=== PATIENT | male | born 1955 | race African-American/Black ===

== ENCOUNTER 2019-08-28 17:21 | Inpatient (IN) | payer MEDICARE, OTHER ==
[~2019-08-28] VITALS: Ht 182.9 cm; Wt 75.7 kg
[~2019-08-28 17:21] MED LIST: ACETAMINOPHEN500 M5 PO; AMBIEN10 MG ORAL; AMLODIPINE BESY10 MG ORAL; ASPIRIN81 MG ORAL; CALCITRIOL1 MCG/1 ML ORAL; CARVEDILOL25 MG ORAL; COZAAR50 MG ORAL; HYDRALAZINE HCL50 MG ORAL; LANTUS SOL100 UNIT/1 SUBQ; LEVEMIR FL100 UNIT/1 SUBQ; MIRALAX17 G2 ORAL; NEPHROVITE1 TAB ORAL; NOVOLOG100 UNITS1 SUBQ; PRAVACHOL20 MG ORAL; RENVELA800 MG ORAL
--- NOTE | 2019-08-28 17:27 | NUR ---
ED Nurse Note: Pt from [facility] brought in by RA [facility] due to CP x 2 days. Also has low Blood pressure of 88/56 upon ED arrival. EMS gave 250ml NS en route. AAO x4, non ambulatory with nonlabored breathing. Pt is on supplemental oxygen at 2LPM. Noted AV fistula on left upper arm. On dialysis M/W/F.
[2019-08-28 18:00] VITALS: BP 88/57
--- NOTE | 2019-08-28 18:04 | NUR ---
ED Nurse Note: Collected blood/urine, VRE/CRE swab, Covid19 swab then sent.
[2019-08-28 18:21] LABS: ANION GAP 10 mmol/L (5-15); BLOOD UREA NITROGEN 37 mg/dL (7-18); CARBON DIOXIDE 28 MMOL/L (21-32); CHLORIDE 104 MMOL/L (98-107); CREATININE 9.2 MG/DL (0.55-1.30); POTASSIUM 3.9 MMOL/L (3.5-5.1); SODIUM 141 MMOL/L (136-145)
--- NOTE | 2019-08-28 18:34 | Diagnostic Imaging Report ---
EXAM: XR Chest, 1 View CLINICAL HISTORY: SOB TECHNIQUE: Frontal view of the chest. COMPARISON: Chest radiograph on 04/02/2015 FINDINGS: Hardware: None. Lungs/pleura: Near complete opacification of the left lung with some sparing of the left upper lung. Right basilar opacity. Heart/mediastinum: Partially obscured by the left lung opacification. Soft tissues: Surgical clips partially visualized in the left. Bones: No acute fracture. Upper abdomen: Normal. IMPRESSION: Near complete opacification of the left lung with some sparing of the left upper lung. Right basilar opacity. Further evaluation could be performed with CT chest.
[2019-08-28 18:35] LABS: BASOPHILS % (AUTO) 0.5 % (0.0-2.0); HEMATOCRIT 35.9 % (42.0-52.0); MEAN CORPUSCULAR VOLUME 107 FL (80-99); MONOCYTES % (AUTO) 8.9 % (1.0-10.0); NEUTROPHILS % (AUTO) 79.6 % (45.0-75.0); PLATELET COUNT 181 K/UL (150-450); RED BLOOD COUNT 3.35 M/UL (4.70-6.10); RED CELL DISTRIBUTION WIDTH 13.4 % (11.6-14.8); WHITE BLOOD COUNT 16.3 K/UL (4.8-10.8)
[2019-08-28 18:36] LABS: ALANINE AMINOTRANSFERASE 51 U/L (12-78); ALBUMIN 1.9 G/DL (3.4-5.0); ALBUMIN/GLOBULIN RATIO 0.3 (1.0-2.7); ALKALINE PHOSPHATASE 56 U/L (46-116); ASPARTATE AMINO TRANSFERASE 57 U/L (15-37); CKMB 1.6 NG/ML (0.0-3.6); CREATINE KINASE 77 U/L (26-308)
--- NOTE | 2019-08-28 18:50 | Emergency Room Report ---
History of Present Illness General Chief Complaint: Chest Pain Source: Patient Present Illness HPI Disclaimer: Please note that this report is being documented using IndexON technology. This can lead to erroneous entry secondary to incorrect interpretation by the dictating instrument. HPI: 64-year-old male presents with chest pain. He has had chest pain for the past 2 days left-sided associated with cough and mild shortness of breath. Patient presented by EMS from his assisted living. He denies any fever. He was mildly hypoxic on room air. He denies any nausea or vomiting. Patient has a history of hypertension diabetes end-stage renal disease on hemodialysis Monday and did complete dialysis today. Pain is 8 out of 10 nonradiating nothing makes it better or worse. Allergies: Coded Allergies: No Known Allergies (Unverified , 04/03/15) COVID-19 Screening Contact w/high risk pt: No Recent Travel to affected area: No Experienced COVID-19 symptoms?: No COVID-19 Testing performed AUTOMATIC PRESSER: No Patient History Reviewed Nursing Documentation: PMH: Agreed; PSxH: Agreed Nursing Documentation-PMH Hx Hypertension: Yes Hx Diabetes: Yes Hx Cancer: No Hx Gastrointestinal Problems: No Hx Dialysis: Yes - LAST DIALYSIS -Mar(M-W-F) Hx Neurological Problems: Yes Hx Cerebrovascular Accident: Yes Hx Transient Ischemic Attacks: No Review of Systems All Other Systems: negative except mentioned in HPI Physical Exam Vital Signs Date Time Temp Pulse Resp B/P (MAP) Pulse Ox O2 Delivery O2 Flow Rate FiO2 08/27/ 17:17 97.9 69 18 90/48 (62) 96 Nasal Cannula 2.0 Sp02 EP Interpretation: reviewed, normal - on O2 General Appearance: well appearing, no apparent distress Head: normocephalic, atraumatic Eyes: bilateral eye PERRL, bilateral eye EOMI ENT: hearing grossly normal, moist mucus membranes Neck: full range of motion, supple Respiratory: no rhonchi, no respiratory distress, no retraction, no wheezing, other - decereased lung sounds throughout left lung Cardiovascular #1: normal peripheral pulses, regular rate, rhythm, no murmur Gastrointestinal: non tender, soft, non-distended, no guarding Musculoskeletal: other - Dialysis access right upper extremity with a thrill Neurologic: alert, oriented x3, no focal defects Skin: normal color, warm/dry Medical Decision Making Diagnostic Impression: Primary Impression: Pneumonia Additional Impressions: Possible COVID-19 Pleural effusion, left ER Course MDM: Patient presented with shortness of breath left-sided chest pain and cough. Differential included but not limited to pneumonia, effusion, CHF, coronavirus infection, ACS to name a few. EKG did not demonstrate any ischemic changes. Troponin was negative. Chest x-ray demonstrated whiteout of left lung. CT scan ordered to further evaluate. Coronavirus swab was sent. Patient 's laboratory studies did demonstrate leukocytosis of 16,000, broad-spectrum antibiotics were given. Aspirin had been given prior to arrival. CT scan of the chest demonstrated loculated effusion and possible consolidations. Plan-plan is to admit to the telemetry floor. Continue IV antibiotics. Patient admitted under Dr. Morgan, his primary care doctor Laboratory Tests Test 08/28/19 17:40 White Blood Count 16.3 K/UL (4.8-10.8) H Red Blood Count 3.35 M/UL (4.70-6.10) L Hemoglobin 11.0 G/DL (14.2-18.0) L Hematocrit 35.9 % (42.0-52.0) L Mean Corpuscular Volume 107 FL (80-99) H Mean Corpuscular Hemoglobin 32.9 PG (27.0-31.0) H Mean Corpuscular Hemoglobin Concent 30.7 G/DL (32.0-36.0) L Red Cell Distribution Width 13.4 % (11.6-14.8) Platelet Count 181 K/UL (150-450) Mean Platelet Volume 8.2 FL (6.5-10.1) Neutrophils (%) (Auto) 79.6 % (45.0-75.0) H Lymphocytes (%) (Auto) 11.0 % (20.0-45.0) L Monocytes (%) (Auto) 8.9 % (1.0-10.0) Eosinophils (%) (Auto) 0.0 % (0.0-3.0) Basophils (%) (Auto) 0.5 % (0.0-2.0) Prothrombin Time 11.0 SEC (9.30-11.50) Prothrombin Time INR 1.0 (0.9-1.1) Activated Partial Thromboplast Time 33 SEC (23-33) Sodium Level 141 MMOL/L (136-145) Potassium Level 3.9 MMOL/L (3.5-5.1) Chloride Level 104 MMOL/L (98-107) Carbon Dioxide Level 28 MMOL/L (21-32) Anion Gap 10 mmol/L (5-15) Blood Urea Nitrogen 37 mg/dL (7-18) H Creatinine 9.2 MG/DL (0.55-1.30) H Estimated Glomerular Filtration Rate 7.0 mL/min (>60) Glucose Level 184 MG/DL (74-106) H Lactic Acid Level 1.40 mmol/L (0.4-2.0) Calcium Level 8.0 MG/DL (8.5-10.1) L Magnesium Level 2.2 MG/DL (1.8-2.4) Total Bilirubin 1.0 MG/DL (0.2-1.0) Aspartate Amino Transferase (AST) 57 U/L (15-37) H Alanine Aminotransferase (ALT) 51 U/L (12-78) Alkaline Phosphatase 56 U/L (46-116) Total Creatine Kinase 77 U/L (26-308) Creatine Kinase MB 1.6 NG/ML (0.0-3.6) Creatine Kinase MB Relative Index 2.0 Troponin I 0.009 ng/mL (0.000-0.056) Pro-B-Type Natriuretic Peptide 5492 pg/mL (0-125) H Total Protein 7.8 G/DL (6.4-8.2) Albumin 1.9 G/DL (3.4-5.0) L Globulin 5.9 g/dL Albumin/Globulin Ratio 0.3 (1.0-2.7) L EKG Diagnostic Results Rate: normal Rhythm: NSR ST Segments: no acute changes Other Impression First-degree AV block nonspecific EKG Rhythm Strip Diag. Results EP Interpretation: yes Rate: 59 Rhythm: NSR, no PVC's, no ectopy Chest X-Ray Diagnostic Results Chest X-Ray Diagnostic Results : Chest X-Ray Ordered: Yes # of Views/Limited/Complete: 1 View Indication: Chest Pain EP Interpretation: Yes Interpretation: other - Complete whiteout of left lung, right lower lobe infiltrate, cardiomegaly, Impression: Other - Right basilar infiltrate, complete whiteout of left lung. Electronically Signed by: Jefferson Sidhu MD CT/MRI/US Diagnostic Results CT/MRI/US Diagnostic Results : Imaging Test Ordered: CT chest without contrast Impression FINDINGS: Lungs: Consolidated portions of the left lung may represent atelectasis, but pneumonia is not excluded. Patchy consolidations in the right lower lobe are concerning for pneumonia. Pleural space: Large left pleural effusion with loculated components. No pneumothorax. Heart: Borderline size of the heart. Small pericardial effusion. Coronary artery calcifications. Thyroid: Hypodense nodules in the left thyroid could be further evaluated with nonemergent dedicated ultrasound if clinically indicated. Bones/joints: Mild degenerative changes of the spine. No acute fracture. No dislocation. Soft tissues: Unremarkable. Vasculature: Unremarkable. No thoracic aortic aneurysm. Lymph nodes: Nonspecific mildly prominent mediastinal lymph nodes. Kidneys and ureters: Small hypodensity in the right kidney is too small to definitively characterize. IMPRESSION: 1. Large left pleural effusion with loculated components. 2. Consolidated portions of the left lung may represent atelectasis, but pneumonia is not excluded. 3. Patchy consolidations in the right lower lobe are concerning for pneumonia. Last Vital Signs Date Time Temp Pulse Resp B/P (MAP) Pulse Ox O2 Delivery O2 Flow Rate FiO2 08/28/19 18:00 97.9 80 16 88/57 96 Nasal Cannula 2.0 Status: unchanged Disposition: ADMITTED INPATIENT Condition: Serious Referrals: Alan Morgan MD (PCP) Jefferson Sidhu M.D. August 28, 2019 18:50
[2019-08-28] MEDS ORDERED: Piperacillin/Tazobactam 3.375 GM in NS 110 ML IVPB ONE (19:00)
[2019-08-28] MEDS ORDERED: Vancomycin 1 GM in NS 275 ML IVPB ONE (19:00)
--- NOTE | 2019-08-28 19:03 | NUR ---
HAND-OFF: Report given to Sandra KEYS.
--- NOTE | 2019-08-28 19:05 | NUR ---
ED Nurse Note: Patient is resting comfortably with no s/s of acute distress. Patietn provided with more warm blankets.
--- NOTE | 2019-08-28 19:06 | Diagnostic Imaging Report ---
EXAM: CT Chest Without Intravenous Contrast CLINICAL HISTORY: CP TECHNIQUE: Axial computed tomography images of the chest without intravenous contrast. CTDI is 7.4 mGy and DLP is 300.3 mGy-cm. One or more of the following dose reduction techniques were used: automated exposure control, adjustment of the mA and/or kV according to patient size, use of iterative reconstruction technique. COMPARISON: Chest radiograph on 08/28/2019 FINDINGS: Lungs: Consolidated portions of the left lung may represent atelectasis, but pneumonia is not excluded. Patchy consolidations in the right lower lobe are concerning for pneumonia. Pleural space: Large left pleural effusion with loculated components. No pneumothorax. Heart: Borderline size of the heart. Small pericardial effusion. Coronary artery calcifications. Thyroid: Hypodense nodules in the left thyroid could be further evaluated with nonemergent dedicated ultrasound if clinically indicated. Bones/joints: Mild degenerative changes of the spine. No acute fracture. No dislocation. Soft tissues: Unremarkable. Vasculature: Unremarkable. No thoracic aortic aneurysm. Lymph nodes: Nonspecific mildly prominent mediastinal lymph nodes. Kidneys and ureters: Small hypodensity in the right kidney is too small to definitively characterize. IMPRESSION: 1. Large left pleural effusion with loculated components. 2. Consolidated portions of the left lung may represent atelectasis, but pneumonia is not excluded. 3. Patchy consolidations in the right lower lobe are concerning for pneumonia.
--- NOTE | 2019-08-28 19:15 | NUR ---
ED Nurse Note: IV antibiotics hung. Will continue to monitor for report to floor.
[2019-08-28 19:34] LABS: APPEARANCE,URINE VERY CLOUDY; BILIRUBIN, URINE NEGATIVE (NEGATIVE); GLUCOSE, URINE (UA) NEGATIVE (NEGATIVE); KETONES,URINE 1+ (NEGATIVE); LEUKOCYTE ESTERASE ,URINE 3+ (NEGATIVE); NITRITE,URINE NEGATIVE (NEGATIVE); PH,URINE 8 (4.5-8.0); PROTEIN,URINE 4+ (NEGATIVE); UROBILINOGEN,URINE NORMAL MG/DL (0.0-1.0)
[2019-08-28 19:36] LABS: COLOR,URINE YELLOW
[2019-08-28] MEDS ORDERED: Miralax 17gm pkt ORAL PRN (20:00)
[2019-08-28] MEDS ORDERED: Nitroglycerin Subl 0.4mg tab SL PRN (20:00)
--- NOTE | 2019-08-28 20:30 | NUR ---
ED Nurse Note: Attempted to give report, No receiving RN at this time, spoke with Mikie CHRISTOPHER.
--- NOTE | 2019-08-28 20:45 | NUR ---
ED Nurse Note: Report called in by CANDI.
[2019-08-28] MEDS: NovoLOG Insulin Flexpen SUBQ SCH (21:00)
[2019-08-28] MEDS: Heparin 5000 units/ml inj SUBQ SCH (21:00)
[2019-08-28 22:30] VITALS: BP 106/55
--- NOTE | 2019-08-28 22:30 | NUR ---
NURSE NOTES: Got report from Charge Nurse Tammie. Pt is in room. Pt in stable condition. Denies any pain. Denies any n/v or SOB. Pt is admitted for chest pain. VS T:97 HR:60 R:20 BP:106/55 O2:95% on 2L Nasal Cannula. Pt resting in bed comfortably. Pt has CALI 20g patent and intact. Pt is very weak and nonambulatory. No skin issues noted. saw repairer placed on pt running Sinus Rhythm on the monitor. Bed in low and locked position, call light within reach, bedside table within reach. Continue to monitor. Addendum: 08/29/19 at 0138 by Justin Ferrera RN Pt is fully oriented and able to answer all my questions.
[2019-08-29] VITALS: BP 110/51
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
[2019-08-29 04:00] VITALS: BP 93/53
[2019-08-29] MEDS: Zosyn 2.25 gm in D5W 55ml IV SCH ×3 (05:56→21:41)
[2019-08-29] MEDS ORDERED: Piperacillin/Tazobactam 3.375 GM in NS 110 ML IVPB SCH (06:00)
[2019-08-29] MEDS: NovoLOG Insulin Flexpen SUBQ SCH ×4 (06:30→21:00)
--- NOTE | 2019-08-29 07:15 | NUR ---
HAND-OFF: Report given to Shelton KEYS.
--- NOTE | 2019-08-29 07:25 | NUR ---
NURSE NOTES: RECEIVED REPORT FROM LAZARO KEYS STAFF OF DAMPENER OPERATOR. RECEIVED PT ON DROPLET PRECAUTION ISOLATION ROOM. PT R/O FOR COVID-19. PT IS AWAKE AND ALERT ORIENTED X4.PT USING O2 @ 2L/MINTS VIA N/C SAT 95% NOTED AT THIS TIME. PT ON SCHEDULE FOR H.D TODAY. PLACED A TELEPHONE CALL TO DARRION RN AND SPOKE WITH HONORIO AND MADE AWARE AND NOTIFIED REGARDING PT HAS ORDERS FOE H.D TODAY. HONORIO RN STATING THAT WILL COME TODAY TO THE H.D. PT HAS AV SHUNT ON RT UPPER ARM GOOD BRUIT AND THRILL NOTED. FULL BODY ASSESSMENT DONE. H.L ON LT FA G# 20 PATENT & INTACT. NO ACUTE DISTRESS NOTED AT THIS TIME. WILL C ONT TO MONITOR.
[2019-08-29 08:00] VITALS: BP 100/47
[2019-08-29] MEDS ORDERED: Heparin Sod 1000 units/ml 10ml IV PRN (09:00)
--- NOTE | 2019-08-29 09:24 | Consultation ---
Lorna Baker HOTEL LOBBY CONCIERGE 08/29/19 0923: History of Present Illness General Date patient seen: August 29, 2019 Time patient seen: 08:00 Chief Complaint: CP with SOB Referring physician: Dr Morgan Reason for Consultation: SOB, cough Present Illness HPI 64 years old male with past medical history of hypertension, diabetes mellitus, end-stage renal disease, on hemodialysis, resident of assisted living, was sent for evaluation due to chest pain with associated shortness of breath and cough. On evaluation patient was hypoxic on room air and required supplemental oxygen. Patient denies fever and chills. Patient had dialysis yesterday. Laboratory work-up revealed leukocytosis WBC 16.3, hemoglobin 11, hematocrit 35.9. BUN 37, creatinine 9.2, consistent with known history of end-stage renal disease. Lactic acid 1.4. AST 57, ALT 51. Troponin 0.009, pro BNP 5492. EKG revealed sinus rhythm with first-degree AV block. Urinalysis showed evidence of probable UTI. Albumin 1.9. Chest x-ray revealed near complete opacification of the left lung with some sparing of the left upper lung. Right basilar opacity. Subsequently CT scan of the chest was done , which demonstrated large left pleural effusion with loculated components. Consolidated portion of the left lung, likely representing atelectasis , but pneumonia was not excluded. Patchy consolidation in the right lower lobe. In emergency department patient pancultured , started on empiric antibiotics. Patient was swabbed for COVID-19. Patient received aspirin in the assisted living prior to arrival to ED. Patient subsequently admitted to telemetry floor for further management. Pulmonary consult was requested to assist in management of this patient. Allergies: Coded Allergies: No Known Allergies (Unverified , 04/03/15) Medication History Scheduled Acetaminophen (Acetaminophen), 325 MG PO EVERY 8 HOURS, (Reported) Aspirin* (Aspirin*), 81 MG ORAL DAILY, (Reported) Carvedilol* (Carvedilol*), 25 MG ORAL TWICE A DAY, (Reported) Insulin Aspart (Novolog Flexpen), 0 UNITS SUBQ AC+HS Insulin Detemir (Levemir Flexpen), 8 UNITS SUBQ BEDTIME Pravastatin Sod* (Pravachol*), 80 MG ORAL BEDTIME Sevelamer Carbonate (Renvela), 800 MG ORAL THREE TIMES A DAY Vitamin B Cmplx/Vit C/Folic AC (Nephro-Jessica Tablet), 1 TAB ORAL DAILY Scheduled PRN Polyethylene Glycol 3350* (Miralax*), 17 GM ORAL DAILYPRN PRN for Constipation Patient History History Provided By: Patient, Medical Record Healthcare decision maker N Resuscitation status Advanced Directive on File Past Medical/Surgical History Past Medical/Surgical History: (1) End-stage renal disease (2) 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 Review of Systems Constitutional: Reports: weakness Eye: Reports: no symptoms ENT: Reports: no symptoms Respiratory: Reports: see HPI, shortness of breath Cardiovascular: Reports: see HPI Gastrointestinal: Reports: no symptoms Genitourinary: Reports: other - ESRD, on HD Musculoskeletal: Reports: muscle stiffness, other - not ambulato\ry Skin: Reports: no symptoms Psychiatric: Reports: no symptoms Neurological: Reports: other - hx of CVA Endocrine: Reports: other - DM Hematologic/Lymphatic: Reports: anemia Physical Exam General Appearance: alert - awake, responsive AA male , other - mild resp distress Lines, tubes and drains: peripheral HEENT: normocephalic, atraumatic, anicteric, mucous membranes moist, PERRL, other - O2 via NC Neck: non-tender, supple Respiratory/Chest: decreased breath sounds - more on the left side Cardiovascular/Chest: normal rate - SR with 1 st degree AV block Abdomen: normal bowel sounds, non tender, soft Extremities: other - LUE AV fistula + bruit/thrill Skin Exam: normal pigmentation, warm/dry Neurologic: abnormal gait, alert, responsive, normal mood/affect Musculoskeletal: atrophy - BLE, other - non-ambulatory Last 24 Hour Vital Signs Date Time Temp Pulse Resp B/P (MAP) Pulse Ox O2 Delivery O2 Flow Rate FiO2 08/29/19 05:41 97.9 08/29/19 04:00 63 08/29/19 04:00 97.0 66 20 93/53 (66) 95 08/29/19 00:42 Nasal Cannula 2.0 08/29/19 00:32 Nasal Cannula 2.0 08/29/19 00:00 97.0 71 20 110/51 (70) 95 08/29/19 00:00 63 08/28/19 22:30 97.0 60 20 106/55 (72) 95 08/28/19 21:30 61 08/28/19 20:58 97.9 80 16 88/57 96 Nasal Cannula 2.0 08/28/19 18:00 97.9 80 16 88/57 96 Nasal Cannula 2.0 08/28/19 17:27 69 18 Nasal Cannula 2.0 08/28/19 17:17 97.9 69 18 90/48 (62) 96 Nasal Cannula 2.0 Intake and Output 08/28/19 08/29/19 19:00 07:00 Intake Total 1000 ml Output Total 0 ml Balance 1000 ml 0 ml Intake IV Total 1000 ml Output Urine Total 0 ml Stool Total 0 ml # Voids 1 # Bowel Movements 2 Laboratory Tests Test 08/28/19 17:40 08/28/19 18:40 White Blood Count 16.3 K/UL (4.8-10.8) H Red Blood Count 3.35 M/UL (4.70-6.10) L Hemoglobin 11.0 G/DL (14.2-18.0) L Hematocrit 35.9 % (42.0-52.0) L Mean Corpuscular Volume 107 FL (80-99) H Mean Corpuscular Hemoglobin 32.9 PG (27.0-31.0) H Mean Corpuscular Hemoglobin Concent 30.7 G/DL (32.0-36.0) L Red Cell Distribution Width 13.4 % (11.6-14.8) Platelet Count 181 K/UL (150-450) Mean Platelet Volume 8.2 FL (6.5-10.1) Neutrophils (%) (Auto) 79.6 % (45.0-75.0) H Lymphocytes (%) (Auto) 11.0 % (20.0-45.0) L Monocytes (%) (Auto) 8.9 % (1.0-10.0) Eosinophils (%) (Auto) 0.0 % (0.0-3.0) Basophils (%) (Auto) 0.5 % (0.0-2.0) Prothrombin Time 11.0 SEC (9.30-11.50) Prothromb Time International Ratio 1.0 (0.9-1.1) Activated Partial Thromboplast Time 33 SEC (23-33) Sodium Level 141 MMOL/L (136-145) Potassium Level 3.9 MMOL/L (3.5-5.1) Chloride Level 104 MMOL/L (98-107) Carbon Dioxide Level 28 MMOL/L (21-32) Anion Gap 10 mmol/L (5-15) Blood Urea Nitrogen 37 mg/dL (7-18) H Creatinine 9.2 MG/DL (0.55-1.30) H Estimat Glomerular Filtration Rate 7.0 mL/min (>60) Glucose Level 184 MG/DL (74-106) H Lactic Acid Level 1.40 mmol/L (0.4-2.0) Calcium Level 8.0 MG/DL (8.5-10.1) L Magnesium Level 2.2 MG/DL (1.8-2.4) Total Bilirubin 1.0 MG/DL (0.2-1.0) Aspartate Amino Transf (AST/SGOT) 57 U/L (15-37) H Alanine Aminotransferase (ALT/SGPT) 51 U/L (12-78) Alkaline Phosphatase 56 U/L (46-116) Total Creatine Kinase 77 U/L (26-308) Creatine Kinase MB 1.6 NG/ML (0.0-3.6) Creatine Kinase MB Relative Index 2.0 Troponin I 0.009 ng/mL (0.000-0.056) Pro-B-Type Natriuretic Peptide 5492 pg/mL (0-125) H Total Protein 7.8 G/DL (6.4-8.2) Albumin 1.9 G/DL (3.4-5.0) L Globulin 5.9 g/dL Albumin/Globulin Ratio 0.3 (1.0-2.7) L Urine Color Yellow Urine Appearance Very cloudy Urine pH 8 (4.5-8.0) Urine Specific [place] 1.020 (1.005-1.035) Urine Protein 4+ (NEGATIVE) H Urine Glucose (UA) Negative (NEGATIVE) Urine Ketones 1+ (NEGATIVE) H Urine Blood 4+ (NEGATIVE) H Urine Nitrite Negative (NEGATIVE) Urine Bilirubin Negative (NEGATIVE) Urine Urobilinogen Normal MG/DL (0.0-1.0) Urine Leukocyte Esterase 3+ (NEGATIVE) H Urine RBC 15-20 /HPF (0 - 0) H Urine WBC Tntc /HPF (0 - 0) H Urine Squamous Epithelial Cells Occasional /LPF Urine Bacteria Moderate /HPF (NONE) H Microbiology Date/Time Source Procedure Growth Status 08/28/19 17:45 Rectum Received Height (Feet): 6 Height (Inches): 1.00 Weight (Pounds): 180 Medications Current Medications Medications (Trade) Dose Ordered Sig/Raheel Route PRN Reason Start Time Stop Time Status Last Admin Dose Admin Acetaminophen (Tylenol) 650 mg Q4H PRN ORAL Mild Pain (Pain Scale 1-3) 08/28/19 20:00 09/27/19 19:59 08/29/19 05:04 Acetaminophen (Tylenol) 650 mg Q4H PRN ORAL Temp >100.5 08/28/19 20:00 09/27/19 19:59 Albumin Human 100 ml @ 200 mls/hr PRN PRN IV sbp<90 during hd 08/29/19 09:00 08/29/19 23:59 Aspirin (ASA) 81 mg DAILY ORAL 08/29/19 09:00 10/13/19 08:59 Carvedilol (Coreg) 25 mg Q12HR ORAL 08/29/19 21:00 09/28/19 20:59 Heparin Sodium (Porcine) (Heparin 5000 units/ml) 5,000 units EVERY 12 HOURS SUBQ 08/28/19 21:00 10/12/19 20:59 08/28/19 21:00 Heparin Sodium (Porcine) (Heparin Sod 1000 units/ml 10ml) 500 unit ONCE PRN IV dialysis 08/29/19 09:00 08/29/19 23:59 Insulin Aspart (NovoLOG) BEFORE MEALS AND HS SUBQ 08/28/19 21:00 11/26/19 20:59 08/28/19 21:00 Ondansetron HCl (Zofran) 4 mg Q6H PRN IVP Nausea & Vomiting 08/28/19 20:00 09/27/19 19:59 08/29/19 05:04 Piperacillin Sod/ Tazobactam Sod 2.25 gm/Dextrose 55 ml @ 110 mls/hr Q8HR IV 08/29/19 06:00 09/05/19 05:59 08/29/19 05:56 Polyethylene Glycol (Miralax) 17 gm DAILYPRN PRN ORAL Constipation 08/28/19 20:00 09/27/19 19:59 Pravastatin Sodium (Pravachol) 80 mg BEDTIME ORAL 08/28/19 21:00 09/27/19 20:59 08/28/19 21:00 Sevelamer Carbonate (Renvela) 800 mg THREE TIMES A DAY ORAL 08/29/19 09:00 11/27/19 08:59 Vancomycin HCl (Vanco rx to dose) 1 ea DAILY PRN MISC Per rx protocol 08/28/19 20:00 09/27/19 19:59 Vitamin B Complex/ Vit C/Folic Acid (Nephrovite) 1 tab DAILY ORAL 08/29/19 09:00 09/28/19 08:59 Assessment/Plan Assessment/Plan: ASSESSMENT Pneumonia Large left pleural effusion with loculated components Chest pain End-stage renal disease ,on hemodialysis Diabetes mellitus, insulin dependent Hypertension Anemia of chronic kidney disease History of CVA UTI Hypoalbuminemia PLAN OF CARE tele isolation room supplemental O2 to keep sat above 92% ROBERT Finney prn positioning elevate left side of the chest on 2 pillows will attempt US guided thoracentesis of large left pleural effusion , however may be not successful given loculated components fluid cx, cytology, cell count with diff, LDH, protein, glucose then may need bronchoscopy empiric abx- fup with cx and CoVID 19 results serial troponin, ECHO - per cardio monitor volumes, HD per nephro/attending BP management continue ASA and statin D dimer, CRP, LDH, ferritin Venous Duplex BLE when able to do DVT prophylaxis trend LFT, hep panel BS management monitor HH with goal to keep Hgb above 7 supportive care case discussed and evaluated by supervising physician Justo Arthur MD 08/29/19 1125: History of Present Illness General Chief Complaint: CP with SOB Present Illness Allergies: Coded Allergies: No Known Allergies (Unverified , 04/03/15) Medication History Scheduled Acetaminophen (Acetaminophen), 325 MG PO EVERY 8 HOURS, (Reported) Aspirin* (Aspirin*), 81 MG ORAL DAILY, (Reported) Carvedilol* (Carvedilol*), 25 MG ORAL TWICE A DAY, (Reported) Insulin Aspart (Novolog Flexpen), 0 UNITS SUBQ AC+HS Insulin Detemir (Levemir Flexpen), 8 UNITS SUBQ BEDTIME Pravastatin Sod* (Pravachol*), 80 MG ORAL BEDTIME Sevelamer Carbonate (Renvela), 800 MG ORAL THREE TIMES A DAY Vitamin B Cmplx/Vit C/Folic AC (Nephro-Jessica Tablet), 1 TAB ORAL DAILY Scheduled PRN Polyethylene Glycol 3350* (Miralax*), 17 GM ORAL DAILYPRN PRN for Constipation Assessment/Plan Assessment/Plan: Patient seen and examined with [facility]GE. Agree with above A&P as it reflects our joint deliberations. Loculated effusion, will attempt US guided thora but will likely need VATS. Will D/W Dr. Morgan and consider CTS consult. Lorna Baker NP August 29, 2019 09:23 Justo Arthur MD August 29, 2019 11:25
[2019-08-29] MEDS ORDERED: Albuterol 90mcg Inhaler 8gm INH PRN (10:00)
[2019-08-29] MEDS: Heparin 5000 units/ml inj SUBQ SCH ×2 (10:13→21:29)
[2019-08-29] MEDS: Nephrovite tab (Rena-Vite) ORAL SCH (10:14)
[2019-08-29] MEDS: Aspirin Baby 81mg ORAL SCH (10:14)
[2019-08-29 12:00] VITALS: BP 92/49
[2019-08-29 13:10] LABS: BASOPHILS % (AUTO) 0.5 % (0.0-2.0); EOSINOPHILS % (AUTO) 0.9 % (0.0-3.0); HEMOGLOBIN 10.6 G/DL (14.2-18.0); LYMPHOCYTES % (AUTO) 10.7 % (20.0-45.0); MEAN CORPUSCULAR VOLUME 98 FL (80-99); MONOCYTES % (AUTO) 8.8 % (1.0-10.0); NEUTROPHILS % (AUTO) 79.2 % (45.0-75.0); PLATELET COUNT 176 K/UL (150-450); RED BLOOD COUNT 3.27 M/UL (4.70-6.10); WHITE BLOOD COUNT 13.6 K/UL (4.8-10.8)
[2019-08-29 13:31] LABS: ANION GAP 11 mmol/L (5-15); BLOOD UREA NITROGEN 46 mg/dL (7-18); CALCIUM 7.7 MG/DL (8.5-10.1); CARBON DIOXIDE 27 MMOL/L (21-32); CHLORIDE 105 MMOL/L (98-107); CREATININE 10.1 MG/DL (0.55-1.30); PHOSPHORUS 5.7 MG/DL (2.5-4.9); SODIUM 142 MMOL/L (136-145)
--- NOTE | 2019-08-29 14:28 | NUR ---
CASE MANAGEMENT:REVIEW 64YR OLD MALE BIBA FROM [facility] CC: CHEST PAIN PMH: ESRD ON HD SI: PNA. LT PLEURAL EFFUSION. SUSPECTED COVID 19 97.9 69 18 88/57 96% ON 2L/NC WBC+16.3 IS: 1L NS BOLUS IV ZOSYN IV VANCOMYCIN CT CHEST CHEST XRAY COVID 19 SWAB URINE CX BLOOD CX : TO TELEMETRY DCP: FROM [facility]
--- NOTE | 2019-08-29 14:58 | NUR ---
P.T Note: P.T evaluation completed and tx initiated. Please refer to P.T evaluation for full report and recommendation.
[2019-08-29 16:00] VITALS: BP 98/49
--- NOTE | 2019-08-29 16:37 | NUR ---
PT REFERRED FOR BEDSIDE SWALLOW EVALUATION BY DR CHEW (Please see care activity section for complete report) DYSPHAGIA RISK FACTORS FOR THIS 64 Y.O. Male ACUTE ISSUES Pneumonia (PUI COVID-19), Large left pleural effusion with loculated components, Chest pain, Anemia of chronic kidney disease, Hypoalbuminemia. COMORBIDITIES ESRD requiring HD, DM w/ insulin dependence, HTN, h/o CVA. RELEVANT MEDICATIONS: Zofran (nausea), Heparin, Dilaudid (Pain); Protonix (GERD). PRIOR FUNCTION: Pt reports no history of swallowing problem and previously consuming regular solids with thin liquids, unable to be corroborated. RESPIRATORY STATUS on Nasal Cannula 2L: HR: 66, RR 19; SP02 90%. SPEECH/LANGUAGE: Pt is able to communicate wants and needs, verbal output is slightly difficult to understanding due to ill-fitting dentures. Pt is able to appropriately communicate w/ MANUFACTURING LAB TECHNICIAN for the duration of the session. RN REPORTS: Pt swallowed PO medications whole w/ thin liquids and no overt or significant s/s of aspiration. Pt is awake and lying supine in bed, has nasal cannula off of face, MANUFACTURING LAB TECHNICIAN replaced, however, ill-fitting due to Pts right naris. Pt has upper and lower dentures, however, ill-fitting and move around when Pt talks/eats. INITIAL IMPRESSIONS: S/s of at least mild oral and probable mild pharyngeal phase dysphagia compounded by hx of CVA, and exacerbated by reduced respiratory-swallow coordination. Pt additionally observed w/ prolonged mastication and oral preparation due to dentures. No significant overt s/s of aspiration, laryngeal elevation is fair. ->Given thin liquids via straw and cup w/ no overt s/s of aspiration, clear vocal quality, and laryngeal elevation is fair ->Given puree solids via teaspoon w/ no immediate or overt s/s of aspiration. ->Given soft solids (cracker) mildly prolonged mastication and A-P transit, trace oral residuals, no significant or overt s/s of aspiration at bedside. -PATIENT IS AT A RISK FOR ASPIRATION DUE TO HX OF CVA AND POOR BREATHING-SWALLOW COORDINATION RECOMMENDATIONS: 1.Downgrade Pt to Mechanical Soft- Chopped w/ Thin Liquids; Pt reports needing assistance w/ tray set up and benefits from close monitoring during meals. 2.ASPIRATION/REFLUX PRECAUTIONS, refer to sign posted above HOB 3.Assist Pt w/ Oral care BID 4.SKILLED ST SERVICES TO F/U 3x a week x 1 week 5.MBSS IP OR OP (IF D/C) WHEN COVID NEG MANUFACTURING LAB TECHNICIAN additionally received an order from Dr. Chew for MANUFACTURING LAB TECHNICIAN Speech, Language, and Cognitive Communicative Evaluation, MANUFACTURING LAB TECHNICIAN plans to complete this w/ Pt tomorrow and f/u w/ Pt for diet tolerance, and dysphagia tx/management.
[2019-08-29] MEDS ORDERED: Vancomycin 750mg/D5W 275ml IVPB SCH ×2 (17:00)
--- NOTE | 2019-08-29 19:30 | NUR ---
NURSE NOTES: Received report from LUDMILA Peoples. Patient awake, alert, and coherent. Currently undergoing dialysis at this time with LUDMILA Lockwood. IV intact and asymptomatic. Able to verbalize needs. IV on left arm, fistula for HD on right arm. Right arm precautions in place. skin is intact. Bed in lowest position, brakes engaged. Bed rails raised x2. Call light placed within reach. Will continue to monitor.
--- NOTE | 2019-08-29 19:30 | NUR ---
HAND-OFF: Report given to .CORNELIA KEYS.
[2019-08-29 20:00] VITALS: BP 109/42
--- NOTE | 2019-08-29 20:21 | NUR ---
NURSE NOTES: HD nurse reported that patient had an episode of vomitting. Zofran 4mg IVP given. Will continue to monitor.
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
[2019-08-29] MEDS ORDERED: Carvedilol 25mg Tab ORAL SCH (21:00)
[2019-08-29] MEDS: Carvedilol 25mg Tab ORAL SCH (21:00)
[2019-08-30] VITALS: BP 111/50
--- NOTE | 2019-08-30 00:30 | Progress Note ---
DATE: 08/29/2019 CARDIOLOGY PROGRESS NOTE SUBJECTIVE: The patient still has some cough, chest pain, and shortness of breath. OBJECTIVE: VITAL SIGNS: Blood pressure 100/47 earlier, now 109/42, heart rate 70, respiratory rate 17, afebrile, oxygen saturation on 2 liters is 90% to 93%. LUNGS: Diminished breath sounds. Rhonchi. HEART: Regular rhythm and rate. Normal S1, S2. ABDOMEN: Soft. EXTREMITIES: No edema. LABORATORY AND DIAGNOSTIC DATA: Sodium 142, potassium 4, bicarb 27, BUN 46, creatinine 10.1. Troponin negative x2. CRP is 26. White count 13.6, hemoglobin 10.6. IMPRESSION: 1. Pleuritic chest pain. 2. Right-sided pleural effusion and pneumonia. 3. End-stage renal disease. 4. Chronic diastolic congestive heart failure with elevated natriuretic peptide assay. PLAN: 1. Follow up echocardiogram, antimicrobials, respiratory hygiene. 2. Consideration for thoracentesis. 3. Await venous duplex scan of lower extremities. Manfred Conn M.D. DR: Perla JOB#: [id number] CC:
[2019-08-30 04:00] VITALS: BP 95/49
[2019-08-30 04:15] LABS: ANION GAP 10 mmol/L (5-15); BLOOD UREA NITROGEN 36 mg/dL (7-18); CARBON DIOXIDE 28 MMOL/L (21-32); CHLORIDE 104 MMOL/L (98-107); CREATININE 8.3 MG/DL (0.55-1.30); SODIUM 142 MMOL/L (136-145)
--- NOTE | 2019-08-30 04:39 | NUR ---
NURSE NOTES: Patient awake. HOB elevated. Complained of n/v, gave zofran as prescribed. AM labs drawn and sent to the lab. Turned patient to his side. Call light placed within reach. will continue to monitor.
[2019-08-30 05:20] LABS: BASOPHILS % (AUTO) 0.4 % (0.0-2.0); EOSINOPHILS % (AUTO) 1.7 % (0.0-3.0); HEMATOCRIT 33.3 % (42.0-52.0); MEAN CORPUSCULAR VOLUME 99 FL (80-99); MONOCYTES % (AUTO) 8.8 % (1.0-10.0); NEUTROPHILS % (AUTO) 72.2 % (45.0-75.0); PLATELET COUNT 188 K/UL (150-450); RED BLOOD COUNT 3.38 M/UL (4.70-6.10); RED CELL DISTRIBUTION WIDTH 12.2 % (11.6-14.8)
[2019-08-30] MEDS: Zosyn 2.25 gm in D5W 55ml IV SCH ×3 (05:29→20:49)
[2019-08-30] MEDS: NovoLOG Insulin Flexpen SUBQ SCH ×4 (05:29→20:58)
--- NOTE | 2019-08-30 07:30 | NUR ---
HAND-OFF: Report given to LUDMILA Edmondson. Patient stable.
[2019-08-30 08:42] VITALS: BP 130/56
[2019-08-30] MEDS: Heparin 5000 units/ml inj SUBQ SCH (09:00)
[2019-08-30] MEDS: Nephrovite tab (Rena-Vite) ORAL SCH (09:07)
[2019-08-30] MEDS: Aspirin Baby 81mg ORAL SCH (09:07)
[2019-08-30] MEDS: Carvedilol 25mg Tab ORAL SCH ×2 (09:08→20:57)
--- NOTE | 2019-08-30 09:14 | Pulmonology Progress Note ---
Lorna Baker UNDERGROUND FOREMAN 08/30/19 0914: Subjective Allergies: Coded Allergies: No Known Allergies (Unverified , 04/03/15) Subjective leuk trending down remains afberile first CoVID 08/27 negative on O2 via NC ; table pulse ox awaiting for tap- can not do until clear from isolation SNF requires 2 CoVID test Objective Last 24 Hour Vital Signs Date Time Temp Pulse Resp B/P (MAP) Pulse Ox O2 Delivery O2 Flow Rate FiO2 08/30/19 08:44 Nasal Cannula 2.0 08/30/19 08:43 75 08/30/19 08:42 98.2 74 21 130/56 (80) 96 08/30/19 04:00 97.4 73 17 95/49 (64) 96 08/30/19 04:00 73 08/30/19 00:00 97.3 72 18 111/50 (70) 92 08/30/19 00:00 71 08/29/19 21:00 70 109/42 08/29/19 21:00 Nasal Cannula 2.0 08/29/19 20:00 87 08/29/19 20:00 97.2 70 17 109/42 (64) 93 08/29/19 16:00 69 08/29/19 16:00 97.7 67 18 98/49 (65) 67 08/29/19 12:00 65 08/29/19 12:00 97.7 66 19 92/49 (63) 66 Intake and Output 08/29/19 08/30/19 19:00 07:00 Intake Total 1108.333 ml 358.333 ml Output Total 2000 ml Balance 1108.333 ml -1641.667 ml Intake Oral 870 ml 120 ml IV Total 238.333 ml 238.333 ml Hemodialysis UF 2000 ml Objective General Appearance: alert - awake, responsive AA male , mild resp distress Lines, tubes and drains: peripheral HEENT: normocephalic, atraumatic, anicteric, mucous membranes moist, PERRL, O2 via NC Neck: non-tender, supple Respiratory/Chest: decreased breath sounds , more on the left side Cardiovascular/Chest: normal rate - SR with 1 st degree AV block Abdomen: normal bowel sounds, non tender, soft Extremities: LUE AV fistula + bruit/thrill Skin Exam: normal pigmentation, warm/dry Neurologic: abnormal gait, alert, responsive, normal mood/affect Musculoskeletal: atrophy - BLE, , non-ambulatory Musculoskeletal: other - non-ambulatory Microbiology Date/Time Source Procedure Growth Status 08/28/19 17:50 Blood Blood Culture - Preliminary NO GROWTH AFTER 24 HOURS Resulted 08/28/19 17:40 Blood Blood Culture - Preliminary Gram Positive Cocci Resulted 08/28/19 17:40 Nasopharynx Coronavirus COVID-19 PCR (IDRIS) - Final Complete 08/28/19 18:40 Urine,Clean Catch Urine Culture - Preliminary Gram Negative Nagi Resulted 08/28/19 17:45 Rectum Received Laboratory Tests 08/29/19 12:55: White Blood Count 13.6H, Red Blood Count 3.27L, Hemoglobin 10.6L, Hematocrit 32.0L, Mean Corpuscular Volume 98#, Mean Corpuscular Hemoglobin 32.5H, Mean Corpuscular Hemoglobin Concent 33.2, Red Cell Distribution Width 12.0, Platelet Count 176, Mean Platelet Volume 5.9L, Neutrophils (%) (Auto) 79.2H, Lymphocytes (%) (Auto) 10.7L, Monocytes (%) (Auto) 8.8, Eosinophils (%) (Auto) 0.9, Basophils (%) (Auto) 0.5, D-Dimer 17.88H, Sodium Level 142, Potassium Level 4.0 , Chloride Level 105, Carbon Dioxide Level 27, Anion Gap 11, Blood Urea Nitrogen 46H, Creatinine 10.1H, Estimat Glomerular Filtration Rate 6.3, Glucose Level 147H, Calcium Level 7.7L, Phosphorus Level 5.7H, Ferritin 683H, Ammonia 36H, Lactate Dehydrogenase 119, Troponin I 0.008, C-Reactive Protein, Quantitative 26.2H, Carcinoembryonic Antigen 2.5, Thyroid Stimulating Hormone ( TSH) 0.680, Random Vancomycin Level 9.9, Hepatitis B Surface Antigen Negative, Hepatitis B Surface Antibody, Quant 4.2L, Hepatitis C Antibody >11.0H 08/30/19 04:00: White Blood Count 13.0H, Red Blood Count 3.38L, Hemoglobin 11.0L, Hematocrit 33.3L, Mean Corpuscular Volume 99, Mean Corpuscular Hemoglobin 32.6H, Mean Corpuscular Hemoglobin Concent 33.0, Red Cell Distribution Width 12.2, Platelet Count 188, Mean Platelet Volume 6.2L, Neutrophils (%) (Auto) 72.2, Lymphocytes ( %) (Auto) 17.0L, Monocytes (%) (Auto) 8.8, Eosinophils (%) (Auto) 1.7, Basophils (%) (Auto) 0.4, Sodium Level 142, Potassium Level 4.0, Chloride Level 104, Carbon Dioxide Level 28, Anion Gap 10, Blood Urea Nitrogen 36H, Creatinine 8.3H, Estimat Glomerular Filtration Rate 7.9, Glucose Level 113H, Calcium Level 8.0L Current Medications Medications (Trade) Dose Ordered Sig/Raheel Route PRN Reason Start Time Stop Time Status Last Admin Dose Admin Acetaminophen (Tylenol) 650 mg Q4H PRN ORAL Mild Pain (Pain Scale 1-3) 08/28/19 20:00 09/27/19 19:59 08/29/19 05:04 Acetaminophen (Tylenol) 650 mg Q4H PRN ORAL Temp >100.5 08/28/19 20:00 09/27/19 19:59 Albuterol Sulfate (Proventil MDI) 2 puff Q4H PRN INH Shortness of Breath 08/29/19 10:00 11/27/19 09:59 08/29/19 12:33 Aspirin (ASA) 81 mg DAILY ORAL 08/29/19 09:00 10/13/19 08:59 08/29/19 10:14 Carvedilol (Coreg) 25 mg Q12HR ORAL 08/29/19 21:00 09/28/19 20:59 Heparin Sodium (Porcine) (Heparin 5000 units/ml) 5,000 units EVERY 12 HOURS SUBQ 08/28/19 21:00 10/12/19 20:59 08/29/19 21:29 Insulin Aspart (NovoLOG) BEFORE MEALS AND HS SUBQ 08/28/19 21:00 11/26/19 20:59 08/29/19 17:21 Ondansetron HCl (Zofran) 4 mg Q6H PRN IVP Nausea & Vomiting 08/28/19 20:00 09/27/19 19:59 08/30/19 04:20 Piperacillin Sod/ Tazobactam Sod 2.25 gm/Dextrose 55 ml @ 110 mls/hr Q8HR IV 08/29/19 06:00 09/05/19 05:59 08/30/19 05:29 Polyethylene Glycol (Miralax) 17 gm DAILYPRN PRN ORAL Constipation 08/28/19 20:00 09/27/19 19:59 Pravastatin Sodium (Pravachol) 80 mg BEDTIME ORAL 08/28/19 21:00 09/27/19 20:59 08/29/19 21:31 Sevelamer Carbonate (Renvela) 800 mg THREE TIMES A DAY ORAL 08/29/19 09:00 11/27/19 08:59 08/29/19 17:41 Vancomycin HCl (Vanco rx to dose) 1 ea DAILY PRN MISC Per rx protocol 08/28/19 20:00 09/27/19 19:59 Vitamin B Complex/ Vit C/Folic Acid (Nephrovite) 1 tab DAILY ORAL 08/29/19 09:00 09/28/19 08:59 08/29/19 10:14 Assessment/Plan Assessment/Plan ASSESSMENT Pneumonia Large left pleural effusion with loculated components Pleuritic chest pain Bacteremia /GPC - real vs contaminant End-stage renal disease ,on hemodialysis Diabetes mellitus, insulin dependent Hypertension Anemia of chronic kidney disease History of CVA UTI Hypoalbuminemia Hep C positive PLAN OF CARE tele isolation room Covid 19 08/27 NGT will get another one today ( for SNF) supplemental O2 to keep sat above 92% ROBERT Finney prn positioning: elevate left side of the chest on 2 pillows will attempt US guided thoracentesis of large left pleural effusion , however may be not successful given loculated components fluid cx, cytology, cell count with diff, LDH, protein, glucose then may need bronchoscopy /VATS CT surgeon consult ( will call) empiric abx- fup with cx and second CoVID 19 results 08/27 BCX + GPC 1/2, received Vanco, fup with final results of BCX and repeat BCX for clearance 08/27 SARS CoV-2 by PCR NGT 08/27 UCX + GNR, on Zosyn serial troponin - NGT x 2 ECHO - with pEF monitor volumes, CP likely pleuritic , resolved HD per nephro/attending BP management continue ASA and statin D dimer 17.8 CRP 26,2, LDH 119 , ferritin 683 Venous Duplex BLE just completed, preliminary NGT on DVT prophylaxis with Heparin start on LMWH /for treatment proceed with VQ scan when cleared from isolation trend LFT, hep panel + hep C BS management monitor HH with goal to keep Hgb above 7 supportive care case discussed and evaluated by supervising physician Justo Arthur MD 08/30/19 1629: Subjective Allergies: Coded Allergies: No Known Allergies (Unverified , 04/03/15) Assessment/Plan Assessment/Plan Patient seen and examined with UNDERGROUND FOREMAN, agree with above A&P as it reflects our joint deliberations. CTS eval, will need VATS. D/W Dr. Morgan and Lorna Carreno NP August 30, 2019 09:14 Justo Arthur MD August 30, 2019 16:29
[2019-08-30] MEDS ORDERED: Enoxaparin 80mg Inj SUBQ SCH (10:45)
[2019-08-30 12:00] VITALS: BP 127/63
--- NOTE | 2019-08-30 12:07 | NUR ---
CASE MANAGEMENT:REVIEW 08/30/19 SI: PNEUMONIA. COVID NEGATIVE LG LT LOCULATED PLEURAL EFFUSION. BACTEREMIA 98.2 74 21 130/56 96% ON 2L/NC WBC+13.0 H/H-11.0/33.3 BUN+36 CR+8.3 IS: LOVENOX SQ QD COREG PO Q12 ASA PO QD IV ZOSYN Q8HRS SS INSULIN AC+HS : TELEMETRY STATUS DCP: FROM [facility]
[2019-08-30] MEDS ORDERED: Albuterol ud Inhalation HHN PRN (15:15)
[2019-08-30 16:00] VITALS: BP 122/65
--- NOTE | 2019-08-30 16:31 | Diagnostic Imaging Report ---
EXAM: ULTRASOUND Venous Duplex Scan Pablo Leg CLINICAL HISTORY: Leg pain and edema. COMPARISON: None TECHNIQUE: Doppler examination include grayscale images obtained with and without compression, and color and spectral doppler analysis. FINDINGS: Doppler examination shows normal spontaneity, phasicity, compressibility in the bilateral lower extremities. There is no thrombus identified by grayscale. Normal color and spectral flow is identified. There is no evidence of valvular incompetency or insufficiency. IMPRESSION: UNREMARKABLE VENOUS DUPLEX.
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
--- NOTE | 2019-08-30 17:47 | NUR ---
PROFESSOR OF GERMAN Speech, Language, and Cognitive Communicative Evaluation Report Patient was referred for Speech, Language, and Cognitive Communicative Evaluation by Dr. Morgan. INITIAL IMPRESSIONS: Mild global aphasia characterized by poor generative naming, mild anomia, mild paraphasias, mild deficits with receptive language/auditory comprehension, responses are delayed and Pt additionally presenting with cognitive communicative deficits in memory and abstract reasoning. Pt was seen at bedside for cognitive communicative, speech, and language evaluation. Pt seen w/ nasal cannula removed and reports breathing better without it. RN is aware. Pt states seeing a Speech Therapist at current custodial living facility, Pt states having a history of CVA within the past 5 years. Upon asking Pt about difficulties with speech/language/cognitive communication, Pt reports difficulties with word retrieval (anomia), occasional difficulties w/ receptive language (auditory comprehension) of complex sentences, and memory deficits. SPEECH Pt presenting w/ slightly reduced speech intelligibility, partially attributed to Pt's ill-fitting dentures. Pt also noted w/ inconsistent consonant substitution, however, errors did not impact Pt's overall speech intelligibility. Speech is functional. RECEPTIVE LANGUAGE Pt endorses not always understanding others, especially if communicator speaks at a fast rate and uses complex sentence structure (i.e. reversible sentences). Mild deficit with receptive language, and Pt requires additional time to respond to questions. EXPRESSIVE LANGUAGE Pt is able to functionally communicate wants and needs, mild anomia, Pt is able to label all common objects, however, responses are delayed, inconsistent substitutions and circumlocution observed). Pt's spontaneous speech is cohesive, and functional. Pt was unable to complete generative naming task (listing words that begin with m). PROFESSOR OF GERMAN posted communicate tips above HOB to facilitate communicate with staff with Pt is at [facility]. Made RN aware of results and recommendations. PROFESSOR OF GERMAN plans to f/u to initiate cognitive training and speech/language tx. PROFESSOR OF GERMAN plans to continue to f/u for dysphagia tx and management. (Please see care activity section for complete report. )
--- NOTE | 2019-08-30 18:49 | General Progress Note ---
Assessment/Plan Problem List: (1) Hepatitis C ICD Codes: B19.20 - Unspecified viral hepatitis C without hepatic coma SNOMED: 96701725 (2) Malnutrition of moderate degree ICD Codes: E44.0 - Moderate protein-calorie malnutrition SNOMED: 721767867 (3) CVA, old, facial weakness ICD Codes: I69.392 - Facial weakness following cerebral infarction SNOMED: 23613856886132 (4) CVA, old, hemiparesis ICD Codes: I69.359 - Hemiplegia and hemiparesis following cerebral infarction affecting unspecified side SNOMED: 377870804 (5) Diastolic CHF ICD Codes: I50.30 - Unspecified diastolic (congestive) heart failure SNOMED: 03341392, 326328108 (6) Pneumonia ICD Codes: J18.9 - Pneumonia, unspecified organism SNOMED: 353481287 (7) Pleural effusion, left ICD Codes: J90 - Pleural effusion, not elsewhere classified SNOMED: 25768257 (8) End-stage renal disease ICD Codes: N18.6 - End stage renal disease SNOMED: 14952564 (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 ICD Codes: E10.29 - Type 1 diabetes mellitus with other diabetic kidney complication SNOMED: 01759899, 983964806 (10) Sepsis ICD Codes: A41.9 - Sepsis, unspecified organism SNOMED: 26638174 (11) Bacteremia ICD Codes: R78.81 - Bacteremia SNOMED: 1550372 Assessment/Plan: [facility] zosyn HD evaluation for vats Subjective Constitutional: Reports: weakness HEENT: Reports: no symptoms Cardiovascular: Reports: no symptoms Gastrointestinal/Abdominal: Reports: poor appetite Genitourinary: Reports: no symptoms Neurologic/Psychiatric: Reports: pre-existing deficit Endocrine: Reports: no symptoms Hematologic/Lymphatic: Reports: no symptoms Allergies: Coded Allergies: No Known Allergies (Unverified , 04/03/15) Objective Last 24 Hour Vital Signs Date Time Temp Pulse Resp B/P (MAP) Pulse Ox O2 Delivery O2 Flow Rate FiO2 08/30/19 16:00 78 08/30/19 16:00 98.1 87 20 122/65 (84) 97 08/30/19 12:00 85 08/30/19 12:00 97.5 81 21 127/63 (84) 96 08/30/19 09:08 75 130/56 08/30/19 08:44 Nasal Cannula 2.0 08/30/19 08:43 75 08/30/19 08:42 98.2 74 21 130/56 (80) 96 08/30/19 04:00 97.4 73 17 95/49 (64) 96 08/30/19 04:00 73 08/30/19 00:00 97.3 72 18 111/50 (70) 92 08/30/19 00:00 71 08/29/19 21:00 70 109/42 08/29/19 21:00 Nasal Cannula 2.0 08/29/19 20:00 87 08/29/19 20:00 97.2 70 17 109/42 (64) 93 Intake and Output 08/29/19 08/30/19 19:00 07:00 Intake Total 1108.333 ml 358.333 ml Output Total 2000 ml Balance 1108.333 ml -1641.667 ml Intake Oral 870 ml 120 ml IV Total 238.333 ml 238.333 ml Hemodialysis UF 2000 ml Laboratory Tests 08/30/19 04:00: White Blood Count 13.0H, Red Blood Count 3.38L, Hemoglobin 11.0L, Hematocrit 33.3L, Mean Corpuscular Volume 99, Mean Corpuscular Hemoglobin 32.6H, Mean Corpuscular Hemoglobin Concent 33.0, Red Cell Distribution Width 12.2, Platelet Count 188, Mean Platelet Volume 6.2L, Neutrophils (%) (Auto) 72.2, Lymphocytes ( %) (Auto) 17.0L, Monocytes (%) (Auto) 8.8, Eosinophils (%) (Auto) 1.7, Basophils (%) (Auto) 0.4, Sodium Level 142, Potassium Level 4.0, Chloride Level 104, Carbon Dioxide Level 28, Anion Gap 10, Blood Urea Nitrogen 36H, Creatinine 8.3H, Estimat Glomerular Filtration Rate 7.9, Glucose Level 113H, Calcium Level 8.0L Height (Feet): 6 Height (Inches): 1.00 Weight (Pounds): 180 General Appearance: alert EENT: other - facial scars Neck: normal alignment Cardiovascular: regular rhythm Respiratory/Chest: decreased breath sounds Abdomen: soft Edema: no edema noted Arm (L), no edema noted Arm (R), no edema noted Leg (L), no edema noted Leg (R), no edema noted Pedal (L), no edema noted Pedal (R), no edema noted Generalized Neurologic: motor weakness Alan Morgan MD August 30, 2019 18:49
--- NOTE | 2019-08-30 19:25 | NUR ---
NURSE NOTES: Report received from LUDMILA Edmondson. Patient awake, alert and coherent. with delayed speech and receptive aphasia. Simple sentences and yes / no questions utilized for communication. on 2L per nasal cannula, saturating at 92%. IV intact and patent; flushed. HOB elevated. Noted to have a basin for vomiting. Also on Zofran prn for n/v; medication was last administered at 16:40. Patient did not have dialysis today, but scheduled to have on tomorrow, per AM nurse. skin is intact. Bed in lowest position, brakes engaged and locked. Bed rails raised x2. Call light placed within reach, will continue to monitor.
[2019-08-30 20:00] VITALS: BP 103/66
--- NOTE | 2019-08-30 20:00 | NUR ---
NURSE NOTES: Called and left a message with Dr. Morgan regarding patient's vomiting. Awaiting call-back from MD recreation establishment manager. BP: 103/66, NY:73, RR: 19, O2sat: 92%, T:97.5. No IVF running. Will continue to monitor.
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
--- NOTE | 2019-08-30 23:44 | Consultation ---
DATE OF CONSULTATION: 08/30/2019 ADDENDUM Putting medical records from [facility] and evaluation of [facility] in October of 2014 from his prior stroke, medical record showed that the stroke actually occurred 5 years ago on 11/04/2014 that was a posterior circulation stroke with right pontine infarction and small right medullary infarct. The patient at that time had a normal duplex scan of the carotid and vertebral arteries. The patient may have a surgery on his chest pain. I did repeat a CT scan of the brain and get a repeat duplex scan and Doppler of the vertebrals. I can guarantee that the patient will not have another stroke, but I doubt it. Surgery should not be delayed if it is necessary. León Alexandra MD DR: Kolby JOB#: [id number] CC:
[2019-08-31] VITALS: BP 100/59
--- NOTE | 2019-08-31 02:52 | NUR ---
NURSE NOTES: Patient noted to be coughing whenever he drinks water. Tried to feed patient with jello instead, tolerated better than water. Will continue to monitor.
[2019-08-31 04:00] VITALS: BP 101/56
--- NOTE | 2019-08-31 04:15 | Progress Note ---
DATE: 08/30/2019 CARDIOLOGY PROGRESS NOTE SUBJECTIVE: The patient was seen by thoracic surgeon. It was felt that the patient loculated left-sided pleural effusion. He should undergo left video-assisted thoracoscopic surgery with decompression. The patient has no new complaints. A neurologic consultation was obtained as well and the patient has felt to have had a prior but not an acute stroke. OBJECTIVE: VITAL SIGNS: Blood pressure 127/63, pulse 85, respirations 21, afebrile. LUNGS: Diminished breath sounds on the left. Few rhonchi. CARDIAC: Irregular rhythm and rate. Normal S1, S2 with a fourth heart sound. ABDOMEN: Soft. EXTREMITIES: No edema. LABORATORY DATA: White count 13, hemoglobin 11, potassium 4, BUN 36, creatinine 8.3. IMPRESSION: 1. Chest pain is pleuritic due to loculated pleural effusion. There is no sign of an acute coronary insufficiency. 2. The patient has end-stage renal disease and is on hemodialysis. 3. The patient has had a prior cerebrovascular accident. The patient's echocardiogram revealed a normal ejection fraction with a diastolic relaxation abnormality and no significant valvular disease. 4. The patient has multiorgan system disease and is at increased risk for any surgical procedure, however, from a cardiovascular standpoint, he is compensated at this time to proceed. Manfred Conn M.D. DR: PATRICIA JOB#: [id number] CC:
[2019-08-31] MEDS: Zosyn 2.25 gm in D5W 55ml IV SCH ×3 (05:17→22:09)
[2019-08-31 06:10] LABS: BASOPHILS % (AUTO) 0.4 % (0.0-2.0); EOSINOPHILS % (AUTO) 0.3 % (0.0-3.0); HEMATOCRIT 35.3 % (42.0-52.0); HEMOGLOBIN 11.6 G/DL (14.2-18.0); LYMPHOCYTES % (AUTO) 12.5 % (20.0-45.0); MEAN CORPUSCULAR VOLUME 100 FL (80-99); NEUTROPHILS % (AUTO) 77.9 % (45.0-75.0); PLATELET COUNT 242 K/UL (150-450); RED BLOOD COUNT 3.55 M/UL (4.70-6.10); RED CELL DISTRIBUTION WIDTH 11.9 % (11.6-14.8); WHITE BLOOD COUNT 14.7 K/UL (4.8-10.8)
[2019-08-31 06:30] LABS: ANION GAP 15 mmol/L (5-15); BLOOD UREA NITROGEN 54 mg/dL (7-18); CARBON DIOXIDE 26 MMOL/L (21-32); CHLORIDE 99 MMOL/L (98-107); CREATININE 10.5 MG/DL (0.55-1.30); PHOSPHORUS 6.9 MG/DL (2.5-4.9); POTASSIUM 4.2 MMOL/L (3.5-5.1); SODIUM 140 MMOL/L (136-145)
[2019-08-31] MEDS: NovoLOG Insulin Flexpen SUBQ SCH ×4 (06:30→21:00)
--- NOTE | 2019-08-31 07:15 | NUR ---
HAND-OFF: Report given to LUDMILA Edmondson. Patient stable.
--- NOTE | 2019-08-31 08:02 | Pulmonology Progress Note ---
Lorna Baker INTERIOR DESIGN COORDINATOR 08/31/19 0802: Subjective Allergies: Coded Allergies: No Known Allergies (Unverified , 04/03/15) Subjective leuk persists remains afberile first CoVID 08/27 negative on O2 via NC ; stable pulse ox awaiting for tap- can not do until clear from isolation seen and evaluated by CT surgeon, needs VATS Objective Last 24 Hour Vital Signs Date Time Temp Pulse Resp B/P (MAP) Pulse Ox O2 Delivery O2 Flow Rate FiO2 08/31/19 04:00 72 08/31/19 04:00 96.0 71 19 101/56 (71) 97 08/31/19 00:00 96.0 72 16 100/59 (73) 95 08/31/19 00:00 74 08/30/19 21:00 Nasal Cannula 2.0 08/30/19 20:57 72 103/66 08/30/19 20:00 70 08/30/19 20:00 97.5 73 20 103/66 (78) 97 08/30/19 16:00 78 08/30/19 16:00 98.1 87 20 122/65 (84) 97 08/30/19 12:00 85 08/30/19 12:00 97.5 81 21 127/63 (84) 96 08/30/19 09:08 75 130/56 08/30/19 08:44 Nasal Cannula 2.0 08/30/19 08:43 75 08/30/19 08:42 98.2 74 21 130/56 (80) 96 Intake and Output 08/30/19 08/31/19 19:00 07:00 Intake Total 220 ml 210 ml Balance 220 ml 210 ml Intake Oral 220 ml 210 ml # Voids 2 Objective General Appearance: alert , awake, responsive AA male , in NAD Lines, tubes and drains: peripheral HEENT: normocephalic, atraumatic, anicteric, mucous membranes moist, PERRL, O2 via NC Neck: non-tender, supple Respiratory/Chest: decreased breath sounds , more on the left side Cardiovascular/Chest: normal rate - SR with 1 st degree AV block Abdomen: normal bowel sounds, non tender, soft Extremities: LUE AV fistula + bruit/thrill Skin Exam: normal pigmentation, warm/dry Neurologic: abnormal gait, alert, responsive, normal mood/affect Musculoskeletal: atrophy - BLE, , non-ambulatory Microbiology Date/Time Source Procedure Growth Status 08/28/19 17:50 Blood Blood Culture - Preliminary NO GROWTH AFTER 48 HOURS Resulted 08/28/19 17:40 Blood Blood Culture - Preliminary Staphylococcus Sp Coag Neg Resulted 08/28/19 17:40 Nasopharynx Coronavirus COVID-19 PCR (IDRIS) - Final Complete 08/28/19 18:40 Urine,Clean Catch Urine Culture - Final Escherichia Coli Complete 08/28/19 17:45 Rectum VRE Culture - Final NO VANCOMYCIN RESISTANT ENTEROCOCCUS ... Complete 08/28/19 17:40 Rectum - Final NO CARBAPENEM-RESISTANT ENTEROBACTERI... Complete Laboratory Tests 08/31/19 04:00: White Blood Count 14.7H, Red Blood Count 3.55L, Hemoglobin 11.6L, Hematocrit 35.3L, Mean Corpuscular Volume 100H, Mean Corpuscular Hemoglobin 32.6H, Mean Corpuscular Hemoglobin Concent 32.8, Red Cell Distribution Width 11.9, Platelet Count 242, Mean Platelet Volume 5.8L, Neutrophils (%) (Auto) 77.9H, Lymphocytes (%) (Auto) 12.5L, Monocytes (%) (Auto) 9.0, Eosinophils (%) (Auto) 0.3, Basophils (%) (Auto) 0.4, Sodium Level 140, Potassium Level 4.2, Chloride Level 99, Carbon Dioxide Level 26, Anion Gap 15, Blood Urea Nitrogen 54H, Creatinine 10.5H, Estimat Glomerular Filtration Rate 6.1, Glucose Level 143H, Calcium Level 8.0L, Phosphorus Level 6.9H Current Medications Medications (Trade) Dose Ordered Sig/Raheel Route PRN Reason Start Time Stop Time Status Last Admin Dose Admin Acetaminophen (Tylenol) 650 mg Q4H PRN ORAL Mild Pain (Pain Scale 1-3) 08/28/19 20:00 09/27/19 19:59 08/29/19 05:04 Acetaminophen (Tylenol) 650 mg Q4H PRN ORAL Temp >100.5 08/28/19 20:00 09/27/19 19:59 Albumin Human 100 ml @ 200 mls/hr PRN PRN IV sbp<90 during hd 08/31/19 19:00 11/29/19 18:59 Albuterol Sulfate (Proventil) 2.5 mg Q4H PRN HHN Shortness of Breath 08/30/19 15:15 09/04/19 15:14 Aspirin (ASA) 81 mg DAILY ORAL 08/29/19 09:00 10/13/19 08:59 08/30/19 09:07 Carvedilol (Coreg) 25 mg Q12HR ORAL 08/29/19 21:00 09/28/19 20:59 08/30/19 09:08 Heparin Sodium (Porcine) (Heparin 5000 units/ml) 5,000 units EVERY 12 HOURS SUBQ 08/31/19 09:00 10/15/19 08:59 Heparin Sodium (Porcine) (Heparin Sod 1000 units/ml 10ml) 500 unit ONCE ONCE IV 08/31/19 19:00 08/31/19 19:01 Insulin Aspart (NovoLOG) BEFORE MEALS AND HS SUBQ 08/28/19 21:00 11/26/19 20:59 08/29/19 17:21 Ondansetron HCl (Zofran) 4 mg Q6H PRN IVP Nausea & Vomiting 08/28/19 20:00 09/27/19 19:59 08/31/19 01:25 Piperacillin Sod/ Tazobactam Sod 2.25 gm/Dextrose 55 ml @ 110 mls/hr Q8HR IV 08/29/19 06:00 09/05/19 05:59 08/31/19 05:17 Polyethylene Glycol (Miralax) 17 gm DAILYPRN PRN ORAL Constipation 08/28/19 20:00 09/27/19 19:59 Pravastatin Sodium (Pravachol) 80 mg BEDTIME ORAL 08/28/19 21:00 09/27/19 20:59 08/30/19 20:50 Sevelamer Carbonate (Renvela) 800 mg THREE TIMES A DAY ORAL 08/29/19 09:00 11/27/19 08:59 08/30/19 13:00 Vancomycin HCl (Vanco rx to dose) 1 ea DAILY PRN MISC Per rx protocol 08/28/19 20:00 09/27/19 19:59 Vitamin B Complex/ Vit C/Folic Acid (Nephrovite) 1 tab DAILY ORAL 08/29/19 09:00 09/28/19 08:59 08/30/19 09:07 Assessment/Plan Assessment/Plan ASSESSMENT Pneumonia Large left pleural effusion with loculated components Pleuritic chest pain Bacteremia /GPC - real vs contaminant End-stage renal disease ,on hemodialysis Diabetes mellitus, insulin dependent Hypertension Anemia of chronic kidney disease History of CVA UTI E coli Hypoalbuminemia Hep C positive PLAN OF CARE tele isolation room Covid 19 08/27 NGT will get another one today supplemental O2 to keep sat above 92% ROBERT Finney prn positioning: elevate left side of the chest on 2 pillows will attempt US guided thoracentesis of large left pleural effusion , however may be not successful given loculated components fluid cx, cytology, cell count with diff, LDH, protein, glucose , on hold until off isolation CT surgeon cihqui appreciated needs VATS cardio and neuro cleared for surgery empiric abx- fup with cx and second CoVID 19 results 08/27 BCX + GPC 1/, received Vanco, fup with final results of BCX and repeat BCX for clearance 08/27 SARS CoV-2 by PCR NGT 08/27 UCX + E coli, on Zosyn, probably can deescalate abx serial troponin - NGT x 2 ECHO - with pEF monitor volumes, CP likely pleuritic , resolved HD per nephro/attending BP management continue ASA and statin D dimer 17.8 CRP 26,2, LDH 119 , ferritin 683 Venous Duplex BLE NGT was on DVT prophylaxis with Heparin started on LMWH /for treatment, but dc by primary and restarted on heparin proceed with VQ scan when cleared from isolation trend LFT, hep panel + hep C BS management monitor HH with goal to keep Hgb above 7 supportive care case discussed and evaluated by supervising physician Justo Arthur MD 08/31/19 2014: Subjective Allergies: Coded Allergies: No Known Allergies (Unverified , 04/03/15) Assessment/Plan Assessment/Plan Patient seen and examined with INTERIOR DESIGN COORDINATOR. Agree with above A&P as it reflects our joint deliberations. Lorna Baker NP August 31, 2019 08:02 Justo Arthur MD August 31, 2019 20:14
[2019-08-31 08:22] VITALS: BP 91/53
[2019-08-31] MEDS: Heparin 5000 units/ml inj SUBQ SCH ×2 (09:00→20:42)
[2019-08-31] MEDS: Carvedilol 25mg Tab ORAL SCH ×2 (09:00→20:38)
[2019-08-31] MEDS: Aspirin Baby 81mg ORAL SCH (09:21)
[2019-08-31] MEDS: Nephrovite tab (Rena-Vite) ORAL SCH (09:22)
[2019-08-31 09:30] LABS: BASOPHILS % (AUTO) 0.6 % (0.0-2.0); EOSINOPHILS % (AUTO) 0.4 % (0.0-3.0); HEMATOCRIT 33.9 % (42.0-52.0); HEMOGLOBIN 11.5 G/DL (14.2-18.0); LYMPHOCYTES % (AUTO) 12.4 % (20.0-45.0); MEAN CORPUSCULAR VOLUME 99 FL (80-99); MONOCYTES % (AUTO) 8.6 % (1.0-10.0); NEUTROPHILS % (AUTO) 77.9 % (45.0-75.0); PLATELET COUNT 230 K/UL (150-450); RED BLOOD COUNT 3.43 M/UL (4.70-6.10); RED CELL DISTRIBUTION WIDTH 12.1 % (11.6-14.8); WHITE BLOOD COUNT 14.3 K/UL (4.8-10.8)
[2019-08-31 12:00] VITALS: BP 100/55
[2019-08-31] MEDS: Pantoprazole Inj IVP SCH (12:45)
[2019-08-31 16:06] VITALS: BP 88/46
--- NOTE | 2019-08-31 17:27 | NUR ---
NURSE NOTES: Call placed to Dr Morgan regarding pt BP 70/35. Message left on voice mail.
[2019-08-31] MEDS ORDERED: Heparin Sod 1000 units/ml 10ml IV ONE (19:00)
--- NOTE | 2019-08-31 19:25 | NUR ---
NURSE NOTES: RECEIVED REPORT FROM LUDMILA WHITTAKER. PATIENT AWAKE IN BED, AOX3, VERBALLY RESPONSIVE ALTHOUGH SLOW TO RESPOND. NO COMPLAINTS OF PAIN OR DISCOMFORT AT THIS TIME. BREATHING EVEN AND UNLABORED ON 2L VIA NC, NO S/SX OF DISTRESS NOTED. IV SITE ON LFA ASYMPTOMATIC, PATENT AND INTACT, WITH SECOND BOTTLE OF ALBUMIN COMPLETED- BP 74/40. CONTACT AND DROPLET PRECAUTIONS IMPLEMENTED. FALL PRECAUTIONS IMPLEMENTED. BED LOCKED AND IN LOWEST POSITION WITH SIDERAILS UP X 2. CALL LIGHT WITHIN REACH. WILL CONTINUE TO MONITOR. Addendum: 09/01/19 at 0552 by Diane Mancia RN IV SITE CALI
[2019-08-31 20:00] VITALS: BP 74/40
--- NOTE | 2019-08-31 20:27 | General Progress Note ---
Assessment/Plan Problem List: (1) Hepatitis C ICD Codes: B19.20 - Unspecified viral hepatitis C without hepatic coma SNOMED: 99719347 (2) Malnutrition of moderate degree ICD Codes: E44.0 - Moderate protein-calorie malnutrition SNOMED: 508434290 (3) CVA, old, facial weakness ICD Codes: I69.392 - Facial weakness following cerebral infarction SNOMED: 33911389670060 (4) CVA, old, hemiparesis ICD Codes: I69.359 - Hemiplegia and hemiparesis following cerebral infarction affecting unspecified side SNOMED: 221103750 (5) Diastolic CHF ICD Codes: I50.30 - Unspecified diastolic (congestive) heart failure SNOMED: 75132201, 656199681 (6) Pneumonia ICD Codes: J18.9 - Pneumonia, unspecified organism SNOMED: 273366086 (7) Pleural effusion, left ICD Codes: J90 - Pleural effusion, not elsewhere classified SNOMED: 32621679 (8) End-stage renal disease ICD Codes: N18.6 - End stage renal disease SNOMED: 55766585 (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 ICD Codes: E10.29 - Type 1 diabetes mellitus with other diabetic kidney complication SNOMED: 50400465, 400101495 (10) Sepsis ICD Codes: A41.9 - Sepsis, unspecified organism SNOMED: 90155178 (11) Bacteremia ICD Codes: R78.81 - Bacteremia SNOMED: 9405270 (12) Emesis ICD Codes: R11.10 - Vomiting, unspecified SNOMED: 669964007 (13) UTI (urinary tract infection) ICD Codes: N39.0 - Urinary tract infection, site not specified SNOMED: 08507274 (14) E coli infection ICD Codes: A49.8 - Other bacterial infections of unspecified site SNOMED: 68117958 (15) Hypotension ICD Codes: I95.9 - Hypotension, unspecified SNOMED: 76596310 Assessment/Plan: [facility] evaluation for vats Subjective Constitutional: Reports: weakness HEENT: Reports: no symptoms Cardiovascular: Reports: no symptoms, other - low bp Respiratory: Reports: cough Gastrointestinal/Abdominal: Reports: vomiting Genitourinary: Reports: no symptoms Neurologic/Psychiatric: Reports: pre-existing deficit Endocrine: Reports: no symptoms Hematologic/Lymphatic: Reports: no symptoms Allergies: Coded Allergies: No Known Allergies (Unverified , 04/03/15) Objective Last 24 Hour Vital Signs Date Time Temp Pulse Resp B/P (MAP) Pulse Ox O2 Delivery O2 Flow Rate FiO2 08/31/19 16:06 85 08/31/19 16:06 96.6 81 18 88/46 (60) 97 08/31/19 12:00 79 08/31/19 12:00 96.9 69 18 100/55 (70) 96 08/31/19 09:00 Nasal Cannula 2.0 08/31/19 09:00 89 91/53 08/31/19 08:23 89 08/31/19 08:22 96.8 89 16 91/53 (66) 96 08/31/19 04:00 72 08/31/19 04:00 96.0 71 19 101/56 (71) 97 08/31/19 00:00 96.0 72 16 100/59 (73) 95 08/31/19 00:00 74 08/30/19 21:00 Nasal Cannula 2.0 08/30/19 20:57 72 103/66 Intake and Output 08/30/19 08/31/19 19:00 07:00 Intake Total 220 ml 210 ml Balance 220 ml 210 ml Intake Oral 220 ml 210 ml # Voids 2 Laboratory Tests 08/31/19 04:00: White Blood Count 14.7H, Red Blood Count 3.55L, Hemoglobin 11.6L, Hematocrit 35.3L, Mean Corpuscular Volume 100H, Mean Corpuscular Hemoglobin 32.6H, Mean Corpuscular Hemoglobin Concent 32.8, Red Cell Distribution Width 11.9, Platelet Count 242, Mean Platelet Volume 5.8L, Neutrophils (%) (Auto) 77.9H, Lymphocytes (%) (Auto) 12.5L, Monocytes (%) (Auto) 9.0, Eosinophils (%) (Auto) 0.3, Basophils (%) (Auto) 0.4, Sodium Level 140, Potassium Level 4.2, Chloride Level 99, Carbon Dioxide Level 26, Anion Gap 15, Blood Urea Nitrogen 54H, Creatinine 10.5H, Estimat Glomerular Filtration Rate 6.1, Glucose Level 143H, Calcium Level 8.0L, Phosphorus Level 6.9H 08/31/19 08:30: White Blood Count 14.3H, Red Blood Count 3.43L, Hemoglobin 11.5L, Hematocrit 33.9L, Mean Corpuscular Volume 99, Mean Corpuscular Hemoglobin 33.5H, Mean Corpuscular Hemoglobin Concent 33.8, Red Cell Distribution Width 12.1, Platelet Count 230, Mean Platelet Volume 6.1L, Neutrophils (%) (Auto) 77.9H, Lymphocytes (%) (Auto) 12.4L, Monocytes (%) (Auto) 8.6, Eosinophils (%) (Auto) 0.4, Basophils (%) (Auto) 0.6 Height (Feet): 6 Height (Inches): 1.00 Weight (Pounds): 180 General Appearance: alert, mild distress Neck: normal alignment Cardiovascular: normal rate, regular rhythm Respiratory/Chest: lungs clear Abdomen: non tender Edema: no edema noted Arm (L), no edema noted Arm (R), no edema noted Leg (L), no edema noted Leg (R), no edema noted Pedal (L), no edema noted Pedal (R), no edema noted Generalized Alan Morgan MD August 31, 2019 20:27
--- NOTE | 2019-08-31 20:30 | NUR ---
NURSE NOTES: DR. CHEW CALLED BACK, INFORMED HIM BP AFTER SECOND BOTTLE OF ALBUMIN IS 74/40 AND DIALYSIS WAS NOT DONE DUE TO LOW BLOOD PRESSURE. PER DR. CHEW, SCHEDULE HD FOR TOMORROW. YOUNG HERE FROM [facility], INFORMED HER OF NEW ORDER FOR HD 08/31.
--- NOTE | 2019-08-31 21:45 | NUR ---
NURSE NOTES: BP AFTER 3RD BOTTLE OF ALBUMIN IS 88/56.
[2019-09-01] VITALS: BP 90/53
[2019-09-01 04:00] VITALS: BP 93/60
--- NOTE | 2019-09-01 05:15 | Progress Note ---
DATE: 08/31/2019 CARDIOLOGY PROGRESS NOTE SUBJECTIVE: The patient continues to have congestion, shortness of breath, and some episodes of nausea. Blood pressure is tenuous. PHYSICAL EXAMINATION: VITAL SIGNS: Blood pressure 88/46, pulse, 81, respiratory rate 18. Afebrile. LUNGS: Diminished breath sounds. Rhonchi. CARDIAC: Regular rhythm and rate. Normal S1 and S2. ABDOMEN: Soft. EXTREMITIES: No edema. LABORATORY DATA: Urine culture positive for E. coli. White count 14 and hemoglobin 11.5. Blood cultures coag-negative staph likely a contaminant. Potassium is 4.2. IMPRESSION: 1. Pleural effusion. 2. Loculated trapped lung. 3. Possible sepsis. 4. End-stage renal disease. 5. Pleuritic chest pain. 6. Low blood pressure, concerning and may suggest sepsis and shock. PLAN: 1. Antimicrobials. 2. Respiratory hygiene. 3. Hemodialysis with ultrafiltration based on clinical parameters. 4. VATS pleurodesis planned, however low range of blood pressure at this time may be a limiting factor. 5. We will follow. Manfred Conn M.D. DR: Maddie JOB#: [id number] CC:
[2019-09-01 05:23] LABS: BASOPHILS % (AUTO) 0.9 % (0.0-2.0); EOSINOPHILS % (AUTO) 0.3 % (0.0-3.0); HEMATOCRIT 30.4 % (42.0-52.0); HEMOGLOBIN 10.4 G/DL (14.2-18.0); LYMPHOCYTES % (AUTO) 13.3 % (20.0-45.0); MEAN CORPUSCULAR VOLUME 97 FL (80-99); MONOCYTES % (AUTO) 10.2 % (1.0-10.0); NEUTROPHILS % (AUTO) 75.3 % (45.0-75.0); PLATELET COUNT 189 K/UL (150-450); RED BLOOD COUNT 3.12 M/UL (4.70-6.10); RED CELL DISTRIBUTION WIDTH 11.9 % (11.6-14.8); WHITE BLOOD COUNT 12.4 K/UL (4.8-10.8)
[2019-09-01 05:35] LABS: ANION GAP 20 mmol/L (5-15); BLOOD UREA NITROGEN 71 mg/dL (7-18); CALCIUM 8.4 MG/DL (8.5-10.1); CARBON DIOXIDE 23 MMOL/L (21-32); CHLORIDE 101 MMOL/L (98-107); CREATININE 11.8 MG/DL (0.55-1.30); POTASSIUM 4.3 MMOL/L (3.5-5.1); SODIUM 144 MMOL/L (136-145)
[2019-09-01] MEDS: Zosyn 2.25 gm in D5W 55ml IV SCH ×3 (05:52→22:00)
[2019-09-01] MEDS: NovoLOG Insulin Flexpen SUBQ SCH ×4 (06:18→21:27)
--- NOTE | 2019-09-01 06:30 | NUR ---
NURSE NOTES: CONTACTED DR. PARIKH REGARDING OCCURRENCES OF A.FIB/FLUTTER. AWAITING CALL BACK.
--- NOTE | 2019-09-01 07:23 | NUR ---
HAND-OFF: Report given to LUDMILA WHITTAKER. PATIENT IN STABLE CONDITION. PLAN OF CARE ENDORSED.
--- NOTE | 2019-09-01 07:26 | NUR ---
NURSE NOTES: PLACED CALL WITH [facility] REGARDING TODAY'S SCHEDULED HD. S/W VALENTÍN. PER VALENTÍN, HE WILL SEND MESSAGE TO [facility].
[2019-09-01 08:00] VITALS: BP 80/40
[2019-09-01] MEDS ORDERED: Vancomycin 750mg/NS 275ml IVPB ONE ×2 (08:00)
[2019-09-01] MEDS: Carvedilol 25mg Tab ORAL SCH (09:00)
[2019-09-01] MEDS: Aspirin Baby 81mg ORAL SCH (09:00)
[2019-09-01] MEDS: Heparin 5000 units/ml inj SUBQ SCH ×2 (09:00→21:26)
[2019-09-01] MEDS: Nephrovite tab (Rena-Vite) ORAL SCH (09:00)
[2019-09-01] MEDS: Pantoprazole Inj IVP SCH (09:00)
--- NOTE | 2019-09-01 09:03 | Pulmonology Progress Note ---
Lorna Baker PULP MIXER 09/01/19 0903: Subjective Allergies: Coded Allergies: No Known Allergies (Unverified , 04/03/15) Subjective leuk persists but trending down remains afebrile first CoVID 08/27 negative on O2 via NC ; stable pulse ox awaiting for tap- can not do until cleared from isolation seen and evaluated by CT surgeon, needs VATS hypotensive Objective Last 24 Hour Vital Signs Date Time Temp Pulse Resp B/P (MAP) Pulse Ox O2 Delivery O2 Flow Rate FiO2 09/01/19 04:00 79 09/01/19 04:00 96.8 80 20 93/60 (71) 95 09/01/19 00:00 75 09/01/19 00:00 97.0 86 18 90/53 (65) 94 08/31/19 21:00 Nasal Cannula 3.0 08/31/19 20:38 78 74/40 08/31/19 20:00 85 08/31/19 20:00 97.0 78 16 74/40 (51) 98 08/31/19 16:06 85 08/31/19 16:06 96.6 81 18 88/46 (60) 97 08/31/19 12:00 79 08/31/19 12:00 96.9 69 18 100/55 (70) 96 08/31/19 09:00 Nasal Cannula 2.0 08/31/19 09:00 89 91/53 Intake and Output 08/31/19 09/01/19 19:00 07:00 Intake Total 60 ml Balance 60 ml Intake Oral 60 ml # Bowel Movements 2 Objective General Appearance: alert , awake, responsive AA male , in NAD Lines, tubes and drains: peripheral HEENT: normocephalic, atraumatic, anicteric, mucous membranes moist, PERRL, O2 via NC Neck: non-tender, supple Respiratory/Chest: decreased breath sounds , more on the left side Cardiovascular/Chest: normal rate Abdomen: normal bowel sounds, non tender, soft Extremities: LUE AV fistula + bruit/thrill Skin Exam: normal pigmentation, warm/dry Neurologic: abnormal gait, alert, responsive, normal mood/affect Musculoskeletal: atrophy - BLE, , non-ambulatory Microbiology Date/Time Source Procedure Growth Status 08/30/19 18:00 Blood Blood Culture - Preliminary NO GROWTH AFTER 24 HOURS Resulted 08/30/19 17:45 Blood Blood Culture - Preliminary NO GROWTH AFTER 24 HOURS Resulted Laboratory Tests 09/01/19 04:00: White Blood Count 12.4H, Red Blood Count 3.12L, Hemoglobin 10.4L, Hematocrit 30.4L, Mean Corpuscular Volume 97, Mean Corpuscular Hemoglobin 33.4H, Mean Corpuscular Hemoglobin Concent 34.4, Red Cell Distribution Width 11.9, Platelet Count 189, Mean Platelet Volume 6.1L, Neutrophils (%) (Auto) 75.3H, Lymphocytes (%) (Auto) 13.3L, Monocytes (%) (Auto) 10.2H, Eosinophils (%) (Auto) 0.3, Basophils (%) (Auto) 0.9, Sodium Level 144, Potassium Level 4.3, Chloride Level 101, Carbon Dioxide Level 23, Anion Gap 20H, Blood Urea Nitrogen 71H, Creatinine 11.8H, Estimat Glomerular Filtration Rate 5.2, Glucose Level 191H, Calcium Level 8.4L, Random Vancomycin Level 13.5 Current Medications Medications (Trade) Dose Ordered Sig/Raheel Route PRN Reason Start Time Stop Time Status Last Admin Dose Admin Acetaminophen (Tylenol) 650 mg Q4H PRN ORAL Mild Pain (Pain Scale 1-3) 08/28/19 20:00 09/27/19 19:59 08/29/19 05:04 Acetaminophen (Tylenol) 650 mg Q4H PRN ORAL Temp >100.5 08/28/19 20:00 09/27/19 19:59 Albumin Human 100 ml @ 200 mls/hr PRN PRN IV sbp<90 during hd 08/31/19 19:00 11/29/19 18:59 Albuterol Sulfate (Proventil) 2.5 mg Q4H PRN HHN Shortness of Breath 08/30/19 15:15 09/04/19 15:14 Aspirin (ASA) 81 mg DAILY ORAL 08/29/19 09:00 10/13/19 08:59 08/31/19 09:21 Carvedilol (Coreg) 25 mg Q12HR ORAL 08/29/19 21:00 09/28/19 20:59 08/30/19 09:08 Heparin Sodium (Porcine) (Heparin 5000 units/ml) 5,000 units EVERY 12 HOURS SUBQ 08/31/19 09:00 10/15/19 08:59 08/31/19 20:42 Insulin Aspart (NovoLOG) BEFORE MEALS AND HS SUBQ 08/28/19 21:00 11/26/19 20:59 09/01/19 06:18 Ondansetron HCl (Zofran) 4 mg Q4H PRN IVP Nausea & Vomiting 08/31/19 12:45 09/30/19 12:44 09/01/19 06:08 Pantoprazole (Protonix) 40 mg DAILY IVP 08/31/19 12:45 09/30/19 12:44 Piperacillin Sod/ Tazobactam Sod 2.25 gm/Dextrose 55 ml @ 110 mls/hr Q8HR IV 08/29/19 06:00 09/05/19 05:59 09/01/19 05:52 Polyethylene Glycol (Miralax) 17 gm DAILYPRN PRN ORAL Constipation 08/28/19 20:00 09/27/19 19:59 Pravastatin Sodium (Pravachol) 80 mg BEDTIME ORAL 08/28/19 21:00 09/27/19 20:59 08/31/19 20:41 Sevelamer Carbonate (Renvela) 800 mg THREE TIMES A DAY ORAL 08/29/19 09:00 11/27/19 08:59 08/31/19 18:00 Vancomycin HCl (Vanco rx to dose) 1 ea DAILY PRN MISC Per rx protocol 08/28/19 20:00 09/27/19 19:59 Vancomycin HCl 750 mg/Sodium Chloride 275 ml @ 183.333 mls/hr ONCE ONCE IVPB 09/01/19 08:00 09/01/19 09:29 Vitamin B Complex/ Vit C/Folic Acid (Nephrovite) 1 tab DAILY ORAL 08/29/19 09:00 09/28/19 08:59 08/31/19 09:22 Assessment/Plan Assessment/Plan ASSESSMENT Pneumonia Large left pleural effusion with loculated components Pleuritic chest pain Bacteremia /GPC - real vs contaminant End-stage renal disease ,on hemodialysis Diabetes mellitus, insulin dependent Hypertension Anemia of chronic kidney disease History of CVA UTI E coli Hypoalbuminemia Hep C positive PLAN OF CARE tele isolation room Covid 19 08/27 NGT will get another one today supplemental O2 to keep sat above 92% MDI Proventil prn positioning: elevate left side of the chest on 2 pillows will attempt US guided thoracentesis of large left pleural effusion , however may be not successful given loculated components fluid cx, cytology, cell count with diff, LDH, protein, glucose , on hold until off isolation CT surgeon chiqui appreciated needs VATS cardio and neuro for clearance for surgery CT head pending close monitoring of BP/hypotensive empiric abx- fup with cx and second CoVID 19 results 08/27 BCX + Staph epidermidis 1, received Vanco,; repeat BCX for clearance BCX 08/29 NGTD initial + BCX 04/18 was likely contaminant 08/27 SARS CoV-2 by PCR NGT 08/27 UCX + E coli, on Zosyn, probably can deescalate abx? serial troponin - NGT x 2 ECHO - with pEF monitor volumes, CP likely pleuritic , resolved HD per nephro/attending BP management continue ASA and statin D dimer 17.8 CRP 26,2, LDH 119 , ferritin 683 Venous Duplex BLE NGT was on DVT prophylaxis with Heparin started on LMWH /for treatment, but dc by primary and restarted on heparin proceed with VQ scan when cleared from isolation trend LFT, hep panel + hep C BS management monitor HH with goal to keep Hgb above 7 supportive care case discussed and evaluated by supervising physician Justo Arthur MD 09/01/19 1523: Subjective Allergies: Coded Allergies: No Known Allergies (Unverified , 04/03/15) Assessment/Plan Assessment/Plan Patient seen and examined with PULP MIXER. Agree with above A&P as it reflects our joint deliberations. 2nd COVID pending, AFVSS on BSABx, plan for VATS once repeat COVID PCR neg,. . Lorna Baker PULP MIXER September 01, 2019 09:03 Justo Arthur MD September 01, 2019 15:23
[2019-09-01 12:00] VITALS: BP 98/40
[2019-09-01] MEDS ORDERED: Guaifenesin/DM 10ml syrup ORAL PRN (12:45)
[2019-09-01 16:00] VITALS: BP 105/50
--- NOTE | 2019-09-01 17:00 | NUR ---
NURSE NOTES: Received report from LUDMILA Edmondson. Patient no s/s cardiac, respiratory distress noticed at this time. Endorsed HD done, no output, albumin 25mg given. Bed in lowest position, side rails upx2, call light within reach, bed alarm on. Will continue to monitor.
--- NOTE | 2019-09-01 19:04 | General Progress Note ---
Assessment/Plan Problem List: (1) Hepatitis C ICD Codes: B19.20 - Unspecified viral hepatitis C without hepatic coma SNOMED: 43576445 (2) Malnutrition of moderate degree ICD Codes: E44.0 - Moderate protein-calorie malnutrition SNOMED: 480320063 (3) CVA, old, facial weakness ICD Codes: I69.392 - Facial weakness following cerebral infarction SNOMED: 16760258071823 (4) CVA, old, hemiparesis ICD Codes: I69.359 - Hemiplegia and hemiparesis following cerebral infarction affecting unspecified side SNOMED: 879465040 (5) Diastolic CHF ICD Codes: I50.30 - Unspecified diastolic (congestive) heart failure SNOMED: 34926622, 948592314 (6) Pneumonia ICD Codes: J18.9 - Pneumonia, unspecified organism SNOMED: 177161541 (7) Pleural effusion, left ICD Codes: J90 - Pleural effusion, not elsewhere classified SNOMED: 06890046 (8) End-stage renal disease ICD Codes: N18.6 - End stage renal disease SNOMED: 44011228 (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 ICD Codes: E10.29 - Type 1 diabetes mellitus with other diabetic kidney complication SNOMED: 54723081, 662688071 (10) Sepsis ICD Codes: A41.9 - Sepsis, unspecified organism SNOMED: 79735806 (11) Bacteremia ICD Codes: R78.81 - Bacteremia SNOMED: 7675865 (12) Emesis ICD Codes: R11.10 - Vomiting, unspecified SNOMED: 770210237 (13) UTI (urinary tract infection) ICD Codes: N39.0 - Urinary tract infection, site not specified SNOMED: 73229763 (14) E coli infection ICD Codes: A49.8 - Other bacterial infections of unspecified site SNOMED: 99274516 (15) Hypotension ICD Codes: I95.9 - Hypotension, unspecified SNOMED: 56503271 Assessment/Plan[facility], given spa, HD Subjective Constitutional: Reports: weakness HEENT: Reports: no symptoms Cardiovascular: Reports: no symptoms Respiratory: Reports: cough Gastrointestinal/Abdominal: Reports: nausea, vomiting Genitourinary: Reports: no symptoms Neurologic/Psychiatric: Reports: pre-existing deficit Hematologic/Lymphatic: Reports: no symptoms Allergies: Coded Allergies: No Known Allergies (Unverified , 04/03/15) Objective Last 24 Hour Vital Signs Date Time Temp Pulse Resp B/P (MAP) Pulse Ox O2 Delivery O2 Flow Rate FiO2 09/01/19 16:26 76 09/01/19 16:00 96.9 70 18 105/50 (68) 94 09/01/19 12:00 96.8 74 18 98/40 (59) 95 09/01/19 09:00 Nasal Cannula 2.0 09/01/19 09:00 76 80/40 09/01/19 08:00 76 09/01/19 08:00 96.9 70 20 80/40 (53) 94 09/01/19 04:00 79 09/01/19 04:00 96.8 80 20 93/60 (71) 95 09/01/19 00:00 75 09/01/19 00:00 97.0 86 18 90/53 (65) 94 08/31/19 21:00 Nasal Cannula 3.0 08/31/19 20:38 78 74/40 08/31/19 20:00 85 08/31/19 20:00 97.0 78 16 74/40 (51) 98 Intake and Output 08/31/19 09/01/19 19:00 07:00 Intake Total 60 ml Balance 60 ml Intake Oral 60 ml # Bowel Movements 2 Laboratory Tests 09/01/19 04:00: White Blood Count 12.4H, Red Blood Count 3.12L, Hemoglobin 10.4L, Hematocrit 30.4L, Mean Corpuscular Volume 97, Mean Corpuscular Hemoglobin 33.4H, Mean Corpuscular Hemoglobin Concent 34.4, Red Cell Distribution Width 11.9, Platelet Count 189, Mean Platelet Volume 6.1L, Neutrophils (%) (Auto) 75.3H, Lymphocytes (%) (Auto) 13.3L, Monocytes (%) (Auto) 10.2H, Eosinophils (%) (Auto) 0.3, Basophils (%) (Auto) 0.9, Sodium Level 144, Potassium Level 4.3, Chloride Level 101, Carbon Dioxide Level 23, Anion Gap 20H, Blood Urea Nitrogen 71H, Creatinine 11.8H, Estimat Glomerular Filtration Rate 5.2, Glucose Level 191H, Calcium Level 8.4L, Random Vancomycin Level 13.5 Height (Feet): 6 Height (Inches): 1.00 Weight (Pounds): 180 General Appearance: alert EENT: other - old scars Cardiovascular: regular rhythm Respiratory/Chest: normal breath sounds Abdomen: non tender, soft Edema: no edema noted Arm (L), no edema noted Arm (R), no edema noted Leg (L), no edema noted Leg (R), no edema noted Pedal (L), no edema noted Pedal (R), no edema noted Generalized Neurologic: motor weakness - r>l Alan Morgan MD September 01, 2019 19:04
--- NOTE | 2019-09-01 19:24 | NUR ---
HAND-OFF: Report given to LUDMILA Contreras. Endorsed plan of care.
--- NOTE | 2019-09-01 19:39 | NUR ---
NURSE NOTES: RECEIVED REPORT FROM LUDMILA ROCHA. PATIENT ASLEEP IN BED, AROUSABLE. ALERT, OX3- RESPONDS TO SIMPLE YES/NO QUESTIONS AND ABLE TO FOLLOW COMMANDS APPROPRIATELY. BREATHING IS EVEN AND UNLABORED ON 4L VIA NC, NO S/SX OF DISTRESS NOTED AT THIS TIME. NO COMPLAINTS OF PAIN OR DISCOMFORT. PATIENT DENIES ANY NAUSEA. IV SITE ON CALI ASYMPTOMATIC, PATENT AND INTACT, SALINE-LOCKED. CONTACT AND DROPLET PRECAUTIONS IMPLEMENTED. BED LOCKED AND IN LOWEST POSITION WITH SIDERAILS UP X 2. CALL LIGHT WITHIN REACH. WILL CONTINUE TO MONITOR FOR ANY CHANGES.
[2019-09-01 20:00] VITALS: BP 92/53
[2019-09-01] MEDS: Amiodarone 200mg tab ORAL SCH (20:38)
[2019-09-01] MEDS: Carvedilol 12.5mg tab ORAL SCH (20:59)
--- NOTE | 2019-09-01 21:44 | Progress Note ---
DATE: 09/01/2019 CARDIOLOGY PROGRESS NOTE SUBJECTIVE: The patient is remaining with low-range blood pressure episodes and has had nonsustained episodes of atrial fibrillation. He continues to have some congestion and discomfort in his chest with cough. PHYSICAL EXAMINATION: VITAL SIGNS: Blood pressure 85 to 110 systolic, heart rate in the 70s, respiratory rate 18, oxygen saturation 94%, afebrile on 2 liters nasal cannula. LUNGS: Diminished breath sounds with rhonchi. CARDIAC: Regular rhythm and rate. Normal S1, S2. ABDOMEN: Soft. EXTREMITIES: No edema. IMPRESSION: 1. Trapped lung with pleural effusion. Awaiting VATS. 2. End-stage renal disease. 3. Pleuritic chest pain. 4. Paroxysmal atrial fibrillation. 5. Probable healthcare-associated pneumonia. 6. Low range blood pressure. 7. History of prior CVA. 8. Urinary tract infection. PLAN: 1. Hemodialysis with ultrafiltration. 2. Antimicrobials. 3. Add amiodarone preoperatively for arrhythmias suppression. 4. Cautious use of beta-ivan as tolerated by blood pressure parameters. Manfred Conn M.D. DR: SHERRY JOB#: [id number] CC:
[2019-09-02] VITALS (13 sets, daily range): BP systolic 79–118; BP diastolic 45–62
--- NOTE | 2019-09-02 01:30 | NUR ---
NURSE NOTES: WHILE CHANGING PATIENT, NEW WOUND DISCOVERED IN SACRAL AREA. PICTURES TAKEN AND DOCUMENTED. WOUND CLEANSED AND DRESSING APPLIED.
[2019-09-02] MEDS: Zosyn 2.25 gm in D5W 55ml IV SCH ×2 (05:22→13:13)
[2019-09-02 06:03] LABS: BASOPHILS % (AUTO) 0.5 % (0.0-2.0); EOSINOPHILS % (AUTO) 1.1 % (0.0-3.0); HEMATOCRIT 31.3 % (42.0-52.0); HEMOGLOBIN 10.4 G/DL (14.2-18.0); LYMPHOCYTES % (AUTO) 11.6 % (20.0-45.0); MEAN CORPUSCULAR VOLUME 100 FL (80-99); MONOCYTES % (AUTO) 10.7 % (1.0-10.0); NEUTROPHILS % (AUTO) 76.1 % (45.0-75.0); PLATELET COUNT 206 K/UL (150-450); RED BLOOD COUNT 3.13 M/UL (4.70-6.10); RED CELL DISTRIBUTION WIDTH 11.9 % (11.6-14.8); WHITE BLOOD COUNT 11.7 K/UL (4.8-10.8)
[2019-09-02 06:20] LABS: ANION GAP 17 mmol/L (5-15); BLOOD UREA NITROGEN 68 mg/dL (7-18); CALCIUM 8.3 MG/DL (8.5-10.1); CARBON DIOXIDE 22 MMOL/L (21-32); CHLORIDE 103 MMOL/L (98-107); CREATININE 11.4 MG/DL (0.55-1.30); POTASSIUM 4.2 MMOL/L (3.5-5.1); SODIUM 142 MMOL/L (136-145)
[2019-09-02] MEDS: NovoLOG Insulin Flexpen SUBQ SCH ×4 (06:30→21:00)
--- NOTE | 2019-09-02 06:43 | NUR ---
NURSE NOTES: BS IN AM 163, BUT NO INSULIN GIVEN BECAUSE PATIENT HAS NOT BEEN EATING AND WAS VOMITING.
--- NOTE | 2019-09-02 07:42 | NUR ---
HAND-OFF: Report given to Sara BAZAN RN. PATIENT IN STABLE CONDITION. PLAN OF CARE ENDORSED.
--- NOTE | 2019-09-02 07:50 | NUR ---
NURSE NOTES: Received report from LUDMILA Bruno. The patient is resting on the bed but has basin at the bedside for intermittent vomiting. The patient is AOx3, verbal, and able to make needs known. The patient's bed at the lowest position, call light in reach, and fall and aspiration precaution reinforced. The patient is on 2L NC per order and oxygen saturation within normal range. Due to intermittent vomiting, the patient cannot eat breakfast at this time. L upper arm 20G peripheral IV intact and patent. R upper arm AV shunt intact. Sacral pressure ulcer noted. The patient is scheduled for thoracentesis today. Will continue plan of care.
[2019-09-02] MEDS: Aspirin Baby 81mg ORAL SCH (09:00)
[2019-09-02] MEDS: Carvedilol 12.5mg tab ORAL SCH ×2 (09:00→09:19)
[2019-09-02] MEDS: Heparin 5000 units/ml inj SUBQ SCH (09:00)
[2019-09-02] MEDS ORDERED: Albuterol/Ipratropium 3ml neb HHN PRN ×2 (09:00→17:00)
--- NOTE | 2019-09-02 09:00 | Pulmonology Progress Note ---
Lorna Baker TACK PULLER 09/02/19 0900: Subjective Allergies: Coded Allergies: No Known Allergies (Unverified , 04/03/15) Subjective leuk persists but trending down remains afebrile two CoVID 08/27 and 08/29 negative on O2 via NC ; stable pulse ox awaiting for tap- seen and evaluated by CT surgeon, needs VATS hypotensive Objective Last 24 Hour Vital Signs Date Time Temp Pulse Resp B/P (MAP) Pulse Ox O2 Delivery O2 Flow Rate FiO2 09/02/19 04:00 97.1 70 18 94/52 (66) 96 09/02/19 04:00 73 09/02/19 00:00 97.0 78 20 90/59 (69) 94 09/02/19 00:00 72 09/01/19 21:00 Nasal Cannula 3.0 09/01/19 20:59 71 92/53 09/01/19 20:00 98.1 71 18 92/53 (66) 94 09/01/19 20:00 75 09/01/19 16:26 76 09/01/19 16:00 96.9 70 18 105/50 (68) 94 09/01/19 12:00 96.8 74 18 98/40 (59) 95 09/01/19 09:00 Nasal Cannula 2.0 09/01/19 09:00 76 80/40 Intake and Output 09/01/19 09/02/19 19:00 07:00 Intake Total 240 ml Balance 240 ml Intake Oral 240 ml # Voids 2 # Bowel Movements 2 Objective General Appearance: alert , awake, responsive AA male , in NAD Lines, tubes and drains: peripheral HEENT: normocephalic, atraumatic, anicteric, mucous membranes moist, PERRL, O2 via NC Neck: non-tender, supple Respiratory/Chest: decreased breath sounds , more on the left side Cardiovascular/Chest: normal rate Abdomen: normal bowel sounds, non tender, soft Extremities: LUE AV fistula + bruit/thrill Skin Exam: normal pigmentation, warm/dry Neurologic: abnormal gait, alert, responsive, normal mood/affect Musculoskeletal: atrophy - BLE, , non-ambulatory Microbiology Date/Time Source Procedure Growth Status 08/30/19 18:00 Blood Blood Culture - Preliminary NO GROWTH AFTER 48 HOURS Resulted 08/30/19 17:45 Blood Blood Culture - Preliminary NO GROWTH AFTER 48 HOURS Resulted 08/30/19 15:30 Nasopharynx Coronavirus COVID-19 PCR (IDRIS) - Final Complete Laboratory Tests 09/02/19 04:30: White Blood Count 11.7H, Red Blood Count 3.13L, Hemoglobin 10.4L, Hematocrit 31.3L, Mean Corpuscular Volume 100H, Mean Corpuscular Hemoglobin 33.2H, Mean Corpuscular Hemoglobin Concent 33.3, Red Cell Distribution Width 11.9, Platelet Count 206, Mean Platelet Volume 6.1L, Neutrophils (%) (Auto) 76.1H, Lymphocytes (%) (Auto) 11.6L, Monocytes (%) (Auto) 10.7H, Eosinophils (%) (Auto) 1.1, Basophils (%) (Auto) 0.5, Sodium Level 142, Potassium Level 4.2, Chloride Level 103, Carbon Dioxide Level 22, Anion Gap 17H, Blood Urea Nitrogen 68H, Creatinine 11.4H, Estimat Glomerular Filtration Rate 5.5, Glucose Level 167H, Calcium Level 8.3L, Random Vancomycin Level 19.8 Current Medications Medications (Trade) Dose Ordered Sig/Raheel Route PRN Reason Start Time Stop Time Status Last Admin Dose Admin Acetaminophen (Tylenol) 650 mg Q4H PRN ORAL Mild Pain (Pain Scale 1-3) 08/28/19 20:00 09/27/19 19:59 08/29/19 05:04 Acetaminophen (Tylenol) 650 mg Q4H PRN ORAL Temp >100.5 08/28/19 20:00 09/27/19 19:59 Albumin Human 100 ml @ 200 mls/hr PRN PRN IV sbp<90 during hd 08/31/19 19:00 11/29/19 18:59 Albuterol Sulfate (Proventil) 2.5 mg Q4H PRN HHN Shortness of Breath 08/30/19 15:15 09/04/19 15:14 Amiodarone HCl (Cordarone) 200 mg EVERY 12 HOURS ORAL 09/01/19 21:00 11/30/19 20:59 09/01/19 20:38 Aspirin (ASA) 81 mg DAILY ORAL 08/29/19 09:00 10/13/19 08:59 09/01/19 09:00 Carvedilol (Coreg) 12.5 mg Q12HR ORAL 09/01/19 21:00 10/01/19 20:59 Guaifenesin/ Dextromethorphan (Robitussin DM Syrup) 10 ml Q4H PRN ORAL For Cough 09/01/19 12:45 11/30/19 12:44 Heparin Sodium (Porcine) (Heparin 5000 units/ml) 5,000 units EVERY 12 HOURS SUBQ 08/31/19 09:00 10/15/19 08:59 09/01/19 21:26 Insulin Aspart (NovoLOG) BEFORE MEALS AND HS SUBQ 08/28/19 21:00 11/26/19 20:59 09/01/19 21:27 Ondansetron HCl (Zofran) 4 mg Q4H PRN IVP Nausea & Vomiting 08/31/19 12:45 09/30/19 12:44 09/02/19 00:00 Pantoprazole (Protonix) 40 mg DAILY IVP 08/31/19 12:45 09/30/19 12:44 09/01/19 09:00 Piperacillin Sod/ Tazobactam Sod 2.25 gm/Dextrose 55 ml @ 110 mls/hr Q8HR IV 08/29/19 06:00 09/05/19 05:59 09/02/19 05:22 Polyethylene Glycol (Miralax) 17 gm DAILYPRN PRN ORAL Constipation 08/28/19 20:00 09/27/19 19:59 Pravastatin Sodium (Pravachol) 80 mg BEDTIME ORAL 08/28/19 21:00 09/27/19 20:59 09/01/19 20:38 Sevelamer Carbonate (Renvela) 800 mg THREE TIMES A DAY ORAL 08/29/19 09:00 11/27/19 08:59 09/01/19 18:05 Vancomycin HCl (Vanco rx to dose) 1 ea DAILY PRN MISC Per rx protocol 08/28/19 20:00 09/27/19 19:59 Vitamin B Complex/ Vit C/Folic Acid (Nephrovite) 1 tab DAILY ORAL 08/29/19 09:00 09/28/19 08:59 09/01/19 09:00 Assessment/Plan Assessment/Plan ASSESSMENT Pneumonia Large left pleural effusion with loculated components? trapped lung Pleuritic chest pain Bacteremia /GPC - real vs contaminant Suspected CoVID 19-ruled out End-stage renal disease ,on hemodialysis Diabetes mellitus, insulin dependent Hypertension Anemia of chronic kidney disease History of CVA UTI E coli Hypoalbuminemia Hep C positive PLAN OF CARE tele Covid 19 08/27 and 08/29 NGT dc isolation supplemental O2 to keep sat above 92% dc ROBERT Finney and start HHN prn will attempt US guided thoracentesis of large left pleural effusion , today; however may be not successful given loculated components fluid cx, cytology, cell count with diff, LDH, protein, glucose , CT surgeon chiqui appreciated needs VATS cardio and neuro for clearance for surgery CT head pending close monitoring of BP/hypotensive casrdio added Amiodarone for suppression of arrhythmia, cautious use of BB empiric abx- fup with cx 08/27 BCX + Staph epidermidis 1, received Vanco,; repeat BCX for clearance BCX 08/29 NGTD initial + BCX 04/18 was likely contaminant 08/27 SARS CoV-2 by PCR NGT 08/27 UCX + E coli, on Zosyn, probably can deescalate abx? serial troponin - NGT x 2 ECHO - with pEF monitor volumes, CP likely pleuritic , resolved HD per nephro/attending BP management continue ASA and statin D dimer 17.8 CRP 26,2, LDH 119 , ferritin 683 Venous Duplex BLE NGT was on DVT prophylaxis with Heparin started on LMWH /for treatment, but dc by primary and restarted on heparin proceed with VQ scan trend LFT, hep panel + hep C BS management monitor HH with goal to keep Hgb above 7 supportive care case discussed and evaluated by supervising physician Delvis Simms MD 09/02/19 1625: Subjective Allergies: Coded Allergies: No Known Allergies (Unverified , 04/03/15) Assessment/Plan Assessment/Plan Patient seen and examined with TACK PULLER. Agree with above A&P as it reflects our joint deliberations. Needs VATS decortication as soon as BP is improved, cardiology given fluid boluses. Lorna Baker TACK PULLER September 02, 2019 09:00 Delvis Simms MD September 02, 2019 16:25
[2019-09-02] MEDS: Pantoprazole Inj IVP SCH (09:19)
[2019-09-02] MEDS: Amiodarone 200mg tab ORAL SCH ×3 (09:19→20:52)
[2019-09-02] MEDS: Nephrovite tab (Rena-Vite) ORAL SCH (09:20)
[2019-09-02 09:28] LABS: INR 1.2 (0.9-1.1)
--- NOTE | 2019-09-02 09:40 | NUR ---
NURSE NOTES: Morning medications administered per order. Held blood thinner including ASA and Heparin since the patient is scheduled for thoracentesis today. Unable to administer carvedilol since parameter out of range. Will recheck the patient and vital signs. Will continue plan of care.
--- NOTE | 2019-09-02 10:00 | NUR ---
NURSE NOTES: The patient still has intermittent vomiting. PRN Zofran administered per order. Will closely monitor the patient. Will continue plan of care.
--- NOTE | 2019-09-02 10:30 | NUR ---
pt hypotensive SBP 79- rechecked [address] Guan called and he was notified of patient current BP, and stated to notify dr sal, call placed to dr sal and message left.
--- NOTE | 2019-09-02 10:30 | NUR ---
NURSE NOTES: BODY AND FENDER WORKER called @ 1030 for the patient's hypotension with BP of 79/57, pulse of 71, SpO2 of 96% on 2L NC, Temperature of 97.2F. The patient's mental status did not change from baseline but had episode of vomiting. Miguel, test carrier, and Rita, critical care studio operations engineer in charge, at the bedside assessed the patient and rechecked the blood pressure. Rechecked blood pressure of 118/51 noted on L leg. Notified Dr. Morgan, Dr. Guan, and Dr. Conn regarding the patient's episode low blood pressure. Awaiting for further order. Will continue plan of care.
--- NOTE | 2019-09-02 10:50 | NUR ---
NURSE NOTES: Dr. Alexandra was notified regarding CT head without contrast. Was not able to take down the patient to CT department due to unstable vital signs. Will take the patient down to CT department as soon as the patient's vital signs stabilized. Will continue plan of care.
--- NOTE | 2019-09-02 10:56 | NUR ---
CASE MANAGEMENT:REVIEW 09/02/19 SI: PNEUMONIA. COVID NEGATIVE. ESRD LG LT LOCULATED PLEURAL EFFUSION. BACTEREMIA 97.1 70 18 94/52 96% ON 3L/NC WBC+11.7 BUN+68 CR+11.4 IS: LOVENOX SQ QD COREG PO Q12 ASA PO QD IV ZOSYN Q8HRS SS INSULIN AC+HS : TELEMETRY STATUS DCP: FROM CV TERRACE PLAN: VATS WITH DECOMPRESSION BY DR BERMUDEZ ONCE CLEARED BY DIRECTOR OF PEDIATRIC REHABILITATION (DR PARIKH)
--- NOTE | 2019-09-02 11:00 | NUR ---
NURSE NOTES: Dr. Conn ordered NS 250mL bolus. Administered medication per order. Will recheck the patient and vital signs. Will continue plan of care.
--- NOTE | 2019-09-02 11:10 | NUR ---
NURSE NOTES: 250mL NS bolus given to the patient. Rechecked the patient's blood pressure but still noted as 80/60. Awaiting further order from Dr. Morgan. Will closely monitor the patient. Will continue plan of car.e
--- NOTE | 2019-09-02 11:30 | NUR ---
NURSE NOTES: Dr. Morgan ordered NS 500mL bolus and Albumin 25% 100mL bolus for hypotension. Administered medication per order. Will recheck vital signs after bolus. Will closely monitor the patient. Will continue plan of care.
--- NOTE | 2019-09-02 12:00 | NUR ---
NURSE NOTES: Rechecked the patient and the patient's vital signs. Blood pressure of 85/[address] Morgan again for further order. Will closely monitor the patient. Will continue plan of care.
--- NOTE | 2019-09-02 12:00 | NUR ---
NURSE NOTES: Dr. Guan at the bedside assessed the patient. Per Dr. Guan, the patient will have video assisted thorascopic surgery if cleared by Neuro and after the patient's vital signs stabilized. Will continue plan of care.
--- NOTE | 2019-09-02 12:30 | NUR ---
RD ASSESSMENT & RECOMMENDATIONS SEE CARE ACTIVITY FOR COMPLETE ASSESSMENT DAILY ESTIMATED NEEDS: Needs based on ESRD on HD 81.8kg 27-32 kcals/kg 6535-8034 total kcals 1.25-1.8 g protein/kg 102-147 g total protein Fluid per Md, on HD NUTRITION DIAGNOSIS: Increased kcal and pro needs r/t renal dysfunction as evidenced by pt w/ ESRD on HD (CURRENT DIET: CCHO VERY HIGH/ RENAL MS FINELY CHOPPED) PO DIET RECOMMENDATIONS: RENAL/ CCHO MED + DOUBLE PRO PORTIONS ADDITIONAL RECOMMENDATIONS: 1) Obtain a standing weight for calibrated bed scale wt 2) Add NEPRO TID w/ meals, currently w/ poor po intake 3) Rec WC eval for sacral wound. Add GIGI BID if tolerated 4) Consider appetite stimulant
--- NOTE | 2019-09-02 12:30 | NUR ---
NURSE NOTES: The patient's mental status remains same as baseline. Will recheck the patient and the patient's vital signs. Will closely monitor the patient. Will continue plan of care.
--- NOTE | 2019-09-02 12:50 | NUR ---
NURSE NOTES: Dr. Morgan ordered as follow: Albumin 25% 100mL bolus, stat CXR, and transfer the patient to ICU. Notified to the charge nurse and the asbestos removal supervisor. Administered Albumin as ordered. Called CXR department for stat CXR order. Will continue plan of care until transfer to ICU.
--- NOTE | 2019-09-02 13:10 | NUR ---
NURSE NOTES: Rechecked the patient's vital signs. Blood pressure of 86/48 noted. No acute distress or shortness of breath at this time. Mental status at baseline. Will closely monitor the patient. Will continue plan of care.
--- NOTE | 2019-09-02 13:50 | NUR ---
NURSE NOTES: Rechecked the patient's blood pressure. The patient's blood pressure of 87/47 noted. The patient's mental status same at baseline. Will closely monitor the patient. Will continue plan of care until transfer to ICU.
--- NOTE | 2019-09-02 14:14 | NUR ---
RADIOLOGY DEPT., CHEST X-RAY DONE.-P.DYE
--- NOTE | 2019-09-02 14:30 | NUR ---
NURSE NOTES: The patient denies of acute distress or shortness of breath but still has intermittent vomiting. PRN Zofran administered per order. Will closely monitor the patient. Will continue plan of care until transfer to ICU.
--- NOTE | 2019-09-02 14:46 | Diagnostic Imaging Report ---
Indication: Chest pain, shortness of breath Technique: XRAY Chest 1v Comparison: 08/28/2019 Findings: Left-sided volume loss and near complete opacification of the left hemithorax is again noted, similar to the prior exam. Again this is related to large loculated left pleural effusion with adjacent atelectasis/consolidation in the left lung. There is worsening aeration of the right lung with development of linear subsegmental atelectasis in the right midlung. No evidence of pneumothorax. Heart size appears stable. Osseous structures are stable. Impression: * Near complete obscuration of the left hemithorax related to large left pleural effusion and left-sided atelectasis/consolidation -not significantly changed compared to the prior exam. * Worsening of aeration in the RIGHT lung with development of linear opacities in the right midlung which may related to subsegmental atelectasis.
--- NOTE | 2019-09-02 14:50 | NUR ---
NURSE NOTES: KARINA Rothman was notified regarding abnormal chest x-ray. Per KARINA Rothman, put on hold for ultrasound guide thoracentesis now as the patient's blood pressure is unstable. Will closely monitor the patient. Will continue plan of care.
--- NOTE | 2019-09-02 15:00 | NUR ---
NURSE NOTES: Dr. Morgan at the bedside assessed the patient. Dr. Morgan ordered the patient to be transferred to SDU rather than ICU. Notified to the charge nurse and supervisory historian. Will continue plan of care until transfer.
--- NOTE | 2019-09-02 15:03 | NUR ---
spoke with Dr Morgan and he stated patient can transfer to SDU.
--- NOTE | 2019-09-02 15:30 | NUR ---
HAND-OFF: Report given to LUDMILA Manuel. The patient got safely transferred to SDU [id number] with primary RN. Endorsed plan of care.
--- NOTE | 2019-09-02 16:08 | NUR ---
NURSE NOTES: received patient report from Robert KEYS. Patient is on bed awake, not sherine cute distress.SBP on the low side 70s to 90s. Dr sal gave order to administer another 250ml bolus. will take note and carry out.
[2019-09-02] MEDS ORDERED: NS 250 ML IVPB ONE ×2 (16:15)
[2019-09-02] MEDS ORDERED: Guaifenesin/DM 10ml syrup ORAL PRN (17:00)
[2019-09-02] MEDS ORDERED: Miralax 17gm pkt ORAL PRN (17:00)
--- NOTE | 2019-09-02 17:57 | NUR ---
NURSE NOTES: attempted to leave a message to dr Morgan regarding patients vomitting...mowing machine operator unavailable.will attempt again later.
--- NOTE | 2019-09-02 18:34 | NUR ---
NURSE NOTES: attempted to call dr Morgan for patients vomitting/ for NPO order but unsuccessful. will continue to monitor.
--- NOTE | 2019-09-02 19:13 | NUR ---
HAND-OFF: Report given to doc sol.
--- NOTE | 2019-09-02 19:34 | NUR ---
NURSE NOTES: Received report from LUDMILA Valencia, pt. in bed awake watching television- pt. is able to make needs know, no signs or symptoms of acute cardiac or respiratory distress noted, pt. appears to be sating well on 2L NC- no distress noted, bed in lowest position and call light within easy reach, bed alarm on, side rails up x's3 and safety brakes engaged, AYUSH shunt noted for HD, CALI 20G - IV intact and patent- TKO, pt. appears clean and dry, HOB elevated, Will continue to monitor pt. and with plan of care. Addendum: 09/02/19 at 1946 by DAVEY SHAH RN RN per endorsement DR. Morgan is aware pt. was having vomiting episodes- no new orders were given. No vomiting noted during assessment- pt. denies vomiting symptoms.
--- NOTE | 2019-09-02 19:49 | Nephrology Progress Note ---
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 (10) Sepsis (11) Bacteremia (12) Emesis (13) UTI (urinary tract infection) (14) E coli infection (15) Hypotension Plan fluids and albumin given as bp fell to 70's, emesis but no distress, weak, orders updated, will need vats, coag neg staph b acteremia likely contaminant Subjective Constitutional: Reports: weakness HEENT: Reports: no symptoms Genitourinary: Reports: no symptoms Neurologic/Psychiatric: Reports: pre-existing deficit Subjective nausea and emesis Objective Objective Last 24 Hour Vital Signs Date Time Temp Pulse Resp B/P (MAP) Pulse Ox O2 Delivery O2 Flow Rate FiO2 09/02/19 16:30 Nasal Cannula 2.0 09/02/19 16:00 96.3 65 17 100/58 (72) 96 09/02/19 16:00 67 09/02/19 09:00 72 98/58 09/02/19 08:00 72 09/02/19 04:00 97.1 70 18 94/52 (66) 96 09/02/19 04:00 73 09/02/19 00:00 97.0 78 20 90/59 (69) 94 09/02/19 00:00 72 09/01/19 21:00 Nasal Cannula 3.0 09/01/19 20:59 71 92/53 09/01/19 20:00 98.1 71 18 92/53 (66) 94 09/01/19 20:00 75 Intake and Output 09/01/19 09/02/19 19:00 07:00 Intake Total 240 ml Balance 240 ml Intake Oral 240 ml # Voids 2 # Bowel Movements 2 Laboratory Tests 09/02/19 04:30: White Blood Count 11.7H, Red Blood Count 3.13L, Hemoglobin 10.4L, Hematocrit 31.3L, Mean Corpuscular Volume 100H, Mean Corpuscular Hemoglobin 33.2H, Mean Corpuscular Hemoglobin Concent 33.3, Red Cell Distribution Width 11.9, Platelet Count 206, Mean Platelet Volume 6.1L, Neutrophils (%) (Auto) 76.1H, Lymphocytes (%) (Auto) 11.6L, Monocytes (%) (Auto) 10.7H, Eosinophils (%) (Auto) 1.1, Basophils (%) (Auto) 0.5, Sodium Level 142, Potassium Level 4.2, Chloride Level 103, Carbon Dioxide Level 22, Anion Gap 17H, Blood Urea Nitrogen 68H, Creatinine 11.4H, Estimat Glomerular Filtration Rate 5.5, Glucose Level 167H, Calcium Level 8.3L, Random Vancomycin Level 19.8 09/02/19 08:45: Prothrombin Time 12.7H, Prothromb Time International Ratio 1.2H, Activated Partial Thromboplast Time 35H Height (Feet): 6 Height (Inches): 1.00 Weight (Pounds): 180 General Appearance: alert, mild distress Neck: normal alignment Cardiovascular: regular rhythm Respiratory/Chest: decreased breath sounds Abdomen: non tender, soft Extremities: no edema Neurologic: motor weakness Alan Morgan MD September 02, 2019 19:49
[2019-09-02] MEDS ORDERED: Heparin 5000 units/ml inj SUBQ SCH (21:00)
[2019-09-02] MEDS ORDERED: Carvedilol 12.5mg tab ORAL SCH (21:00)
[2019-09-02] MEDS: Piperacillin/Tazobactam 2.25 GM in D5W 55 ML IV SCH (21:04)
[2019-09-03] VITALS (41 sets, daily range): BP systolic 63–108; BP diastolic 32–59
--- NOTE | 2019-09-03 03:35 | NUR ---
HAND-OFF: Report given to LUDMILA Barriga- pt. remain stable and no signs of distress noted.
--- NOTE | 2019-09-03 03:40 | NUR ---
NURSE NOTES: Received patient and report from Brice KEYS. Patient sleep in bed comfortably with no acute distress. with on NC 2L. O2 sat 97-98%. Denies any pain at this time.keep patient comfortable.
[2019-09-03 05:22] LABS: BASOPHILS % (AUTO) 0.6 % (0.0-2.0); EOSINOPHILS % (AUTO) 1.2 % (0.0-3.0); HEMATOCRIT 30.6 % (42.0-52.0); HEMOGLOBIN 10.2 G/DL (14.2-18.0); LYMPHOCYTES % (AUTO) 13.2 % (20.0-45.0); MEAN CORPUSCULAR VOLUME 98 FL (80-99); MONOCYTES % (AUTO) 12.9 % (1.0-10.0); PLATELET COUNT 211 K/UL (150-450); RED BLOOD COUNT 3.11 M/UL (4.70-6.10); RED CELL DISTRIBUTION WIDTH 12.2 % (11.6-14.8); WHITE BLOOD COUNT 9.5 K/UL (4.8-10.8)
[2019-09-03 05:33] LABS: ANION GAP 20 mmol/L (5-15); BLOOD UREA NITROGEN 80 mg/dL (7-18); CARBON DIOXIDE 20 MMOL/L (21-32); CHLORIDE 105 MMOL/L (98-107); CREATININE 12.6 MG/DL (0.55-1.30); POTASSIUM 4.4 MMOL/L (3.5-5.1); SODIUM 145 MMOL/L (136-145)
[2019-09-03] MEDS: Zosyn 2.25 gm in D5W 55ml IV SCH (06:10)
[2019-09-03] MEDS: Piperacillin/Tazobactam 2.25 GM in D5W 55 ML IV SCH ×2 (06:11→14:03)
[2019-09-03] MEDS: NovoLOG Insulin Flexpen SUBQ SCH ×5 (06:12→21:29)
--- NOTE | 2019-09-03 06:44 | Progress Note ---
DATE: 09/02/2019 CARDIOLOGY PROGRESS NOTE SUBJECTIVE: Condition is deteriorated. He is now critical with guarded prognosis. He has been increasingly hypotensive for despite fluid challenges. Dialysis was completed yesterday without any ultrafiltration. The patient's chest radiograph reveals worsening aeration on the right and near opacification on the left. OBJECTIVE: VITAL SIGNS: Blood pressure 70 to 100 systolic, heart rate in the 60s, respiratory 18, afebrile. LUNGS: Diminished breath sounds. CARDIAC: Regular rhythm rate. Normal S1, S2. No new murmur. ABDOMEN: Soft. EXTREMITIES: Trace edema. LABORATORY DATA: White count 11.7, hemoglobin 10.4, sodium 142, potassium 4.2, bicarb 22, BUN 68, and creatinine 11.4. IMPRESSION: 1. Trapped lung. 2. Sepsis. 3. Shock. 4. Urinary tract infection with E. coli. 5. Pleuritic chest pain. 6. End-stage renal disease. PLAN: 1. Volume support, may need pressor support. 2. Needs vascular surgery for VATS. May be at increased risk for anesthesia due to tenuous hemodynamics parameters at this time. 3. Antimicrobials per Infectious Disease device sales consultant. Manfred Conn M.D. DR: PATRICIA JOB#: [id number] CC:
--- NOTE | 2019-09-03 07:15 | NUR ---
HAND-OFF: Report given to LUDMILA CORONADO using SBAR.Patient remains stable condition.
--- NOTE | 2019-09-03 07:20 | NUR ---
NURSE NOTES: Received report from Nithya KEYS.
--- NOTE | 2019-09-03 08:00 | NUR ---
NURSE NOTES: Pt. in bed, awake, a/o x 3-4. Pleasant. No sign of distress. Denies pain at present. Noted B/P on low side B/P 79/48 pt. asymptomatic. Pt. talking on the phone with his family.
--- NOTE | 2019-09-03 08:45 | NUR ---
NURSE NOTES: Re-check B/P went further low inspite pt. on supine position B/P 63/33. Samuel ASPHALT PAVER OPERATOR at bedside called Dr. Morgan and received order to transfer pt. to ICU now. Informed CN and Relay Telegrapher.
[2019-09-03] MEDS ORDERED: Heparin Sod 1000 units/ml 10ml IV PRN (09:00)
[2019-09-03] MEDS ORDERED: Aspirin Baby 81mg ORAL SCH (09:00)
[2019-09-03] MEDS ORDERED: Pantoprazole Inj IVP SCH (09:00)
[2019-09-03] MEDS ORDERED: Nephrovite tab (Rena-Vite) ORAL SCH (09:00)
--- NOTE | 2019-09-03 09:00 | NUR ---
NURSE NOTES: Received a call from Dr. Morgan and ordered stat CXR, hold stop Coreg, 500cc NS bolus, Albumin 25% [id number]. until SBP above 90mmHg.
--- NOTE | 2019-09-03 09:05 | NUR ---
NURSE NOTES: Pt. transferred to ICU and gave report to Haydee KEYS.
--- NOTE | 2019-09-03 09:38 | Pulmonology Progress Note ---
Lorna Baker CARDBOARD CUTTER 09/03/19 0938: Subjective Allergies: Coded Allergies: No Known Allergies (Unverified , 04/03/15) Subjective 09/01 rapid response was called 2 to hypotension albumin and IV bolus given pt was moved to [facility] this am 09/02 BP still critically low leuk resolved remains afebrile two CoVID 08/27 and 08/29 negative, off isoaltion on O2 via NC ; stable pulse ox tap-cx 09/01 due to hypotension surgery on hold as well 2 to hypotension Objective Last 24 Hour Vital Signs Date Time Temp Pulse Resp B/P (MAP) Pulse Ox O2 Delivery O2 Flow Rate FiO2 09/03/19 08:26 100 Nasal Cannula 2.0 28 09/03/19 08:00 97.5 84 20 79/48 (58) 94 09/03/19 04:00 97.8 69 18 94/59 (71) 98 09/03/19 04:00 2.0 09/03/19 04:00 Nasal Cannula 2.0 09/03/19 03:55 68 09/03/19 00:00 2.0 09/03/19 00:00 98.2 73 18 92/53 (66) 97 09/03/19 00:00 Nasal Cannula 2.0 09/02/19 23:49 65 09/02/19 21:00 Nasal Cannula 2.0 09/02/19 20:49 65 93/59 09/02/19 20:03 93 Nasal Cannula 2.0 28 09/02/19 20:00 97.7 65 18 93/59 (70) 98 09/02/19 20:00 Nasal Cannula 2.0 09/02/19 20:00 2.0 09/02/19 19:18 66 09/02/19 19:18 66 09/02/19 16:30 Nasal Cannula 2.0 09/02/19 16:00 96.3 65 17 100/58 (72) 96 09/02/19 16:00 67 09/02/19 15:00 66 18 90/62 (71) 96 09/02/19 13:50 65 18 87/47 (60) 96 09/02/19 13:00 68 18 86/48 (61) 96 09/02/19 12:00 65 09/02/19 12:00 98.0 70 18 85/45 (58) 96 09/02/19 11:10 70 18 80/60 (67) 96 09/02/19 10:45 72 18 118/51 (73) 96 09/02/19 10:30 97.2 71 18 79/57 (64) 96 09/02/19 10:00 71 18 96 Intake and Output 09/02/19 09/03/19 19:00 07:00 Intake Total 1065 ml Balance 1065 ml IV Total 1065 ml # Voids 1 # Bowel Movements 1 1 Objective General Appearance: alert , awake, responsive AA male , in NAD Lines, tubes and drains: peripheral HEENT: normocephalic, atraumatic, anicteric, mucous membranes moist, PERRL, O2 via NC Neck: non-tender, supple Respiratory/Chest: decreased BS on the left side Cardiovascular/Chest: normal rate Abdomen: normal bowel sounds, non tender, soft Extremities: LUE AV fistula + bruit/thrill Skin Exam: normal pigmentation, warm/dry Neurologic: abnormal gait, alert, responsive, normal mood/affect Musculoskeletal: atrophy - BLE, , non-ambulatory Laboratory Tests 09/03/19 04:45: White Blood Count 9.5, Red Blood Count 3.11L, Hemoglobin 10.2L, Hematocrit 30.6L , Mean Corpuscular Volume 98, Mean Corpuscular Hemoglobin 32.8H, Mean Corpuscular Hemoglobin Concent 33.4, Red Cell Distribution Width 12.2, Platelet Count 211, Mean Platelet Volume 5.7L, Neutrophils (%) (Auto) 72.0, Lymphocytes ( %) (Auto) 13.2L, Monocytes (%) (Auto) 12.9H, Eosinophils (%) (Auto) 1.2, Basophils (%) (Auto) 0.6, Sodium Level 145, Potassium Level 4.4, Chloride Level 105, Carbon Dioxide Level 20L, Anion Gap 20H, Blood Urea Nitrogen 80H, Creatinine 12.6H, Estimat Glomerular Filtration Rate 4.8, Glucose Level 192H, Calcium Level 8.0L Current Medications Medications (Trade) Dose Ordered Sig/Raheel Route PRN Reason Start Time Stop Time Status Last Admin Dose Admin Acetaminophen (Tylenol) 650 mg Q4H PRN ORAL Mild Pain (Pain Scale 1-3) 09/02/19 17:00 09/27/19 16:59 Acetaminophen (Tylenol) 650 mg Q4H PRN ORAL Temp >100.5 09/02/19 17:00 09/27/19 16:59 Albumin Human 50 ml @ 100 mls/hr Q30M IV 09/03/19 09:15 09/03/19 13:00 Albumin Human 100 ml @ 200 mls/hr PRN PRN IV sbp<90 during hd 09/03/19 09:00 09/03/19 23:59 Albuterol/ Ipratropium (Albuterol/ Ipratropium) 3 ml Q4H PRN HHN Shortness of Breath 09/02/19 17:00 09/07/19 08:59 Aspirin (ASA) 81 mg DAILY ORAL 09/03/19 09:00 10/13/19 08:59 Carvedilol (Coreg) 12.5 mg Q12HR ORAL 09/02/19 21:00 10/01/19 20:59 Guaifenesin/ Dextromethorphan (Robitussin DM Syrup) 10 ml Q4H PRN ORAL For Cough 09/02/19 17:00 11/30/19 16:59 Heparin Sodium (Porcine) (Heparin 5000 units/ml) 5,000 units EVERY 12 HOURS SUBQ 09/02/19 21:00 10/15/19 08:59 Heparin Sodium (Porcine) (Heparin Sod 1000 units/ml 10ml) 500 unit ONCE PRN IV DIALYSIS 09/03/19 09:00 09/03/19 23:59 Insulin Aspart (NovoLOG) BEFORE MEALS AND HS SUBQ 09/02/19 16:30 11/26/19 20:59 09/03/19 06:15 Ondansetron HCl (Zofran) 4 mg Q4H PRN IVP Nausea & Vomiting 09/02/19 18:30 09/30/19 18:29 Pantoprazole (Protonix) 40 mg DAILY IVP 09/03/19 09:00 09/30/19 12:44 Piperacillin Sod/ Tazobactam Sod 2.25 gm/Dextrose 55 ml @ 110 mls/hr Q8HR IV 09/02/19 22:00 09/05/19 05:59 09/03/19 06:11 Polyethylene Glycol (Miralax) 17 gm DAILYPRN PRN ORAL Constipation 09/02/19 17:00 09/27/19 16:59 Pravastatin Sodium (Pravachol) 80 mg BEDTIME ORAL 09/02/19 21:00 09/27/19 20:59 09/02/19 21:04 Sevelamer Carbonate (Renvela) 800 mg THREE TIMES A DAY ORAL 09/02/19 18:00 11/27/19 08:59 Sodium Chloride 1,000 ml @ 500 mls/hr Q2H ONCE IV 09/03/19 09:15 09/03/19 11:14 Vancomycin HCl (Vanco rx to dose) 1 ea DAILY PRN MISC Per rx protocol 09/03/19 09:00 09/27/19 19:59 Vitamin B Complex/ Vit C/Folic Acid (Nephrovite) 1 tab DAILY ORAL 09/03/19 09:00 09/28/19 08:59 Assessment/Plan Assessment/Plan ASSESSMENT Hypotension, Shock Pneumonia Large left pleural effusion with loculated components? trapped lung Pleuritic chest pain Bacteremia /GPC - real vs contaminant Suspected CoVID 19-ruled out End-stage renal disease ,on hemodialysis Diabetes mellitus, insulin dependent Hypertension Anemia of chronic kidney disease History of CVA UTI E coli Hypoalbuminemia Hep C positive PLAN OF CARE move to ICU discussed with dr Morgan and dr Conn agree will get another albumin bolus and IV bolus and evaluated, will likely need pressors will need CL placed , dr Layton called Covid 19 08/27 and 08/29 NGT dc isolation supplemental O2 to keep sat above 92% off MDI Proventil and started on HHN prn CXR now CXR 09/01 - Near complete obscuration of the left hemithorax related to large left pleural effusion and left-sided atelectasis/consolidation -not significantly changed compared to the prior exam. - Worsening of aeration in the RIGHT lung with development of linear opacities in the right midlung which may related to subsegmental atelectasis. US guided thoracentesis of large left pleural effusion however may be not successful given loculated components fluid cx, cytology, cell count with diff, LDH, protein, glucose ,-on HOLD due to hypotension CT surgeon chiqui appreciated needs VATS surgery on hold 2 to hypotension cardio and neuro for clearance for surgery CT head pending close monitoring of BP/hypotensive cardio added Amiodarone for suppression of arrhythmia, dc BB empiric abx- fup with cx 08/27 BCX + Staph epidermidis 1/2, received Vanco,; repeat BCX for clearance BCX 08/29 NGTD initial + BCX 1/2 was likely contaminant 08/27 SARS CoV-2 by PCR NGT 08/27 UCX + E coli, on Zosyn, probably can deescalate abx? serial troponin - NGT x 2 ECHO - with pEF monitor volumes, CP likely pleuritic , resolved HD per nephro/attending BP management continue ASA and statin D dimer 17.8 CRP 26,2, LDH 119 , ferritin 683 Venous Duplex BLE NGT was on DVT prophylaxis with Heparin started on LMWH /for treatment, but dc by primary and restarted on heparin will proceed with VQ scan when more stable trend LFT, hep panel + hep C BS management monitor HH with goal to keep Hgb above 7 supportive care case discussed and evaluated by supervising physician Delvis Simms MD 09/03/19 1539: Subjective Allergies: Coded Allergies: No Known Allergies (Unverified , 04/03/15) Assessment/Plan Assessment/Plan Patient seen and examined with CARDBOARD CUTTER. Agree with above A&P as it reflects our joint deliberations. Moved to ICU now, BP better with IVF and albumin. Central line placed but patient inadvertently pulled it out. No etiology for hypotension. If remains w/o obvious acute issue, may consider use of midodrine. Lorna Baker NP September 03, 2019 09:38 Delvis Simms MD September 03, 2019 15:39
--- NOTE | 2019-09-03 09:50 | NUR ---
NURSE NOTES: Pt and report received from LUDMILA Clarke. Pt transferred from SDU for hypotension. B/P in the 70's. Pt appears weak, however, is awake and alert, responds to verbal stimuli, following commands. Pt is on 2L NC, O2Sat 97%. Pt is anuric and scheduled for dialysis today. Pt has a Lt upper arm #20g PIV. Pt has a Rt upper arm AV shunt. Bed locked and in lowest position, with call light within reach. Will resume plan of care.
--- NOTE | 2019-09-03 09:51 | NUR ---
CASE MANAGEMENT: REVIEW SI: LEFT PLEURAL EFFUSION . PNA . COVID-19 R/O T 97.5 HR 84 RR 20 BP 79/48 SAT 97% NC/2L BUN 80 CR 12.6 IS: ALBUMIN IV Q30M ZOSYN IV Q8HR NS IVF BOLUS X1 HD NEEDED ICU STATUS DCP: PATIENT IS FROM [facility]
--- NOTE | 2019-09-03 10:00 | NUR ---
NURSE NOTES: Emergent Rt Fem TLC placed by Dr. Chaudhry for infusion of irritating fluids and large volumes in order to get B/P up.
[2019-09-03] MEDS ORDERED: Albuterol/Ipratropium 3ml neb HHN PRN (10:03)
[2019-09-03] MEDS ORDERED: Guaifenesin/DM 10ml syrup ORAL PRN (10:03)
[2019-09-03] MEDS ORDERED: Miralax 17gm pkt ORAL PRN (10:03)
--- NOTE | 2019-09-03 10:15 | NUR ---
NURSE NOTES: Spoke to Dr Morgan about pt's SBP in the 60's. Dr Morgan does not want to start Levophed at this time. Advised to change B/P cuff position and retake B/P reading. Pts B/P in the 70's after doing so. NS bolus running and Albumin 25% running, as ordered. Will continue to monitor.
--- NOTE | 2019-09-03 10:40 | NUR ---
RADIOLOGY: PCXR COMPLETED 1030HRS. NF
--- NOTE | 2019-09-03 11:35 | Diagnostic Imaging Report ---
Procedure: XRAY Chest 1v Reason for study: Shortness of breath. Comparison films: 09/02/2019. FINDINGS: A single one view chest is obtained. There is increase opacity left hemithorax now with complete white out demonstrated. This is likely secondary to complete atelectasis of the left lung and left effusion. Right perihilar densities has improved. Cardiac silhouette partially obscured. Right CP angle is sharp. The bony thorax appear unremarkable. IMPRESSION: Complete white out of the left hemithorax likely secondary to left lung atelectasis and effusion. Improved right perihilar densities.
--- NOTE | 2019-09-03 12:00 | NUR ---
NURSE NOTES: EKG done as ordered. Medication given as scheduled. Pt's B/P remains low, despite all fluids given.
--- NOTE | 2019-09-03 12:10 | NUR ---
NURSE NOTES: Dr Morgan at bedside assessing pt. Updated him on pt's current condition. New orders noted and acknowledged.
--- NOTE | 2019-09-03 12:33 | NUR ---
RADIOLOGY DEPT., CHEST X-RAY DONE-P.DYE
--- NOTE | 2019-09-03 12:57 | NUR ---
NURSE NOTES:WOUND CARE NOTES:Pt presented with Unstagebale pressure injury sacrum(L)1.5cm x (W)1.2cm. Base of wound has 95% slough,5% syed.Surrounding black borders with marginal non-blanching erythema.No odor or exudate noted from wound. Tx.Plan: Cleanse sacral wound with Saline. Apply Therahoney. Apply Moisture Barrier Paste periwound. Cover with Optifoam drsg. Change every 3 days and prn. Apply Cavilon Skin Barrier to heels.Cover with Optifoam drsg. Change every 7 days and prn. Reposition at least every 2hours or as tolerated. Off-load heel with pillow. APM/CIPRIANO Mattress overlay
--- NOTE | 2019-09-03 13:15 | NUR ---
NURSE NOTES: Dr Conn aware that pt in ICU, EKG results, and informed of current vitals with low B/P. No new orders given.
--- NOTE | 2019-09-03 13:32 | NUR ---
NURSE NOTES: Spoke to Alejandro @ [facility] Nephrology [phone] to schedule HD for tomorrow, as ordered.
--- NOTE | 2019-09-03 13:35 | NUR ---
P.T Note: Pt was transferred to ICU due to change in medical condition. Will need order for re consult when medically appropriate. DC P.T at this time.
--- NOTE | 2019-09-03 13:53 | Consultation ---
History of Present Illness General Date patient seen: September 03, 2019 Chief Complaint: Chest Pain Referring physician: Dr Morgan Reason for Consultation: sepsis , hypotension Present Illness HPI This is a 64-year-old male presents who was admitted for chest pain for the past 2 days prior to admission left-sided associated with cough and mild shortness of breath. Patient presented by EMS from his assisted living. He denies any fever. He was mildly hypoxic on room air. He denies any nausea or vomiting. Patient has a history of hypertension diabetes end-stage renal disease on hemodialysis Monday. Patient has been doing well until earlier today when he began to have significant hypotension,. He was transferred to the intensive care unit for care and management of surgery was called to evaluate and assist with care. Patient seen, patient [place], chart reviewed. Labs noted abnormal. Patient is awake responsive states he feels weak and tired but does not want to . Patient unsure recently happened. No nausea vomiting fever chills. COVID negative thus far Allergies: Coded Allergies: No Known Allergies (Unverified , 04/03/15) Medication History Scheduled Acetaminophen (Acetaminophen), 325 MG PO EVERY 8 HOURS, (Reported) Aspirin* (Aspirin*), 81 MG ORAL DAILY, (Reported) Carvedilol* (Carvedilol*), 25 MG ORAL TWICE A DAY, (Reported) Insulin Aspart (Novolog Flexpen), 0 UNITS SUBQ AC+HS Insulin Detemir (Levemir Flexpen), 8 UNITS SUBQ BEDTIME Pravastatin Sod* (Pravachol*), 80 MG ORAL BEDTIME Sevelamer Carbonate (Renvela), 800 MG ORAL THREE TIMES A DAY Vitamin B Cmplx/Vit C/Folic AC (Nephro-Jessica Tablet), 1 TAB ORAL DAILY Scheduled PRN Polyethylene Glycol 3350* (Miralax*), 17 GM ORAL DAILYPRN PRN for Constipation Patient History History Provided By: Patient, Medical Record, PMD Healthcare decision maker N Resuscitation status Advanced Directive on File Past Medical/Surgical History Past Medical/Surgical History: (1) Severe sepsis (2) Altered mental status (3) Dialysis complication (4) Gait abnormality (5) MRSA (methicillin resistant staph aureus) culture positive (6) Pneumonia (7) End-stage renal disease (8) 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 (9) Malnutrition of moderate degree (10) Sepsis (11) Hepatitis C (12) Pleural effusion, left (13) CVA, old, 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, old, hemiparesis (15) Diastolic CHF (16) Bacteremia (17) Emesis (18) UTI (urinary tract infection) (19) E coli infection (20) Hypotension Review of Systems All Other Systems: negative except mentioned in HPI ROS Narrative limited given condition Physical Exam General Appearance: moderate distress Lines, tubes and drains: peripheral, central line - placed HEENT: atraumatic, anicteric, mucous membranes moist Neck: supple, normal inspection, abnormal alignment Respiratory/Chest: no respiratory distress, no accessory muscle use, decreased breath sounds Cardiovascular/Chest: regularly irregular, tachycardia Abdomen: normal bowel sounds, soft, no organomegaly, no mass Genitourinary/Rectal: normal rectal exam Extremities: normal range of motion, non-tender, normal inspection, no calf tenderness Skin Exam: warm/dry Neurologic: alert, responsive Last 24 Hour Vital Signs Date Time Temp Pulse Resp B/P (MAP) Pulse Ox O2 Delivery O2 Flow Rate FiO2 09/03/19 13:00 78 21 93/55 (68) 100 09/03/19 12:30 75 14 75/42 (53) 97 09/03/19 12:24 77 24 87/45 (59) 98 09/03/19 12:21 76 21 65/41 (49) 96 09/03/19 12:15 76 26 85/37 (53) 100 09/03/19 12:00 2.0 09/03/19 12:00 98.3 76 23 81/37 (52) 98 09/03/19 12:00 Nasal Cannula 2.0 09/03/19 11:30 80 18 94/46 (62) 98 09/03/19 11:15 74 10 86/43 (57) 98 09/03/19 11:00 78 24 80/41 (54) 96 09/03/19 10:45 80 21 98/49 (65) 99 09/03/19 10:37 74 21 85/46 (59) 97 09/03/19 10:30 76 22 80/34 (49) 94 09/03/19 10:18 78 18 79/32 (48) 92 09/03/19 10:16 77 29 66/40 (49) 91 09/03/19 10:15 78 21 66/37 (47) 93 09/03/19 10:00 98.5 77 26 63/39 (47) 99 09/03/19 08:26 100 Nasal Cannula 2.0 28 09/03/19 08:00 97.5 84 20 79/48 (58) 94 09/03/19 08:00 Nasal Cannula 2.0 09/03/19 04:00 97.8 69 18 94/59 (71) 98 09/03/19 04:00 2.0 09/03/19 04:00 Nasal Cannula 2.0 09/03/19 03:55 68 09/03/19 00:00 2.0 09/03/19 00:00 98.2 73 18 92/53 (66) 97 09/03/19 00:00 Nasal Cannula 2.0 09/02/19 23:49 65 09/02/19 21:00 Nasal Cannula 2.0 09/02/19 20:49 65 93/59 09/02/19 20:03 93 Nasal Cannula 2.0 28 09/02/19 20:00 97.7 65 18 93/59 (70) 98 09/02/19 20:00 Nasal Cannula 2.0 09/02/19 20:00 2.0 09/02/19 19:18 66 09/02/19 19:18 66 09/02/19 16:30 Nasal Cannula 2.0 09/02/19 16:00 96.3 65 17 100/58 (72) 96 09/02/19 16:00 67 09/02/19 15:00 66 18 90/62 (71) 96 09/02/19 13:50 65 18 87/47 (60) 96 Intake and Output 09/02/19 09/03/19 19:00 07:00 Intake Total 1065 ml Balance 1065 ml IV Total 1065 ml # Voids 1 # Bowel Movements 1 1 Laboratory Tests Test 09/03/19 04:45 09/03/19 10:45 White Blood Count 9.5 K/UL (4.8-10.8) Red Blood Count 3.11 M/UL (4.70-6.10) L Hemoglobin 10.2 G/DL (14.2-18.0) L Hematocrit 30.6 % (42.0-52.0) L Mean Corpuscular Volume 98 FL (80-99) Mean Corpuscular Hemoglobin 32.8 PG (27.0-31.0) H Mean Corpuscular Hemoglobin Concent 33.4 G/DL (32.0-36.0) Red Cell Distribution Width 12.2 % (11.6-14.8) Platelet Count 211 K/UL (150-450) Mean Platelet Volume 5.7 FL (6.5-10.1) L Neutrophils (%) (Auto) 72.0 % (45.0-75.0) Lymphocytes (%) (Auto) 13.2 % (20.0-45.0) L Monocytes (%) (Auto) 12.9 % (1.0-10.0) H Eosinophils (%) (Auto) 1.2 % (0.0-3.0) Basophils (%) (Auto) 0.6 % (0.0-2.0) Sodium Level 145 MMOL/L (136-145) Potassium Level 4.4 MMOL/L (3.5-5.1) Chloride Level 105 MMOL/L (98-107) Carbon Dioxide Level 20 MMOL/L (21-32) L Anion Gap 20 mmol/L (5-15) H Blood Urea Nitrogen 80 mg/dL (7-18) H Creatinine 12.6 MG/DL (0.55-1.30) H Estimat Glomerular Filtration Rate 4.8 mL/min (>60) Glucose Level 192 MG/DL (74-106) H Calcium Level 8.0 MG/DL (8.5-10.1) L Troponin I 0.010 ng/mL (0.000-0.056) Height (Feet): 6 Height (Inches): 1.00 Weight (Pounds): 180 Medications Current Medications Medications (Trade) Dose Ordered Sig/Raheel Route PRN Reason Start Time Stop Time Status Last Admin Dose Admin Acetaminophen (Tylenol) 650 mg Q4H PRN ORAL Mild Pain (Pain Scale 1-3) 09/03/19 10:02 10/03/19 10:01 Acetaminophen (Tylenol) 650 mg Q4H PRN ORAL Temp >100.5 09/03/19 10:02 10/03/19 10:01 Albumin Human 100 ml @ 200 mls/hr PRN PRN IV sbp<90 during hd 09/03/19 10:01 09/03/19 23:59 Albuterol/ Ipratropium (Albuterol/ Ipratropium) 3 ml Q4H PRN HHN Shortness of Breath 09/03/19 10:03 09/08/19 10:02 Aspirin (ASA) 81 mg DAILY ORAL 09/04/19 09:00 10/13/19 08:59 Guaifenesin/ Dextromethorphan (Robitussin DM Syrup) 10 ml Q4H PRN ORAL For Cough 09/03/19 10:03 12/02/19 10:02 Heparin Sodium (Porcine) (Heparin 5000 units/ml) 5,000 units EVERY 12 HOURS SUBQ 09/03/19 21:00 10/15/19 08:59 Insulin Aspart (NovoLOG) BEFORE MEALS AND HS SUBQ 09/03/19 11:30 11/26/19 20:59 09/03/19 12:08 Ondansetron HCl (Zofran) 4 mg Q4H PRN IVP Nausea & Vomiting 09/03/19 10:03 10/03/19 10:02 Piperacillin Sod/ Tazobactam Sod 2.25 gm/Dextrose 55 ml @ 110 mls/hr Q8HR IV 09/03/19 14:00 09/05/19 05:59 Polyethylene Glycol (Miralax) 17 gm DAILYPRN PRN ORAL Constipation 09/03/19 10:03 10/03/19 10:02 Pravastatin Sodium (Pravachol) 80 mg BEDTIME ORAL 09/03/19 21:00 09/27/19 20:59 Sevelamer Carbonate (Renvela) 800 mg THREE TIMES A DAY ORAL 09/03/19 13:00 11/27/19 08:59 09/03/19 12:52 Vancomycin HCl (Vanco rx to dose) 1 ea DAILY PRN MISC Per rx protocol 09/04/19 09:00 09/27/19 19:59 Vitamin B Complex/ Vit C/Folic Acid (Nephrovite) 1 tab DAILY ORAL 09/04/19 09:00 09/28/19 08:59 Assessment/Plan Problem List: (1) Malnutrition of moderate degree Assessment & Plan: DAILY ESTIMATED NEEDS: Needs based on ESRD on HD 81.8kg 27-32 kcals/kg 8673-1087 total kcals 1.25-1.8 g protein/kg 102-147 g total protein Fluid per Md, on HD NUTRITION DIAGNOSIS: Increased kcal and pro needs r/t renal dysfunction as evidenced by pt w/ ESRD on HD (CURRENT DIET: CCHO VERY HIGH/ RENAL MS FINELY CHOPPED) PO DIET RECOMMENDATIONS: RENAL/ CCHO MED + DOUBLE PRO PORTIONS ADDITIONAL RECOMMENDATIONS: 1) Obtain a standing weight for calibrated bed scale wt 2) Add NEPRO TID w/ meals, currently w/ poor po intake 3) Rec WC eval for sacral wound. Add GIGI BID if tolerated 4) Consider appetite stimulant ICD Codes: E44.0 - Moderate protein-calorie malnutrition SNOMED: 457441602 (2) Sepsis Assessment & Plan: Patient currently hospitalized initially leukocytosis, abnormal labs improved but now hypotensive and deconditioned deteriorating left pleural effusion intensive care unit Patient without peripheral access and will require fluids meds and resuscitation given current extremitas. Patient with right upper extremity fistula recommend not using upper extremities or wrists central upper for access given renal disease requiring dialysis. Line placed right Fem patient tolerated please see note N.p.o. IV fluids Trend labs Discussed with ICU team we will follow with recommendations thank you for let me participate in patient's care ICD Codes: A41.9 - Sepsis, unspecified organism SNOMED: 54363764 (3) Pleural effusion, left Assessment & Plan: A single one view chest is obtained. There is increase opacity left hemithorax now with complete white out demonstrated. This is likely secondary to complete atelectasis of the left lung and left effusion. Right perihilar densities has improved. Cardiac silhouette partially obscured. Right CP angle is sharp. The bony thorax appear unremarkable. IMPRESSION: Complete white out of the left hemithorax likely secondary to left lung atelectasis and effusion. Improved right perihilar densities. ICD Codes: J90 - Pleural effusion, not elsewhere classified SNOMED: 33922803 (4) Severe sepsis Assessment & Plan: Lungs: Consolidated portions of the left lung may represent atelectasis, but pneumonia is not excluded. Patchy consolidations in the right lower lobe are concerning for pneumonia. Pleural space: Large left pleural effusion with loculated components. No pneumothorax. Heart: Borderline size of the heart. Small pericardial effusion. Coronary artery calcifications. Thyroid: Hypodense nodules in the left thyroid could be further evaluated with nonemergent dedicated ultrasound if clinically indicated. Bones/joints: Mild degenerative changes of the spine. No acute fracture. No dislocation. Soft tissues: Unremarkable. Vasculature: Unremarkable. No thoracic aortic aneurysm. Lymph nodes: Nonspecific mildly prominent mediastinal lymph nodes. Kidneys and ureters: Small hypodensity in the right kidney is too small to definitively characterize. IMPRESSION: 1. Large left pleural effusion with loculated components. 2. Consolidated portions of the left lung may represent atelectasis, but pneumonia is not excluded. 3. Patchy consolidations in the right lower lobe are concerning for pneumonia. ICD Codes: A41.9 - Sepsis, unspecified organism; R65.20 - Severe sepsis without septic shock SNOMED: 67293919 Serjio Chaudhry September 03, 2019 13:53
--- NOTE | 2019-09-03 13:56 | Operative Note - PDOC ---
Operative Note Operative Note Date of Operation/Procedure: September 03, 2019 Pre-op Diagnosis: Sepsis, hypotension, end-stage renal disease, bacteremia Procedure: Right femoral central venous catheter insertion Post-op Diagnosis: same as pre-op Surgeon: Serjio Chaudhry MD Anesthesia: local Specimen: none Complications: none Condition: unstable Estimated Blood Loss: minimal Drains: none Implant(s) used?: No Indications for Procedure 64 year old male currently in ICU hypotensive in extremis requiring line for fluids, meds, pressors. consent obtained. line placed emergently Description of Procedure Patient was made comfortable the bedside placed in the supine position. All extremities checked right upper extremity fistula dilated neck veins likely central venous upper disorder. Decision made to go femoral. The right femoral area was prepped draped in the same surgical fashion. Local anesthetic was infiltrated. Anatomic landmarks identified. Lower right femoral vein was cannulated on first stick without complication. Guidewire placed over the needle needle removed. Small skin incision was made and dilator was used. Triple-lumen central venous catheter was inserted over the guidewire guidewire removed and discarded. All 3 ports flushed and aspirated appropriately. Line sutured in place dressings applied patient taught procedure well okay to use line Serjio Chaudhry September 03, 2019 13:56
--- NOTE | 2019-09-03 15:00 | NUR ---
NURSE NOTES: Pt pulled out Rt fem TLC. Pressure dressing applied. No major bleeding noted. Dr Chaudhry notified.
--- NOTE | 2019-09-03 15:22 | NUR ---
CASE MANAGEMENT: REVIEW SI: LEFT PLEURAL EFFUSION . PNA . RIGHT FEMORAL CENTRAL VENOUS CATHETER INSERTION T 98.3 HR 76 RR 34 BP 65/41 SAT 95% NC/2L H/H 10.2/30.6 BUN 80 CR 12.6 IS: ZOSYN IV Q8HR NOVOLOG SUBQ AC+HS HEPARIN SUBQ Q12HR HD NEEDED 2D ECHO PENDING ICU STATUS DCP: PATIENT IS FROM [facility]
--- NOTE | 2019-09-03 15:45 | NUR ---
NURSE NOTES: PIV inserted; Lt wrist #[id number] and Lt FA #[id number]. Intact and patent.
--- NOTE | 2019-09-03 16:54 | NUR ---
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 Patient remains Afebrile, COVID19 is Negative x2. On 09/03/19 Patient transferred from [facility] to ICU. Discontinue PLANT CULTURE MANAGER intervention s/p transfer to higher level of care. -Patient will require MD to re-refer Patient to PLANT CULTURE MANAGER to re-assess swallowing and cognitive communicative function s/p change in medical status. -08/29/19 Bedside swallow Evaluation: INITIAL IMPRESSIONS: S/s of at least mild oral and probable mild pharyngeal phase dysphagia compounded by hx of CVA, and exacerbated by reduced respiratory-swallow coordination. Pt additionally observed w/ prolonged mastication and oral preparation due to dentures. No significant overt s/s of aspiration, laryngeal elevation is fair. -08/30/19 Speech, Language, Cog Comm Eval: INITIAL IMPRESSIONS: Mild global aphasia characterized by poor generative naming, mild anomia, mild paraphasias, mild deficits with receptive language/auditory comprehension, responses are delayed and Pt additionally presenting with cognitive communicative deficits in memory and abstract reasoning. Please refer Patient back to PLANT CULTURE MANAGER when medically stable and appropriate to participate in swallow evaluation and/or dysphagia tx.
--- NOTE | 2019-09-03 17:30 | NUR ---
NURSE NOTES: BS 172- given 2units Novolog as ordered. Pt reports he doesn't really have an appetite, however, he is drinking thickened water and ate jello. No distress noted
--- NOTE | 2019-09-03 18:45 | NUR ---
NURSE NOTES: Pt is constantly calling for instructional writer saying he's thirsty and needs water, very dependent. No respiratory distress noted. Pt able to suction self. Oral care done.
--- NOTE | 2019-09-03 18:47 | Nephrology Progress Note ---
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 (10) Sepsis (11) Bacteremia (12) Emesis (13) UTI (urinary tract infection) (14) E coli infection (15) Hypotension Plan fluids given as boluses and albumin given as bp fell to 80s, emesis but no distress, weak, orders updated, will need vats, coag neg staph b acteremia likely contaminant , icu time 40 min Subjective Constitutional: Reports: weakness HEENT: Reports: no symptoms Genitourinary: Reports: no symptoms Neurologic/Psychiatric: Reports: pre-existing deficit Subjective nausea and emesis Objective Objective Last 24 Hour Vital Signs Date Time Temp Pulse Resp B/P (MAP) Pulse Ox O2 Delivery O2 Flow Rate FiO2 09/03/19 18:00 72 18 95/47 (63) 100 09/03/19 17:30 70 20 108/51 (70) 96 09/03/19 17:00 73 17 94/44 (61) 96 09/03/19 16:38 72 15 86/50 (62) 100 09/03/19 16:30 77 18 83/51 (62) 100 09/03/19 16:00 98.3 75 31 86/53 (64) 100 09/03/19 16:00 2.0 09/03/19 16:00 Nasal Cannula 2.0 09/03/19 15:45 76 31 93/42 (59) 100 09/03/19 15:30 73 31 86/44 (58) 100 09/03/19 15:23 76 09/03/19 15:00 76 24 85/49 (61) 98 09/03/19 14:45 78 18 88/45 (59) 100 09/03/19 14:30 74 21 84/45 (58) 100 09/03/19 14:15 77 26 85/45 (58) 100 09/03/19 14:00 76 10 84/43 (57) 98 09/03/19 13:45 75 15 78/45 (56) 99 09/03/19 13:30 74 34 86/43 (57) 99 09/03/19 13:00 78 21 93/55 (68) 100 09/03/19 12:30 75 14 75/42 (53) 97 09/03/19 12:24 77 24 87/45 (59) 98 09/03/19 12:21 76 21 65/41 (49) 96 09/03/19 12:15 76 26 85/37 (53) 100 09/03/19 12:00 2.0 09/03/19 12:00 98.3 76 23 81/37 (52) 98 09/03/19 12:00 Nasal Cannula 2.0 09/03/19 12:00 77 09/03/19 11:30 80 18 94/46 (62) 98 09/03/19 11:15 74 10 86/43 (57) 98 09/03/19 11:00 78 24 80/41 (54) 96 09/03/19 10:45 80 21 98/49 (65) 99 09/03/19 10:37 74 21 85/46 (59) 97 09/03/19 10:30 76 22 80/34 (49) 94 09/03/19 10:18 78 18 79/32 (48) 92 09/03/19 10:16 77 29 66/40 (49) 91 09/03/19 10:15 78 21 66/37 (47) 93 09/03/19 10:00 98.5 77 26 63/39 (47) 99 09/03/19 09:23 80 09/03/19 08:26 100 Nasal Cannula 2.0 28 09/03/19 08:00 97.5 84 20 79/48 (58) 94 09/03/19 08:00 Nasal Cannula 2.0 09/03/19 04:00 97.8 69 18 94/59 (71) 98 09/03/19 04:00 2.0 09/03/19 04:00 Nasal Cannula 2.0 09/03/19 03:55 68 09/03/19 00:00 2.0 09/03/19 00:00 98.2 73 18 92/53 (66) 97 09/03/19 00:00 Nasal Cannula 2.0 09/02/19 23:49 65 09/02/19 21:00 Nasal Cannula 2.0 09/02/19 20:49 65 93/59 5/20 20:03 93 Nasal Cannula 2.0 28 09/02/19 20:00 97.7 65 18 93/59 (70) 98 09/02/19 20:00 Nasal Cannula 2.0 09/02/19 20:00 2.0 09/02/19 19:18 66 09/02/19 19:18 66 Intake and Output 09/02/19 09/03/19 19:00 07:00 Intake Total 1065 ml Balance 1065 ml IV Total 1065 ml # Voids 1 # Bowel Movements 1 1 Laboratory Tests 09/03/19 04:45: White Blood Count 9.5, Red Blood Count 3.11L, Hemoglobin 10.2L, Hematocrit 30.6L , Mean Corpuscular Volume 98, Mean Corpuscular Hemoglobin 32.8H, Mean Corpuscular Hemoglobin Concent 33.4, Red Cell Distribution Width 12.2, Platelet Count 211, Mean Platelet Volume 5.7L, Neutrophils (%) (Auto) 72.0, Lymphocytes ( %) (Auto) 13.2L, Monocytes (%) (Auto) 12.9H, Eosinophils (%) (Auto) 1.2, Basophils (%) (Auto) 0.6, Sodium Level 145, Potassium Level 4.4, Chloride Level 105, Carbon Dioxide Level 20L, Anion Gap 20H, Blood Urea Nitrogen 80H, Creatinine 12.6H, Estimat Glomerular Filtration Rate 4.8, Glucose Level 192H, Calcium Level 8.0L 09/03/19 10:45: Troponin I 0.010 Height (Feet): 6 Height (Inches): 1.00 Weight (Pounds): 180 General Appearance: alert EENT: other - old scars Neck: normal alignment Cardiovascular: regular rhythm Respiratory/Chest: decreased breath sounds Abdomen: non tender, soft Extremities: no edema Neurologic: motor weakness Alan Morgan MD September 03, 2019 18:47
--- NOTE | 2019-09-03 19:22 | NUR ---
HAND-OFF: Report given to LUDMILA Gonzales.
--- NOTE | 2019-09-03 19:30 | NUR ---
NURSE NOTES: Receive pt AO x2 , a hemodialysis pt , watching tv at this time, AYUSH av shunt with good bruit, schedule for HD in am, currently bp 95/47, AFib on the monitor, controlled rate, , on 02 at 2L/nc 02 sat 100%, pt frequently asking for water and has frequent mucous secretions in his mouth. Explained that he is an HD pt and fluids should be limited. Verbalized understanding. Pt self suctioned himself using yankuer suction, able to suctioned whitish secretions moderate in amt. Pt is anuric. monitor I and O. Monitor lytes. pt has sacral stage 2 covered with optifoam clean and dry , assisted in turning to sides to prevent further skin break down. Will continue to monitor.
[2019-09-03] MEDS: Heparin 5000 units/ml inj SUBQ SCH (21:28)
[2019-09-04] VITALS (23 sets, daily range): BP systolic 77–108; BP diastolic 38–65
--- NOTE | 2019-09-04 00:14 | Progress Note ---
DATE: 09/03/2019 CARDIOLOGY PROGRESS NOTE SUBJECTIVE: The patient's condition has deteriorated. He is now critical and guarded prognosis. He was transferred to the intensive care unit because of persistent hypotension despite fluid challenges. He has had two negative COVID-19 swabs. He is off isolation. He remains on nasal oxygen. Monitored rhythm sinus with paroxysms of atrial fibrillation. PHYSICAL EXAMINATION: LUNGS: Diminished breath sounds. Rhonchi. HEART: Regular rhythm and rate. Normal S1 and S2. ABDOMEN: Soft. EXTREMITIES: Trace edema. LABORATORY DATA: White count 9.5, hemoglobin 10.2. Sodium 145, potassium 4.4, bicarb 20, BUN 80, creatinine 12.6. Troponin is negative. IMPRESSION: 1. Sepsis with shock. 2. Collapse and trapped lung. 3. Pleural effusion. 4. Possible empyema. 5. End-stage renal disease. 6. Metabolic acidosis. PLAN: 1. Antimicrobials per Infectious Diseases csm consultant. 2. Pressor support. 3. Limited volume support in view of end-stage renal disease. 4. Repeat echocardiogram for assessment of pericardium. Manfred Conn M.D. DR: Perla JOB#: [id number] CC:
[2019-09-04] MEDS: Piperacillin/Tazobactam 2.25 GM in D5W 55 ML IV SCH ×4 (01:23→21:42)
[2019-09-04 05:27] LABS: BASOPHILS % (AUTO) 0.5 % (0.0-2.0); HEMATOCRIT 28.7 % (42.0-52.0); HEMOGLOBIN 9.5 G/DL (14.2-18.0); LYMPHOCYTES % (AUTO) 19.8 % (20.0-45.0); MEAN CORPUSCULAR VOLUME 98 FL (80-99); MONOCYTES % (AUTO) 11.4 % (1.0-10.0); NEUTROPHILS % (AUTO) 66.2 % (45.0-75.0); PLATELET COUNT 206 K/UL (150-450); RED BLOOD COUNT 2.92 M/UL (4.70-6.10); RED CELL DISTRIBUTION WIDTH 12.6 % (11.6-14.8); WHITE BLOOD COUNT 8.8 K/UL (4.8-10.8)
[2019-09-04 05:54] LABS: ANION GAP 21 mmol/L (5-15); BLOOD UREA NITROGEN 90 mg/dL (7-18); CALCIUM 8.4 MG/DL (8.5-10.1); CARBON DIOXIDE 18 MMOL/L (21-32); CHLORIDE 106 MMOL/L (98-107); CREATININE 13.4 MG/DL (0.55-1.30); POTASSIUM 4.5 MMOL/L (3.5-5.1); SODIUM 145 MMOL/L (136-145)
[2019-09-04] MEDS: NovoLOG Insulin Flexpen SUBQ SCH ×4 (06:04→20:37)
--- NOTE | 2019-09-04 07:20 | NUR ---
NURSE NOTES: RECEIVED BED SIDE REPORT FROM SUSY PLASTIC MOLDING OPERATOR OF TELECOMMUNICATIONS CABLE JOINTER. RECEIVED PT WITH HOB ELEVATED 45 DEGREE AWAKE AND ALERT ,ABLE TO FOLLOWS SIMPLE COMMANDS.TX RECEIVING O2 @ 2L/MINTS VIA N/C, O2 SAT 97 TO 98%.FULL BODY ASSESSMENT DONE AND REPOSITIONED IN BED ,MADE PT COMFORTABLE POSSIBLE.PT DENIES CP. PT CONGESTED REQUIRED SX,D Q2 HRS AND PRN. LG AMT OF WHITE TICK SECRETIONS NOTE.PT ON SCHEDULE FOR H.D THIS A.M. NO ACUTE DISTRESS NOTED AT THIS TIME. WILL CONT TO MONITOR.
--- NOTE | 2019-09-04 08:59 | NUR ---
RADIOLOGY DEPT., CHEST X-RAY DONE.-P.DYE
--- NOTE | 2019-09-04 09:12 | Diagnostic Imaging Report ---
Procedure: XRAY Chest 1v Reason for study: Shortness of breath. COPD. Comparison films: 09/03/2019. FINDINGS: A single one view chest is obtained. Complete opacification of the left hemithorax again noted. Right lung remains clear. Cardiac silhouette is obscured. Right CP angle is sharp. The bony thorax appear unremarkable. IMPRESSION: NO SIGNIFICANT CHANGE COMPARED TO PREVIOUS EXAM.
[2019-09-04] MEDS: Nephrovite tab (Rena-Vite) ORAL SCH (09:53)
[2019-09-04] MEDS: Pantoprazole Inj IVP SCH (09:53)
[2019-09-04] MEDS: Aspirin Baby 81mg ORAL SCH (09:53)
[2019-09-04] MEDS: Heparin 5000 units/ml inj SUBQ SCH ×2 (09:55→20:37)
--- NOTE | 2019-09-04 10:19 | NUR ---
CASE MANAGEMENT: REVIEW SI: LEFT PLEURAL EFFUSION . PNA . RIGHT FEMORAL CENTRAL VENOUS CATHETER INSERTION T 98.2 HR 68 RR 13 BP 77/38 SAT 99% NC/2L H/H 9.5/28.7 BUN 90 CR 13.4 IS: ZOSYN IV Q8HR NOVOLOG SUBQ AC+HS HEPARIN SUBQ Q12HR HD NEEDED 2D ECHO PENDING ICU STATUS DCP: PATIENT IS FROM [facility]
--- NOTE | 2019-09-04 10:25 | Pulmonolgy Critical Care Note ---
Lorna Baker DESK DIRECTOR 09/04/19 1025: Critical Care - Asmt/Plan Assessment/Plan: ASSESSMENT Hypotension, Shock Pneumonia Large left pleural effusion with loculated components? trapped lung Pleuritic chest pain Bacteremia /GPC - real vs contaminant Suspected CoVID 19-ruled out End-stage renal disease ,on hemodialysis Diabetes mellitus, insulin dependent Hypertension Anemia of chronic kidney disease History of CVA UTI E coli Hypoalbuminemia Hep C positive PLAN OF CARE in ICU s/p CL placement, inadvertently was pulled out by pt s/p multiple albumin boluses and IV boluses BP better Covid 19 08/27 and 08/29 NGT off isolation supplemental O2 to keep sat above 92% off MDI Proventil and started on HHN prn CXR 09/03 noted, no change from 09/01, no signs of resp distress need surgery / on hold- CT surgeon needs clearance from cardio also need tap ( although not sure if will be successful given loculated component of pleural effusion) get fluid cx, cytology, cell count with diff, LDH, protein, glucose ,-on HOLD due to hypotension discussed with CT surgeon, needs clearance by cardio and neuro prior to surgery close monitoring of BP/hypotensive, off BB consider Midodrine CT head pending empiric abx- fup with cx 08/27 BCX + Staph epidermidis 1/, received Vanco,; repeat BCX for clearance BCX 08/29 NGTD initial + BCX 1/2 was likely contaminant 08/27 SARS CoV-2 by PCR NGT 08/27 UCX + E coli, on Zosyn, serial troponin - NGT x 2 ECHO - with pEF monitor volumes, CP likely pleuritic , resolved HD per nephro/attending BP management continue ASA and statin D dimer 17.8 CRP 26,2, LDH 119 , ferritin 683 Venous Duplex BLE NGT was on DVT prophylaxis with Heparin started on LMWH /for treatment, but dc by primary and restarted on heparin will proceed with VQ scan when more stable trend LFT, hep panel + hep C BS management monitor HH with goal to keep Hgb above 7 supportive care case discussed and evaluated by supervising physician Critical Care - Objective Last 24 Hour Vital Signs Date Time Temp Pulse Resp B/P (MAP) Pulse Ox O2 Delivery O2 Flow Rate FiO2 09/04/19 08:00 98.5 70 20 98/45 (62) 100 09/04/19 06:00 68 20 97/42 (60) 99 09/04/19 05:00 69 20 100/45 (63) 99 09/04/19 04:00 68 09/04/19 04:00 Nasal Cannula 2.0 09/04/19 04:00 98.2 70 20 94/47 (63) 99 09/04/19 03:00 68 13 94/45 (61) 99 09/04/19 02:00 73 19 89/47 (61) 100 09/04/19 01:00 73 12 101/46 (64) 99 09/04/19 00:00 73 09/04/19 00:00 98.4 70 27 77/38 (51) 100 09/04/19 00:00 Nasal Cannula 2.0 09/03/19 23:00 67 18 98/49 (65) 99 09/03/19 22:00 68 11 91/48 (62) 99 09/03/19 21:00 75 16 95/46 (62) 100 09/03/19 20:00 Nasal Cannula 2.0 09/03/19 20:00 98.0 72 20 87/43 (58) 100 09/03/19 20:00 75 09/03/19 19:00 74 24 98/48 (65) 100 09/03/19 18:45 74 22 95/48 (64) 100 09/03/19 18:30 72 26 98/43 (61) 100 09/03/19 18:00 72 18 95/47 (63) 100 09/03/19 17:30 70 20 108/51 (70) 96 09/03/19 17:00 73 17 94/44 (61) 96 09/03/19 16:38 72 15 86/50 (62) 100 09/03/19 16:30 77 18 83/51 (62) 100 09/03/19 16:00 98.3 75 31 86/53 (64) 100 09/03/19 16:00 2.0 09/03/19 16:00 Nasal Cannula 2.0 09/03/19 15:45 76 31 93/42 (59) 100 20 15:30 73 31 86/44 (58) 100 09/03/19 15:23 76 09/03/19 15:00 76 24 85/49 (61) 98 09/03/19 14:45 78 18 88/45 (59) 100 09/03/19 14:30 74 21 84/45 (58) 100 09/03/19 14:15 77 26 85/45 (58) 100 09/03/19 14:00 76 10 84/43 (57) 98 09/03/19 13:45 75 15 78/45 (56) 99 09/03/19 13:30 74 34 86/43 (57) 99 09/03/19 13:00 78 21 93/55 (68) 100 09/03/19 12:30 75 14 75/42 (53) 97 09/03/19 12:24 77 24 87/45 (59) 98 09/03/19 12:21 76 21 65/41 (49) 96 09/03/19 12:15 76 26 85/37 (53) 100 09/03/19 12:00 2.0 09/03/19 12:00 98.3 76 23 81/37 (52) 98 09/03/19 12:00 Nasal Cannula 2.0 09/03/19 12:00 77 09/03/19 11:30 80 18 94/46 (62) 98 09/03/19 11:15 74 10 86/43 (57) 98 09/03/19 11:00 78 24 80/41 (54) 96 09/03/19 10:45 80 21 98/49 (65) 99 09/03/19 10:37 74 21 85/46 (59) 97 09/03/19 10:30 76 22 80/34 (49) 94 09/03/19 10:18 78 18 79/32 (48) 92 Objective: General Appearance: alert , awake, responsive AA male , in NAD Lines, tubes and drains: peripheral HEENT: normocephalic, atraumatic, anicteric, mucous membranes moist, PERRL, O2 via NC Neck: non-tender, supple Respiratory/Chest: decreased BS on the left side Cardiovascular/Chest: normal rate Abdomen: normal bowel sounds, non tender, soft Extremities: LUE AV fistula + bruit/thrill Skin Exam: normal pigmentation, warm/dry Neurologic: abnormal gait, alert, responsive, normal mood/affect Musculoskeletal: atrophy - BLE, , non-ambulatory Accucheck: 152 Critical Care - Subjective ROS Limited/Unobtainable: Yes Interval Events: in ICU for hypotension s/p multiple boluses of albumin and IV boluses BP this am 93/42 CXR noted on O2 via NC no rResp distress afebrile, no leukocytosis Condition: critical IV Access: peripheral FI02: 28 I&O: Intake and Output 09/03/19 09/04/19 19:00 07:00 Intake Total 1455 ml 80 ml Balance 1455 ml 80 ml Intake Oral 150 ml 80 ml IV Total 1305 ml CXR: 09/03 Complete opacification of the left hemithorax again noted. Right lung remains clear. Cardiac silhouette is obscured. Right CP angle is sharp. The bony thorax appear unremarkable. Delvis Simms MD 09/04/19 1413: Critical Care - Asmt/Plan Assessment/Plan: Patient seen and examined with DESK DIRECTOR. Agree with above A&P as it reflects our joint deliberations. BP better with fluid and albumin boluses. CT surgery wanting cardiology clearance for VATS. Will discuss possible chest tube placement in interim. Time Spent (Minutes): 40 - cc Lorna Baker NP September 04, 2019 10:25 Delvis Simms MD September 04, 2019 14:13
--- NOTE | 2019-09-04 10:50 | Diagnostic Imaging Report ---
EXAM: ULTRASOUND Carotid-Vert Duplex Scan-BILAT CLINICAL HISTORY: Reason For Exam: CVA. COMPARISON: None FINDINGS: No significant grayscale stenosis demonstrated. Velocities are as follow: Right: CCA= 65 cm/sec ICA = 64 cm/sec ECA = 80 cm/sec Left: CCA = 46 cm/sec ICA= 56 cm/sec ECA = 59 cm/sec ICA/CCA ratio are 1. on the right and 1.6 on the left. Antegrade flow is identified in the vertebral arteries bilaterally. Incidentally noted is partial clot in the right internal jugular vein. Subclavian vein is patent. IMPRESSION: NO HEMODYNAMICALLY SIGNIFICANT STENOSIS OF THE CAROTIDS. INCIDENTAL FINDING OF PARTIAL CLOT IN THE RIGHT INTERNAL JUGULAR VEIN. Degree of stenosis is derived from SRU criteria.
--- NOTE | 2019-09-04 11:00 | NUR ---
NURSE NOTES:PT RECEIVING H.D , TOLERATING WELL THE PROCEDURES.NO ACUTE DISTRESS NOTED AT THIS TIME.WILL CONT TO MONITOR.
--- NOTE | 2019-09-04 13:00 | NUR ---
RD ASSESSMENT & RECOMMENDATIONS SEE CARE ACTIVITY FOR COMPLETE ASSESSMENT DAILY ESTIMATED NEEDS: Needs based on ESRD on HD 74kg 30-35 kcals/kg 6296-3588 total kcals 1.25-1.8 g protein/kg 93-133 g total protein Fluid per Md, on HD NUTRITION DIAGNOSIS: Increased kcal and pro needs r/t renal dysfunction as evidenced by pt w/ ESRD on HD (CURRENT DIET:CCHO VERY HIGH/ RENAL MS FINELY CHOPPED) PO DIET RECOMMENDATIONS: RENAL/ CCHO MED + DOUBLE PRO PORTIONS ENTERAL NUTRITION RECOMMENDATIONS: NEPRO @52ml/hr x24 hrs to provide 1248ml, 2246 kcal, 101g pro, 907ml free H2O - With continued poor po intake and now ICU status, rec non oral feeds to meet est kcal and pro needs - Obtain GI access, initiate Nepro @22ml/hr for 6 hrs. Advance as tolerated 10ml/hr q4-6 hrs to goal - Flush per MD. HOB over 30 degrees. ADDITIONAL RECOMMENDATIONS: 1) Obtain a standing weight for calibrated bed scale wt 2) Add NEPRO TID w/ meals, currently w/ poor po intake 3) Rec WC eval for sacral wound. Add GIGI BID if tolerated 4) Consider appetite stimulant TF recs above w/ continued poor po intake
--- NOTE | 2019-09-04 14:30 | NUR ---
NURSE NOTES:HEMODIALYSIS COMPLETED.OUT PUT 2000ML.PT TOLERATED WELL THE PROCEDURE.DR TANNER CAME TO SEE THE PT. M.D STATING " I WILL KEEP THE PT IN ICU UNTIL TOMORROW.". WILL CONT TO MONITOR.
--- NOTE | 2019-09-04 14:55 | Surgery Progress Note ---
Surgery Progress Note Subjective Procedure Performed Right femoral central venous catheter insertion Additional Comments Patient received appropriate resuscitation and improved blood pressure improved later in the evening he accidentally removed his central venous catheter pressure was held with dressings applied. Hemostasis since. Fortunately good resuscitation and currently stable. Peripheral line placed and receiving antibiotics. Hemodialysis today at bedside. No nausea vomiting. Labs noted. Still has significant. discussed with thoracic cxr reviewed Objective Last 24 Hour Vital Signs Date Time Temp Pulse Resp B/P (MAP) Pulse Ox O2 Delivery O2 Flow Rate FiO2 09/04/19 14:00 70 29 101/54 (70) 100 09/04/19 13:00 72 21 105/55 (72) 100 09/04/19 12:00 67 21 101/51 (68) 100 09/04/19 12:00 65 09/04/19 11:00 72 21 108/62 (77) 99 09/04/19 10:00 63 21 97/50 (66) 99 09/04/19 09:00 68 20 99/54 (69) 100 09/04/19 08:00 68 09/04/19 08:00 Nasal Cannula 2.0 09/04/19 08:00 98.5 70 20 98/45 (62) 100 09/04/19 06:00 68 20 97/42 (60) 99 09/04/19 05:00 69 20 100/45 (63) 99 09/04/19 04:00 68 09/04/19 04:00 Nasal Cannula 2.0 09/04/19 04:00 98.2 70 20 94/47 (63) 99 09/04/19 03:00 68 13 94/45 (61) 99 09/04/19 02:00 73 19 89/47 (61) 100 09/04/19 01:00 73 12 101/46 (64) 99 09/04/19 00:00 73 09/04/19 00:00 98.4 70 27 77/38 (51) 100 09/04/19 00:00 Nasal Cannula 2.0 09/03/19 23:00 67 18 98/49 (65) 99 09/03/19 22:00 68 11 91/48 (62) 99 09/03/19 21:00 75 16 95/46 (62) 100 09/03/19 20:00 Nasal Cannula 2.0 09/03/19 20:00 98.0 72 20 87/43 (58) 100 09/03/19 20:00 75 09/03/19 19:00 74 24 98/48 (65) 100 09/03/19 18:45 74 22 95/48 (64) 100 09/03/19 18:30 72 26 98/43 (61) 100 09/03/19 18:00 72 18 95/47 (63) 100 09/03/19 17:30 70 20 108/51 (70) 96 09/03/19 17:00 73 17 94/44 (61) 96 09/03/19 16:38 72 15 86/50 (62) 100 09/03/19 16:30 77 18 83/51 (62) 100 09/03/19 16:00 98.3 75 31 86/53 (64) 100 09/03/19 16:00 2.0 09/03/19 16:00 Nasal Cannula 2.0 09/03/19 15:45 76 31 93/42 (59) 100 09/03/19 15:30 73 31 86/44 (58) 100 09/03/19 15:23 76 09/03/19 15:00 76 24 85/49 (61) 98 I&O Intake and Output 09/03/19 09/04/19 19:00 07:00 Intake Total 1455 ml 80 ml Balance 1455 ml 80 ml Intake Oral 150 ml 80 ml IV Total 1305 ml Dressing: other Wound: other Drains: other Cardiovascular: RSR Respiratory: decreased breath sounds Abdomen: soft, non-tender, present bowel sounds Extremities: no cyanosis Laboratory Tests Test 09/04/19 04:15 White Blood Count 8.8 K/UL (4.8-10.8) Red Blood Count 2.92 M/UL (4.70-6.10) L Hemoglobin 9.5 G/DL (14.2-18.0) L Hematocrit 28.7 % (42.0-52.0) L Mean Corpuscular Volume 98 FL (80-99) Mean Corpuscular Hemoglobin 32.5 PG (27.0-31.0) H Mean Corpuscular Hemoglobin Concent 33.2 G/DL (32.0-36.0) Red Cell Distribution Width 12.6 % (11.6-14.8) Platelet Count 206 K/UL (150-450) Mean Platelet Volume 5.9 FL (6.5-10.1) L Neutrophils (%) (Auto) 66.2 % (45.0-75.0) Lymphocytes (%) (Auto) 19.8 % (20.0-45.0) L Monocytes (%) (Auto) 11.4 % (1.0-10.0) H Eosinophils (%) (Auto) 2.0 % (0.0-3.0) Basophils (%) (Auto) 0.5 % (0.0-2.0) Sodium Level 145 MMOL/L (136-145) Potassium Level 4.5 MMOL/L (3.5-5.1) Chloride Level 106 MMOL/L (98-107) Carbon Dioxide Level 18 MMOL/L (21-32) L Anion Gap 21 mmol/L (5-15) H Blood Urea Nitrogen 90 mg/dL (7-18) H Creatinine 13.4 MG/DL (0.55-1.30) H Estimat Glomerular Filtration Rate 4.5 mL/min (>60) Glucose Level 168 MG/DL (74-106) H Calcium Level 8.4 MG/DL (8.5-10.1) L Plan Problems: (1) Malnutrition of moderate degree Assessment & Plan: DAILY ESTIMATED NEEDS: Needs based on ESRD on HD 81.8kg 27-32 kcals/kg 0110-0039 total kcals 1.25-1.8 g protein/kg 102-147 g total protein Fluid per Md, on HD NUTRITION DIAGNOSIS: Increased kcal and pro needs r/t renal dysfunction as evidenced by pt w/ ESRD on HD (CURRENT DIET: CCHO VERY HIGH/ RENAL MS FINELY CHOPPED) PO DIET RECOMMENDATIONS: RENAL/ CCHO MED + DOUBLE PRO PORTIONS ADDITIONAL RECOMMENDATIONS: 1) Obtain a standing weight for calibrated bed scale wt 2) Add NEPRO TID w/ meals, currently w/ poor po intake 3) Rec WC eval for sacral wound. Add GIGI BID if tolerated 4) Consider appetite stimulant (2) Sepsis Assessment & Plan: Patient currently hospitalized initially leukocytosis, abnormal labs improved but now hypotensive and deconditioned deteriorating left pleural effusion intensive care unit Patient without peripheral access and will require fluids meds and resuscitation given current extremitas. Patient with right upper extremity fistula recommend not using upper extremities or wrists central upper for access given renal disease requiring dialysis. Line placed right Fem patient tolerated please see note N.p.o. IV fluids Trend labs Discussed with ICU team we will follow with recommendations thank you for let me participate in patient's care (3) Pleural effusion, left Assessment & Plan: A single one view chest is obtained. There is increase opacity left hemithorax now with complete white out demonstrated. This is likely secondary to complete atelectasis of the left lung and left effusion. Right perihilar densities has improved. Cardiac silhouette partially obscured. Right CP angle is sharp. The bony thorax appear unremarkable. IMPRESSION: Complete white out of the left hemithorax likely secondary to left lung atelectasis and effusion. Improved right perihilar densities. discussed with thoracic plan vats when stable may place chest tube until vats (4) Severe sepsis Assessment & Plan: Lungs: Consolidated portions of the left lung may represent atelectasis, but pneumonia is not excluded. Patchy consolidations in the right lower lobe are concerning for pneumonia. Pleural space: Large left pleural effusion with loculated components. No pneumothorax. Heart: Borderline size of the heart. Small pericardial effusion. Coronary artery calcifications. Thyroid: Hypodense nodules in the left thyroid could be further evaluated with nonemergent dedicated ultrasound if clinically indicated. Bones/joints: Mild degenerative changes of the spine. No acute fracture. No dislocation. Soft tissues: Unremarkable. Vasculature: Unremarkable. No thoracic aortic aneurysm. Lymph nodes: Nonspecific mildly prominent mediastinal lymph nodes. Kidneys and ureters: Small hypodensity in the right kidney is too small to definitively characterize. IMPRESSION: 1. Large left pleural effusion with loculated components. 2. Consolidated portions of the left lung may represent atelectasis, but pneumonia is not excluded. 3. Patchy consolidations in the right lower lobe are concerning for pneumonia. Serjio Chaudhry September 04, 2019 14:55
--- NOTE | 2019-09-04 15:33 | NUR ---
HOSPITAL HOUSEKEEPER NOTE Pt was transferred to ICU on 09/03/2019. SW met w/ pt and verified information. Pt present as A&O4x[place] [address]. PT is willing to return there upon DC. Pt is single, never and has two adult daughters. The emergency contact is Amy Rooney [phone]. Pt reports Amy will be the decision maker if he cannot make one. Pt also reports he cannot ambulate w/o assistance. Pt reports he does not use any DMEs as he will not ambulate w/o any assistance in person. There is no AD/POLST placed in the chart. PT expresses full code. No concern/needs expressed by pt. SW to F/U as needed.
--- NOTE | 2019-09-04 16:00 | NUR ---
NURSE NOTES:PLACED A TELEPHONE CALL TO DR HACKETT AND MADE AWARE AND NOTIFIED REGARDING U.S CAROTID REPORT ,NO HEMODYNAMICALLY SIGNIFICANT STENOSIS OF CAROTIDS. INCIDENTAL FINDING OF PARTIAL CLOT IN THE RIGHT INTERNAL JUGULAR VEIN. NO NEW ORDERS NOTED FROM Marcela HACKETT AT THIS TIME. WILL CONT TO MONITOR.
--- NOTE | 2019-09-04 19:15 | NUR ---
HAND-OFF: Report given to .JUANJO KEYS.
--- NOTE | 2019-09-04 19:40 | NUR ---
Nurse Note: Report received from LUDMILA Peoples for continuity of care. N: Pt awake, alert, open and closes eyes. Pt able to follow commands, form phrases and sentences in age appropriate level. Pt responds to pain. 3 peripheral IV noted; SLIV LT upper arm, LT FA, LT wrist. Pt has RT upper arm fistula. HD completed 09/03 with 2L out. C: Pt appears SN. Denies chest pain, shortness of breath. BP 91/46. R: Pt on 4 L NC, O2 94%. Will titrate as needed. Pt self suctions and reinforced to suction as needed. White thick sections noted. GI: Last BM 09/01. : Produces little to no urine; no Hernandez cath noted. S: Upon initial assessment, skin intact. Was reported pt has sacral wound stage II. All safety measures met; will continue to monitor.
--- NOTE | 2019-09-04 20:37 | Nephrology Progress Note ---
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 (10) Sepsis (11) Bacteremia (12) Emesis (13) UTI (urinary tract infection) (14) E coli infection (15) Hypotension Plan fluids given as boluses and albumin given as bp fell to 80s 09/02, bp stable and tolerated HD with UF -2000 emesis but no distress, weak, orders updated, will need vats, coag neg staph b acteremia likely contaminant , icu time 40 min Subjective Constitutional: Reports: weakness HEENT: Reports: no symptoms Genitourinary: Reports: no symptoms Neurologic/Psychiatric: Reports: pre-existing deficit Subjective nausea and emesis Objective Objective Last 24 Hour Vital Signs Date Time Temp Pulse Resp B/P (MAP) Pulse Ox O2 Delivery O2 Flow Rate FiO2 09/04/19 18:00 76 28 103/52 (69) 94 09/04/19 17:00 73 18 106/55 (72) 100 09/04/19 16:00 80 09/04/19 16:00 Nasal Cannula 2.0 09/04/19 16:00 98.3 81 27 104/65 (78) 97 09/04/19 15:00 98.1 87 26 98/57 (71) 93 09/04/19 14:00 70 29 101/54 (70) 100 09/04/19 13:00 72 21 105/55 (72) 100 09/04/19 12:00 Nasal Cannula 2.0 09/04/19 12:00 67 21 101/51 (68) 100 09/04/19 12:00 65 09/04/19 11:00 72 21 108/62 (77) 99 09/04/19 10:00 63 21 97/50 (66) 99 09/04/19 09:00 68 20 99/54 (69) 100 09/04/19 08:00 68 09/04/19 08:00 Nasal Cannula 2.0 09/04/19 08:00 98.5 70 20 98/45 (62) 100 09/04/19 06:00 68 20 97/42 (60) 99 09/04/19 05:00 69 20 100/45 (63) 99 09/04/19 04:00 68 09/04/19 04:00 Nasal Cannula 2.0 09/04/19 04:00 98.2 70 20 94/47 (63) 99 09/04/19 03:00 68 13 94/45 (61) 99 09/04/19 02:00 73 19 89/47 (61) 100 09/04/19 01:00 73 12 101/46 (64) 99 09/04/19 00:00 73 09/04/19 00:00 98.4 70 27 77/38 (51) 100 09/04/19 00:00 Nasal Cannula 2.0 09/03/19 23:00 67 18 98/49 (65) 99 09/03/19 22:00 68 11 91/48 (62) 99 09/03/19 21:00 75 16 95/46 (62) 100 Intake and Output 09/03/19 09/04/19 19:00 07:00 Intake Total 1455 ml 80 ml Balance 1455 ml 80 ml Intake Oral 150 ml 80 ml IV Total 1305 ml Laboratory Tests 09/04/19 04:15: White Blood Count 8.8, Red Blood Count 2.92L, Hemoglobin 9.5L, Hematocrit 28.7L , Mean Corpuscular Volume 98, Mean Corpuscular Hemoglobin 32.5H, Mean Corpuscular Hemoglobin Concent 33.2, Red Cell Distribution Width 12.6, Platelet Count 206, Mean Platelet Volume 5.9L, Neutrophils (%) (Auto) 66.2, Lymphocytes ( %) (Auto) 19.8L, Monocytes (%) (Auto) 11.4H, Eosinophils (%) (Auto) 2.0, Basophils (%) (Auto) 0.5, Sodium Level 145, Potassium Level 4.5, Chloride Level 106, Carbon Dioxide Level 18L, Anion Gap 21H, Blood Urea Nitrogen 90H, Creatinine 13.4H, Estimat Glomerular Filtration Rate 4.5, Glucose Level 168H, Calcium Level 8.4L Height (Feet): 6 Height (Inches): 1.00 Weight (Pounds): 163 General Appearance: alert EENT: other - old scarfs Cardiovascular: regular rhythm, gallop/S3 Respiratory/Chest: decreased breath sounds Abdomen: non tender Extremities: no edema Neurologic: motor weakness Alan Morgan MD September 04, 2019 20:37
[2019-09-04] MEDS ORDERED: NS 275ml ONE (21:09)
--- NOTE | 2019-09-04 22:35 | NUR ---
Nurse Note: Spoke with Henrry at [facility] HD, scheduled HD for 09/04. Pt vomiting, Zofran administered and oral care completed. Afebrile. All safety measures met; will continue to monitor.
[2019-09-05] VITALS (28 sets, daily range): BP systolic 85–119; BP diastolic 37–60
--- NOTE | 2019-09-05 | Progress Note ---
DATE: 09/04/2019 CARDIOLOGY PROGRESS NOTE SUBJECTIVE: The patient's condition has improved. Blood pressure parameters have stabilized following fluid hydration. Monitored rhythm sinus. Rare short episodes of atrial fibrillation noted yesterday. His chest x-ray today reveals no interval change. PHYSICAL EXAMINATION: VITAL SIGNS: Blood pressure 106/55, pulse rate 73, respiratory rate 18, no fevers. LUNGS: Diminished breath sounds. Rhonchi. CARDIAC: Regular rhythm and rate. Normal S1, S2. ABDOMEN: Soft. EXTREMITIES: No edema. DIAGNOSTIC DATA: Repeat echocardiogram with no pericardial effusion. Normal ejection fraction and no significant valvular disease. IMPRESSION: 1. Trapped lung, possible empyema, left pleural effusion. 2. Recovering shock, due to hypovolemia and sepsis. 3. Paroxysmal atrial arrhythmias. 4. End-stage renal disease. PLAN: Continue ICU care. VATS pleurodesis anticipated. Perioperative cardiovascular risk under general anesthesia mildly increased. Postoperative care may need to include antiarrhythmics for atrial fibrillation in this clinical setting and additional volume support. We will follow. Manfred Conn M.D. DR: SINDY JOB#: [id number] CC: MICHAEL
--- NOTE | 2019-09-05 00:18 | NUR ---
Nurse Note: Pt turned, suctioned as needed. Pt appears calm, no signs of acute distress. All questions answered. No urine output noted. All safety measures met; will continue to monitor.
--- NOTE | 2019-09-05 02:05 | NUR ---
Nurse Note: Pt turned, suctioned as needed. Pt appears calm, no signs of acute distress. TV on as therapeutic intervention. All questions answered. No urine output noted, no BM. Afebrile, does not show signs of pain and no new episodes of n/v. Pt self suctions oral sections with yaunker. All safety measures met; will continue to monitor.
--- NOTE | 2019-09-05 05:10 | NUR ---
Nurse Note: AM blood labs drawn and sent to lab; awaiting results. Pt cleaned, turned, suctioned as needed. Pt appears calm, no signs of acute distress. TV on as therapeutic intervention. All questions answered. No urine output noted, 1 BM; moderate in size, formed and soft BM. VSS, afebrile, does not show signs of pain and no new episodes of n/v. Pt self suctions oral sections with yaunker. All safety measures met; will continue to monitor.
[2019-09-05 05:12] LABS: BASOPHILS % (AUTO) 0.5 % (0.0-2.0); HEMOGLOBIN 9.5 G/DL (14.2-18.0); MEAN CORPUSCULAR VOLUME 97 FL (80-99); MONOCYTES % (AUTO) 10.1 % (1.0-10.0); NEUTROPHILS % (AUTO) 70.4 % (45.0-75.0); PLATELET COUNT 230 K/UL (150-450); WHITE BLOOD COUNT 9.7 K/UL (4.8-10.8)
[2019-09-05 05:36] LABS: ANION GAP 16 mmol/L (5-15); BLOOD UREA NITROGEN 56 mg/dL (7-18); CALCIUM 8.8 MG/DL (8.5-10.1); CARBON DIOXIDE 27 MMOL/L (21-32); CHLORIDE 97 MMOL/L (98-107); CREATININE 9.3 MG/DL (0.55-1.30); PHOSPHORUS 5.9 MG/DL (2.5-4.9); POTASSIUM 3.4 MMOL/L (3.5-5.1); SODIUM 140 MMOL/L (136-145)
[2019-09-05] MEDS: Piperacillin/Tazobactam 2.25 GM in D5W 55 ML IV SCH ×3 (05:42→21:33)
[2019-09-05] MEDS: NovoLOG Insulin Flexpen SUBQ SCH ×4 (06:21→21:13)
--- NOTE | 2019-09-05 06:35 | NUR ---
Nurse Note: N: Pt awake, alert, open and closes eyes. Pt able to follow commands, form phrases and sentences in age appropriate level. Pt responds to pain. 3 peripheral IV noted; IV LT upper arm, LT FA, SLIV LT wrist. Pt has RT upper arm fistula. HD scheduled 09/04. C: Pt appears SN. Denies chest pain, shortness of breath. BP 91/46. R: Pt on 4 L NC, O2 97%. Will titrate as needed. Pt self suctions and reinforced to suction as needed. White thick sections noted. GI: Pt on a consistent carb renal diet with thickened liquids. Pt is a feeder. : Last BM 09/04. Produces little to no urine; no Hernandez cath noted. S: Pt has sacral wound stage II; OptiForm placed. Contact isolation taken. All safety measures met; will continue to monitor.
--- NOTE | 2019-09-05 07:15 | NUR ---
NURSE NOTES: Report received from Angelika KEYS.Pt awake,alert noted no resp distress with on and off prod coughing,On 4 L NC,denies any c/o pain or discomfort,SR on the monitor,skin warm and dry,IV sites x3 to LFA,LWrist ,CALI ,AV Shunt to CALI intact,SR up x2 call marte within reach at bedside,HOB elevated,bed lock in lowest position will continue with plans of care.
--- NOTE | 2019-09-05 07:28 | NUR ---
Nurse Note: Report given to LUDMILA Covington for continuity of care.
--- NOTE | 2019-09-05 08:49 | Pulmonolgy Critical Care Note ---
BakerLorna carlson C[employer]IFUG[employer] SCREEN TENDER 09/05/19 0849: Critical Care - Asmt/Plan Assessment/Plan: ASSESSMENT Hypotension-persistent; Shock-recovered Pneumonia Large left pleural effusion with loculated components, probably trapped lung Pleuritic chest pain Bacteremia /GPC - real vs contaminant Suspected CoVID 19-ruled out End-stage renal disease ,on hemodialysis Diabetes mellitus, insulin dependent Hypertension A fib Anemia of chronic kidney disease History of CVA UTI E coli Hypoalbuminemia Hep C positive PLAN OF CARE in ICU s/p CL placement, inadvertently was pulled out by pt s/p multiple albumin boluses and IV boluses BP stabilized, tolerated HD 09/03 with UF BP now 69/33 on 4L O2 via NC, no signs of resp distress CXR noted Covid 19 08/27 and 08/29 NGT off isolation supplemental O2 to keep sat above 92% off MDI Proventil ; n HHN prn CXR 09/03 noted, no change from 09/01, no signs of resp distress need surgery / on hold- CT surgeon needs clearance from cardio previously ordered tap ( although not sure if will be successful given loculated component of pleural effusion) get fluid cx, cytology, cell count with diff, LDH, protein, glucose ,-on HOLD due to hypotension discussed with CT surgeon, needs clearance by cardio and neuro prior to surgery close monitoring of BP/hypotensive, off BB consider Midodrine CT head pending unclear reason for neuro clearance, no change in mental status empiric abx- fup with cx BCX 09/03 NGTD, no fevers, no leukocytosis 08/27 BCX + Staph epidermidis 1/2, received Vanco,; repeat BCX for clearance BCX 08/29 NGTD , initial + BCX 1/2 was likely contaminant 08/27 SARS CoV-2 by PCR NGT 08/27 UCX + E coli, on Zosyn, serial troponin - NGT x 2 ECHO - with pEF monitor volumes, CP likely pleuritic , resolved HD per nephro/attending BP management continue ASA and statin D dimer 17.8 CRP 26,2, LDH 119 , ferritin 683 Venous Duplex BLE NGT was on DVT prophylaxis with Heparin started on LMWH /for treatment, but dc by primary and restarted on heparin will proceed with VQ scan when more stable trend LFT, hep panel + hep C BS management monitor HH with goal to keep Hgb above 7 supportive care remains hypotensive ? unclear etiology not septic will r/o adrenal insufficiency ACTH stimulation test in am possible CT placement per gen surgeon, if VATS on hold case discussed and evaluated by supervising physician Critical Care - Objective Last 24 Hour Vital Signs Date Time Temp Pulse Resp B/P (MAP) Pulse Ox O2 Delivery O2 Flow Rate FiO2 09/05/19 07:35 58 26 95 Nasal Cannula 4.0 36 09/05/19 07:35 96 Nasal Cannula 4.0 36 09/05/19 07:00 65 20 98/55 (69) 97 09/05/19 06:00 66 20 92/44 (60) 98 09/05/19 05:26 97.6 09/05/19 05:00 75 25 108/45 (66) 97 09/05/19 04:00 Nasal Cannula 4.0 09/05/19 04:00 68 09/05/19 04:00 97.6 68 23 101/44 (63) 99 09/05/19 03:00 67 23 101/47 (65) 97 09/05/19 02:00 70 24 108/39 (62) 97 09/05/19 01:00 97.8 70 25 104/60 (75) 97 09/05/19 00:00 73 26 91/45 (60) 96 09/05/19 00:00 Nasal Cannula 4.0 09/04/19 23:00 75 29 98/49 (65) 97 09/04/19 22:00 72 20 95/60 (72) 96 09/04/19 21:00 78 21 91/45 (60) 94 09/04/19 20:00 98.6 79 25 91/58 (69) 94 09/04/19 20:00 74 09/04/19 20:00 Nasal Cannula 4.0 09/04/19 19:43 74 23 96 Nasal Cannula 4.0 36 09/04/19 19:43 96 Nasal Cannula 4.0 36 09/04/19 19:00 78 20 100/50 (67) 93 09/04/19 18:00 76 28 103/52 (69) 94 09/04/19 17:00 73 18 106/55 (72) 100 09/04/19 16:00 80 09/04/19 16:00 Nasal Cannula 2.0 09/04/19 16:00 98.3 81 27 104/65 (78) 97 09/04/19 15:00 98.1 87 26 98/57 (71) 93 09/04/19 14:00 70 29 101/54 (70) 100 09/04/19 13:00 72 21 105/55 (72) 100 09/04/19 12:00 Nasal Cannula 2.0 09/04/19 12:00 67 21 101/51 (68) 100 09/04/19 12:00 65 09/04/19 11:00 72 21 108/62 (77) 99 09/04/19 10:00 63 21 97/50 (66) 99 09/04/19 09:00 68 20 99/54 (69) 100 Objective: General Appearance: alert , awake, responsive AA male , in NAD Lines, tubes and drains: peripheral HEENT: normocephalic, atraumatic, anicteric, mucous membranes moist, PERRL, O2 via NC Neck: non-tender, supple Respiratory/Chest: decreased BS on the left side Cardiovascular/Chest: normal rate Abdomen: normal bowel sounds, non tender, soft Extremities: LUE AV fistula + bruit/thrill Skin Exam: normal pigmentation, warm/dry Neurologic: abnormal gait, alert, responsive, normal mood/affect Musculoskeletal: atrophy - BLE, , non-ambulatory Micro: Microbiology Date/Time Source Procedure Growth Status 09/04/19 04:20 Blood Blood Culture - Preliminary NO GROWTH AFTER 24 HOURS Resulted 09/04/19 04:15 Blood Blood Culture - Preliminary NO GROWTH AFTER 24 HOURS Resulted Accucheck: 163 Critical Care - Subjective ROS Limited/Unobtainable: Yes Interval Events: BP this am in 90, upon arrival to unit BP down to 69/33 had HD yesterday on 4L O2 via NC, no signs of resp distress afebrile, no leukocytosis BCX 520 NGTD Condition: critical IV Access: peripheral EKG Rhythm: Sinus Rhythm FI02: 36 Sputum Amount: None I&O: Intake and Output 09/04/19 09/05/19 19:00 07:00 Intake Total 405 ml 150 ml Output Total 4000 ml Balance -3595 ml 150 ml Intake Oral 350 ml 40 ml IV Total 55 ml 110 ml Hemodialysis UF 4000 ml # Bowel Movements 2 CXR: 09/03 Complete opacification of the left hemithorax again noted. Right lung remains clear. Cardiac silhouette is obscured. Right CP angle is sharp. The bony thorax appear unremarkable. Delvis Simms MD 09/05/19 4675: Critical Care - Asmt/Plan Assessment/Plan: Patient seen and examined with [employer] SCREEN TENDER. I agree with the above assessment and plan. Will assess for adrenal insufficiency. Dr. Morgan to give back some fluid with dialysis. Awaiting improved hemodynamics so we may proceed with VATS. Case d/w Dr. Morgan Time Spent (Minutes): 40 - cc Lorna Baker NP September 05, 2019 08:49 Delvis Simms MD September 05, 2019 16:45
[2019-09-05] MEDS: Pantoprazole Inj IVP SCH (08:51)
[2019-09-05] MEDS: Heparin 5000 units/ml inj SUBQ SCH ×2 (08:51→21:14)
[2019-09-05] MEDS: Nephrovite tab (Rena-Vite) ORAL SCH (08:52)
[2019-09-05] MEDS: Aspirin Baby 81mg ORAL SCH (08:52)
[2019-09-05] MEDS ORDERED: Heparin Sod 1000 units/ml 10ml IV PRN (09:00)
--- NOTE | 2019-09-05 09:00 | NUR ---
NURSE NOTES: All PO medication and Heparin hold for Hemodialysis today.
[2019-09-05] MEDS ORDERED: Vancomycin 750mg/D5W 275ml IVPB SCH ×2 (10:00)
--- NOTE | 2019-09-05 11:30 | NUR ---
NURSE NOTES: Dr BERMUDEZ at bedside,updated re pt's status,BP unstable,said he will need a cardiac clearance and Neurology clearance for the planned surgery.
--- NOTE | 2019-09-05 12:01 | NUR ---
positive 1000ml uf with hd today also 25% alb 100ml for support bp with hd
--- NOTE | 2019-09-05 12:09 | Nephrology Progress Note ---
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 (10) Sepsis (11) Bacteremia (12) Emesis (13) UTI (urinary tract infection) (14) E coli infection (15) Hypotension Plan fluids given as boluses and albumin bp stable all night , , bp stable 09/03 and tolerated HD with UF -2000 , bp lower 09/04 and getting fluids no distress, weak , orders updated, will need vats, coag neg staph b acteremia likely contaminant , icu time 40 min Subjective Constitutional: Reports: weakness HEENT: Reports: no symptoms Genitourinary: Reports: no symptoms Neurologic/Psychiatric: Reports: pre-existing deficit Subjective nausea and emesis Objective Objective Last 24 Hour Vital Signs Date Time Temp Pulse Resp B/P (MAP) Pulse Ox O2 Delivery O2 Flow Rate FiO2 09/05/19 10:33 101.8 09/05/19 10:00 77 20 107/51 (69) 100 09/05/19 09:00 75 20 94/37 (56) 100 09/05/19 08:00 98.0 65 20 99/53 (68) 99 09/05/19 08:00 Nasal Cannula 4.0 09/05/19 08:00 65 09/05/19 07:35 58 26 95 Nasal Cannula 4.0 36 09/05/19 07:35 96 Nasal Cannula 4.0 36 09/05/19 07:00 65 20 98/55 (69) 97 09/05/19 06:00 66 20 92/44 (60) 98 09/05/19 05:00 75 25 108/45 (66) 97 09/05/19 04:00 Nasal Cannula 4.0 09/05/19 04:00 68 09/05/19 04:00 97.6 68 23 101/44 (63) 99 09/05/19 03:00 67 23 101/47 (65) 97 09/05/19 02:00 70 24 108/39 (62) 97 09/05/19 01:00 97.8 70 25 104/60 (75) 97 09/05/19 00:00 73 26 91/45 (60) 96 09/05/19 00:00 Nasal Cannula 4.0 09/04/19 23:00 75 29 98/49 (65) 97 09/04/19 22:00 72 20 95/60 (72) 96 09/04/19 21:00 78 21 91/45 (60) 94 09/04/19 20:00 98.6 79 25 91/58 (69) 94 09/04/19 20:00 74 09/04/19 20:00 Nasal Cannula 4.0 09/04/19 19:43 74 23 96 Nasal Cannula 4.0 36 09/04/19 19:43 96 Nasal Cannula 4.0 36 09/04/19 19:00 78 20 100/50 (67) 93 09/04/19 18:00 76 28 103/52 (69) 94 09/04/19 17:00 73 18 106/55 (72) 100 09/04/19 16:00 80 09/04/19 16:00 Nasal Cannula 2.0 09/04/19 16:00 98.3 81 27 104/65 (78) 97 09/04/19 15:00 98.1 87 26 98/57 (71) 93 09/04/19 14:00 70 29 101/54 (70) 100 09/04/19 13:00 72 21 105/55 (72) 100 Intake and Output 09/04/19 09/05/19 18:59 06:59 Intake Total 405 ml 95 ml Output Total 4000 ml Balance -3595 ml 95 ml Intake Oral 350 ml 40 ml IV Total 55 ml 55 ml Hemodialysis UF 4000 ml # Bowel Movements 2 Laboratory Tests 09/05/19 04:00: White Blood Count 9.7, Red Blood Count 2.90L, Hemoglobin 9.5L, Hematocrit 28.0L , Mean Corpuscular Volume 97, Mean Corpuscular Hemoglobin 32.8H, Mean Corpuscular Hemoglobin Concent 34.0, Red Cell Distribution Width 12.0, Platelet Count 230, Mean Platelet Volume 6.2L, Neutrophils (%) (Auto) 70.4, Lymphocytes ( %) (Auto) 17.0L, Monocytes (%) (Auto) 10.1H, Eosinophils (%) (Auto) 2.0, Basophils (%) (Auto) 0.5, Sodium Level 140, Potassium Level 3.4L, Chloride Level 97L, Carbon Dioxide Level 27, Anion Gap 16H, Blood Urea Nitrogen 56H, Creatinine 9.3H, Estimat Glomerular Filtration Rate 6.9, Glucose Level 177H, Calcium Level 8.8, Phosphorus Level 5.9H, Cortisol AM Sample [Pending], Random Vancomycin Level 13.8 Height (Feet): 6 Height (Inches): 1.00 Weight (Pounds): 159 General Appearance: no apparent distress, alert EENT: other - old scars Neck: normal alignment Cardiovascular: regular rhythm Respiratory/Chest: decreased breath sounds Abdomen: non tender Extremities: no edema Neurologic: motor weakness Alan Morgan MD September 05, 2019 12:09
--- NOTE | 2019-09-05 12:15 | NUR ---
NURSE NOTES: with ongoing Hemodialysis at bedside,tolerating well.
--- NOTE | 2019-09-05 12:30 | NUR ---
CASE MANAGEMENT: REVIEW 09/05/2019 SI:PNA. VS: T 101.8 HR 65 RR 20 B/P 99/53 SATS 99% ON 4L/NC LABS: K 3.4 CL 97 BUN 56 CR 9.3 GLU 177 PHOS 5.9 IS:NS @ 100 ML/HR PRAVACHOL PO QHS ASA PO QD INSULIN ASPART SUBQ AC/HS ALBUMIN HUMAN IV X1 ZOSYN IV Q8H ICU PLAN OF CARE: 2D ECHO STRESS TEST DOWNGRADE TO PATTY
[2019-09-05] MEDS ORDERED: Lidocaine 1% 10mg/ml/Epi 0.005mg/ml 30ml vial INJ ONE (15:15)
--- NOTE | 2019-09-05 15:15 | NUR ---
NURSE NOTES: Dr Chaudhry at bedside, updated re plans of Dr Guan.Chest tube insertion to Lt lateral chest done at bedside.
--- NOTE | 2019-09-05 15:30 | NUR ---
uf +1500ml with hd by dr mauro telephone order
--- NOTE | 2019-09-05 16:27 | Diagnostic Imaging Report ---
Procedure: XRAY Chest 2v Reason for study: Shortness of breath. Chest tube placement Comparison films: 09/04/2019. FINDINGS: There is been interval placement of a left chest tube in place with the tip at the left apex. There is no change in the complete white out of the left hemithorax. Right lung is clear. Cardiac and mediastinal silhouette are within normal limits. The bony thorax appear unremarkable. IMPRESSION: Status post left chest tube placement. No change whiteout left hemithorax.
--- NOTE | 2019-09-05 16:45 | Operative Note - PDOC ---
Operative Note Operative Note Date of Operation/Procedure: September 05, 2019 Pre-op Diagnosis: Sepsis, hypotension, end-stage renal disease, bacteremia Left pleural effusion large Procedure: Left tube thoracostomy Post-op Diagnosis: same as pre-op Surgeon: Serjio Chaudhry MD Anesthesia: local Specimen: none Complications: none Condition: unstable Estimated Blood Loss: minimal Drains: none Implant(s) used?: Yes - 36 Korean chest tube Indications for Procedure [age]-year-old male currently in the intensive care unit ill identified to have a large left pleural effusion loculated potentially hemothorax chest x-ray with whiteout of the left long CT reviewed. Discussed with thoracic surgery given patient's acute deterioration recently worsening condition overall status requiring further work-up and resuscitation management optimization for considerations of thoracic surgery plan for temporary chest tube insertion evacuation of left lung discussed in detail with medical teams and thoracic surgery as well as the patient consent obtained procedure performed at bedside in the intensive care unit 09/05/2019 Description of Procedure Patient was made comfortable the bedside. The left prior chest wall is prepped draped in the same surgical fashion. Local anatomic landmarks identified. Local anesthetic infiltrated for patient's comfort. At the mid axillary at the level of the nipple skin systems me and carried through the subcutaneous tissue in between the fifth and sixth intercostal space. Slow dissection through the intercostal muscle until entry into the pleural cavity. Initially upon entry serous fluid identified and a 36 Korean chest tube was inserted without complication. Approximately 1 L of serous fluid with some bloody sediment identified and evacuated. Post procedure x-ray performed identifying tube in appropriate positioning but still with very significant white out of the left lung. Likely from significant worsening loculation patient does state he feels better and more comfortable now. Chest tube sutured in place dressings applied placed to Pleur-evac will continue to monitor. Serjio Chaudhry September 05, 2019 16:45
--- NOTE | 2019-09-05 18:30 | Progress Note ---
DATE: 09/05/2019 SUBJECTIVE: Patient was transferred to the ICU because of hypotension because of the pleural effusion and intravascular depletion. Patient is anemic as well. Patient had a leg scan and Doppler of the vertebral arteries on 09/04/2019, which revealed a partial clot in the right internal jugular vein. The rest of the study was negative. He still has not had a CT scan of the brain yet. PHYSICAL EXAMINATION: VITAL SIGNS: Blood pressure is 107/51, pulse oximetry is 100, pulse rate 77, respiration rate is 20, temperature is 98 degrees. MENTAL STATUS: Patient is confused. He does not know the date or month. He thinks he is in "[facility]." He is oriented to person. His spoken speech is slurred. IMPRESSION: Patient now has metabolic encephalopathy related to his anemia, hypotension, his previous stroke. Patient can have surgery; however, nobody can guarantee that he will not have a stroke. The surgery is necessary and surgery should be done. There is no significant carotid artery disease. However, he probably has intracranial arterial stenosis. Patient's blood pressure has to be maintained and avoid episodes of hypotension. León Alexandra MD DR: SHAE JOB#: [id number] CC:
--- NOTE | 2019-09-05 19:28 | NUR ---
HAND-OFF: Report given to Henna KEYS,pt resting in bed no resp distress presented.
--- NOTE | 2019-09-05 19:50 | NUR ---
Nurse Note: N: Pt awake, alert, open and closes eyes. Pt able to follow basic commands, form phrases and sentences in age appropriate level. Pt responds to pain. 3 peripheral IV noted; IV LT upper arm, LT FA, SLIV LT wrist. Pt has RT upper arm fistula. HD completed 09/04; received ultrafiltration 1500ml and albumin administered during HD. C: Pt appears SN. Denies chest pain, shortness of breath. Pt has LT side chest tube on wall suction, 850cc output in AM shift. R: Pt on 4 L NC, O2 97%. Will titrate as needed. Pt self suctions and reinforced to suction as needed. White thick sections noted. GI: Pt on a consistent carb renal diet with thickened liquids. Pt is a feeder. : Last BM 09/04; per AM nurse, pt had large black tarry stool. Produces little to no urine; no Hernandez cath noted. S: Pt has sacral wound stage II; OptiForm placed. Contact isolation taken. All safety measures met; will continue to monitor.
--- NOTE | 2019-09-05 22:30 | NUR ---
Nurse Note: Pt at rest. RR >30 breaths per minute. Pt laying in knees to chest position. LT side chest tube to wall suction. Pt stated he was cold, oral temperature 98.3F and extra blankets placed. Per pt request, lights turned off; all safety measures met, will continue to monitor.
[2019-09-06] VITALS (16 sets, daily range): BP systolic 95–135; BP diastolic 44–68
--- NOTE | 2019-09-06 01:35 | NUR ---
Nurse Note: Pt calm, no signs of distress. Pt on 4L NC; 100% O2. Pt cleaned, linens replaced, turned pt and suctioned as needed. Reinforced chest tube dressing with tape, no signs of dislodgement. No BM noted. Head of bed >30 degrees for aspiration precautions. All safety measures met; will continue to monitor.
--- NOTE | 2019-09-06 03:15 | Progress Note ---
DATE: 09/05/2019 CARDIOLOGY PROGRESS NOTE SUBJECTIVE: The patient remains in the intensive care unit. Condition remains critical with guarded prognosis. The patient continues to have tenuous blood pressure parameters and has required recurring fluid and albumin boluses. The patient is status post chest tube placement today on the left side, 1 L of fluid was drained, however, loculation persists. The patient's respiratory symptoms did improve following this procedure. PHYSICAL EXAMINATION: VITAL SIGNS: Blood pressure 91/43, heart rate 72, respiratory rate 22, afebrile. LUNGS: Chest tube on the left. Rhonchi few. No wheezing. Some accessory muscle use. CARDIAC: Regular rhythm and rate. Normal S1, S2. No new murmur. ABDOMEN: Soft. EXTREMITIES: Trace edema. DIAGNOSTIC DATA: Chest x-ray following the procedure revealed persisting left hemothorax. LABORATORY DATA: White count 9.7, hemoglobin 9.5. Potassium 3.4, BUN 93, creatinine 6.9. IMPRESSION: Remains critical and guarded. PROBLEMS: 1. Hemothorax, status post chest tube. 2. Loculated effusion. 3. Trapped lung. 4. Pleuritic chest pain. 5. Shock. 6. Sepsis. 7. Hypovolemia. 8. End-stage renal disease. 9. Old CVA. 10. Possible bacteremia. 11. Increased risk for endocarditis. PLAN: ICU care. Chest tube management. Possible VATS procedure, volume support. Try to avoid pressor support, but reserve that as an option if needed. Antimicrobials. Respiratory hygiene. DVT prophylaxis. Manfred Conn M.D. DR: SINDY JOB#: [id number] CC:
[2019-09-06 05:28] LABS: BASOPHILS % (AUTO) 0.5 % (0.0-2.0); EOSINOPHILS % (AUTO) 2.5 % (0.0-3.0); HEMATOCRIT 25.7 % (42.0-52.0); HEMOGLOBIN 8.8 G/DL (14.2-18.0); LYMPHOCYTES % (AUTO) 16.9 % (20.0-45.0); MEAN CORPUSCULAR VOLUME 98 FL (80-99); MONOCYTES % (AUTO) 10.3 % (1.0-10.0); NEUTROPHILS % (AUTO) 69.9 % (45.0-75.0); PLATELET COUNT 198 K/UL (150-450); RED BLOOD COUNT 2.64 M/UL (4.70-6.10); RED CELL DISTRIBUTION WIDTH 12.4 % (11.6-14.8); WHITE BLOOD COUNT 9.5 K/UL (4.8-10.8)
--- NOTE | 2019-09-06 05:30 | NUR ---
Nurse Note: N: Pt awake, alert, open and closes eyes. Pt able to follow basic commands, form phrases and sentences in age appropriate level. Pt responds to pain. 3 peripheral IV noted; IV LT upper arm, LT FA, SLIV LT wrist. Pt has RT upper arm fistula. HD completed 09/04; received ultrafiltration 1500ml and albumin administered during HD. C: Pt appears SN. Denies shortness of breath. Pt has LT side chest tube on wall suction. R: Pt on 4 L NC, O2 97%. Will titrate as needed. Pt self suctions and reinforced to suction as needed. White thick sections noted. GI: Pt on a consistent carb renal diet with thickened liquids. Pt is a feeder. : Last BM 09/04; per AM nurse, pt had large black tarry stool. Produces little to no urine; no Hernandez cath noted. S: Pt has sacral wound stage II; OptiForm placed. Contact isolation taken. All safety measures met; will continue to monitor.
[2019-09-06] MEDS: Piperacillin/Tazobactam 2.25 GM in D5W 55 ML IV SCH ×3 (05:53→22:05)
[2019-09-06] MEDS: NovoLOG Insulin Flexpen SUBQ SCH ×5 (05:54→22:07)
--- NOTE | 2019-09-06 06:00 | NUR ---
Nurse Note: Nurse Note: Report given to Alvaro RN for continuity of care. Chest tube to wall suction; total output 930cc serosanguineous fluids noted. 80cc on [id number]. All belongings transferred with pt. Cole and watch on pt; upper dentures in pt's mouth.
[2019-09-06 06:13] LABS: ALANINE AMINOTRANSFERASE 26 U/L (12-78); ALBUMIN 3.2 G/DL (3.4-5.0); ALBUMIN/GLOBULIN RATIO 0.7 (1.0-2.7); ALKALINE PHOSPHATASE 39 U/L (46-116); ANION GAP 16 mmol/L (5-15); ASPARTATE AMINO TRANSFERASE 24 U/L (15-37); BILIRUBIN,TOTAL 0.7 MG/DL (0.2-1.0); BLOOD UREA NITROGEN 39 mg/dL (7-18); CALCIUM 8.8 MG/DL (8.5-10.1); CARBON DIOXIDE 22 MMOL/L (21-32); CHLORIDE 102 MMOL/L (98-107); CREATININE 6.8 MG/DL (0.55-1.30); POTASSIUM 3.6 MMOL/L (3.5-5.1); SODIUM 139 MMOL/L (136-145)
--- NOTE | 2019-09-06 07:02 | NUR ---
NURSE NOTES: Report received from LUDMILA Carney. Observed pt lying in the bed, awake, denies any pain at this time. Pt stable condition. On 2L NC, no sob. SR on vehicle monitor technician. Chest tube noted, intact. IV on L AC 20G, L FA 20G, L W 22G, asymptomatic. Bed in the lowest position. Side rails up x3. Will continue to monitor.
--- NOTE | 2019-09-06 07:39 | NUR ---
HAND-OFF: Report given to LUDMILA Castle.
--- NOTE | 2019-09-06 07:40 | NUR ---
NURSE NOTES: Received patient in bed. Awake, verbal, able to make needs known. In no apparent distress. On nasal cannula at 2LPM. With chest tube on left lateral chest. Contact isolation observed. Will continue plan of care.
--- NOTE | 2019-09-06 08:16 | Pulmonology Progress Note ---
León Bakeret BOILER SETTER 09/06/19 0816: Subjective ROS Limited/Unobtainable: Yes Allergies: Coded Allergies: No Known Allergies (Unverified , 04/03/15) Subjective moved to [facility] BP somewhat better CT was placed 09/04 by gen surgeon until VATS /on hold now CXR 09/04 no change on opacification of left hemithorax draining , HH dropped Objective Last 24 Hour Vital Signs Date Time Temp Pulse Resp B/P (MAP) Pulse Ox O2 Delivery O2 Flow Rate FiO2 09/06/19 06:00 64 20 98/56 (70) 97 09/06/19 05:00 61 18 97/52 (67) 97 09/06/19 04:30 62 14 101/59 (73) 96 09/06/19 04:00 62 09/06/19 04:00 98.3 62 17 95/59 (71) 99 09/06/19 04:00 Nasal Cannula 4.0 09/06/19 03:30 62 22 111/55 (73) 96 09/06/19 03:00 64 20 97/55 (69) 94 09/06/19 02:32 98.5 09/06/19 02:30 64 26 100/61 (74) 96 09/06/19 02:00 66 20 101/58 (72) 100 09/06/19 01:30 65 24 110/50 (70) 100 09/06/19 01:00 98.5 68 21 95/44 (61) 100 09/06/19 00:30 68 22 103/47 (65) 95 09/06/19 00:00 Nasal Cannula 4.0 09/06/19 00:00 70 28 97/49 (65) 99 09/05/19 23:30 71 25 96/45 (62) 99 09/05/19 23:00 98.3 69 28 95/48 (64) 100 09/05/19 22:30 71 27 98/46 (63) 95 09/05/19 22:00 72 22 91/42 (58) 98 09/05/19 21:30 67 29 92/45 (61) 99 09/05/19 21:00 70 22 103/49 (67) 100 09/05/19 20:30 71 29 99/47 (64) 100 09/05/19 20:00 72 20 96 Nasal Cannula 4.0 36 09/05/19 20:00 72 09/05/19 20:00 Nasal Cannula 4.0 09/05/19 20:00 69 32 88/51 (63) 96 09/05/19 20:00 96 Nasal Cannula 4.0 36 09/05/19 19:12 69 17 93/49 (64) 97 09/05/19 18:00 74 23 94/52 (66) 97 09/05/19 17:00 74 23 90/46 (61) 97 09/05/19 16:00 97.5 74 20 86/41 (56) 100 09/05/19 16:00 Nasal Cannula 4.0 09/05/19 16:00 71 09/05/19 15:00 74 20 90/46 (61) 100 09/05/19 14:00 72 20 94/50 (65) 100 09/05/19 13:00 74 20 90/51 (64) 100 09/05/19 12:00 85 09/05/19 12:00 97.7 77 20 85/48 (60) 100 09/05/19 12:00 Nasal Cannula 4.0 09/05/19 11:00 78 20 119/43 (68) 100 09/05/19 10:00 77 20 107/51 (69) 100 09/05/19 09:00 75 20 94/37 (56) 100 Intake and Output 09/05/19 09/06/19 19:00 07:00 Intake Total 640 ml 1305 ml Output Total 1501 ml 80 ml Balance -861 ml 1225 ml Intake Oral 540 ml IV Total 100 ml 1255 ml Other 50 ml Output Urine Total 0 ml Stool Total 1 ml Chest Tube Drainage Total 80 ml Hemodialysis UF 1500 ml # Bowel Movements 1 Objective General Appearance: alert , awake, responsive AA male , in NAD Lines, tubes and drains: peripheral HEENT: normocephalic, atraumatic, anicteric, mucous membranes moist, PERRL, O2 via NC Neck: non-tender, supple Respiratory/Chest: decreased BS on the left side, L sided chest tube to Hemovac with serosanguineous drainage Abdomen: normal bowel sounds, non tender, soft Extremities: LUE AV fistula + bruit/thrill Skin Exam: normal pigmentation, warm/dry Neurologic: abnormal gait, alert, responsive, normal mood/affect Musculoskeletal: atrophy - BLE, , non-ambulatory Microbiology Date/Time Source Procedure Growth Status 09/04/19 04:20 Blood Blood Culture - Preliminary NO GROWTH AFTER 24 HOURS Resulted 09/04/19 04:15 Blood Blood Culture - Preliminary NO GROWTH AFTER 24 HOURS Resulted Laboratory Tests 09/06/19 04:00: White Blood Count 9.5, Red Blood Count 2.64L, Hemoglobin 8.8L, Hematocrit 25.7L , Mean Corpuscular Volume 98, Mean Corpuscular Hemoglobin 33.2H, Mean Corpuscular Hemoglobin Concent 34.1, Red Cell Distribution Width 12.4, Platelet Count 198, Mean Platelet Volume 7.0, Neutrophils (%) (Auto) 69.9, Lymphocytes (% ) (Auto) 16.9L, Monocytes (%) (Auto) 10.3H, Eosinophils (%) (Auto) 2.5, Basophils (%) (Auto) 0.5, Sodium Level 139, Potassium Level 3.6, Chloride Level 102, Carbon Dioxide Level 22, Anion Gap 16H, Blood Urea Nitrogen 39H, Creatinine 6.8H, Estimat Glomerular Filtration Rate 9.9, Glucose Level 158H, Calcium Level 8.8, Phosphorus Level 4.5, Total Bilirubin 0.7, Aspartate Amino Transf (AST/SGOT) 24, Alanine Aminotransferase (ALT/SGPT) 26, Alkaline Phosphatase 39L, Total Protein 7.6, Albumin 3.2L, Globulin 4.4, Albumin/ Globulin Ratio 0.7L, Adrenocorticotropic Hormone [Pending], Random Vancomycin Level 18.5 Current Medications Medications (Trade) Dose Ordered Sig/Raheel Route PRN Reason Start Time Stop Time Status Last Admin Dose Admin Acetaminophen (Tylenol) 650 mg Q4H PRN ORAL Mild Pain (Pain Scale 1-3) 09/06/19 10:15 10/03/19 10:01 Acetaminophen (Tylenol) 650 mg Q4H PRN ORAL Temp >100.5 09/06/19 10:15 10/03/19 10:01 Albuterol/ Ipratropium (Albuterol/ Ipratropium) 3 ml Q4H PRN HHN Shortness of Breath 09/06/19 10:15 09/08/19 10:02 Aspirin (ASA) 81 mg DAILY ORAL 09/06/19 09:00 10/13/19 08:59 Guaifenesin/ Dextromethorphan (Robitussin DM Syrup) 10 ml Q4H PRN ORAL For Cough 09/06/19 10:15 12/02/19 10:02 Heparin Sodium (Porcine) (Heparin 5000 units/ml) 5,000 units EVERY 12 HOURS SUBQ 09/06/19 09:00 10/15/19 08:59 Insulin Aspart (NovoLOG) BEFORE MEALS AND HS SUBQ 09/06/19 06:30 11/26/19 20:59 Ondansetron HCl (Zofran) 4 mg Q4H PRN IVP Nausea & Vomiting 09/06/19 10:15 10/03/19 10:02 Pantoprazole (Protonix) 40 mg DAILY IVP 09/06/19 09:00 10/04/19 08:59 Piperacillin Sod/ Tazobactam Sod 2.25 gm/Dextrose 55 ml @ 110 mls/hr Q8HR IV 09/06/19 14:00 09/10/19 13:59 Polyethylene Glycol (Miralax) 17 gm DAILYPRN PRN ORAL Constipation 09/06/19 10:15 10/03/19 10:02 Pravastatin Sodium (Pravachol) 80 mg BEDTIME ORAL 09/06/19 21:00 09/27/19 20:59 Sevelamer Carbonate (Renvela) 800 mg THREE TIMES A DAY ORAL 09/06/19 09:00 11/27/19 08:59 Sodium Chloride 1,000 ml @ 100 mls/hr Q10H IV 09/06/19 06:15 10/05/19 12:29 09/06/19 06:58 Vancomycin HCl (Vanco rx to dose) 1 ea DAILY PRN MISC Per rx protocol 09/06/19 09:00 09/27/19 19:59 Vitamin B Complex/ Vit C/Folic Acid (Nephrovite) 1 tab DAILY ORAL 09/06/19 09:00 09/28/19 08:59 Assessment/Plan Assessment/Plan ASSESSMENT Hypotension-persistent; Shock-recovered Pneumonia Large left pleural effusion with loculated components, probably? trapped lung s/p placement of chest tube Pleuritic chest pain Bacteremia /GPC - real vs contaminant Suspected CoVID 19-ruled out End-stage renal disease ,on hemodialysis Diabetes mellitus, insulin dependent Hypertension A fib Anemia of chronic kidney disease History of CVA UTI E coli Hypoalbuminemia Hep C positive PLAN OF CARE in [facility] now s/p CL placement, inadvertently was pulled out by pt s/p multiple albumin boluses and IV boluses BP stabilized, tolerated HD 09/03 with UF BP better, moved to [facility] on 4L O2 via NC, no signs of resp distress CXR with complete opacification of left hemithorax Chest tube was placed to Hemovac drainage until VATS on 09/[address] placement - no change serosanguineous drainage, monitor output, draining a lot, HH dropped to 8.8 CXR today and daily when with CT Covid 19 08/27 and 08/29 NGT off isolation supplemental O2 to keep sat above 92% off MDI Proventil ; on HHN prn need surgery / on hold- CT surgeon needs clearance from cardio and neuro previously ordered tap ( although not sure if will be successful given loculated component of pleural effusion) get fluid cx, cytology, cell count with diff, LDH, protein, glucose ,-on HOLD due to hypotension discussed with CT surgeon, needs clearance by cardio and neuro prior to surgery close monitoring of BP/hypotensive, off BB consider Midodrine CT head pending unclear reason for neuro clearance, no change in mental status neuro seen pt 09/04 - cleared for surgery, since pt needs surgery empiric abx- fup with cx BCX 09/03 NGTD, no fevers, no leukocytosis 08/27 BCX + Staph epidermidis 1/2, received Vanco,; repeat BCX for clearance BCX 08/29 NGTD , initial + BCX 1/2 was likely contaminant 08/27 SARS CoV-2 by PCR NGT 08/27 UCX + E coli, on Zosyn, serial troponin - NGT x 2 ECHO - with pEF monitor volumes, CP likely pleuritic , resolved HD per nephro/attending BP management continue ASA and statin D dimer 17.8 CRP 26,2, LDH 119 , ferritin 683 Venous Duplex BLE NGT was on DVT prophylaxis with Heparin started on LMWH /for treatment, but dc by primary and restarted on SQ heparin will proceed with VQ scan when more stable trend LFT, hep panel + hep C BS management monitor HH with goal to keep Hgb above 7 supportive care remains hypotensive ? unclear etiology not septic will r/o adrenal insufficiency ACTH stimulation test this am am case discussed and evaluated by supervising physician Delvis Simms MD 09/06/19 1121: Subjective Allergies: Coded Allergies: No Known Allergies (Unverified , 04/03/15) Assessment/Plan Assessment/Plan Patient seen and examined with BOILER SETTER. I agree with the above assessment and plan. Chest tube placed by Dr. Chaudhry, monitor output, still needs VATS BP better today apparently had a black tarry stool, unclear if anyone was notified H/H dropped Will have nurse check stool for OB Recommend GI consult Lorna Baker NP September 06, 2019 08:16 Delvis Simms MD September 06, 2019 11:21
[2019-09-06] MEDS ORDERED: Pantoprazole Inj IVP SCH ×2 (09:00→18:00)
[2019-09-06] MEDS: Heparin 5000 units/ml inj SUBQ SCH ×2 (09:00→21:00)
[2019-09-06] MEDS ORDERED: Aspirin Baby 81mg ORAL SCH (09:00)
--- NOTE | 2019-09-06 09:01 | NUR ---
CASE MANAGEMENT: REVIEW 09/06/2019 SI:PNA. VS: T 98 HR 60 RR 19 B/P 123/60 SATS 98% ON 2L/NC LABS: BUN 39 CR 6.8 GLU 158 ALP 39 IS:NS @ 100 ML/HR PRAVACHOL PO QHS ASA PO QD INSULIN ASPART SUBQ AC/HS ALBUMIN HUMAN IV X1 ZOSYN IV Q8H SDU PLAN OF CARE: 2D ECHO STRESS TEST VATS /on hold now
[2019-09-06] MEDS: Nephrovite tab (Rena-Vite) ORAL SCH (09:08)
--- NOTE | 2019-09-06 09:16 | NUR ---
NURSE NOTES: Dr. Guan called,up dated about patient,notified labs today,instructed me to have call him,ordered CT chest and head without contrast and labs in am,LUDMILA Castle notified
[2019-09-06] MEDS ORDERED: Vancomycin 750mg/NS 275ml IVPB ONE ×2 (10:00)
[2019-09-06] MEDS ORDERED: Albuterol/Ipratropium 3ml neb HHN PRN (10:15)
[2019-09-06] MEDS ORDERED: Guaifenesin/DM 10ml syrup ORAL PRN (10:15)
[2019-09-06] MEDS ORDERED: Miralax 17gm pkt ORAL PRN (10:15)
--- NOTE | 2019-09-06 10:29 | Diagnostic Imaging Report ---
Procedure: XRAY Chest 1v Reason for study: Reason For Exam: SOB Comparison films: 09/05/2019. FINDINGS: Left chest tube remains in place. There is reexpansion and improved aeration of the left upper lung. Opacity remains at the left lung base. There is slight increase of right basilar infiltrate. Cardiac silhouette obscured. The bony thorax appear unremarkable. IMPRESSION: Reexpansion and improved aeration of the left upper lung with left chest tube in place. Increased right basilar infiltrate.
--- NOTE | 2019-09-06 13:13 | Surgery Progress Note ---
Surgery Progress Note Subjective Procedure Performed Left tube thoracostomy Symptoms: improved, tolerating diet, voiding well, passing flatus Additional Comments chest tue without leak cxr improved Objective Last 24 Hour Vital Signs Date Time Temp Pulse Resp B/P (MAP) Pulse Ox O2 Delivery O2 Flow Rate FiO2 09/06/19 12:00 Nasal Cannula 2.0 09/06/19 12:00 98.4 66 19 121/58 (79) 100 09/06/19 11:05 95 Nasal Cannula 3.0 32 09/06/19 11:04 63 20 95 Nasal Cannula 3.0 32 09/06/19 08:00 Nasal Cannula 2.0 09/06/19 08:00 98.0 60 19 123/60 (81) 98 09/06/19 07:54 59 09/06/19 06:00 64 20 98/56 (70) 97 09/06/19 05:00 61 18 97/52 (67) 97 09/06/19 04:30 62 14 101/59 (73) 96 09/06/19 04:00 62 09/06/19 04:00 98.3 62 17 95/59 (71) 99 09/06/19 04:00 Nasal Cannula 4.0 09/06/19 03:30 62 22 111/55 (73) 96 09/06/19 03:00 64 20 97/55 (69) 94 09/06/19 02:32 98.5 09/06/19 02:30 64 26 100/61 (74) 96 09/06/19 02:00 66 20 101/58 (72) 100 09/06/19 01:30 65 24 110/50 (70) 100 09/06/19 01:00 98.5 68 21 95/44 (61) 100 09/06/19 00:30 68 22 103/47 (65) 95 09/06/19 00:00 Nasal Cannula 4.0 09/06/19 00:00 70 28 97/49 (65) 99 09/05/19 23:30 71 25 96/45 (62) 99 09/05/19 23:00 98.3 69 28 95/48 (64) 100 09/05/19 22:30 71 27 98/46 (63) 95 09/05/19 22:00 72 22 91/42 (58) 98 09/05/19 21:30 67 29 92/45 (61) 99 09/05/19 21:00 70 22 103/49 (67) 100 09/05/19 20:30 71 29 99/47 (64) 100 09/05/19 20:00 72 20 96 Nasal Cannula 4.0 36 09/05/19 20:00 72 09/05/19 20:00 Nasal Cannula 4.0 09/05/19 20:00 69 32 88/51 (63) 96 09/05/19 20:00 96 Nasal Cannula 4.0 36 09/05/19 19:12 69 17 93/49 (64) 97 09/05/19 18:00 74 23 94/52 (66) 97 09/05/19 17:00 74 23 90/46 (61) 97 09/05/19 16:00 97.5 74 20 86/41 (56) 100 09/05/19 16:00 Nasal Cannula 4.0 09/05/19 16:00 71 09/05/19 15:00 74 20 90/46 (61) 100 09/05/19 14:00 72 20 94/50 (65) 100 I&O Intake and Output 09/05/19 09/06/19 19:00 07:00 Intake Total 640 ml 1305 ml Output Total 2351 ml 80 ml Balance -1711 ml 1225 ml Intake Oral 540 ml IV Total 100 ml 1255 ml Other 50 ml Output Urine Total 0 ml Stool Total 1 ml Chest Tube Drainage Total 850 ml 80 ml Hemodialysis UF 1500 ml # Bowel Movements 1 Dressing: dry Wound: clean Drains: other Cardiovascular: RSR Respiratory: decreased breath sounds Abdomen: soft, non-tender, present bowel sounds Extremities: no edema, no tenderness, no cyanosis Laboratory Tests Test 09/06/19 04:00 09/06/19 12:00 White Blood Count 9.5 K/UL (4.8-10.8) Red Blood Count 2.64 M/UL (4.70-6.10) L Hemoglobin 8.8 G/DL (14.2-18.0) L Hematocrit 25.7 % (42.0-52.0) L Mean Corpuscular Volume 98 FL (80-99) Mean Corpuscular Hemoglobin 33.2 PG (27.0-31.0) H Mean Corpuscular Hemoglobin Concent 34.1 G/DL (32.0-36.0) Red Cell Distribution Width 12.4 % (11.6-14.8) Platelet Count 198 K/UL (150-450) Mean Platelet Volume 7.0 FL (6.5-10.1) Neutrophils (%) (Auto) 69.9 % (45.0-75.0) Lymphocytes (%) (Auto) 16.9 % (20.0-45.0) L Monocytes (%) (Auto) 10.3 % (1.0-10.0) H Eosinophils (%) (Auto) 2.5 % (0.0-3.0) Basophils (%) (Auto) 0.5 % (0.0-2.0) Sodium Level 139 MMOL/L (136-145) Potassium Level 3.6 MMOL/L (3.5-5.1) Chloride Level 102 MMOL/L (98-107) Carbon Dioxide Level 22 MMOL/L (21-32) Anion Gap 16 mmol/L (5-15) H Blood Urea Nitrogen 39 mg/dL (7-18) H Creatinine 6.8 MG/DL (0.55-1.30) H Estimat Glomerular Filtration Rate 9.9 mL/min (>60) Glucose Level 158 MG/DL (74-106) H Calcium Level 8.8 MG/DL (8.5-10.1) Phosphorus Level 4.5 MG/DL (2.5-4.9) Total Bilirubin 0.7 MG/DL (0.2-1.0) Aspartate Amino Transf (AST/SGOT) 24 U/L (15-37) Alanine Aminotransferase (ALT/SGPT) 26 U/L (12-78) Alkaline Phosphatase 39 U/L (46-116) L Total Protein 7.6 G/DL (6.4-8.2) Albumin 3.2 G/DL (3.4-5.0) L Globulin 4.4 g/dL Albumin/Globulin Ratio 0.7 (1.0-2.7) L Adrenocorticotropic Hormone Pending Random Vancomycin Level 18.5 ug/mL Stool Occult Blood Pending Plan Problems: (1) Malnutrition of moderate degree Assessment & Plan: DAILY ESTIMATED NEEDS: Needs based on ESRD on HD 81.8kg 27-32 kcals/kg 0153-1068 total kcals 1.25-1.8 g protein/kg 102-147 g total protein Fluid per Md, on HD NUTRITION DIAGNOSIS: Increased kcal and pro needs r/t renal dysfunction as evidenced by pt w/ ESRD on HD (CURRENT DIET: CCHO VERY HIGH/ RENAL MS FINELY CHOPPED) PO DIET RECOMMENDATIONS: RENAL/ CCHO MED + DOUBLE PRO PORTIONS ADDITIONAL RECOMMENDATIONS: 1) Obtain a standing weight for calibrated bed scale wt 2) Add NEPRO TID w/ meals, currently w/ poor po intake 3) Rec WC eval for sacral wound. Add GIGI BID if tolerated 4) Consider appetite stimulant (2) Sepsis Assessment & Plan: Patient currently hospitalized initially leukocytosis, abnormal labs improved but now hypotensive and deconditioned deteriorating left pleural effusion intensive care unit Patient without peripheral access and will require fluids meds and resuscitation given current extremitas. Patient with right upper extremity fistula recommend not using upper extremities or wrists central upper for access given renal disease requiring dialysis. Line placed right Fem patient tolerated please see note N.p.o. IV fluids Trend labs Discussed with ICU team we will follow with recommendations thank you for let me participate in patient's care (3) Pleural effusion, left Assessment & Plan: A single one view chest is obtained. There is increase opacity left hemithorax now with complete white out demonstrated. This is likely secondary to complete atelectasis of the left lung and left effusion. Right perihilar densities has improved. Cardiac silhouette partially obscured. Right CP angle is sharp. The bony thorax appear unremarkable. IMPRESSION: Complete white out of the left hemithorax likely secondary to left lung atelectasis and effusion. Improved right perihilar densities. discussed with thoracic plan vats when stable may place chest tube until vats s/p chest tube improving (4) Severe sepsis Assessment & Plan: Lungs: Consolidated portions of the left lung may represent atelectasis, but pneumonia is not excluded. Patchy consolidations in the right lower lobe are concerning for pneumonia. Pleural space: Large left pleural effusion with loculated components. No pneumothorax. Heart: Borderline size of the heart. Small pericardial effusion. Coronary artery calcifications. Thyroid: Hypodense nodules in the left thyroid could be further evaluated with nonemergent dedicated ultrasound if clinically indicated. Bones/joints: Mild degenerative changes of the spine. No acute fracture. No dislocation. Soft tissues: Unremarkable. Vasculature: Unremarkable. No thoracic aortic aneurysm. Lymph nodes: Nonspecific mildly prominent mediastinal lymph nodes. Kidneys and ureters: Small hypodensity in the right kidney is too small to definitively characterize. IMPRESSION: 1. Large left pleural effusion with loculated components. 2. Consolidated portions of the left lung may represent atelectasis, but pneumonia is not excluded. 3. Patchy consolidations in the right lower lobe are concerning for pneumonia. Additional Comments pending repeat ct chest Serjio Chaudhry September 06, 2019 13:13
--- NOTE | 2019-09-06 13:40 | Diagnostic Imaging Report ---
EXAM: CT CT Chest no Contrast CLINICAL HISTORY: Difficulty breathing. TECHNIQUE: Axial images obtained through the chest without contrast. All CT scans at this facility are performed using dose modulation techniques as appropriate to a performed exam including the following: automated exposure control with adjustment of the mA and/or kV according to patient size. RADIATION DOSE: CTDIvol: 10.3 mGy DLP: 403.8 mGy-cm Dose information generated by the CT scanner is available in PACS. COMPARISON: Chest x-ray 09/06/2019 FINDINGS: There is a left chest tube in place. Mildly loculated left pleural effusion noted with some fluid tracking into the fissure. There is also a small right effusion. Some dependent alveolar densities demonstrated bilaterally which could be a mild infiltrates. Some left upper lobe infiltrate also noted. Cardiac and mediastinal structures are within normal limits. There is no pathologic size adenopathy. Limited images through the upper abdomen is unremarkable. IMPRESSION: BILATERAL INFILTRATES AND EFFUSIONS LEFT GREATER THAN RIGHT. LEFT EFFUSION SLIGHTLY LOCULATED TRACKING INTO THE MAJOR FISSURE. LEFT CHEST TUBE IN PLACE.
--- NOTE | 2019-09-06 13:44 | Diagnostic Imaging Report ---
EXAM: CT CT Head no Contrast INDICATION: Altered mental status. TECHNIQUE: Axial images of the brain were obtained with subsequent sagittal and coronal reformats. All CT scans at this facility are performed using dose modulation techniques as appropriate to a performed exam including the following: automated exposure control with adjustment of the mA and/or kV according to patient size. COMPARISON STUDY: None. RADIATION DOSE: CTDIvol: 53.4 mGy DLP: 1018.8 mGy-cm Dose information generated by the CT scanner is available in PACS. FINDINGS: There is age related senescent changes with ventricular and sulcal prominence. White matter micro-ischemic changes noted. There is no acute large territory cortical infarct, hemorrhage, mass effect or shift. Ventricles and cisterns as well as brainstem and posterior fossa appear unremarkable. The sellar region is normal. Sinuses, mastoid air cells and bony calvarium appear intact. The patient has numerous metallic shrapnel artifacts noted as seen on the topogram. IMPRESSION: Age related senescent changes. No acute intracranial abnormality. Multiple metallic shrapnel artifacts.
--- NOTE | 2019-09-06 14:35 | NUR ---
NURSE NOTES: Dr. Morgan at bedside.
--- NOTE | 2019-09-06 14:38 | Nephrology Progress Note ---
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 (10) Sepsis (11) Bacteremia (12) Emesis (13) UTI (urinary tract infection) (14) E coli infection (15) Hypotension Plan fluids given as boluses and albumin bp stable all night , and today, no distress, weak, orders updated, will need vats, coag neg staph b acteremia likely contaminant , melena reported and protonix increasede bid, stop asa, GI consult,epogen and iron ordered Subjective Constitutional: Reports: weakness HEENT: Reports: no symptoms Genitourinary: Reports: no symptoms Neurologic/Psychiatric: Reports: pre-existing deficit Subjective nausea and emesis Objective Objective Last 24 Hour Vital Signs Date Time Temp Pulse Resp B/P (MAP) Pulse Ox O2 Delivery O2 Flow Rate FiO2 09/06/19 12:00 Nasal Cannula 2.0 09/06/19 12:00 98.4 66 19 121/58 (79) 100 09/06/19 11:05 95 Nasal Cannula 3.0 32 09/06/19 11:04 63 20 95 Nasal Cannula 3.0 32 09/06/19 08:00 Nasal Cannula 2.0 09/06/19 08:00 98.0 60 19 123/60 (81) 98 09/06/19 07:54 59 09/06/19 06:00 64 20 98/56 (70) 97 09/06/19 05:00 61 18 97/52 (67) 97 09/06/19 04:30 62 14 101/59 (73) 96 09/06/19 04:00 62 09/06/19 04:00 98.3 62 17 95/59 (71) 99 09/06/19 04:00 Nasal Cannula 4.0 09/06/19 03:30 62 22 111/55 (73) 96 09/06/19 03:00 64 20 97/55 (69) 94 09/06/19 02:32 98.5 09/06/19 02:30 64 26 100/61 (74) 96 09/06/19 02:00 66 20 101/58 (72) 100 09/06/19 01:30 65 24 110/50 (70) 100 09/06/19 01:00 98.5 68 21 95/44 (61) 100 09/06/19 00:30 68 22 103/47 (65) 95 09/06/19 00:00 Nasal Cannula 4.0 09/06/19 00:00 70 28 97/49 (65) 99 09/05/19 23:30 71 25 96/45 (62) 99 09/05/19 23:00 98.3 69 28 95/48 (64) 100 09/05/19 22:30 71 27 98/46 (63) 95 09/05/19 22:00 72 22 91/42 (58) 98 09/05/19 21:30 67 29 92/45 (61) 99 09/05/19 21:00 70 22 103/49 (67) 100 09/05/19 20:30 71 29 99/47 (64) 100 09/05/19 20:00 72 20 96 Nasal Cannula 4.0 36 09/05/19 20:00 72 09/05/19 20:00 Nasal Cannula 4.0 09/05/19 20:00 69 32 88/51 (63) 96 09/05/19 20:00 96 Nasal Cannula 4.0 36 09/05/19 19:12 69 17 93/49 (64) 97 09/05/19 18:00 74 23 94/52 (66) 97 09/05/19 17:00 74 23 90/46 (61) 97 09/05/19 16:00 97.5 74 20 86/41 (56) 100 09/05/19 16:00 Nasal Cannula 4.0 09/05/19 16:00 71 09/05/19 15:00 74 20 90/46 (61) 100 Intake and Output 09/05/19 09/06/19 19:00 07:00 Intake Total 640 ml 1305 ml Output Total 2351 ml 80 ml Balance -1711 ml 1225 ml Intake Oral 540 ml IV Total 100 ml 1255 ml Other 50 ml Output Urine Total 0 ml Stool Total 1 ml Chest Tube Drainage Total 850 ml 80 ml Hemodialysis UF 1500 ml # Bowel Movements 1 Laboratory Tests 09/06/19 04:00: White Blood Count 9.5, Red Blood Count 2.64L, Hemoglobin 8.8L, Hematocrit 25.7L , Mean Corpuscular Volume 98, Mean Corpuscular Hemoglobin 33.2H, Mean Corpuscular Hemoglobin Concent 34.1, Red Cell Distribution Width 12.4, Platelet Count 198, Mean Platelet Volume 7.0, Neutrophils (%) (Auto) 69.9, Lymphocytes (% ) (Auto) 16.9L, Monocytes (%) (Auto) 10.3H, Eosinophils (%) (Auto) 2.5, Basophils (%) (Auto) 0.5, Sodium Level 139, Potassium Level 3.6, Chloride Level 102, Carbon Dioxide Level 22, Anion Gap 16H, Blood Urea Nitrogen 39H, Creatinine 6.8H, Estimat Glomerular Filtration Rate 9.9, Glucose Level 158H, Calcium Level 8.8, Phosphorus Level 4.5, Total Bilirubin 0.7, Aspartate Amino Transf (AST/SGOT) 24, Alanine Aminotransferase (ALT/SGPT) 26, Alkaline Phosphatase 39L, Total Protein 7.6, Albumin 3.2L, Globulin 4.4, Albumin/ Globulin Ratio 0.7L, Adrenocorticotropic Hormone [Pending], Random Vancomycin Level 18.5 09/06/19 12:00: Stool Occult Blood [Pending] Height (Feet): 6 Height (Inches): 1.00 Weight (Pounds): 160 General Appearance: no apparent distress, alert EENT: normal ENT inspection Neck: normal alignment Cardiovascular: regular rhythm Respiratory/Chest: decreased breath sounds Abdomen: non tender Extremities: no edema Neurologic: motor weakness Alan Morgan MD September 06, 2019 14:38
--- NOTE | 2019-09-06 14:49 | NUR ---
NURSE NOTES: Young/HD Nurse made aware via telephone. Dialysis order for tomorrow 09/07/[address] Morgan.
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
--- NOTE | 2019-09-06 19:25 | NUR ---
HAND-OFF: Report given to Ana Maria Roy RN.
--- NOTE | 2019-09-06 19:26 | NUR ---
NURSE NOTES: Report received from LUDMILA Castle. Observed pt lying in the bed, awake, denies any pain at this time. SR on sticker operator. On 2L NC, with no sob. Chest tube noted, intact. Abd soft and round. No acute distress noted at this time. IV on L AC 20G, asymptomatic, L W 22, SL, asymptomatic, L FA 20G, running NS at 50cc/hr. Bed in the lowest position. Side rails up x3. Will continue to monitor.
[2019-09-06] MEDS: Iron Sucrose 100 MG in NS 55 ML IV SCH (22:04)
[2019-09-06] MEDS: Pantoprazole Inj IVP SCH (22:04)
[2019-09-06] MEDS: Epoetin Alfa-EPBX(ESRD on dialysis)10,000 unit/ml vial SUBQ SCH (22:05)
[2019-09-07] VITALS: BP 128/66
--- NOTE | 2019-09-07 | NUR ---
NURSE NOTES: pt sleeping in the bed. No acute distress noted. Chest tube intact. SR on cardiac catheterization technologist. On 3L, no sob noted. Will continue to monitor.
--- NOTE | 2019-09-07 03:00 | Progress Note ---
DATE: 09/06/2019 CARDIOLOGY PROGRESS NOTE SUBJECTIVE: The patient remains in the intensive care unit. Condition remains critical. He is status post placement of chest tube. PHYSICAL EXAMINATION: VITAL SIGNS: Blood pressure 121/58, pulse 66, respirations 19. LUNGS: Diminished breath sounds and rhonchi . CARDIAC: Regular rhythm and rate. Normal S1, S2. ABDOMEN: Soft. EXTREMITIES: No edema noted. LABORATORY DATA: CT scan of the chest today reveals bilateral infiltrates and effusions left greater than right with loculation on the left. White count is 9.5, hemoglobin is 8.8. Stool occult blood is pending. Sodium 139, potassium 3.6, BUN 39, creatinine 6.8, bicarb 22, and albumin 3.2. IMPRESSION: 1. Loculated pleural effusions. 2. Healthcare-associated pneumonia. 3. Respiratory failure. 4. End-stage renal disease. 5. Pleuritic chest pain. 6. Type 2 diabetes mellitus. 7. History of hypertension now with lower range of blood pressure. 8. Shock recovering. 9. Anemia. PLAN: 1. Await VATS pleurodesis. 2. Patient is stable from a cardiovascular standpoint with mildly increased risk for anesthesia. 3. Continue antimicrobials. 4. Hemodialysis with ultrafiltration based on clinical parameters. 5. Monitor blood counts. 6. Transfuse as needed. 7. Discontinue anti-platelet therapy and anticoagulants for now. Manfred Conn M.D. DR: SHERRY JOB#: [id number] CC: MICHAEL
[2019-09-07 04:00] VITALS: BP 119/59
--- NOTE | 2019-09-07 05:33 | NUR ---
NURSE NOTES: Bed bath given. 1BM noted, soft brown, moderate amount. No acute distress noted at this time. Will continue to monitor.
[2019-09-07 06:05] LABS: BASOPHILS % (AUTO) 0.4 % (0.0-2.0); EOSINOPHILS % (AUTO) 2.8 % (0.0-3.0); HEMATOCRIT 27.5 % (42.0-52.0); HEMOGLOBIN 9.1 G/DL (14.2-18.0); LYMPHOCYTES % (AUTO) 15.4 % (20.0-45.0); MEAN CORPUSCULAR VOLUME 99 FL (80-99); MONOCYTES % (AUTO) 11.2 % (1.0-10.0); NEUTROPHILS % (AUTO) 70.2 % (45.0-75.0); PLATELET COUNT 207 K/UL (150-450); RED BLOOD COUNT 2.78 M/UL (4.70-6.10); RED CELL DISTRIBUTION WIDTH 12.5 % (11.6-14.8)
[2019-09-07] MEDS: NovoLOG Insulin Flexpen SUBQ SCH ×4 (06:30→21:00)
[2019-09-07] MEDS: Piperacillin/Tazobactam 2.25 GM in D5W 55 ML IV SCH ×3 (06:32→22:31)
[2019-09-07 06:34] LABS: ANION GAP 15 mmol/L (5-15); BLOOD UREA NITROGEN 45 mg/dL (7-18); CALCIUM 8.3 MG/DL (8.5-10.1); CARBON DIOXIDE 20 MMOL/L (21-32); CHLORIDE 106 MMOL/L (98-107); CREATININE 8.2 MG/DL (0.55-1.30); POTASSIUM 3.9 MMOL/L (3.5-5.1); SODIUM 141 MMOL/L (136-145)
--- NOTE | 2019-09-07 07:18 | NUR ---
HAND-OFF: Report given to LUDMILA Castle. No acute distress noted at this time.
--- NOTE | 2019-09-07 07:19 | NUR ---
NURSE NOTES: Received patient in bed. In no apparent distress. Awake, verbal. On nasal cannula at 4LPM. Call light within reach. Contact isolation observed. Will continue plan of care.
[2019-09-07 08:00] VITALS: BP 132/74
--- NOTE | 2019-09-07 08:32 | Pulmonology Progress Note ---
BakerLeón carlsonet KILN WORKER 09/07/19 0832: Subjective ROS Limited/Unobtainable: Yes Allergies: Coded Allergies: No Known Allergies (Unverified , 04/03/15) Subjective in [facility] BP better on 2L O2 via NC, no signs of resp distress CT was placed 09/04 by gen surgeon until VATS /on hold now CXR 09/04 no change on opacification of left hemithorax CT to Pleur-vac - 930 ml 09/05 CT chest noted HH dropped 09/05, stool OB+ ( had black tarry stool), seen by GI specialist this am no further drop Objective Last 24 Hour Vital Signs Date Time Temp Pulse Resp B/P (MAP) Pulse Ox O2 Delivery O2 Flow Rate FiO2 09/07/19 08:00 97.0 62 18 132/74 (93) 95 09/07/19 08:00 Nasal Cannula 2.0 09/07/19 07:00 65 20 95 Nasal Cannula 2.0 28 09/07/19 07:00 95 Nasal Cannula 2.0 28 09/07/19 04:00 67 09/07/19 04:00 Nasal Cannula 2.0 09/07/19 04:00 97.0 65 24 119/59 (79) 95 09/07/19 00:00 Nasal Cannula 2.0 09/07/19 00:00 67 09/07/19 00:00 97.5 64 20 128/66 (86) 97 09/06/19 20:00 97.2 66 24 127/63 (84) 97 09/06/19 20:00 Nasal Cannula 2.0 09/06/19 20:00 65 09/06/19 19:02 95 Nasal Cannula 2.0 28 09/06/19 19:02 65 20 95 Nasal Cannula 2.0 28 09/06/19 16:00 Nasal Cannula 2.0 09/06/19 16:00 98.4 60 19 135/68 (90) 92 09/06/19 15:25 67 09/06/19 12:00 Nasal Cannula 2.0 09/06/19 12:00 98.4 66 19 121/58 (79) 100 09/06/19 11:30 67 09/06/19 11:05 95 Nasal Cannula 3.0 32 09/06/19 11:04 63 20 95 Nasal Cannula 3.0 32 Intake and Output 09/06/19 09/07/19 19:00 07:00 Intake Total 425 ml 735 ml Output Total 110 ml 0 ml Balance 315 ml 735 ml Intake Oral 120 ml 120 ml IV Total 305 ml 615 ml Chest Tube Drainage Total 110 ml 0 ml # Bowel Movements 2 2 Objective General Appearance: alert , awake, responsive AA male , in NAD Lines, tubes and drains: peripheral HEENT: normocephalic, atraumatic, anicteric, mucous membranes moist, PERRL, O2 via NC Neck: non-tender, supple Respiratory/Chest: scattered rhonchi ; L side chest tube to Hemovac with serosanguineous drainage Abdomen: normal bowel sounds, non tender, soft Extremities: LUE AV fistula + bruit/thrill Skin Exam: normal pigmentation, warm/dry Neurologic: abnormal gait, alert, responsive, normal mood/affect Musculoskeletal: atrophy - BLE, , non-ambulatory Laboratory Tests 09/06/19 12:00: Stool Occult Blood Positive 09/07/19 04:55: White Blood Count 10.0, Red Blood Count 2.78L, Hemoglobin 9.1L, Hematocrit 27.5L , Mean Corpuscular Volume 99, Mean Corpuscular Hemoglobin 33.0H, Mean Corpuscular Hemoglobin Concent 33.3, Red Cell Distribution Width 12.5, Platelet Count 207, Mean Platelet Volume 6.1L, Neutrophils (%) (Auto) 70.2, Lymphocytes ( %) (Auto) 15.4L, Monocytes (%) (Auto) 11.2H, Eosinophils (%) (Auto) 2.8, Basophils (%) (Auto) 0.4, Sodium Level 141, Potassium Level 3.9, Chloride Level 106, Carbon Dioxide Level 20L, Anion Gap 15, Blood Urea Nitrogen 45H, Creatinine 8.2H, Estimat Glomerular Filtration Rate 8.0, Glucose Level 136H, Calcium Level 8.3L Current Medications Medications (Trade) Dose Ordered Sig/Raheel Route PRN Reason Start Time Stop Time Status Last Admin Dose Admin Acetaminophen (Tylenol) 650 mg Q4H PRN ORAL Mild Pain (Pain Scale 1-3) 09/06/19 10:15 10/03/19 10:01 Acetaminophen (Tylenol) 650 mg Q4H PRN ORAL Temp >100.5 09/06/19 10:15 10/03/19 10:01 Albumin Human 100 ml @ 200 mls/hr PRN PRN IV sbp<90 during hd 09/07/19 14:30 12/06/19 14:29 Albuterol/ Ipratropium (Albuterol/ Ipratropium) 3 ml Q4H PRN HHN Shortness of Breath 09/06/19 10:15 09/08/19 10:02 Epoetin Antoni (Epoetin Antoni(ESRD on dialysis)) 10,000 unit MON- SUBQ 09/06/19 21:00 12/05/19 20:59 09/06/19 22:05 Guaifenesin/ Dextromethorphan (Robitussin DM Syrup) 10 ml Q4H PRN ORAL For Cough 09/06/19 10:15 12/02/19 10:02 Heparin Sodium (Porcine) (Heparin 5000 units/ml) 5,000 units EVERY 12 HOURS SUBQ 09/06/19 09:00 10/15/19 08:59 Insulin Aspart (NovoLOG) BEFORE MEALS AND HS SUBQ 09/06/19 06:30 11/26/19 20:59 09/06/19 22:07 Iron Sucrose 100 mg/Sodium Chloride 60 ml @ 240 mls/hr BEDTIME IV 09/06/19 21:00 09/10/19 21:14 09/06/19 22:04 Ondansetron HCl (Zofran) 4 mg Q4H PRN IVP Nausea & Vomiting 09/06/19 10:15 10/03/19 10:02 Pantoprazole (Protonix) 40 mg EVERY 12 HOURS IVP 09/06/19 21:00 10/06/19 17:59 09/06/19 22:04 Piperacillin Sod/ Tazobactam Sod 2.25 gm/Dextrose 55 ml @ 110 mls/hr Q8HR IV 09/06/19 14:00 09/10/19 13:59 09/07/19 06:32 Polyethylene Glycol (Miralax) 17 gm DAILYPRN PRN ORAL Constipation 09/06/19 10:15 10/03/19 10:02 Pravastatin Sodium (Pravachol) 80 mg BEDTIME ORAL 09/06/19 21:00 09/27/19 20:59 09/06/19 22:05 Sevelamer Carbonate (Renvela) 800 mg THREE TIMES A DAY ORAL 5/22/20 09:00 11/27/19 08:59 09/06/19 18:33 Sodium Chloride 1,000 ml @ 50 mls/hr Q20H IV 09/06/19 16:00 10/06/19 15:59 09/06/19 16:00 Vancomycin HCl (Vanco rx to dose) 1 ea DAILY PRN MISC Per rx protocol 09/06/19 09:00 09/27/19 19:59 Vitamin B Complex/ Vit C/Folic Acid (Nephrovite) 1 tab DAILY ORAL 09/06/19 09:00 09/28/19 08:59 09/06/19 09:08 Assessment/Plan Assessment/Plan ASSESSMENT Hypotension-persistent, now improving Shock-recovered Pneumonia Large left pleural effusion with loculated components, probably? trapped lung s/p placement of chest tube Pleuritic chest pain Bacteremia /GPC - real vs contaminant Suspected CoVID -ruled out End-stage renal disease ,on hemodialysis Diabetes mellitus, insulin dependent Hypertension A fib Anemia of chronic kidney disease History of CVA UTI E coli Hypoalbuminemia Hep C positive PLAN OF CARE in [facility] s/p CL placement, inadvertently was pulled out by pt s/p multiple albumin boluses and IV boluses BP stabilized, tolerated HD BP better, moved to [facility] on 2L O2 via NC, no signs of resp distress CXR with complete opacification of left hemithorax Chest tube was placed on 09/04 to Hemovac drainage until VATS CXR post CT placement 09/04 - no change serosanguineous drainage, monitor output; -930 ml 09/05 ; HH dropped to 8.8 CT chest 09/05 noted : -Large left pleural effusion with loculated components. - Consolidated portions of the left lung may represent atelectasis, but pneumonia not excluded. - Patchy consolidations in the right lower lobe are concerning for pneumonia. fup with CXR while with CT daily abx-Zosyn supplemental O2 to keep sat above 92% off MDI Proventil ; on HHN prn Covid 19 08/27 and 08/29 NGT off isolation need surgery VATS / on hold- CT surgeon needs clearance from cardio and neuro previously ordered tap ( although not sure if will be successful given loculated component of pleural effusion) get fluid cx, cytology, cell count with diff, LDH, protein, glucose ,-on HOLD due to hypotension discussed with CT surgeon, needs clearance by cardio and neuro prior to surgery close monitoring of BP/hypotensive, off BB , BP stabilized consider Midodrine CT head 09/05 no acute IC pathology, neuro seen pt 09/04 - cleared for surgery, since pt needs surgery cardio cleared for surgery with mildly increased risk 09/05 surgery tentatively planned for 09/09 9am abx- BCX 09/03 NGTD, no fevers, no leukocytosis 08/27 BCX + Staph epidermidis 04/18, received Vanco,; repeat BCX for clearance BCX 08/29 NGTD , initial + BCX 04/18 was likely contaminant 08/27 SARS CoV-2 by PCR NGT 08/27 UCX + E coli, on Zosyn, GI seen for anemia and poss GI bleeding stool OB+ HH slightly up this am PPI increased to bid by GI on ASA and heparin, consider stopping ASA if HH dropping- per GI recs no GI procedure unless signs of GI bleeding or sharp decrease in HH monitor HH with goal to keep Hgb >7, on IV iron and EPO serial troponin - NGT x 2 ECHO - with pEF monitor volumes, CP likely pleuritic , resolved HD per nephro/attending BP management continue ASA and statin D dimer 17.8 CRP 26,2, LDH 119 , ferritin 683 Venous Duplex BLE NGT was on DVT prophylaxis with Heparin started on LMWH /for treatment, but dc by primary and restarted on SQ heparin will proceed with VQ scan when more stable trend LFT, hep panel + hep C BS management monitor HH with goal to keep Hgb above 7 supportive care ACTH stimulation test was ordered for 09/05 to r/o adrenal insufficiency cortisol 7.2, rest pending ? not done case discussed and evaluated by supervising physician Delvis Simms MD 09/07/19 1255: Subjective Allergies: Coded Allergies: No Known Allergies (Unverified , 04/03/15) Assessment/Plan Assessment/Plan Patient seen and examined with KILN WORKER and I agree with the above assessment and plan. Monitor chest tube output monitor H/H and for further melena. GI following VATS possibly monday HD now. Discussed with Lorna Caceres NP September 07, 2019 08:32 Delvis Simms MD September 07, 2019 12:55
[2019-09-07] MEDS: Pantoprazole Inj IVP SCH ×2 (08:55→21:28)
[2019-09-07] MEDS: Heparin 5000 units/ml inj SUBQ SCH ×2 (09:00→21:00)
[2019-09-07] MEDS: Nephrovite tab (Rena-Vite) ORAL SCH (09:00)
--- NOTE | 2019-09-07 09:09 | NUR ---
RD ASSESSMENT & RECOMMENDATIONS SEE CARE ACTIVITY FOR COMPLETE ASSESSMENT DAILY ESTIMATED NEEDS: Needs based on ESRD on HD 74kg 30-35 kcals/kg 2560-8591 total kcals 1.25-1.8 g protein/kg 93-133 g total protein Fluid per Md, on HD mL/kg total fluid mLs NUTRITION DIAGNOSIS: Increased kcal and pro needs r/t renal dysfunction as evidenced by pt w/ ESRD on HD CURRENT DIET:CCHO VERY HIGH/ RENAL MS FINELY CHOPPED PO DIET RECOMMENDATIONS: RENAL/ CCHO MED + DOUBLE PRO PORTIONS ENTERAL NUTRITION RECOMMENDATIONS: NEPRO @52ml/hr x24 hrs to provide 1248ml, 2246 kcal, 101g pro, 907ml free H2O - W/ continued poor PO, consider nonoral feeds - Obtain GI access, initiate Nepro @22ml/hr for 6 hrs. Advance as tolerated 10ml/hr q4-6 hrs to goal - Flush per MD. HOB over 30 degrees. ADDITIONAL RECOMMENDATIONS: 1) Obtain a standing weight for calibrated bed scale wt 2) Add NEPRO TID w/ meals, currently w/ poor po intake 3) Rec WC eval for sacral wound. Add GIGI BID if tolerated, continue Nephrovite x 1 4) Consider appetite stimulant for poor PO -> monitor PO intake closely, appears to be improving at this time TF rec as above if poor PO continues
--- NOTE | 2019-09-07 09:20 | Diagnostic Imaging Report ---
EXAM: XR Chest, 1 View CLINICAL HISTORY: PLEFF TECHNIQUE: Frontal view of the chest. COMPARISON: 1 day prior FINDINGS: Lungs: There is unchanged left basilar infiltrate which may represent pneumonia versus atelectasis. There is unchanged pulmonary venous congestion. There is unchanged right basilar infiltrate suspicious for additional pneumonia. Pleural space: There is been development of small right pleural effusion. There is unchanged left pleural thickening/small left pleural effusion. There is a left-sided chest tube in good position. No pneumothorax is identified Heart: There is unchanged cardiomegaly. Mediastinum: Unremarkable. Bones/joints: Unremarkable. IMPRESSION: 1. Left-sided chest tube in unchanged position with unchanged small left pleural effusion/pleural thickening. 2. Unchanged bilateral lower lobe infiltrates, left greater than right suspicious for pneumonia. 3. Development of a small right pleural effusion.
--- NOTE | 2019-09-07 10:00 | NUR ---
NURSE NOTES: With left chest tube on continuous pleuravac, Dr. Chaudhry at bedside. Dressing remains dry and intact.
[2019-09-07] MEDS ORDERED: Tubing IV Secondary IV ONE ×2 (10:18→14:14)
[2019-09-07] MEDS ORDERED: Sterile Water Irrig 1000ml IRRIG ONE (10:18)
[2019-09-07] MEDS ORDERED: NS 275ml ONE ×2 (10:18→14:14)
--- NOTE | 2019-09-07 10:41 | Surgery Progress Note ---
Surgery Progress Note Subjective Procedure Performed Left tube thoracostomy Additional Comments no acute events labs reviewed exam stable comfortable tube okay no leak Objective Last 24 Hour Vital Signs Date Time Temp Pulse Resp B/P (MAP) Pulse Ox O2 Delivery O2 Flow Rate FiO2 09/07/19 08:00 69 09/07/19 08:00 97.0 62 18 132/74 (93) 95 09/07/19 08:00 Nasal Cannula 2.0 09/07/19 07:00 65 20 95 Nasal Cannula 2.0 28 09/07/19 07:00 95 Nasal Cannula 2.0 28 09/07/19 04:00 67 09/07/19 04:00 Nasal Cannula 2.0 09/07/19 04:00 97.0 65 24 119/59 (79) 95 09/07/19 00:00 Nasal Cannula 2.0 09/07/19 00:00 67 09/07/19 00:00 97.5 64 20 128/66 (86) 97 09/06/19 20:00 97.2 66 24 127/63 (84) 97 09/06/19 20:00 Nasal Cannula 2.0 09/06/19 20:00 65 09/06/19 19:02 95 Nasal Cannula 2.0 28 09/06/19 19:02 65 20 95 Nasal Cannula 2.0 28 09/06/19 16:00 Nasal Cannula 2.0 09/06/19 16:00 98.4 60 19 135/68 (90) 92 09/06/19 15:25 67 09/06/19 12:00 Nasal Cannula 2.0 09/06/19 12:00 98.4 66 19 121/58 (79) 100 09/06/19 11:30 67 09/06/19 11:05 95 Nasal Cannula 3.0 32 09/06/19 11:04 63 20 95 Nasal Cannula 3.0 32 I&O Intake and Output 09/06/19 09/07/19 19:00 07:00 Intake Total 425 ml 735 ml Output Total 110 ml 0 ml Balance 315 ml 735 ml Intake Oral 120 ml 120 ml IV Total 305 ml 615 ml Chest Tube Drainage Total 110 ml 0 ml # Bowel Movements 2 2 Dressing: other Wound: other Drains: other Cardiovascular: RSR Respiratory: decreased breath sounds Abdomen: soft, non-tender, present bowel sounds Extremities: no tenderness, no cyanosis Laboratory Tests Test 09/06/19 12:00 09/07/19 04:55 Stool Occult Blood Positive (NEGATIVE) White Blood Count 10.0 K/UL (4.8-10.8) Red Blood Count 2.78 M/UL (4.70-6.10) L Hemoglobin 9.1 G/DL (14.2-18.0) L Hematocrit 27.5 % (42.0-52.0) L Mean Corpuscular Volume 99 FL (80-99) Mean Corpuscular Hemoglobin 33.0 PG (27.0-31.0) H Mean Corpuscular Hemoglobin Concent 33.3 G/DL (32.0-36.0) Red Cell Distribution Width 12.5 % (11.6-14.8) Platelet Count 207 K/UL (150-450) Mean Platelet Volume 6.1 FL (6.5-10.1) L Neutrophils (%) (Auto) 70.2 % (45.0-75.0) Lymphocytes (%) (Auto) 15.4 % (20.0-45.0) L Monocytes (%) (Auto) 11.2 % (1.0-10.0) H Eosinophils (%) (Auto) 2.8 % (0.0-3.0) Basophils (%) (Auto) 0.4 % (0.0-2.0) Sodium Level 141 MMOL/L (136-145) Potassium Level 3.9 MMOL/L (3.5-5.1) Chloride Level 106 MMOL/L (98-107) Carbon Dioxide Level 20 MMOL/L (21-32) L Anion Gap 15 mmol/L (5-15) Blood Urea Nitrogen 45 mg/dL (7-18) H Creatinine 8.2 MG/DL (0.55-1.30) H Estimat Glomerular Filtration Rate 8.0 mL/min (>60) Glucose Level 136 MG/DL (74-106) H Calcium Level 8.3 MG/DL (8.5-10.1) L Plan Problems: (1) Malnutrition of moderate degree Assessment & Plan: DAILY ESTIMATED NEEDS: Needs based on ESRD on HD 81.8kg 27-32 kcals/kg 5947-3628 total kcals 1.25-1.8 g protein/kg 102-147 g total protein Fluid per Md, on HD NUTRITION DIAGNOSIS: Increased kcal and pro needs r/t renal dysfunction as evidenced by pt w/ ESRD on HD (CURRENT DIET: CCHO VERY HIGH/ RENAL MS FINELY CHOPPED) PO DIET RECOMMENDATIONS: RENAL/ CCHO MED + DOUBLE PRO PORTIONS ADDITIONAL RECOMMENDATIONS: 1) Obtain a standing weight for calibrated bed scale wt 2) Add NEPRO TID w/ meals, currently w/ poor po intake 3) Rec WC eval for sacral wound. Add GIGI BID if tolerated 4) Consider appetite stimulant (2) Sepsis Assessment & Plan: Patient currently hospitalized initially leukocytosis, abnormal labs improved but now hypotensive and deconditioned deteriorating left pleural effusion intensive care unit Patient without peripheral access and will require fluids meds and resuscitation given current extremitas. Patient with right upper extremity fistula recommend not using upper extremities or wrists central upper for access given renal disease requiring dialysis. Line placed right Fem patient tolerated please see note N.p.o. IV fluids Trend labs Discussed with ICU team we will follow with recommendations thank you for let me participate in patient's care (3) Pleural effusion, left Assessment & Plan: A single one view chest is obtained. There is increase opacity left hemithorax now with complete white out demonstrated. This is likely secondary to complete atelectasis of the left lung and left effusion. Right perihilar densities has improved. Cardiac silhouette partially obscured. Right CP angle is sharp. The bony thorax appear unremarkable. IMPRESSION: Complete white out of the left hemithorax likely secondary to left lung atelectasis and effusion. Improved right perihilar densities. discussed with thoracic plan vats when stable may place chest tube until vats s/p chest tube improving CT chest noted plan VATS monday 9 am (4) Severe sepsis Assessment & Plan: Lungs: Consolidated portions of the left lung may represent atelectasis, but pneumonia is not excluded. Patchy consolidations in the right lower lobe are concerning for pneumonia. Pleural space: Large left pleural effusion with loculated components. No pneumothorax. Heart: Borderline size of the heart. Small pericardial effusion. Coronary artery calcifications. Thyroid: Hypodense nodules in the left thyroid could be further evaluated with nonemergent dedicated ultrasound if clinically indicated. Bones/joints: Mild degenerative changes of the spine. No acute fracture. No dislocation. Soft tissues: Unremarkable. Vasculature: Unremarkable. No thoracic aortic aneurysm. Lymph nodes: Nonspecific mildly prominent mediastinal lymph nodes. Kidneys and ureters: Small hypodensity in the right kidney is too small to definitively characterize. IMPRESSION: 1. Large left pleural effusion with loculated components. 2. Consolidated portions of the left lung may represent atelectasis, but pneumonia is not excluded. 3. Patchy consolidations in the right lower lobe are concerning for pneumonia. Serjio Chaudhry September 07, 2019 10:41
--- NOTE | 2019-09-07 11:28 | Anethesia Preoperative Eval ---
Anesthesia Pre-op PMH/ROS General Date of Evaluation: September 07, 2019 Time of Evaluation: 11:14 Anesthesiologist: Jenifer ASA Score: ASA 4 Mallampati Score Class I : Soft palate, uvula, fauces, pillars visible Class II: Soft palate, uvula, fauces visible Class III: Soft palate, base of uvula visible Class IV: Only hard plate visible Mallampati Classification: Class II Surgeon: Roge Diagnosis: SOB Surgical Procedure: Left VATS Anesthesia History: none Family History: no anesthesia problems Allergies: Coded Allergies: No Known Allergies (Unverified , 04/03/15) Medications: see eMAR Patient NPO?: Yes Past Medical History Cardiovascular: Reports: HTN, other - CHF Gastrointestinal/Genitourinary: Reports: ESRD - Dialysis Neurologic/Psychiatric: Reports: CVA Endocrine: Reports: DM Hematology/Immune: Reports: anemia Musculoskeletal/Integumentary: Reports: edema, other - Weakness, Gait Disorder Anesthesia Pre-op Phys. Exam Physician Exam Last Vital Signs Date Time Temp Pulse Resp B/P (MAP) Pulse Ox O2 Delivery O2 Flow Rate FiO2 09/07/19 08:00 69 09/07/19 08:00 97.0 18 132/74 (93) 95 09/07/19 08:00 Nasal Cannula 2.0 09/07/19 07:00 28 Constitutional: NAD Neurologic: CN 2-12 intact Cardiovascular: RRR Respiratory: CTA Gastrointestinal: S/NT/ND Airway Exam Mallampati Score: Class II MO: limited ROM: limited Teeth: missing, intact Anesthesia Pre-op A/P Labs Hematology Test 09/07/19 04:55 White Blood Count 10.0 K/UL (4.8-10.8) Red Blood Count 2.78 M/UL (4.70-6.10) L Hemoglobin 9.1 G/DL (14.2-18.0) L Hematocrit 27.5 % (42.0-52.0) L Mean Corpuscular Volume 99 FL (80-99) Mean Corpuscular Hemoglobin 33.0 PG (27.0-31.0) H Mean Corpuscular Hemoglobin Concent 33.3 G/DL (32.0-36.0) Red Cell Distribution Width 12.5 % (11.6-14.8) Platelet Count 207 K/UL (150-450) Mean Platelet Volume 6.1 FL (6.5-10.1) L Neutrophils (%) (Auto) 70.2 % (45.0-75.0) Lymphocytes (%) (Auto) 15.4 % (20.0-45.0) L Monocytes (%) (Auto) 11.2 % (1.0-10.0) H Eosinophils (%) (Auto) 2.8 % (0.0-3.0) Basophils (%) (Auto) 0.4 % (0.0-2.0) Chemistry Test 09/07/19 04:55 Sodium Level 141 MMOL/L (136-145) Potassium Level 3.9 MMOL/L (3.5-5.1) Chloride Level 106 MMOL/L (98-107) Carbon Dioxide Level 20 MMOL/L (21-32) L Anion Gap 15 mmol/L (5-15) Blood Urea Nitrogen 45 mg/dL (7-18) H Creatinine 8.2 MG/DL (0.55-1.30) H Estimat Glomerular Filtration Rate 8.0 mL/min (>60) Glucose Level 136 MG/DL (74-106) H Calcium Level 8.3 MG/DL (8.5-10.1) L Risk Assessment & Plan Assessment: ASA 4 Plan: GA, SED, AGUSTIN Status Change Before Surgery: No Pre-Antibiotics Drug: Eric Nelson MD September 07, 2019 11:28
[2019-09-07 12:00] VITALS: BP 122/60
[2019-09-07] MEDS ORDERED: NS 500ML ONE (14:14)
[2019-09-07 16:00] VITALS: BP 131/71
--- NOTE | 2019-09-07 18:44 | General Progress Note ---
Assessment/Plan Assessment/Plan: Assessment - OB (+) stools - Anemia - ESRD / HD - Pleural effusion - Hepatitis C antibody (+) Recommendations - monitor CBC - PPI IV BID - IV Fe - await VATS - GI w/u on hold, unless severe bleeding Subjective Allergies: Coded Allergies: No Known Allergies (Unverified , 04/03/15) Subjective Above noted getting HD minimally interactive d/w Renal and RN Stools now OB (+) Objective Last 24 Hour Vital Signs Date Time Temp Pulse Resp B/P (MAP) Pulse Ox O2 Delivery O2 Flow Rate FiO2 09/07/19 16:00 Nasal Cannula 2.0 09/07/19 16:00 97.9 69 17 131/71 (91) 95 09/07/19 15:25 77 09/07/19 12:00 97.4 62 19 122/60 (80) 96 09/07/19 12:00 Nasal Cannula 2.0 09/07/19 11:38 67 09/07/19 08:00 69 09/07/19 08:00 97.0 62 18 132/74 (93) 95 09/07/19 08:00 Nasal Cannula 2.0 09/07/19 07:00 65 20 95 Nasal Cannula 2.0 28 09/07/19 07:00 95 Nasal Cannula 2.0 28 09/07/19 04:00 67 09/07/19 04:00 Nasal Cannula 2.0 09/07/19 04:00 97.0 65 24 119/59 (79) 95 09/07/19 00:00 Nasal Cannula 2.0 09/07/19 00:00 67 09/07/19 00:00 97.5 64 20 128/66 (86) 97 09/06/19 20:00 97.2 66 24 127/63 (84) 97 09/06/19 20:00 Nasal Cannula 2.0 09/06/19 20:00 65 09/06/19 19:02 95 Nasal Cannula 2.0 28 09/06/19 19:02 65 20 95 Nasal Cannula 2.0 28 Intake and Output 09/06/19 09/07/19 19:00 07:00 Intake Total 425 ml 735 ml Output Total 110 ml 0 ml Balance 315 ml 735 ml Intake Oral 120 ml 120 ml IV Total 305 ml 615 ml Chest Tube Drainage Total 110 ml 0 ml # Bowel Movements 2 2 Laboratory Tests 09/07/19 04:55: White Blood Count 10.0, Red Blood Count 2.78L, Hemoglobin 9.1L, Hematocrit 27.5L , Mean Corpuscular Volume 99, Mean Corpuscular Hemoglobin 33.0H, Mean Corpuscular Hemoglobin Concent 33.3, Red Cell Distribution Width 12.5, Platelet Count 207, Mean Platelet Volume 6.1L, Neutrophils (%) (Auto) 70.2, Lymphocytes ( %) (Auto) 15.4L, Monocytes (%) (Auto) 11.2H, Eosinophils (%) (Auto) 2.8, Basophils (%) (Auto) 0.4, Sodium Level 141, Potassium Level 3.9, Chloride Level 106, Carbon Dioxide Level 20L, Anion Gap 15, Blood Urea Nitrogen 45H, Creatinine 8.2H, Estimat Glomerular Filtration Rate 8.0, Glucose Level 136H, Calcium Level 8.3L Height (Feet): 6 Height (Inches): 1.00 Weight (Pounds): 161 Objective Debilitated AA man chest decreased BS L, (+) CT RR abd soft ND Ramiro Massey MD September 07, 2019 18:44
--- NOTE | 2019-09-07 19:34 | NUR ---
HAND-OFF: Report given to Phan Roy RN.
--- NOTE | 2019-09-07 19:41 | NUR ---
NURSE NOTES: Albumin x 1 given by Young/Hd nurse during dialysis at 1400.
--- NOTE | 2019-09-07 19:42 | NUR ---
NURSE NOTES: Received patient form LUDMILA [place]. Patient is aaox 2, no acute distress, on desk monitor, and on 2L nasal cannula. Patient has a left mid chest axillary chest tube patent with dressing intact. Patient has a right upper arm dialysis fistula, IV on his left AC 20g, left forearm 20g, and left wrist 22g. Sacral stage 3 is noted and pictures taken. Patient is in bed with brake on, bed at its lowest position; call light in reach and x3 bed rails are up. Will continue to monitor patient.
--- NOTE | 2019-09-07 19:54 | Nephrology Progress Note ---
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 (10) Sepsis (11) Bacteremia (12) Emesis (13) UTI (urinary tract infection) (14) E coli infection (15) Hypotension Plan bp stable today, tolerated UF -1000 on dialysis , no distress, weak, orders updated, will need vats, coag neg staph b acteremia likely contaminant , melena reported and protonix increased bid, stop asa, GI consult,epogen and iron ordered, chest tube draining Subjective Constitutional: Reports: weakness HEENT: Reports: no symptoms Genitourinary: Reports: incontinence Neurologic/Psychiatric: Reports: pre-existing deficit Subjective nausea and emesis better Objective Objective Last 24 Hour Vital Signs Date Time Temp Pulse Resp B/P (MAP) Pulse Ox O2 Delivery O2 Flow Rate FiO2 09/07/19 16:00 Nasal Cannula 2.0 09/07/19 16:00 97.9 69 17 131/71 (91) 95 09/07/19 15:25 77 09/07/19 12:00 97.4 62 19 122/60 (80) 96 09/07/19 12:00 Nasal Cannula 2.0 09/07/19 11:38 67 09/07/19 08:00 69 09/07/19 08:00 97.0 62 18 132/74 (93) 95 09/07/19 08:00 Nasal Cannula 2.0 09/07/19 07:00 65 20 95 Nasal Cannula 2.0 28 09/07/19 07:00 95 Nasal Cannula 2.0 28 09/07/19 04:00 67 09/07/19 04:00 Nasal Cannula 2.0 09/07/19 04:00 97.0 65 24 119/59 (79) 95 09/07/19 00:00 Nasal Cannula 2.0 09/07/19 00:00 67 09/07/19 00:00 97.5 64 20 128/66 (86) 97 09/06/19 20:00 97.2 66 24 127/63 (84) 97 09/06/19 20:00 Nasal Cannula 2.0 09/06/19 20:00 65 Intake and Output 09/06/19 09/07/19 19:00 07:00 Intake Total 425 ml 735 ml Output Total 110 ml 0 ml Balance 315 ml 735 ml Intake Oral 120 ml 120 ml IV Total 305 ml 615 ml Chest Tube Drainage Total 110 ml 0 ml # Bowel Movements 2 2 Laboratory Tests 09/07/19 04:55: White Blood Count 10.0, Red Blood Count 2.78L, Hemoglobin 9.1L, Hematocrit 27.5L , Mean Corpuscular Volume 99, Mean Corpuscular Hemoglobin 33.0H, Mean Corpuscular Hemoglobin Concent 33.3, Red Cell Distribution Width 12.5, Platelet Count 207, Mean Platelet Volume 6.1L, Neutrophils (%) (Auto) 70.2, Lymphocytes ( %) (Auto) 15.4L, Monocytes (%) (Auto) 11.2H, Eosinophils (%) (Auto) 2.8, Basophils (%) (Auto) 0.4, Sodium Level 141, Potassium Level 3.9, Chloride Level 106, Carbon Dioxide Level 20L, Anion Gap 15, Blood Urea Nitrogen 45H, Creatinine 8.2H, Estimat Glomerular Filtration Rate 8.0, Glucose Level 136H, Calcium Level 8.3L Height (Feet): 6 Height (Inches): 1.00 Weight (Pounds): 161 General Appearance: no apparent distress, alert EENT: other - facial scars Cardiovascular: normal rate, regular rhythm Respiratory/Chest: decreased breath sounds Abdomen: soft Extremities: no edema Neurologic: motor weakness Alan Morgan MD September 07, 2019 19:54
[2019-09-07 20:00] VITALS: BP 107/57
--- NOTE | 2019-09-07 21:00 | NUR ---
NURSE NOTES: Order for 1 unit platelets ordered in error. Order canceled.
[2019-09-07] MEDS: Iron Sucrose 100 MG in NS 55 ML IV SCH (21:25)
[2019-09-08] VITALS: BP 112/64
--- NOTE | 2019-09-08 01:59 | NUR ---
NURSE NOTES: Patient is resting well with no acute distress.
--- NOTE | 2019-09-08 03:15 | Progress Note ---
DATE: 09/07/2019 CARDIOLOGY PROGRESS NOTE SUBJECTIVE: The patient is status post hemodialysis with ultrafiltration of 1 liter today. Blood pressure parameters have stabilized. The patient continues to have left-sided chest tube in place. The patient's aspirin was discontinued yesterday due to evidence of gastrointestinal bleed. PHYSICAL EXAMINATION: VITAL SIGNS: Blood pressure 112/64, pulse 75, respirations 24, and afebrile. LUNGS: Bilateral breath sounds. Rhonchi at the left. CARDIAC: Regular rhythm and rate. Normal S1 and S2. ABDOMEN: Soft. EXTREMITIES: No edema. LABORATORY DATA: White count 10 and hemoglobin 9.1. Potassium 3.9. Chest x-ray today reveals chest tube unchanged, small effusion, bilateral infiltrates, ____ right effusion. IMPRESSION: 1. Status post chest tube. 2. Loculated pleural effusion with trapped lung. 3. Healthcare associated pneumonia. 4. End-stage renal disease. 5. Pleuritic chest pain. 6. Recovered shock due to sepsis. 7. Hypertension now with controlled blood pressure range. 8. Stable from cardiovascular standpoint for general anesthesia and VATS pleurodesis at this time. PLAN: Plan of care reviewed and updated with ICU staff. Manfred Conn M.D. DR: SHONA JOB#: [id number] CC:
[2019-09-08 04:00] VITALS: BP 116/57
[2019-09-08 05:30] LABS: BASOPHILS % (AUTO) 0.6 % (0.0-2.0); EOSINOPHILS % (AUTO) 2.9 % (0.0-3.0); HEMATOCRIT 26.4 % (42.0-52.0); HEMOGLOBIN 8.9 G/DL (14.2-18.0); LYMPHOCYTES % (AUTO) 16.2 % (20.0-45.0); MEAN CORPUSCULAR VOLUME 98 FL (80-99); MONOCYTES % (AUTO) 13.1 % (1.0-10.0); NEUTROPHILS % (AUTO) 67.2 % (45.0-75.0); PLATELET COUNT 204 K/UL (150-450); RED BLOOD COUNT 2.69 M/UL (4.70-6.10); RED CELL DISTRIBUTION WIDTH 12.7 % (11.6-14.8); WHITE BLOOD COUNT 8.5 K/UL (4.8-10.8)
[2019-09-08] MEDS: Piperacillin/Tazobactam 2.25 GM in D5W 55 ML IV SCH ×3 (05:37→21:06)
[2019-09-08] MEDS: NovoLOG Insulin Flexpen SUBQ SCH ×4 (05:41→20:20)
[2019-09-08 06:00] LABS: ANION GAP 15 mmol/L (5-15); BLOOD UREA NITROGEN 31 mg/dL (7-18); CALCIUM 8.5 MG/DL (8.5-10.1); CARBON DIOXIDE 25 MMOL/L (21-32); CHLORIDE 98 MMOL/L (98-107); CREATININE 6.1 MG/DL (0.55-1.30); POTASSIUM 3.6 MMOL/L (3.5-5.1); SODIUM 137 MMOL/L (136-145)
--- NOTE | 2019-09-08 06:16 | NUR ---
NURSE NOTES: Patient cleaned and chest tube intact and draining.
--- NOTE | 2019-09-08 07:24 | Pulmonology Progress Note ---
León Bakeret HOUSEFELLOW 09/08/19 0724: Subjective ROS Limited/Unobtainable: Yes Allergies: Coded Allergies: No Known Allergies (Unverified , 04/03/15) Subjective in [facility] BP better on 2L O2 via NC, no signs of resp distress , no use of accessory muscles CT was placed 09/04 by general surgeon until VATS ( pending for Saturday 09/09) CXR 09/04 no change on opacification of left hemithorax CT to Pleur-vac - 930 ml 09/05, 110 ml -09/06 CT chest noted HH dropped 09/05, stool OB+ ( had black tarry stool), seen by GI specialist, no further drop Objective Last 24 Hour Vital Signs Date Time Temp Pulse Resp B/P (MAP) Pulse Ox O2 Delivery O2 Flow Rate FiO2 09/08/19 04:00 76 09/08/19 04:00 97.4 76 20 116/57 (76) 94 09/08/19 04:00 Nasal Cannula 2.0 09/08/19 00:00 74 09/08/19 00:00 Nasal Cannula 2.0 09/08/19 00:00 97.7 75 24 112/64 (80) 97 09/07/19 20:00 97.4 85 16 107/57 (74) 99 09/07/19 20:00 Nasal Cannula 2.0 09/07/19 19:26 82 09/07/19 16:00 Nasal Cannula 2.0 09/07/19 16:00 97.9 69 17 131/71 (91) 95 09/07/19 15:25 77 09/07/19 12:00 97.4 62 19 122/60 (80) 96 09/07/19 12:00 Nasal Cannula 2.0 09/07/19 11:38 67 09/07/19 08:00 69 09/07/19 08:00 97.0 62 18 132/74 (93) 95 09/07/19 08:00 Nasal Cannula 2.0 Intake and Output 09/07/19 09/08/19 19:00 07:00 Intake Total 800 ml 807.166 ml Output Total 1040 ml 0 ml Balance -240 ml 807.166 ml Intake Oral 90 ml IV Total 710 ml 807.166 ml Output Urine Total 0 ml Chest Tube Drainage Total 40 ml Hemodialysis UF 1000 ml # Bowel Movements 1 Objective General Appearance: alert , awake, responsive AA male , in NAD Lines, tubes and drains: peripheral HEENT: normocephalic, atraumatic, anicteric, mucous membranes moist, PERRL, O2 via NC Neck: non-tender, supple Respiratory/Chest: scattered rhonchi ; L side chest tube to Hemovac with serosanguineous drainage Abdomen: normal bowel sounds, non tender, soft Extremities: LUE AV fistula + bruit/thrill Skin Exam: normal pigmentation, warm/dry Neurologic: abnormal gait, alert, responsive, normal mood/affect Musculoskeletal: atrophy - BLE, , non-ambulatory Laboratory Tests 09/08/19 03:20: White Blood Count 8.5, Red Blood Count 2.69L, Hemoglobin 8.9L, Hematocrit 26.4L , Mean Corpuscular Volume 98, Mean Corpuscular Hemoglobin 33.1H, Mean Corpuscular Hemoglobin Concent 33.8, Red Cell Distribution Width 12.7, Platelet Count 204, Mean Platelet Volume 6.6, Neutrophils (%) (Auto) 67.2, Lymphocytes (% ) (Auto) 16.2L, Monocytes (%) (Auto) 13.1H, Eosinophils (%) (Auto) 2.9, Basophils (%) (Auto) 0.6, Sodium Level 137, Potassium Level 3.6, Chloride Level 98, Carbon Dioxide Level 25, Anion Gap 15, Blood Urea Nitrogen 31H, Creatinine 6.1H, Estimat Glomerular Filtration Rate 11.3, Glucose Level 111H, Calcium Level 8.5, Random Vancomycin Level 19.1 Current Medications Medications (Trade) Dose Ordered Sig/Raheel Route PRN Reason Start Time Stop Time Status Last Admin Dose Admin Acetaminophen (Tylenol) 650 mg Q4H PRN ORAL Mild Pain (Pain Scale 1-3) 09/06/19 10:15 10/03/19 10:01 09/07/19 15:40 Acetaminophen (Tylenol) 650 mg Q4H PRN ORAL Temp >100.5 09/06/19 10:15 10/03/19 10:01 Albumin Human 100 ml @ 200 mls/hr PRN PRN IV sbp<90 during hd 09/07/19 11:30 12/06/19 14:29 09/07/19 19:41 Albuterol/ Ipratropium (Albuterol/ Ipratropium) 3 ml Q4H PRN HHN Shortness of Breath 09/06/19 10:15 09/08/19 10:02 Epoetin Antoni (Epoetin Antoni(ESRD on dialysis)) 10,000 unit MON-MON-MON SUBQ 09/06/19 21:00 12/05/19 20:59 09/06/19 22:05 Guaifenesin/ Dextromethorphan (Robitussin DM Syrup) 10 ml Q4H PRN ORAL For Cough 09/06/19 10:15 12/02/19 10:02 Heparin Sodium (Porcine) (Heparin 5000 units/ml) 5,000 units EVERY 12 HOURS SUBQ 09/06/19 09:00 10/15/19 08:59 Insulin Aspart (NovoLOG) BEFORE MEALS AND HS SUBQ 09/06/19 06:30 11/26/19 20:59 09/06/19 22:07 Iron Sucrose 100 mg/Sodium Chloride 60 ml @ 240 mls/hr BEDTIME IV 09/06/19 21:00 09/10/19 21:14 09/07/19 21:25 Ondansetron HCl (Zofran) 4 mg Q4H PRN IVP Nausea & Vomiting 09/06/19 10:15 10/03/19 10:02 Pantoprazole (Protonix) 40 mg EVERY 12 HOURS IVP 09/06/19 21:00 10/06/19 17:59 09/07/19 21:28 Piperacillin Sod/ Tazobactam Sod 2.25 gm/Dextrose 55 ml @ 110 mls/hr Q8HR IV 09/06/19 14:00 09/10/19 13:59 09/08/19 05:37 Polyethylene Glycol (Miralax) 17 gm DAILYPRN PRN ORAL Constipation 09/06/19 10:15 10/03/19 10:02 Pravastatin Sodium (Pravachol) 80 mg BEDTIME ORAL 09/06/19 21:00 09/27/19 20:59 09/07/19 21:28 Sevelamer Carbonate (Renvela) 800 mg THREE TIMES A DAY ORAL 09/06/19 09:00 11/27/19 08:59 09/06/19 18:33 Sodium Chloride 1,000 ml @ 50 mls/hr Q20H IV 09/06/19 16:00 10/06/19 15:59 09/07/19 14:03 Vancomycin HCl (Vanco rx to dose) 1 ea DAILY PRN MISC Per rx protocol 09/06/19 09:00 09/27/19 19:59 Vancomycin HCl 750 mg/Sodium Chloride 275 ml @ 183.333 mls/hr ONCE ONCE IVPB 09/08/19 08:30 09/08/19 09:59 Vitamin B Complex/ Vit C/Folic Acid (Nephrovite) 1 tab DAILY ORAL 09/06/19 09:00 09/28/19 08:59 09/06/19 09:08 Assessment/Plan Assessment/Plan ASSESSMENT Hypotension-persistent, resolving Shock-recovered Pneumonia Large left pleural effusion with loculated components, probably? trapped lung s/p placement of chest tube Pleuritic chest pain Bacteremia /GPC - real vs contaminant Suspected CoVID -ruled out End-stage renal disease ,on hemodialysis Diabetes mellitus, insulin dependent Hypertension A fib Anemia of chronic kidney disease History of CVA UTI E coli Hypoalbuminemia Hep C positive PLAN OF CARE in [facility] s/p central line placement, inadvertently was pulled out by pt s/p multiple albumin boluses and IV boluses BP stabilized, tolerated HD, last 09/06 BP better on 2L O2 via NC, no signs of resp distress CXR with complete opacification of left hemithorax Chest tube was placed on 09/04 to Hemovac drainage until VATS CXR post CT placement 09/04 - no change serosanguineous drainage, monitor output; -930 ml 09/05 ; - 110 ml 09/06; HH dropped to 8.8 CT chest 09/05 noted : -Large left pleural effusion with loculated components. - Consolidated portions of the left lung may represent atelectasis, but pneumonia not excluded. - Patchy consolidations in the right lower lobe are concerning for pneumonia. fup with CXR while with CT daily CXR 09/06 - -Left-sided chest tube in unchanged position with unchanged small left pleural effusion/pleural thickening. -Unchanged bilateral lower lobe infiltrates, left greater than right suspicious for pneumonia. - Development of a small right pleural effusion. abx supplemental O2 to keep sat above 92% off MDI Proventil ; on HHN prn Covid 19 08/27 and 08/29 NGT off isolation previously ordered tap ( although not sure if will be successful given loculated component of pleural effusion) get fluid cx, cytology, cell count with diff, LDH, protein, glucose ,-on HOLD due to hypotension - not done due to being in isolation at that time need surgery VATS close monitoring of BP/hypotensive, off BB , BP stabilized CT head 09/05 no acute IC pathology, both neuro and cardio cleared for surgery, surgery tentatively planned for 09/09 9am abx- BCX 09/03 NGTD, no fevers, no leukocytosis 08/27 BCX + Staph epidermidis 04/18, received Vanco,; repeat BCX for clearance BCX 08/29 NGTD , initial + BCX 04/18 was likely contaminant 08/27 SARS CoV-2 by PCR NGT 08/27 UCX + E coli, on Zosyn, GI seen for anemia and poss GI bleeding stool OB+ HH slightly up this am PPI increased to bid by GI on ASA and heparin, consider stopping ASA if HH dropping- per GI recs no GI procedure unless signs of GI bleeding or sharp decrease in HH monitor HH with goal to keep Hgb >7, on IV iron and EPO serial troponin - NGT x 2 ECHO - with pEF monitor volumes, CP likely pleuritic , resolved HD per nephro/attending BP management continue ASA and statin D dimer 17.8 CRP 26,2, LDH 119 , ferritin 683 Venous Duplex BLE NGT was on DVT prophylaxis with Heparin started on LMWH /for treatment, but dc by primary and restarted on SQ heparin will proceed with VQ scan when more stable trend LFT, hep panel + hep C BS management monitor HH with goal to keep Hgb above 7 supportive care ACTH stimulation test was ordered for 09/05 to r/o adrenal insufficiency cortisol 7.2, ACTH 4.9 case discussed and evaluated by supervising physician Delvis Simms MD 09/08/19 1444: Subjective Allergies: Coded Allergies: No Known Allergies (Unverified , 04/03/15) Assessment/Plan Assessment/Plan Patient seen and examined with HOUSEFELLOW and I agree with the above assessment and plan. Lorna Baker HOUSEFELLOW September 08, 2019 07:24 Delvis Simms MD September 08, 2019 14:44
--- NOTE | 2019-09-08 07:25 | NUR ---
HAND-OFF: Report given to Ricci Rg RN.
--- NOTE | 2019-09-08 07:25 | NUR ---
NURSE NOTES: Received report from LUDMILA [place]. Pt in bed awake and orientedx2 and able to make needs known. IV site in left wrist 22g running with NS@50ml/hr patent and asymptomatic. IV in left AC and left forearm 22G infiltrated. Will remove the IV sites. Side railsx3 up for safety. Call light within easy reach. HOB elevated with 45 degree. On 3LPM via N/C and sating 93%. Fistula on right upper arm. Dressing on right upper arm intact and No s/s of bleeding noted. Will continue plan of care.
[2019-09-08 07:47] VITALS: BP 112/67
[2019-09-08] MEDS ORDERED: Vancomycin 750mg/NS 275ml IVPB ONE ×2 (08:30)
[2019-09-08] MEDS: Nephrovite tab (Rena-Vite) ORAL SCH ×2 (08:52→09:00)
[2019-09-08] MEDS: Pantoprazole Inj IVP SCH ×2 (08:52→20:18)
[2019-09-08] MEDS: Heparin 5000 units/ml inj SUBQ SCH ×3 (09:00→20:19)
--- NOTE | 2019-09-08 09:25 | Nephrology Progress Note ---
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 (10) Sepsis (11) Bacteremia (12) Emesis (13) UTI (urinary tract infection) (14) E coli infection (15) Hypotension Plan bp stable today, tolerated UF -1000 on dialysis , no distress, weak, orders updated, will need vats, coag neg staph b acteremia likely contaminant , melena reported and protonix increased bid, stop asa, GI consult,epogen and iron ordered, chest tube draining, still bedridden Subjective Constitutional: Reports: weakness HEENT: Reports: no symptoms Genitourinary: Reports: no symptoms Neurologic/Psychiatric: Reports: pre-existing deficit Subjective nausea and emesis better Objective Objective Last 24 Hour Vital Signs Date Time Temp Pulse Resp B/P (MAP) Pulse Ox O2 Delivery O2 Flow Rate FiO2 09/08/19 07:47 97.6 75 20 112/67 (82) 93 09/08/19 07:44 77 09/08/19 04:00 76 09/08/19 04:00 97.4 76 20 116/57 (76) 94 09/08/19 04:00 Nasal Cannula 2.0 09/08/19 00:00 74 09/08/19 00:00 Nasal Cannula 2.0 09/08/19 00:00 97.7 75 24 112/64 (80) 97 09/07/19 20:00 97.4 85 16 107/57 (74) 99 09/07/19 20:00 Nasal Cannula 2.0 09/07/19 19:26 82 09/07/19 16:00 Nasal Cannula 2.0 09/07/19 16:00 97.9 69 17 131/71 (91) 95 09/07/19 15:25 77 09/07/19 12:00 97.4 62 19 122/60 (80) 96 09/07/19 12:00 Nasal Cannula 2.0 09/07/19 11:38 67 Intake and Output 09/07/19 09/08/19 19:00 07:00 Intake Total 800 ml 807.166 ml Output Total 1040 ml 0 ml Balance -240 ml 807.166 ml Intake Oral 90 ml IV Total 710 ml 807.166 ml Output Urine Total 0 ml Chest Tube Drainage Total 40 ml Hemodialysis UF 1000 ml # Bowel Movements 1 Laboratory Tests 09/08/19 03:20: White Blood Count 8.5, Red Blood Count 2.69L, Hemoglobin 8.9L, Hematocrit 26.4L , Mean Corpuscular Volume 98, Mean Corpuscular Hemoglobin 33.1H, Mean Corpuscular Hemoglobin Concent 33.8, Red Cell Distribution Width 12.7, Platelet Count 204, Mean Platelet Volume 6.6, Neutrophils (%) (Auto) 67.2, Lymphocytes (% ) (Auto) 16.2L, Monocytes (%) (Auto) 13.1H, Eosinophils (%) (Auto) 2.9, Basophils (%) (Auto) 0.6, Sodium Level 137, Potassium Level 3.6, Chloride Level 98, Carbon Dioxide Level 25, Anion Gap 15, Blood Urea Nitrogen 31H, Creatinine 6.1H, Estimat Glomerular Filtration Rate 11.3, Glucose Level 111H, Calcium Level 8.5, Random Vancomycin Level 19.1 Height (Feet): 6 Height (Inches): 1.00 Weight (Pounds): 167 General Appearance: no apparent distress, alert EENT: other - old scars Neck: normal alignment Cardiovascular: regular rhythm Respiratory/Chest: decreased breath sounds Abdomen: non tender Extremities: no edema Neurologic: motor weakness Alan Morgan MD September 08, 2019 09:25
[2019-09-08] MEDS ORDERED: Tubing IV Secondary IV ONE ×3 (09:28→14:49)
[2019-09-08] MEDS ORDERED: NS 275ml ONE (09:35)
--- NOTE | 2019-09-08 11:05 | Diagnostic Imaging Report ---
EXAM: XR Chest, 1 View CLINICAL HISTORY: Shortness of breath TECHNIQUE: Frontal view of the chest. COMPARISON: Chest x-ray dated 09/07/19. CT chest dated 08/28/19. FINDINGS: Lungs: Persistent infiltrates in bilateral lower lungs concerning for pneumonia, greater on the left, not significantly changed. Mild pulmonary vascular congestion. Pleural space: Mild to moderate layering left pleural effusion, stable compared to the prior exam. Heart: Cardiac silhouette is partially obscured. Mediastinum: Unremarkable. Bones/joints: Unremarkable. Tubes, lines and devices: Stable positioning of the left-sided chest tube. Telemetry leads overlie the thorax. IMPRESSION: 1. Mild to moderate layering left pleural effusion, stable compared to the prior exam. 2. Persistent infiltrates in bilateral lower lungs concerning for pneumonia, greater on the left, not significantly changed. 3. Stable positioning of the left-sided chest tube. 4. Mild pulmonary vascular congestion.
[2019-09-08 12:00] VITALS: BP 116/78
--- NOTE | 2019-09-08 14:24 | Surgery Progress Note ---
Surgery Progress Note Subjective Procedure Performed Left tube thoracostomy Additional Comments chest tube okay cxr noted to suction abx as per ID tolerating HD Objective Last 24 Hour Vital Signs Date Time Temp Pulse Resp B/P (MAP) Pulse Ox O2 Delivery O2 Flow Rate FiO2 09/08/19 11:38 79 09/08/19 08:00 Nasal Cannula 3.0 09/08/19 07:47 97.6 75 20 112/67 (82) 93 09/08/19 07:44 77 09/08/19 04:00 76 09/08/19 04:00 97.4 76 20 116/57 (76) 94 09/08/19 04:00 Nasal Cannula 2.0 09/08/19 00:00 74 09/08/19 00:00 Nasal Cannula 2.0 09/08/19 00:00 97.7 75 24 112/64 (80) 97 09/07/19 20:00 97.4 85 16 107/57 (74) 99 09/07/19 20:00 Nasal Cannula 2.0 09/07/19 19:26 82 09/07/19 16:00 Nasal Cannula 2.0 09/07/19 16:00 97.9 69 17 131/71 (91) 95 09/07/19 15:25 77 I&O Intake and Output 09/07/19 09/08/19 19:00 07:00 Intake Total 800 ml 870.000 ml Output Total 1040 ml 0 ml Balance -240 ml 870.000 ml Intake Oral 90 ml IV Total 710 ml 870.000 ml Output Urine Total 0 ml Chest Tube Drainage Total 40 ml Hemodialysis UF 1000 ml # Bowel Movements 1 Dressing: other Wound: other Drains: other Cardiovascular: RSR Respiratory: decreased breath sounds Abdomen: soft, non-tender, present bowel sounds Extremities: no cyanosis Laboratory Tests Test 09/08/19 03:20 White Blood Count 8.5 K/UL (4.8-10.8) Red Blood Count 2.69 M/UL (4.70-6.10) L Hemoglobin 8.9 G/DL (14.2-18.0) L Hematocrit 26.4 % (42.0-52.0) L Mean Corpuscular Volume 98 FL (80-99) Mean Corpuscular Hemoglobin 33.1 PG (27.0-31.0) H Mean Corpuscular Hemoglobin Concent 33.8 G/DL (32.0-36.0) Red Cell Distribution Width 12.7 % (11.6-14.8) Platelet Count 204 K/UL (150-450) Mean Platelet Volume 6.6 FL (6.5-10.1) Neutrophils (%) (Auto) 67.2 % (45.0-75.0) Lymphocytes (%) (Auto) 16.2 % (20.0-45.0) L Monocytes (%) (Auto) 13.1 % (1.0-10.0) H Eosinophils (%) (Auto) 2.9 % (0.0-3.0) Basophils (%) (Auto) 0.6 % (0.0-2.0) Sodium Level 137 MMOL/L (136-145) Potassium Level 3.6 MMOL/L (3.5-5.1) Chloride Level 98 MMOL/L (98-107) Carbon Dioxide Level 25 MMOL/L (21-32) Anion Gap 15 mmol/L (5-15) Blood Urea Nitrogen 31 mg/dL (7-18) H Creatinine 6.1 MG/DL (0.55-1.30) H Estimat Glomerular Filtration Rate 11.3 mL/min (>60) Glucose Level 111 MG/DL (74-106) H Calcium Level 8.5 MG/DL (8.5-10.1) Random Vancomycin Level 19.1 ug/mL Plan Problems: (1) Malnutrition of moderate degree Assessment & Plan: DAILY ESTIMATED NEEDS: Needs based on ESRD on HD 81.8kg 27-32 kcals/kg 1044-3234 total kcals 1.25-1.8 g protein/kg 102-147 g total protein Fluid per Md, on HD NUTRITION DIAGNOSIS: Increased kcal and pro needs r/t renal dysfunction as evidenced by pt w/ ESRD on HD (CURRENT DIET: CCHO VERY HIGH/ RENAL MS FINELY CHOPPED) PO DIET RECOMMENDATIONS: RENAL/ CCHO MED + DOUBLE PRO PORTIONS ADDITIONAL RECOMMENDATIONS: 1) Obtain a standing weight for calibrated bed scale wt 2) Add NEPRO TID w/ meals, currently w/ poor po intake 3) Rec WC eval for sacral wound. Add GIGI BID if tolerated 4) Consider appetite stimulant (2) Sepsis Assessment & Plan: Patient currently hospitalized initially leukocytosis, abnormal labs improved but now hypotensive and deconditioned deteriorating left pleural effusion intensive care unit Patient without peripheral access and will require fluids meds and resuscitation given current extremitas. Patient with right upper extremity fistula recommend not using upper extremities or wrists central upper for access given renal disease requiring dialysis. Line placed right Fem patient tolerated please see note N.p.o. IV fluids Trend labs Discussed with ICU team we will follow with recommendations thank you for let me participate in patient's care (3) Pleural effusion, left Assessment & Plan: A single one view chest is obtained. There is increase opacity left hemithorax now with complete white out demonstrated. This is likely secondary to complete atelectasis of the left lung and left effusion. Right perihilar densities has improved. Cardiac silhouette partially obscured. Right CP angle is sharp. The bony thorax appear unremarkable. IMPRESSION: Complete white out of the left hemithorax likely secondary to left lung atelectasis and effusion. Improved right perihilar densities. discussed with thoracic plan vats when stable may place chest tube until vats s/p chest tube improving CT chest noted plan VATS monday 9 am (4) Severe sepsis Assessment & Plan: Lungs: Consolidated portions of the left lung may represent atelectasis, but pneumonia is not excluded. Patchy consolidations in the right lower lobe are concerning for pneumonia. Pleural space: Large left pleural effusion with loculated components. No pneumothorax. Heart: Borderline size of the heart. Small pericardial effusion. Coronary artery calcifications. Thyroid: Hypodense nodules in the left thyroid could be further evaluated with nonemergent dedicated ultrasound if clinically indicated. Bones/joints: Mild degenerative changes of the spine. No acute fracture. No dislocation. Soft tissues: Unremarkable. Vasculature: Unremarkable. No thoracic aortic aneurysm. Lymph nodes: Nonspecific mildly prominent mediastinal lymph nodes. Kidneys and ureters: Small hypodensity in the right kidney is too small to definitively characterize. IMPRESSION: 1. Large left pleural effusion with loculated components. 2. Consolidated portions of the left lung may represent atelectasis, but pneumonia is not excluded. 3. Patchy consolidations in the right lower lobe are concerning for pneumonia. Serjio Chaudhry September 08, 2019 14:24
[2019-09-08 16:00] VITALS: BP 133/59
--- NOTE | 2019-09-08 16:03 | NUR ---
PT Note PT re-eval completed. Patient has muscle weakness with poor activity tolerance and c/o left chest tube site pain. Patient can benefit from PT services to increase his muscle strength and balance to improve his functional mobility to [facility] Addendum: 09/08/19 at 1604 by FE FERREIRA PT Amended: Links added.
--- NOTE | 2019-09-08 17:43 | General Progress Note ---
Assessment/Plan Assessment/Plan: Assessment - OB (+) stools - Anemia - ESRD / HD - Pleural effusion - Hepatitis C antibody (+) Recommendations - monitor CBC - PPI IV BID - IV Fe - await VATS - GI w/u on hold, unless severe bleeding Subjective Allergies: Coded Allergies: No Known Allergies (Unverified , 04/03/15) Subjective Above noted tolerating PO c/p some chest wall pain Objective Last 24 Hour Vital Signs Date Time Temp Pulse Resp B/P (MAP) Pulse Ox O2 Delivery O2 Flow Rate FiO2 09/08/19 16:00 Nasal Cannula 3.0 09/08/19 16:00 98.1 77 20 133/59 (83) 95 09/08/19 15:21 76 09/08/19 12:00 Nasal Cannula 3.0 09/08/19 12:00 97.8 80 20 116/78 (91) 94 09/08/19 11:38 79 09/08/19 08:00 Nasal Cannula 3.0 09/08/19 07:47 97.6 75 20 112/67 (82) 93 09/08/19 07:44 77 09/08/19 07:00 75 20 93 Nasal Cannula 3.0 32 09/08/19 07:00 93 Nasal Cannula 3.0 32 09/08/19 04:00 76 09/08/19 04:00 97.4 76 20 116/57 (76) 94 09/08/19 04:00 Nasal Cannula 2.0 09/08/19 00:00 74 09/08/19 00:00 Nasal Cannula 2.0 09/08/19 00:00 97.7 75 24 112/64 (80) 97 09/07/19 20:00 97.4 85 16 107/57 (74) 99 09/07/19 20:00 Nasal Cannula 2.0 09/07/19 19:26 82 Intake and Output 09/07/19 09/08/19 19:00 07:00 Intake Total 800 ml 870.000 ml Output Total 1040 ml 0 ml Balance -240 ml 870.000 ml Intake Oral 90 ml IV Total 710 ml 870.000 ml Output Urine Total 0 ml Chest Tube Drainage Total 40 ml Hemodialysis UF 1000 ml # Bowel Movements 1 Laboratory Tests 09/08/19 03:20: White Blood Count 8.5, Red Blood Count 2.69L, Hemoglobin 8.9L, Hematocrit 26.4L , Mean Corpuscular Volume 98, Mean Corpuscular Hemoglobin 33.1H, Mean Corpuscular Hemoglobin Concent 33.8, Red Cell Distribution Width 12.7, Platelet Count 204, Mean Platelet Volume 6.6, Neutrophils (%) (Auto) 67.2, Lymphocytes (% ) (Auto) 16.2L, Monocytes (%) (Auto) 13.1H, Eosinophils (%) (Auto) 2.9, Basophils (%) (Auto) 0.6, Sodium Level 137, Potassium Level 3.6, Chloride Level 98, Carbon Dioxide Level 25, Anion Gap 15, Blood Urea Nitrogen 31H, Creatinine 6.1H, Estimat Glomerular Filtration Rate 11.3, Glucose Level 111H, Calcium Level 8.5, Random Vancomycin Level 19.1 Height (Feet): 6 Height (Inches): 1.00 Weight (Pounds): 167 Objective Debilitated AA man chest decreased BS L, (+) CT RR abd soft ND Ramiro Massey MD September 08, 2019 17:43
--- NOTE | 2019-09-08 17:55 | NUR ---
NURSE NOTES: Dr. Owens replied to resume NG tube feeding.
--- NOTE | 2019-09-08 19:25 | NUR ---
HAND-OFF: Report given to LUDMILA Narvaez. Pt remains stable.
--- NOTE | 2019-09-08 19:30 | NUR ---
NURSE NOTES: Received report from LUDMILA Lanza, pt. in bed awake, Appears to be A/O x's2- able to make needs known, no signs or symptoms of acute cardiac or respiratory distress noted, bed in lowest position and call light within easy reach, bed alarm on, side rails up x's3 and safety brakes engaged, pt. appears to be sating well on 3L NC- no distress noted, pt. appears to be resting comfortably- no distress noted, pt. denies pain, pt. has AYUSH fistula for HD, left wrist 22G IV intact and patent, chest tube to left lower chest area intact, safety measures continued, will continue with plan of care.
[2019-09-08 20:00] VITALS: BP 105/58
[2019-09-08] MEDS: Iron Sucrose 100 MG in NS 55 ML IV SCH (20:18)
[2019-09-09] VITALS: BP 113/68
--- NOTE | 2019-09-09 01:30 | Progress Note ---
DATE: 09/08/2019 CARDIOLOGY PROGRESS NOTE SUBJECTIVE: Patient is status post hemodialysis with ultrafiltration. Remains with chest tube. PHYSICAL EXAMINATION: VITAL SIGNS: Blood pressure remains stable. Monitor sinus rhythm. Oxygen saturation on 2 liters 94 to 99%, blood pressure 116/57, heart rate 76, respirations 20. LUNGS: Bilateral breath sounds. Diminished left greater than right. Few rhonchi. CARDIAC: Regular rhythm and rate. Normal S1, S2 with no murmur. ABDOMEN: Soft. EXTREMITIES: No edema. LABORATORY DATA: White count 8.5, hemoglobin 8.9. Potassium 3.6, BUN 31, creatinine 6.1. Chest x-ray today is revealing layering of left pleural effusion unchanged and persistent bilateral basilar infiltrates with mild pulmonary venous congestion. IMPRESSION: 1. Stable with chest tube. Needs VATS pleurodesis. 2. End-stage renal disease. 3. Hypertensive heart disease. 4. Acute on chronic diastolic congestive heart failure. 5. Sepsis. 6. Recovering shock. PLAN: 1. Additional ultrafiltration. 2. Remainder of medical regimen to remain unchanged. 3. Continue critical care. 4. Remains high risk. Manfred Conn M.D. DR: SHERRY JOB#: [id number] CC: MICHAEL
[2019-09-09 04:00] VITALS: BP 110/62
[2019-09-09] MEDS: NovoLOG Insulin Flexpen SUBQ SCH ×4 (05:37→21:00)
[2019-09-09] MEDS: Piperacillin/Tazobactam 2.25 GM in D5W 55 ML IV SCH ×3 (05:38→21:42)
[2019-09-09 05:53] LABS: BASOPHILS % (AUTO) 0.7 % (0.0-2.0); EOSINOPHILS % (AUTO) 2.4 % (0.0-3.0); HEMATOCRIT 28.2 % (42.0-52.0); HEMOGLOBIN 9.4 G/DL (14.2-18.0); LYMPHOCYTES % (AUTO) 17.1 % (20.0-45.0); MEAN CORPUSCULAR VOLUME 98 FL (80-99); NEUTROPHILS % (AUTO) 65.8 % (45.0-75.0); PLATELET COUNT 219 K/UL (150-450); RED BLOOD COUNT 2.88 M/UL (4.70-6.10); RED CELL DISTRIBUTION WIDTH 12.6 % (11.6-14.8); WHITE BLOOD COUNT 8.8 K/UL (4.8-10.8)
[2019-09-09 06:18] LABS: ANION GAP 16 mmol/L (5-15); BLOOD UREA NITROGEN 42 mg/dL (7-18); CALCIUM 8.9 MG/DL (8.5-10.1); CARBON DIOXIDE 23 MMOL/L (21-32); CHLORIDE 100 MMOL/L (98-107); CREATININE 8.2 MG/DL (0.55-1.30); POTASSIUM 3.8 MMOL/L (3.5-5.1); SODIUM 139 MMOL/L (136-145)
--- NOTE | 2019-09-09 07:07 | NUR ---
NURSE NOTES: Received report from LUDMILA Narvaez. Pt in bed awake and orientedx2 or 3 and able to make needs known. IV site in left wrist 22g running with NS@50ml/hr patent and asymptomatic. Side railsx3 up for safety. Call light within easy reach. HOB elevated with 45 degree. On 3LPM via N/C and sating 95%. Chest tube intact and patent. Fistula on right upper arm. Dressing on right upper arm intact and No s/s of bleeding noted. Will continue plan of care.
--- NOTE | 2019-09-09 07:07 | NUR ---
HAND-OFF: Report given to LUDMILA Lanza- pt. remains stable and no signs of distress noted-aware to f/u on any abnormal am labs.
--- NOTE | 2019-09-09 07:19 | General Progress Note ---
Assessment/Plan Assessment/Plan: Assessment/Plan Assessment/Plan: Assessment - OB (+) stools - Anemia - ESRD / HD - Pleural effusion - Hepatitis C antibody (+) Recommendations - monitor CBC - PPI IV BID - IV Fe - await VATS - GI w/u on hold, unless severe bleeding Subjective ROS Limited/Unobtainable: Yes Allergies: Coded Allergies: No Known Allergies (Unverified , 04/03/15) Objective Last 24 Hour Vital Signs Date Time Temp Pulse Resp B/P (MAP) Pulse Ox O2 Delivery O2 Flow Rate FiO2 09/09/19 04:00 98.1 75 20 110/62 (78) 97 09/09/19 04:00 Nasal Cannula 3.0 09/09/19 03:34 72 09/09/19 00:00 69 09/09/19 00:00 97.9 75 20 113/68 (83) 96 09/09/19 00:00 Nasal Cannula 3.0 09/08/19 20:00 98.0 71 20 105/58 (74) 95 09/08/19 20:00 Nasal Cannula 3.0 09/08/19 19:21 70 09/08/19 19:00 95 Nasal Cannula 3.0 32 09/08/19 19:00 77 20 95 Nasal Cannula 3.0 32 09/08/19 16:00 Nasal Cannula 3.0 09/08/19 16:00 98.1 77 20 133/59 (83) 95 09/08/19 15:21 76 09/08/19 12:00 Nasal Cannula 3.0 09/08/19 12:00 97.8 80 20 116/78 (91) 94 09/08/19 11:38 79 09/08/19 08:00 Nasal Cannula 3.0 09/08/19 07:47 97.6 75 20 112/67 (82) 93 09/08/19 07:44 77 Intake and Output 09/08/19 09/09/19 19:00 07:00 Intake Total 255 ml 170 ml Output Total 0 ml 0 ml Balance 255 ml 170 ml Intake Oral 100 ml IV Total 155 ml 170 ml Output Urine Total 0 ml Chest Tube Drainage Total 0 ml # Bowel Movements 1 Laboratory Tests 09/09/19 04:15: White Blood Count 8.8, Red Blood Count 2.88L, Hemoglobin 9.4L, Hematocrit 28.2L , Mean Corpuscular Volume 98, Mean Corpuscular Hemoglobin 32.7H, Mean Corpuscular Hemoglobin Concent 33.4, Red Cell Distribution Width 12.6, Platelet Count 219, Mean Platelet Volume 6.2L, Neutrophils (%) (Auto) 65.8, Lymphocytes ( %) (Auto) 17.1L, Monocytes (%) (Auto) 14.0H, Eosinophils (%) (Auto) 2.4, Basophils (%) (Auto) 0.7, Sodium Level 139, Potassium Level 3.8, Chloride Level 100, Carbon Dioxide Level 23, Anion Gap 16H, Blood Urea Nitrogen 42H, Creatinine 8.2H, Estimat Glomerular Filtration Rate 8.0, Glucose Level 134H, Calcium Level 8.9, Phosphorus Level 5.6H Height (Feet): 6 Height (Inches): 1.00 Weight (Pounds): 165 General Appearance: no apparent distress EENT: normal ENT inspection, other - facial; surg Neck: supple Cardiovascular: normal rate Respiratory/Chest: decreased breath sounds, other - Chest tube in place Abdomen: normal bowel sounds, non tender, soft Extremities: non-tender Harpal Marlow MD September 09, 2019 07:19
[2019-09-09 08:00] VITALS: BP 109/62
--- NOTE | 2019-09-09 08:21 | Pulmonology Progress Note ---
Lorna Baker VERIFY REP 09/09/19 0821: Subjective ROS Limited/Unobtainable: Yes Allergies: Coded Allergies: No Known Allergies (Unverified , 04/03/15) Subjective in PATTY BP stabilized, at baseline on 3L O2 via NC, no signs of resp distress , no use of accessory muscles CT was placed 09/04 by general surgeon until VATS ( pending for Saturday 09/09) CT to Pleur-vac - 930 ml 09/05, 110 ml -09/06, 40 ml 09/07 CT chest noted HH dropped 09/05, stool OB+ ( had black tarry stool), seen by GI specialist, no further drop Hgb 9.4 this am Objective Last 24 Hour Vital Signs Date Time Temp Pulse Resp B/P (MAP) Pulse Ox O2 Delivery O2 Flow Rate FiO2 09/09/19 04:00 98.1 75 20 110/62 (78) 97 09/09/19 04:00 Nasal Cannula 3.0 09/09/19 03:34 72 09/09/19 00:00 69 09/09/19 00:00 97.9 75 20 113/68 (83) 96 09/09/19 00:00 Nasal Cannula 3.0 09/08/19 20:00 98.0 71 20 105/58 (74) 95 09/08/19 20:00 Nasal Cannula 3.0 09/08/19 19:21 70 09/08/19 19:00 95 Nasal Cannula 3.0 32 09/08/19 19:00 77 20 95 Nasal Cannula 3.0 32 09/08/19 16:00 Nasal Cannula 3.0 09/08/19 16:00 98.1 77 20 133/59 (83) 95 09/08/19 15:21 76 09/08/19 12:00 Nasal Cannula 3.0 09/08/19 12:00 97.8 80 20 116/78 (91) 94 09/08/19 11:38 79 Intake and Output 09/08/19 09/09/19 19:00 07:00 Intake Total 255 ml 170 ml Output Total 0 ml 0 ml Balance 255 ml 170 ml Intake Oral 100 ml IV Total 155 ml 170 ml Output Urine Total 0 ml Chest Tube Drainage Total 0 ml # Bowel Movements 1 Objective General Appearance: alert , awake, responsive AA male , in NAD Lines, tubes and drains: peripheral HEENT: normocephalic, atraumatic, anicteric, mucous membranes moist, PERRL, O2 via NC Neck: non-tender, supple Respiratory/Chest: scattered rhonchi ; L side chest tube to Hemovac with serosanguineous drainage Abdomen: normal bowel sounds, non tender, soft Extremities: LUE AV fistula + bruit/thrill Skin Exam: normal pigmentation, warm/dry Neurologic: abnormal gait, alert, responsive, normal mood/affect Musculoskeletal: atrophy - BLE, , non-ambulatory Laboratory Tests 09/09/19 04:15: White Blood Count 8.8, Red Blood Count 2.88L, Hemoglobin 9.4L, Hematocrit 28.2L , Mean Corpuscular Volume 98, Mean Corpuscular Hemoglobin 32.7H, Mean Corpuscular Hemoglobin Concent 33.4, Red Cell Distribution Width 12.6, Platelet Count 219, Mean Platelet Volume 6.2L, Neutrophils (%) (Auto) 65.8, Lymphocytes ( %) (Auto) 17.1L, Monocytes (%) (Auto) 14.0H, Eosinophils (%) (Auto) 2.4, Basophils (%) (Auto) 0.7, Sodium Level 139, Potassium Level 3.8, Chloride Level 100, Carbon Dioxide Level 23, Anion Gap 16H, Blood Urea Nitrogen 42H, Creatinine 8.2H, Estimat Glomerular Filtration Rate 8.0, Glucose Level 134H, Calcium Level 8.9, Phosphorus Level 5.6H Current Medications Medications (Trade) Dose Ordered Sig/Raheel Route PRN Reason Start Time Stop Time Status Last Admin Dose Admin Acetaminophen (Tylenol) 650 mg Q4H PRN ORAL Mild Pain (Pain Scale 1-3) 09/06/19 10:15 10/03/19 10:01 09/08/19 14:54 Acetaminophen (Tylenol) 650 mg Q4H PRN ORAL Temp >100.5 09/06/19 10:15 10/03/19 10:01 Albumin Human 100 ml @ 200 mls/hr PRN PRN IV sbp<90 during hd 09/07/19 11:30 12/06/19 14:29 09/07/19 19:41 Albumin Human 100 ml @ 200 mls/hr PRN PRN IV sbp<90 during hd 09/09/19 09:30 12/08/19 09:29 Epoetin Antoni (Epoetin Antoni(ESRD on dialysis)) 10,000 unit MON-MON-MON SUBQ 09/06/19 21:00 12/05/19 20:59 09/06/19 22:05 Guaifenesin/ Dextromethorphan (Robitussin DM Syrup) 10 ml Q4H PRN ORAL For Cough 09/06/19 10:15 12/02/19 10:02 Heparin Sodium (Porcine) (Heparin 5000 units/ml) 5,000 units EVERY 12 HOURS SUBQ 09/06/19 09:00 10/15/19 08:59 09/08/19 20:19 Heparin Sodium (Porcine) (Heparin Sod 1000 units/ml 10ml) 500 unit ONCE IV 09/09/19 09:30 09/09/19 23:59 Insulin Aspart (NovoLOG) BEFORE MEALS AND HS SUBQ 09/06/19 06:30 11/26/19 20:59 09/08/19 20:20 Iron Sucrose 100 mg/Sodium Chloride 60 ml @ 240 mls/hr BEDTIME IV 09/06/19 21:00 09/10/19 21:14 09/08/19 20:18 Ondansetron HCl (Zofran) 4 mg Q4H PRN IVP Nausea & Vomiting 09/06/19 10:15 10/03/19 10:02 Pantoprazole (Protonix) 40 mg EVERY 12 HOURS IVP 09/06/19 21:00 10/06/19 17:59 09/08/19 20:18 Piperacillin Sod/ Tazobactam Sod 2.25 gm/Dextrose 55 ml @ 110 mls/hr Q8HR IV 09/06/19 14:00 09/10/19 23:59 09/09/19 05:38 Polyethylene Glycol (Miralax) 17 gm DAILYPRN PRN ORAL Constipation 09/06/19 10:15 10/03/19 10:02 Pravastatin Sodium (Pravachol) 80 mg BEDTIME ORAL 09/06/19 21:00 09/27/19 20:59 09/08/19 20:17 Sevelamer Carbonate (Renvela) 800 mg THREE TIMES A DAY ORAL 09/06/19 09:00 11/27/19 08:59 09/08/19 17:08 Vancomycin HCl (Vanco rx to dose) 1 ea DAILY PRN MISC Per rx protocol 09/06/19 09:00 09/27/19 19:59 Vitamin B Complex/ Vit C/Folic Acid (Nephrovite) 1 tab DAILY ORAL 09/06/19 09:00 09/28/19 08:59 09/06/19 09:08 Assessment/Plan Assessment/Plan ASSESSMENT Hypotension-persistent, resolving Shock-recovered Pneumonia Large left pleural effusion with loculated components, probably? trapped lung s/p Left thoracostomy tube placement Pleuritic chest pain Bacteremia /GPC - real vs contaminant Suspected CoVID -ruled out End-stage renal disease ,on hemodialysis Diabetes mellitus, insulin dependent Hypertension A fib Anemia of chronic kidney disease History of CVA UTI E coli Hypoalbuminemia Hep C positive PLAN OF CARE in PATTY s/p central line placement, inadvertently was pulled out by pt s/p multiple albumin boluses and IV boluses BP stabilized, tolerated HD, last 09/06 BP better/stabilized on 3L O2 via NC, no signs of resp distress CXR with complete opacification of left hemithorax Chest tube was placed on 09/04 to Hemovac drainage until VATS CXR post CT placement 09/04 - no change serosanguineous drainage, monitor output; -930 ml 09/05 ; - 110 ml 09/06; , 40 ml 09/07 CT chest 09/05 noted : -Large left pleural effusion with loculated components. - Consolidated portions of the left lung may represent atelectasis, but pneumonia not excluded. - Patchy consolidations in the right lower lobe are concerning for pneumonia. fup with CXR while with CT daily CXR 09/06 - -Left-sided chest tube in unchanged position with unchanged small left pleural effusion/pleural thickening. -Unchanged bilateral lower lobe infiltrates, left greater than right suspicious for pneumonia. - Development of a small right pleural effusion CXR 09/07 - 1. Mild to moderate layering left pleural effusion, stable compared to the prior exam. 2. Persistent infiltrates in bilateral lower lungs concerning for pneumonia, greater on the left, not significantly changed. 3. Stable positioning of the left-sided chest tube. 4. Mild pulmonary vascular congestion. abx supplemental O2 to keep sat above 92% off MDI Proventil ; on HHN prn Covid 19 08/27 and 08/29 NGT off isolation previously ordered tap ( although not sure if will be successful given loculated component of pleural effusion) get fluid cx, cytology, cell count with diff, LDH, protein, glucose ,-on HOLD due to hypotension - not done due to being in isolation at that time need surgery VATS close monitoring of BP/hypotensive, off BB , BP stabilized CT head 09/05 no acute IC pathology, both neuro and cardio cleared for surgery, surgery tentatively planned for 09/09 9am abx- BCX 09/03 NGTD, no fevers, no leukocytosis 08/27 BCX + Staph epidermidis 04/18, received Vanco,; repeat BCX for clearance BCX 08/29 NGTD , initial + BCX 04/18 was likely contaminant 08/27 SARS CoV-2 by PCR NGT 08/27 UCX + E coli, on Zosyn, GI seen for anemia and poss GI bleeding stool OB+ HH slightly up this am PPI increased to bid by GI off ASA on Heparin SQ no GI procedure unless signs of GI bleeding or sharp decrease in HH monitor HH with goal to keep Hgb >7, on IV iron and EPO Hgb remains stable serial troponin - NGT x 2 ECHO - with pEF monitor volumes, CP likely pleuritic , resolved HD per nephro/attending BP management continue ASA and statin D dimer 17.8 CRP 26,2, LDH 119 , ferritin 683 Venous Duplex BLE NGT was on DVT prophylaxis with Heparin started on LMWH /for treatment, but dc by primary and restarted on SQ heparin will proceed with VQ scan when more stable trend LFT, hep panel + hep C BS management monitor HH with goal to keep Hgb above 7 supportive care ACTH stimulation test was ordered for 09/05 to r/o adrenal insufficiency cortisol 7.2, ACTH 4.9 VATS pending for am 09/09, NPO after MN case discussed and evaluated by supervising physician Delvis Simms MD 09/09/19 1253: Subjective Allergies: Coded Allergies: No Known Allergies (Unverified , 04/03/15) Assessment/Plan Assessment/Plan Patient seen and examined with VERIFY REP and I agree with the above assessment and plan. Awaiting VATS tomorrow. Lorna Baker NP September 09, 2019 08:21 Delvis Simms MD September 09, 2019 12:53
[2019-09-09] MEDS: Heparin 5000 units/ml inj SUBQ SCH ×2 (09:00→21:46)
[2019-09-09] MEDS ORDERED: Albuterol/Ipratropium 3ml neb HHN PRN (09:15)
--- NOTE | 2019-09-09 09:20 | Diagnostic Imaging Report ---
EXAM: XR Chest, 1 View CLINICAL HISTORY: SOB TECHNIQUE: Frontal view of the chest. COMPARISON: Chest x-ray 09/08/19 938 FINDINGS: Lungs: Haziness in the left upper lung. Left mid to lower lung opacity. Right lung clear. Pleural space: Increasing large left pleural effusion. No pneumothorax. Heart: Cardiomegaly. Mediastinum: Unremarkable. Bones/joints: Unremarkable. Tubes, lines and devices: Stable left chest tube. IMPRESSION: Increasing large left pleural effusion. Haziness in the left upper lung. Stable left chest tube.
[2019-09-09] MEDS ORDERED: Heparin Sod 1000 units/ml 10ml IV SCH (09:30)
[2019-09-09] MEDS: Nephrovite tab (Rena-Vite) ORAL SCH (09:53)
[2019-09-09] MEDS: Pantoprazole Inj IVP SCH ×2 (09:53→21:43)
--- NOTE | 2019-09-09 11:12 | Surgery Progress Note ---
Surgery Progress Note Subjective Procedure Performed Left tube thoracostomy Additional Comments Increasing large left pleural effusion. Haziness in the left upper lung. Stable left chest tube. plan OR tomorrow patient okay and all questions answered Objective Last 24 Hour Vital Signs Date Time Temp Pulse Resp B/P (MAP) Pulse Ox O2 Delivery O2 Flow Rate FiO2 09/09/19 08:00 Nasal Cannula 3.0 09/09/19 08:00 75 09/09/19 04:00 98.1 75 20 110/62 (78) 97 09/09/19 04:00 Nasal Cannula 3.0 09/09/19 03:34 72 09/09/19 00:00 69 09/09/19 00:00 97.9 75 20 113/68 (83) 96 09/09/19 00:00 Nasal Cannula 3.0 09/08/19 20:00 98.0 71 20 105/58 (74) 95 09/08/19 20:00 Nasal Cannula 3.0 09/08/19 19:21 70 09/08/19 19:00 95 Nasal Cannula 3.0 32 09/08/19 19:00 77 20 95 Nasal Cannula 3.0 32 09/08/19 16:00 Nasal Cannula 3.0 09/08/19 16:00 98.1 77 20 133/59 (83) 95 09/08/19 15:21 76 09/08/19 12:00 Nasal Cannula 3.0 09/08/19 12:00 97.8 80 20 116/78 (91) 94 09/08/19 11:38 79 I&O Intake and Output 09/08/19 09/09/19 19:00 07:00 Intake Total 255 ml 170 ml Output Total 0 ml 0 ml Balance 255 ml 170 ml Intake Oral 100 ml IV Total 155 ml 170 ml Output Urine Total 0 ml Chest Tube Drainage Total 0 ml # Bowel Movements 1 Dressing: other Wound: other Drains: other Cardiovascular: RSR Respiratory: decreased breath sounds Abdomen: soft, non-tender, present bowel sounds Extremities: no cyanosis Laboratory Tests Test 09/09/19 04:15 White Blood Count 8.8 K/UL (4.8-10.8) Red Blood Count 2.88 M/UL (4.70-6.10) L Hemoglobin 9.4 G/DL (14.2-18.0) L Hematocrit 28.2 % (42.0-52.0) L Mean Corpuscular Volume 98 FL (80-99) Mean Corpuscular Hemoglobin 32.7 PG (27.0-31.0) H Mean Corpuscular Hemoglobin Concent 33.4 G/DL (32.0-36.0) Red Cell Distribution Width 12.6 % (11.6-14.8) Platelet Count 219 K/UL (150-450) Mean Platelet Volume 6.2 FL (6.5-10.1) L Neutrophils (%) (Auto) 65.8 % (45.0-75.0) Lymphocytes (%) (Auto) 17.1 % (20.0-45.0) L Monocytes (%) (Auto) 14.0 % (1.0-10.0) H Eosinophils (%) (Auto) 2.4 % (0.0-3.0) Basophils (%) (Auto) 0.7 % (0.0-2.0) Sodium Level 139 MMOL/L (136-145) Potassium Level 3.8 MMOL/L (3.5-5.1) Chloride Level 100 MMOL/L (98-107) Carbon Dioxide Level 23 MMOL/L (21-32) Anion Gap 16 mmol/L (5-15) H Blood Urea Nitrogen 42 mg/dL (7-18) H Creatinine 8.2 MG/DL (0.55-1.30) H Estimat Glomerular Filtration Rate 8.0 mL/min (>60) Glucose Level 134 MG/DL (74-106) H Calcium Level 8.9 MG/DL (8.5-10.1) Phosphorus Level 5.6 MG/DL (2.5-4.9) H Plan Problems: (1) Malnutrition of moderate degree Assessment & Plan: DAILY ESTIMATED NEEDS: Needs based on ESRD on HD 81.8kg 27-32 kcals/kg 5980-4321 total kcals 1.25-1.8 g protein/kg 102-147 g total protein Fluid per Md, on HD NUTRITION DIAGNOSIS: Increased kcal and pro needs r/t renal dysfunction as evidenced by pt w/ ESRD on HD (CURRENT DIET: CCHO VERY HIGH/ RENAL MS FINELY CHOPPED) PO DIET RECOMMENDATIONS: RENAL/ CCHO MED + DOUBLE PRO PORTIONS ADDITIONAL RECOMMENDATIONS: 1) Obtain a standing weight for calibrated bed scale wt 2) Add NEPRO TID w/ meals, currently w/ poor po intake 3) Rec WC eval for sacral wound. Add GIGI BID if tolerated 4) Consider appetite stimulant (2) Sepsis Assessment & Plan: Patient currently hospitalized initially leukocytosis, abnormal labs improved but now hypotensive and deconditioned deteriorating left pleural effusion intensive care unit Patient without peripheral access and will require fluids meds and resuscitation given current extremitas. Patient with right upper extremity fistula recommend not using upper extremities or wrists central upper for access given renal disease requiring dialysis. Line placed right Fem patient tolerated please see note N.p.o. IV fluids Trend labs Discussed with ICU team we will follow with recommendations thank you for let me participate in patient's care (3) Pleural effusion, left Assessment & Plan: A single one view chest is obtained. There is increase opacity left hemithorax now with complete white out demonstrated. This is likely secondary to complete atelectasis of the left lung and left effusion. Right perihilar densities has improved. Cardiac silhouette partially obscured. Right CP angle is sharp. The bony thorax appear unremarkable. IMPRESSION: Complete white out of the left hemithorax likely secondary to left lung atelectasis and effusion. Improved right perihilar densities. discussed with thoracic plan vats when stable may place chest tube until vats s/p chest tube improving CT chest noted plan VATS monday 9 am Lungs: Haziness in the left upper lung. Left mid to lower lung opacity. Right lung clear. Pleural space: Increasing large left pleural effusion. No pneumothorax. Heart: Cardiomegaly. Mediastinum: Unremarkable. Bones/joints: Unremarkable. Tubes, lines and devices: Stable left chest tube. IMPRESSION: Increasing large left pleural effusion. Haziness in the left upper lung. Stable left chest tube. (4) Severe sepsis Assessment & Plan: Lungs: Consolidated portions of the left lung may represent atelectasis, but pneumonia is not excluded. Patchy consolidations in the right lower lobe are concerning for pneumonia. Pleural space: Large left pleural effusion with loculated components. No pneumothorax. Heart: Borderline size of the heart. Small pericardial effusion. Coronary artery calcifications. Thyroid: Hypodense nodules in the left thyroid could be further evaluated with nonemergent dedicated ultrasound if clinically indicated. Bones/joints: Mild degenerative changes of the spine. No acute fracture. No dislocation. Soft tissues: Unremarkable. Vasculature: Unremarkable. No thoracic aortic aneurysm. Lymph nodes: Nonspecific mildly prominent mediastinal lymph nodes. Kidneys and ureters: Small hypodensity in the right kidney is too small to definitively characterize. IMPRESSION: 1. Large left pleural effusion with loculated components. 2. Consolidated portions of the left lung may represent atelectasis, but pneumonia is not excluded. 3. Patchy consolidations in the right lower lobe are concerning for pneumonia. Serjio Chaudhry September 09, 2019 11:12
[2019-09-09 12:00] VITALS: BP 100/63
[2019-09-09 16:00] VITALS: BP 123/67
--- NOTE | 2019-09-09 19:15 | NUR ---
NURSE NOTES: Received report from Pool Rg RN, Pt. in bed awake. HD in progress. A/O x's 2-3 able to make needs known, no signs of respiratory distress noted, bed in lowest position and call light within easy reach, bed alarm on, side rails up x's3 and safety brakes engaged. VSS Afebrile. No distress noted, pt. appears to be resting comfortably Denies pain, pt. has AYUSH fistula for HD, left wrist 22G IV intact and patent, chest tube to left lower chest area intact, safety measures continued. SR w/1st degree AVB. Will continue POC
--- NOTE | 2019-09-09 19:18 | NUR ---
HAND-OFF: Report given to LUDMILA Fernandes. Pt remains stable.
--- NOTE | 2019-09-09 19:48 | Nephrology Progress Note ---
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 (10) Sepsis (11) Bacteremia (12) Emesis (13) UTI (urinary tract infection) (14) E coli infection (15) Hypotension Plan bp stable today, tolerated UF -2000 on dialysis , no distress, weak, orders updated, will need vats, coag neg staph b acteremia likely contaminant , melena reported and protonix increased bid, stop asa, GI consult,epogen and iron ordered, chest tube draining, still bedridden Subjective Constitutional: Reports: weakness HEENT: Reports: no symptoms Genitourinary: Reports: no symptoms Neurologic/Psychiatric: Reports: pre-existing deficit Subjective nausea and emesis better Objective Objective Last 24 Hour Vital Signs Date Time Temp Pulse Resp B/P (MAP) Pulse Ox O2 Delivery O2 Flow Rate FiO2 09/09/19 16:00 79 09/09/19 16:00 98.1 72 20 123/67 (85) 95 09/09/19 16:00 Nasal Cannula 3.0 09/09/19 12:00 Nasal Cannula 3.0 09/09/19 12:00 74 09/09/19 12:00 98.1 68 20 100/63 (75) 95 09/09/19 08:25 81 18 97 Nasal Cannula 3.0 32 09/09/19 08:25 97 Nasal Cannula 3.0 32 09/09/19 08:00 Nasal Cannula 3.0 09/09/19 08:00 97.9 73 22 109/62 (78) 96 09/09/19 08:00 75 09/09/19 04:00 98.1 75 20 110/62 (78) 97 09/09/19 04:00 Nasal Cannula 3.0 09/09/19 03:34 72 09/09/19 00:00 69 09/09/19 00:00 97.9 75 20 113/68 (83) 96 09/09/19 00:00 Nasal Cannula 3.0 09/08/19 20:00 98.0 71 20 105/58 (74) 95 09/08/19 20:00 Nasal Cannula 3.0 Intake and Output 09/08/19 09/09/19 19:00 07:00 Intake Total 255 ml 225 ml Output Total 0 ml 0 ml Balance 255 ml 225 ml Intake Oral 100 ml IV Total 155 ml 225 ml Output Urine Total 0 ml Chest Tube Drainage Total 0 ml # Bowel Movements 1 Laboratory Tests 09/09/19 04:15: White Blood Count 8.8, Red Blood Count 2.88L, Hemoglobin 9.4L, Hematocrit 28.2L , Mean Corpuscular Volume 98, Mean Corpuscular Hemoglobin 32.7H, Mean Corpuscular Hemoglobin Concent 33.4, Red Cell Distribution Width 12.6, Platelet Count 219, Mean Platelet Volume 6.2L, Neutrophils (%) (Auto) 65.8, Lymphocytes ( %) (Auto) 17.1L, Monocytes (%) (Auto) 14.0H, Eosinophils (%) (Auto) 2.4, Basophils (%) (Auto) 0.7, Sodium Level 139, Potassium Level 3.8, Chloride Level 100, Carbon Dioxide Level 23, Anion Gap 16H, Blood Urea Nitrogen 42H, Creatinine 8.2H, Estimat Glomerular Filtration Rate 8.0, Glucose Level 134H, Calcium Level 8.9, Phosphorus Level 5.6H Height (Feet): 6 Height (Inches): 1.00 Weight (Pounds): 165 General Appearance: alert EENT: other - old scars Neck: normal alignment Cardiovascular: regular rhythm Respiratory/Chest: decreased breath sounds Abdomen: non tender Extremities: no edema Neurologic: motor weakness Alan Morgan MD September 09, 2019 19:48
[2019-09-09 20:00] VITALS: BP 154/64
[2019-09-09] MEDS ORDERED: NS 275ml ONE (20:46)
[2019-09-09] MEDS ORDERED: Tubing IV Secondary IV ONE (20:46)
[2019-09-09] MEDS: Iron Sucrose 100 MG in NS 55 ML IV SCH (21:42)
[2019-09-09] MEDS: Epoetin Alfa-EPBX(ESRD on dialysis)10,000 unit/ml vial SUBQ SCH (21:45)
[2019-09-10] VITALS (14 sets, daily range): BP systolic 48–256; BP diastolic 27–137
--- NOTE | 2019-09-10 | NUR ---
NURSE NOTES: Sleeping. Easily awakened. No distress noted. 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 Bed in lowest position and call light within easy reach, bed alarm on, side rails up X2 and safety brakes engaged. Denies pain. AYUSH fistula for HD intact with dressings dry and clean. Will continue with POC
[2019-09-10] MEDS ORDERED: Metoprolol Succinate XL 25mg tab ORAL SCH (01:30)
--- NOTE | 2019-09-10 02:30 | Progress Note ---
DATE: 09/09/2019 CARDIOLOGY PROGRESS NOTE SUBJECTIVE: The patient continues to have chest tube drainage on the left. Minimal drainage is now noted, but the patient's chest x-ray reveals worsening effusion. The patient's blood pressure has remained stable for the past several days. Monitored rhythm, sinus with rare episodes of atrial fibrillation. OBJECTIVE: VITAL SIGNS: Blood pressure 110/62, heart rate 75, respiratory rate 20, afebrile, and oxygen saturation 95% to 97% on 3 L. LUNGS: Diminished breath sounds. Rhonchi. CARDIAC: Regular rhythm and rate. Normal S1, S2. ABDOMEN: Soft. EXTREMITIES: No edema. LABORATORY DATA: White count 8.8, hemoglobin 9.4. Sodium 139, potassium 3.8, bicarb 23, BUN 42, creatinine 8.2. IMPRESSION: 1. Loculated pleural effusion, possible empyema, trapped lung. 2. Paroxysmal atrial fibrillation. 3. End-stage renal disease. 4. No signs of acute congestive heart failure. 5. No evidence of cardiogenic insufficiency or systolic dysfunction. 6. Urinary tract infection. PLAN: 1. Proceed with VATS pleurodesis. 2. The patient is stable for general anesthesia from a cardiovascular standpoint with minimal increased risk. 3. Continue antimicrobials. 4. Respiratory support. 5. Chest tube for now. 6. Okay to hold statin drugs at this time. 7. Beta-ivan prophylaxis ordered. Manfred Conn M.D. DR: Elmer JOB#: [id number] CC:
--- NOTE | 2019-09-10 04:00 | NUR ---
NURSE NOTES: Condition unchanged. Sleeping off an on. Easily awakened. VSS. Afebrile. No distress noted. 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 Bed in lowest position and call light within easy reach, bed alarm on, side rails up X2 and safety brakes engaged. Denies pain. Will continue with POC
[2019-09-10 05:28] LABS: BASOPHILS % (AUTO) 0.7 % (0.0-2.0); HEMATOCRIT 26.2 % (42.0-52.0); HEMOGLOBIN 8.9 G/DL (14.2-18.0); INR 1.2 (0.9-1.1); LYMPHOCYTES % (AUTO) 18.3 % (20.0-45.0); MEAN CORPUSCULAR VOLUME 98 FL (80-99); MONOCYTES % (AUTO) 13.2 % (1.0-10.0); NEUTROPHILS % (AUTO) 65.9 % (45.0-75.0); PLATELET COUNT 216 K/UL (150-450); RED BLOOD COUNT 2.68 M/UL (4.70-6.10); WHITE BLOOD COUNT 8.2 K/UL (4.8-10.8)
[2019-09-10 05:31] LABS: ANION GAP 12 mmol/L (5-15); BLOOD UREA NITROGEN 25 mg/dL (7-18); CALCIUM 8.3 MG/DL (8.5-10.1); CARBON DIOXIDE 30 MMOL/L (21-32); CHLORIDE 101 MMOL/L (98-107); CREATININE 5.6 MG/DL (0.55-1.30); POTASSIUM 3.5 MMOL/L (3.5-5.1); SODIUM 142 MMOL/L (136-145)
[2019-09-10] MEDS: Piperacillin/Tazobactam 2.25 GM in D5W 55 ML IV SCH ×2 (06:13→14:17)
[2019-09-10] MEDS: NovoLOG Insulin Flexpen SUBQ SCH (06:14)
--- NOTE | 2019-09-10 07:40 | NUR ---
NURSE NOTES: Received report from LUDMILA Fernandes. Pt in bed awake and orientedx3 and able to make needs known. IV site in left forearm 20G running with NS @50 ml/hr patent and asymptomatic. Side railsx2 up for safety. Bed in lowest position and locked. Chest tube in pt's left side low chest connected continuous low pressure suction. Denied pain. On 3LPM via N/C and sating 95%. Will continue plan of care.
--- NOTE | 2019-09-10 07:40 | NUR ---
HAND-OFF: Report given to Ricci Rg RN.
--- NOTE | 2019-09-10 07:45 | Pulmonology Progress Note ---
Lorna Baker COST ACCOUNTANT 09/10/19 0745: Subjective ROS Limited/Unobtainable: Yes Allergies: Coded Allergies: No Known Allergies (Unverified , 04/03/15) Subjective in [facility] BP at baseline on 3L O2 via NC, no signs of resp distress , no use of accessory muscles CT was placed 09/04 by general surgeon until VATS ( pending for Saturday 09/09) CT to Pleur-vac - 930 ml 09/05, 110 ml -09/06, 40 ml 09/07, 0 ml 09/08 CT chest noted HH dropped 09/05, stool OB+ ( had black tarry stool), seen by GI specialist, no further drop surgery pending for this am Objective Last 24 Hour Vital Signs Date Time Temp Pulse Resp B/P (MAP) Pulse Ox O2 Delivery O2 Flow Rate FiO2 09/10/19 07:16 98 Nasal Cannula 3.0 32 09/10/19 07:16 79 16 98 Nasal Cannula 3.0 32 09/10/19 04:00 Nasal Cannula 3.0 09/10/19 04:00 98.6 78 20 103/58 (73) 94 09/10/19 04:00 84 09/10/19 03:28 79 146/62 09/10/19 00:00 99.0 79 20 146/62 (90) 94 09/09/19 23:56 78 09/09/19 23:55 Nasal Cannula 3.0 09/09/19 20:00 80 09/09/19 20:00 98.6 80 22 154/64 (94) 94 09/09/19 20:00 Nasal Cannula 3.0 09/09/19 19:01 83 09/09/19 16:00 79 09/09/19 16:00 98.1 72 20 123/67 (85) 95 09/09/19 16:00 Nasal Cannula 3.0 09/09/19 12:00 Nasal Cannula 3.0 09/09/19 12:00 74 09/09/19 12:00 98.1 68 20 100/63 (75) 95 09/09/19 08:25 81 18 97 Nasal Cannula 3.0 32 09/09/19 08:25 97 Nasal Cannula 3.0 32 09/09/19 08:00 Nasal Cannula 3.0 09/09/19 08:00 97.9 73 22 109/62 (78) 96 09/09/19 08:00 75 Intake and Output 09/09/19 09/10/19 19:00 07:00 Intake Total 135 ml 355 ml Output Total 0 ml 2000 ml Balance 135 ml -1645 ml Intake Oral 80 ml IV Total 55 ml 355 ml Output Urine Total 0 ml Chest Tube Drainage Total 0 ml Hemodialysis UF 2000 ml Objective General Appearance: alert , awake, responsive AA male , in NAD Lines, tubes and drains: peripheral HEENT: normocephalic, atraumatic, anicteric, mucous membranes moist, PERRL, O2 via NC Neck: non-tender, supple Respiratory/Chest: scattered rhonchi ; L side chest tube to Hemovac with serosanguineous drainage Abdomen: normal bowel sounds, non tender, soft Extremities: LUE AV fistula + bruit/thrill Skin Exam: normal pigmentation, warm/dry Neurologic: abnormal gait, alert, responsive, normal mood/affect Musculoskeletal: atrophy - BLE, , non-ambulatory Laboratory Tests 09/10/19 03:45: White Blood Count 8.2, Red Blood Count 2.68L, Hemoglobin 8.9L, Hematocrit 26.2L , Mean Corpuscular Volume 98, Mean Corpuscular Hemoglobin 33.2H, Mean Corpuscular Hemoglobin Concent 33.9, Red Cell Distribution Width 13.0, Platelet Count 216, Mean Platelet Volume 6.2L, Neutrophils (%) (Auto) 65.9, Lymphocytes ( %) (Auto) 18.3L, Monocytes (%) (Auto) 13.2H, Eosinophils (%) (Auto) 2.0, Basophils (%) (Auto) 0.7, Prothrombin Time 13.4H, Prothromb Time International Ratio 1.2H, Activated Partial Thromboplast Time 43H, Sodium Level 142, Potassium Level 3.5, Chloride Level 101, Carbon Dioxide Level 30, Anion Gap 12, Blood Urea Nitrogen 25H, Creatinine 5.6H, Estimat Glomerular Filtration Rate 12.4, Glucose Level 134H, Calcium Level 8.3L, Random Vancomycin Level 23.7 Current Medications Medications (Trade) Dose Ordered Sig/Raheel Route PRN Reason Start Time Stop Time Status Last Admin Dose Admin Acetaminophen (Tylenol) 650 mg Q4H PRN ORAL Mild Pain (Pain Scale 1-3) 09/06/19 10:15 10/03/19 10:01 09/09/19 15:53 Acetaminophen (Tylenol) 650 mg Q4H PRN ORAL Temp >100.5 09/06/19 10:15 10/03/19 10:01 Albumin Human 100 ml @ 200 mls/hr PRN PRN IV sbp<90 during hd 09/07/19 11:30 12/06/19 14:29 09/07/19 19:41 Albumin Human 100 ml @ 200 mls/hr PRN PRN IV sbp<90 during hd 09/09/19 09:30 12/08/19 09:29 Albuterol/ Ipratropium (Albuterol/ Ipratropium) 3 ml Q4H PRN HHN Shortness of Breath 09/09/19 09:15 09/14/19 09:14 Epoetin Antoni (Epoetin Antoni(ESRD on dialysis)) 10,000 unit MON-MON-MON SUBQ 09/06/19 21:00 12/05/19 20:59 09/09/19 21:45 Guaifenesin/ Dextromethorphan (Robitussin DM Syrup) 10 ml Q4H PRN ORAL For Cough 09/06/19 10:15 12/02/19 10:02 Heparin Sodium (Porcine) (Heparin 5000 units/ml) 5,000 units EVERY 12 HOURS SUBQ 09/06/19 09:00 10/15/19 08:59 09/09/19 21:46 Insulin Aspart (NovoLOG) BEFORE MEALS AND HS SUBQ 09/06/19 06:30 11/26/19 20:59 09/08/19 20:20 Iron Sucrose 100 mg/Sodium Chloride 60 ml @ 240 mls/hr BEDTIME IV 09/06/19 21:00 09/10/19 21:14 09/09/19 21:42 Ondansetron HCl (Zofran) 4 mg Q4H PRN IVP Nausea & Vomiting 09/06/19 10:15 10/03/19 10:02 Pantoprazole (Protonix) 40 mg EVERY 12 HOURS IVP 09/06/19 21:00 10/06/19 17:59 09/09/19 21:43 Piperacillin Sod/ Tazobactam Sod 2.25 gm/Dextrose 55 ml @ 110 mls/hr Q8HR IV 09/06/19 14:00 09/10/19 23:59 09/10/19 06:13 Polyethylene Glycol (Miralax) 17 gm DAILYPRN PRN ORAL Constipation 09/06/19 10:15 10/03/19 10:02 Pravastatin Sodium (Pravachol) 80 mg BEDTIME ORAL 09/06/19 21:00 09/27/19 20:59 09/09/19 21:44 Sevelamer Carbonate (Renvela) 800 mg THREE TIMES A DAY ORAL 09/06/19 09:00 11/27/19 08:59 09/09/19 17:36 Sodium Chloride 1,000 ml @ 50 mls/hr Q20H IV 09/09/19 23:55 10/09/19 23:54 09/09/19 23:59 Vancomycin HCl (Vanco rx to dose) 1 ea DAILY PRN MISC Per rx protocol 09/06/19 09:00 09/27/19 19:59 Vitamin B Complex/ Vit C/Folic Acid (Nephrovite) 1 tab DAILY ORAL 09/06/19 09:00 09/28/19 08:59 09/09/19 09:53 Assessment/Plan Assessment/Plan ASSESSMENT Hypotension-persistent, resolving Shock-recovered Pneumonia Large left pleural effusion with loculated components, probably trapped lung s/p Left thoracostomy tube placement Pleuritic chest pain Bacteremia /GPC - real vs contaminant Suspected CoVID 19-ruled out End-stage renal disease ,on hemodialysis Diabetes mellitus, insulin dependent Hypertension A fib Anemia of chronic kidney disease History of CVA UTI E coli Hypoalbuminemia Hep C positive PLAN OF CARE in PATTY s/p central line placement, inadvertently was pulled out by pt s/p multiple albumin boluses and IV boluses BP stabilized, tolerated HD, BP better/stabilized on 3L O2 via NC, no signs of resp distress CXR with complete opacification of left hemithorax Chest tube was placed on 09/04 to Hemovac drainage until VATS CXR post CT placement 09/04 - no change serosanguineous drainage, monitor output; -930 ml 09/05 ; - 110 ml 09/06; , 40 ml 09/07, 0 ml 09/08 CT chest 09/05 noted : -Large left pleural effusion with loculated components. - Consolidated portions of the left lung may represent atelectasis, but pneumonia not excluded. - Patchy consolidations in the right lower lobe are concerning for pneumonia. fup with CXR while with CT daily CXR 09/06 - -Left-sided chest tube in unchanged position with unchanged small left pleural effusion/pleural thickening. -Unchanged bilateral lower lobe infiltrates, left greater than right suspicious for pneumonia. - Development of a small right pleural effusion CXR 09/07 - 1. Mild to moderate layering left pleural effusion, stable compared to the prior exam. 2. Persistent infiltrates in bilateral lower lungs concerning for pneumonia, greater on the left, not significantly changed. 3. Stable positioning of the left-sided chest tube. 4. Mild pulmonary vascular congestion. abx supplemental O2 to keep sat above 92% off MDI Proventil ; on HHN prn Covid 19 08/27 and 08/29 NGT off isolation previously ordered tap ( although not sure if will be successful given loculated component of pleural effusion) get fluid cx, cytology, cell count with diff, LDH, protein, glucose ,-on HOLD due to hypotension - not done due to being in isolation at that time-cx now need surgery VATS close monitoring of BP/hypotensive, off BB , BP stabilized CT head 09/05 no acute IC pathology, both neuro and cardio cleared for surgery, surgery tentatively planned for 09/09 9am abx- BCX 09/03 NGTD, no fevers, no leukocytosis 08/27 BCX + Staph epidermidis 1, received Vanco,; repeat BCX for clearance BCX 08/29 NGTD , initial + BCX 1/2 was likely contaminant 08/27 SARS CoV-2 by PCR NGT 08/27 UCX + E coli, on Zosyn -completing today GI seen for anemia and poss GI bleeding stool OB+ HH slightly up this am PPI increased to bid by GI off ASA on Heparin SQ no GI procedure unless signs of GI bleeding or sharp decrease in HH monitor HH with goal to keep Hgb >7, on IV iron and EPO Hgb remains stable serial troponin - NGT x 2 ECHO - with pEF monitor volumes, CP likely pleuritic , resolved HD per nephro/attending BP management continue ASA and statin D dimer 17.8 CRP 26,2, LDH 119 , ferritin 683 Venous Duplex BLE NGT was on DVT prophylaxis with Heparin started on LMWH /for treatment, but dc by primary and restarted on SQ heparin may consider VQ scan when more stable trend LFT, hep panel + hep C BS management monitor HH with goal to keep Hgb above 7 supportive care ACTH stimulation test was ordered for 09/05 to r/o adrenal insufficiency cortisol 7.2, ACTH 4.9 VATS pending for this am kept NPO after MN hemodynamically stable, on 3L o2 no signs of resp distress labs stable afebrile case discussed and evaluated by supervising physician Delvis Simms MD 09/10/19 1039: Subjective Allergies: Coded Allergies: No Known Allergies (Unverified , 04/03/15) Assessment/Plan Assessment/Plan Patient seen and examined with COST ACCOUNTANT and I agree with the above assessment and plan. R VATS today Monitor postop Lorna Baker NP September 10, 2019 07:45 Delvis Simms MD September 10, 2019 10:39
[2019-09-10] MEDS ORDERED: Rocuronium Bromide 100mg/10ml Inj IV ONE (08:08)
[2019-09-10] MEDS ORDERED: Lidocaine 1% 10mg/ml/Epi 0.005mg/ml 30ml vial INJ ONE (08:12)
[2019-09-10] MEDS ORDERED: Bacitracin 50000 Units Vial ONE (08:13)
[2019-09-10] MEDS ORDERED: NeoSporin Gu Irrig 1ml Amp IRRIG ONE (08:13)
[2019-09-10] MEDS ORDERED: Amikacin 500mg/2mL Inj IV ONE (08:15)
[2019-09-10] MEDS ORDERED: Sterile Talc Powder 4gm spray IPLEURAL ONE (08:15)
[2019-09-10] MEDS: Nephrovite tab (Rena-Vite) ORAL SCH (08:17)
[2019-09-10] MEDS: Heparin 5000 units/ml inj SUBQ SCH (08:17)
[2019-09-10] MEDS: Pantoprazole Inj IVP SCH (08:19)
[2019-09-10] MEDS ORDERED: Lidocaine 1% Plain 30 ml INJ ONE (08:19)
[2019-09-10] MEDS ORDERED: LR 1000ml 1,000 ML IVLG SCH (08:19)
--- NOTE | 2019-09-10 08:28 | Immediate Post-Op Evaluation ---
Immediate Post-Op Evalulation Immediate Post-Op Evalulation Procedure: L VATS Date of Evaluation: September 10, 2019 Time of Evaluation: 12:52 IV Fluids: 2000 LR/NS Blood Products: 1 U PRBC Estimated Blood Loss: 200 Urinary Output: 0 Blood Pressure Systolic: 120 Blood Pressure Diastolic: 69 Pulse Rate: 128 Respiratory Rate: 12 - Mech Vent O2 Sat by Pulse Oximetry: 100 Temperature (Fahrenheit): 98 Pain Score (1-10): 3 Nausea: No Vomiting: No Complications 0 Patient Status: awake, reacts, patent, extubated, none Hydration Status: adequate Dru Grams Ancef IV Given Within 1 Hr of Incision: Yes Time Given: 09:51 Eric Burgess MD September 10, 2019 08:28
[2019-09-10] MEDS ORDERED: Hydromorphone 0.5mg/0.5ml inj IVP PRN (08:30)
[2019-09-10] MEDS ORDERED: Atropine Sulfate 0.4mg/ml inj IVP PRN (08:30)
[2019-09-10] MEDS ORDERED: HYDROcodone/Acetamin 5/325 tab ORAL PRN (08:30)
[2019-09-10] MEDS ORDERED: Midazolam 2mg/2ml Inj IVP PRN (08:30)
[2019-09-10] MEDS ORDERED: fentaNYL 100 mcg/2 mL IV PRN (08:30)
[2019-09-10] MEDS ORDERED: Acetaminophen (Non formulary) 100 ML IV ONE (08:30)
[2019-09-10] MEDS ORDERED: Labetalol 5mg/ml 20ml vial IV PRN (08:30)
[2019-09-10] MEDS ORDERED: Metoclopramide 10mg/2ml Inj IVP PRN (08:30)
[2019-09-10] MEDS ORDERED: DiphenhydrAMINE 50mg/ml Inj IVP PRN (08:30)
[2019-09-10] MEDS ORDERED: LORazepam Inj 2mg/ml 1ml IV PRN (08:30)
[2019-09-10] MEDS ORDERED: HYDROcodone/Acetamin 7.5/325 tab ORAL PRN (08:30)
[2019-09-10] MEDS ORDERED: oxyCODONE HCL/Acetaminophen 5/325mg ORAL PRN (08:30)
[2019-09-10] MEDS ORDERED: Meperidine 25mg/0.5ml Inj (FOR RIGORS ONLY) IV PRN (08:30)
[2019-09-10] MEDS ORDERED: Sodium Chloride 10ml vial INJ ONE (08:36)
[2019-09-10] MEDS ORDERED: Lidocaine 1% MPF 10mg/ml 5ml ONE (08:36)
[2019-09-10] MEDS ORDERED: fentaNYL 100 mcg/2 mL IV ONE (08:37)
[2019-09-10] MEDS ORDERED: LR 1000ml ONE (09:00)
[2019-09-10] MEDS ORDERED: propofoL 1,000mg/100ml IV ONE (09:00)
[2019-09-10] MEDS ORDERED: Sterile Water Irrig 1000ml IRRIG ONE (09:00)
[2019-09-10] MEDS ORDERED: NS Irrig 1000ml ONE (09:00)
[2019-09-10] MEDS ORDERED: Cefepime 1gm vial ONE (09:12)
--- NOTE | 2019-09-10 09:31 | Pre-Procedure Note/Attestation ---
Pre-Procedure Note/Attestation Complete Prior to Procedure Planned Procedure: left Procedure Narrative: Left exploratory VATS Indications for Procedure Pre-Operative Diagnosis: Left loculated pleural effusion Attestation I attest that I discussed the nature of the procedure; its benefits; risks and complications; and alternatives (and the risks and benefits of such alternatives ), prior to the procedure, with the patient (or the patient's legal franchise sales representative). I attest that, if there was a reasonable possibility of needing a blood transfusion, the patient (or the patient's legal franchise sales representative) was given the [facility] standardized written summary, pursuant to the Antonio Welling Blood Safety Act ([place] Health and Safety Code # 1645, as amended). I attest that I re-evaluated the patient just prior to the surgery and that there has been no change in the patient's H&P, except as documented below: Tonio Guan MD September 10, 2019 09:31
--- NOTE | 2019-09-10 09:37 | NUR ---
PT NOTE Attempted to see patient for PT treatment. Patient off floor for surgical procedure. Will follow.
--- NOTE | 2019-09-10 09:44 | General Progress Note ---
Assessment/Plan Assessment/Plan: Assessment/Plan Assessment/Plan: Assessment - OB (+) stools - Anemia - ESRD / HD - Pleural effusion - Hepatitis C antibody (+) Recommendations - monitor CBC - PPI IV BID - IV Fe - await VATS for today - GI w/u on hold, unless severe bleeding Subjective ROS Limited/Unobtainable: No Allergies: Coded Allergies: No Known Allergies (Unverified , 04/03/15) Objective Last 24 Hour Vital Signs Date Time Temp Pulse Resp B/P (MAP) Pulse Ox O2 Delivery O2 Flow Rate FiO2 09/10/19 08:51 83 09/10/19 08:15 98.1 80 20 112/58 (76) 95 09/10/19 08:00 Nasal Cannula 3.0 09/10/19 07:16 98 Nasal Cannula 3.0 32 09/10/19 07:16 79 16 98 Nasal Cannula 3.0 32 09/10/19 04:00 Nasal Cannula 3.0 09/10/19 04:00 98.6 78 20 103/58 (73) 94 09/10/19 04:00 84 09/10/19 03:28 79 146/62 09/10/19 00:00 99.0 79 20 146/62 (90) 94 09/09/19 23:56 78 09/09/19 23:55 Nasal Cannula 3.0 09/09/19 20:00 80 09/09/19 20:00 98.6 80 22 154/64 (94) 94 09/09/19 20:00 Nasal Cannula 3.0 09/09/19 19:01 83 09/09/19 16:00 79 09/09/19 16:00 98.1 72 20 123/67 (85) 95 09/09/19 16:00 Nasal Cannula 3.0 09/09/19 12:00 Nasal Cannula 3.0 09/09/19 12:00 74 09/09/19 12:00 98.1 68 20 100/63 (75) 95 Intake and Output 09/09/19 09/10/19 19:00 07:00 Intake Total 135 ml 355 ml Output Total 0 ml 2050 ml Balance 135 ml -1695 ml Intake Oral 80 ml IV Total 55 ml 355 ml Output Urine Total 0 ml Chest Tube Drainage Total 0 ml 50 ml Hemodialysis UF 2000 ml Laboratory Tests 09/10/19 03:45: White Blood Count 8.2, Red Blood Count 2.68L, Hemoglobin 8.9L, Hematocrit 26.2L , Mean Corpuscular Volume 98, Mean Corpuscular Hemoglobin 33.2H, Mean Corpuscular Hemoglobin Concent 33.9, Red Cell Distribution Width 13.0, Platelet Count 216, Mean Platelet Volume 6.2L, Neutrophils (%) (Auto) 65.9, Lymphocytes ( %) (Auto) 18.3L, Monocytes (%) (Auto) 13.2H, Eosinophils (%) (Auto) 2.0, Basophils (%) (Auto) 0.7, Prothrombin Time 13.4H, Prothromb Time International Ratio 1.2H, Activated Partial Thromboplast Time 43H, Sodium Level 142, Potassium Level 3.5, Chloride Level 101, Carbon Dioxide Level 30, Anion Gap 12, Blood Urea Nitrogen 25H, Creatinine 5.6H, Estimat Glomerular Filtration Rate 12.4, Glucose Level 134H, Calcium Level 8.3L, Random Vancomycin Level 23.7 Height (Feet): 6 Height (Inches): 1.00 Weight (Pounds): 167 General Appearance: no apparent distress EENT: normal ENT inspection Neck: supple Cardiovascular: normal rate Respiratory/Chest: decreased breath sounds Abdomen: normal bowel sounds, non tender, soft Extremities: non-tender Harpal Marlow MD September 10, 2019 09:44
[2019-09-10] MEDS ORDERED: Atropine Inj 1mg/10ml Syr ONE ×3 (10:12→15:07)
[2019-09-10] MEDS ORDERED: Glycopyrrolate 0.2mg/ml 1ml Vial ONE (10:28)
[2019-09-10] MEDS ORDERED: Norepinephrine 4mg/NS Premix 250 ML IV SCH (10:30)
[2019-09-10] MEDS ORDERED: ePHEDrine 50mg/ml Inj ONE (11:40)
--- NOTE | 2019-09-10 12:15 | NUR ---
NURSE NOTES: Dr Guan in the unit, states pt is coming up from OR unstable, room currently being prepared at this time.
--- NOTE | 2019-09-10 12:20 | NUR ---
HAND-OFF: Report given to LUDMILA Mars. Pt's still in the OR
[2019-09-10] MEDS ORDERED: Phenylephrine 100 MG in D5W 240 ML IV SCH (12:29)
--- NOTE | 2019-09-10 12:30 | NUR ---
NURSE NOTES: Pt received from KENIA Ta RN. Pt is s/p code blue from OR, in unstable condition with SBP of 70-80 HR 131 Temp 98.2 F ax SpO2 41%. Bilat pupils are dilated 4 mm bilaterally and not reactive to light. Pt is non-responsive, no movements noted to extremities, no response to deep pain stimulus. Pt is mechanically intubated with 8.0 ETT noted 23 cm at lip with the following settings: AC 12 TV 500 FiO2 100% Peep5 with diminished lung sounds to all lung lobes upon auscultation. Pt has a chest tube noted in left mid-axillary region with soiled dressing and bloody drainage. Chest tube hooked to 20 cm H20 of suction (low continuous suction per Dr Guan). Pt's cap refill noted 5-6 seconds, pt is cool to touch with weak radial and dorsalis pedis pulses (1+). Pt is currently NPO. Abdomen is round and distended with hypoactive bowel sounds. Skin alterations noted. Pt has a AYUSH AV shunt covered with dressing at this time. Pt has a left femoral TLC with a proximal arterial line. Femoral line is running Levophed at 30 mcg/min, and LR + NS wide open (bolus). Belongings received and reviewed with LUDMILA Ta. Bed is in lowest position, alarm on, side rails up x 2. RT Dorcas as well as esdras Liriano RN and Dr Guan at bedside currently attempting to stabilize pt. Addendum: 09/10/19 at 2109 by Madisyn Ma RN Late entry: Approximately 1200 cc of bloody drainage noted in chest tube upon receiving pt from OR.
--- NOTE | 2019-09-10 12:43 | Brief Operative Note ---
Immediate Post Operative Note Operative Note Pre-op Diagnosis: Left loculated pleural effusion Procedure: Left exploratory thoractomy, decortication Post-op Diagnosis: same Surgeon: Tonio Guan Land Development Manager: JAMES Chaudhry Anesthesiologist: Jenifer Anesthesia: general Specimen: yes Complications: none Condition: unstable Fluids: one unit pRBC, 2000 cc crystalloid Estimated Blood Loss: minimal Implant(s) used?: No Tonio Guan MD September 10, 2019 12:43
[2019-09-10] MEDS ORDERED: Morphine Sulfate 4mg/ml Inj (IV USE ONLY) IVP PRN (12:45)
--- NOTE | 2019-09-10 12:49 | NUR ---
NURSE NOTES: Pt started on max dose of vasopressin 0.04 units/min per Dr Guan.
--- NOTE | 2019-09-10 12:50 | NUR ---
NURSE NOTES: Pt started on neosynepherine max rate 240 mcg/min per Dr Guan.
[2019-09-10] MEDS ORDERED: Vasopressin 100 UNITS in NS 95 ML IV SCH (13:15)
--- NOTE | 2019-09-10 13:29 | NUR ---
RADIOLOGY DEPT., CHEST X-RAY FOR ETT PLCPR COMPLETED.-P.DYE
--- NOTE | 2019-09-10 13:30 | NUR ---
CODE BLUE: Pt noted with bradycardia evolving into asystole. Dr Guan at bedside leading code at this time. See Code sheet which remains on paper.
[2019-09-10 13:42] LABS: HEMATOCRIT 20.8 % (42.0-52.0); MEAN CORPUSCULAR VOLUME 100 FL (80-99); PLATELET COUNT 205 K/UL (150-450); RED BLOOD COUNT 2.09 M/UL (4.70-6.10); RED CELL DISTRIBUTION WIDTH 13.3 % (11.6-14.8); WHITE BLOOD COUNT 11.8 K/UL (4.8-10.8)
[2019-09-10 13:43] LABS: HEMOGLOBIN 6.8 G/DL (14.2-18.0)
--- NOTE | 2019-09-10 13:45 | NUR ---
NURSE NOTES: New bag of levophed just hung (bag brought up from OR just finished infusing). Additionally, pt is currently being bolused with another liter of NS and LR (wide open) per Dr Guan.
--- NOTE | 2019-09-10 13:50 | NUR ---
NURSE NOTES: Bill from pharmacy at bedside - made aware that albumin, LR, and levophed were hung while pt was unstable and were administered on eMar without scanner.
[2019-09-10 13:55] LABS: ANION GAP 23 mmol/L (5-15); BLOOD UREA NITROGEN 28 mg/dL (7-18); CALCIUM 9.2 MG/DL (8.5-10.1); CARBON DIOXIDE 14 MMOL/L (21-32); CHLORIDE 106 MMOL/L (98-107); CREATININE 5.9 MG/DL (0.55-1.30); PHOSPHORUS 8.5 MG/DL (2.5-4.9); SODIUM 143 MMOL/L (136-145)
[2019-09-10 13:56] LABS: POTASSIUM 6.3 MMOL/L (3.5-5.1)
--- NOTE | 2019-09-10 13:56 | NUR ---
CASE MANAGEMENT: REVIEW SI: LEFT PLEURAL EFFUSION . PNA . VATS 09/09 T 99.0 HR 131 RR 20 BP 85/56 SAT 93% MECH VENT FIO2 100 WBC 11.8 H/H 6.8/20.8 BUN 25 CR 5.6 IS: LEVOPHED IV Q24HR VASOPRESSIN IV Q24HR PHENYLEPHRINE IV Q24HR ALBUMIN IV Q2HR LR IVF @ 125ML/HR ZOSYN IV Q8HR VENOFER IV QHS NOVOLOG SUBQ AC+HS HEPARIN SUBQ Q12HR HD NEEDED ICU STATUS DCP: PATIENT IS FROM [facility]
[2019-09-10] MEDS ORDERED: Dextrose 5%/Lactated Ringer's 1,000 ML IV SCH (14:00)
--- NOTE | 2019-09-10 14:00 | NUR ---
NURSE NOTES: Emergency blood transfusion per Dr Guna (PRBCs) initiated. 1st unit hung at this time using pressure bag (bolus rate per Dr Guan.).
--- NOTE | 2019-09-10 14:17 | NUR ---
CODE BLUE: Pt noted in bradycardia evolving into asystole. See Code sheet which remains on paper.
--- NOTE | 2019-09-10 14:18 | Diagnostic Imaging Report ---
Indication: Post intubation Technique: One view of the chest Comparison: 09/09/2019 Findings: Interim endotracheal intubation, endotracheal tube tip projecting in good position approximately 4 cm above the charo. Left chest tube is again demonstrated. There is interim markedly improved aeration of the left lung, although it is far from completely expanded. There is circumferential pleural thickening versus fluid. No pneumothorax. There is subcutaneous emphysema of the left lower chest wall. There is some retrocardiac consolidation. The right lung and pleural space are clear. There are overlying defibrillator paddles. What is probably a mediastinal drain is noted. Impression: Satisfactory endotracheal intubation Improved aeration of the left lung. Persistent retrocardiac consolidation, circumferential pleural thickening. Other findings as noted Findings discussed by phone with ICU charge nurse Deandra at the time of interpretation
--- NOTE | 2019-09-10 14:38 | Emergency Room Report ---
History of Present Illness General Chief Complaint: Chest Pain Source: Patient, Medical Record, PMD Present Illness Allergies: Coded Allergies: No Known Allergies (Unverified , 04/03/15) COVID-19 Screening Contact w/high risk pt: No Recent Travel to affected area: No Experienced COVID-19 symptoms?: No COVID-19 Testing performed INSURANCE PROCESSOR: No COVID-19 Screening: Negative COVID-19 Patient History Past Surgical History: none Pertinent Family History: none Social History: Denies: smoking, alcohol use, drug use Immunizations: UTD Reviewed Nursing Documentation: PMH: Agreed; PSxH: Agreed Nursing Documentation-PM Past Medical History: No Stated History Hx Hypertension: Yes Hx Diabetes: Yes Hx Cancer: No Hx Gastrointestinal Problems: No Hx Dialysis: Yes - LAST DIALYSIS -Mar(M-W-) Hx Neurological Problems: Yes Hx Cerebrovascular Accident: Yes Hx Transient Ischemic Attacks: No Physical Exam Vital Signs Date Time Temp Pulse Resp B/P (MAP) Pulse Ox O2 Delivery O2 Flow Rate FiO2 09/06/19 07:54 59 09/06/19 08:00 98.0 19 123/60 (81) 98 09/06/19 08:00 Nasal Cannula 2.0 09/06/19 11:04 32 Procedures Critical Care Time Critical Care Time i. I feel this is a highly complex case requiring extensive working including EKG/Rhythm strip, Xray/CT/US, Blood/urine lab work, repeat exams while in ED, and administration of strong opiates/narcotics for pain control, admission to hospital or close patient follow up. Total time: 30 min bedside evaluation and treatment excludes procedures (EKG). Reason for critical care: cardiac arrest Possible complications: hypotension, hypertension, TN, shock, arrhythmias, metabolic acidosis, end organ damage, respiratory failure. Interventions: Chest compressions, epinephrine, calcium, bicarbonate Course: I was called to this BECCA BLUE in the ICU. Patient status post VATS today. End-stage renal disease on dialysis. Patient became bradycardic and then lost pulse. Patient given multiple rounds of epinephrine, calcium, bicarbonate, magnesium. Patient had become bradycardic in the OR and resuscitated. After multiple rounds of compressions patient regained pulse. Patient started on Levophed drip. cardiothoracic surgeon at bedside to resume care Consultations: nursing staff, EMS, family Performed by: Dr Griffiths Tolerated well condition = critical j. because of unstable vital signs this patient had a condition that could potentially threaten life or limb. I feel this is a critical patient who required my full attention while patient was considered critical. Total Critical Care Time excluding procedures was greater than 35 minutes CPR/Code Blue CPR/Code Blue Narrative see code blue sheet for full narrative Medical Decision Making Diagnostic Impression: Primary Impression: Pneumonia Additional Impressions: Pleural effusion, left Possible COVID-19 ER Course I was called to the ICU for this CODE BLUE. Patient became bradycardic and lost pulse. Status post VATS surgery day. Patient given multiple rounds of medications. Given multiple rounds of chest compressions. Patient regained pulse. Cardiothoracic surgeon at bedside to continue care of patient. Prognosis is poor. Last Vital Signs Date Time Temp Pulse Resp B/P (MAP) Pulse Ox O2 Delivery O2 Flow Rate FiO2 09/10/19 12:50 127 85/56 09/10/19 12:45 16 93 Mechanical Ventilator 100 09/10/19 08:15 98.1 09/10/19 08:00 3.0 Disposition: ADMITTED INPATIENT Condition: Critical Referrals: Alan Morgan MD (PCP) Mike Griffiths MD September 10, 2019 14:38
--- NOTE | 2019-09-10 14:45 | NUR ---
NURSE NOTES: 2nd unit PRBC just brought up from blood bank at this time and hung.
--- NOTE | 2019-09-10 14:49 | Emergency Room Report ---
History of Present Illness General Chief Complaint: Chest Pain Source: Medical Record, PMD Present Illness HPI 64-year-old male history of dialysis, history of pleural effusion history of VATS procedure, presents pulseless, CPR currently being performed, was called to bedside to emergently manage the CODE BLUE, please refer to MDM for further information as well as critical care procedure Allergies: Coded Allergies: No Known Allergies (Unverified , 04/03/15) COVID-19 Screening Contact w/high risk pt: No Recent Travel to affected area: No Experienced COVID-19 symptoms?: No COVID-19 Testing performed GOLF BALL TRIMMER: No COVID-19 Screening: Negative COVID-19 Patient History Limited by: medical condition - INTUBATED Reviewed Nursing Documentation: PMH: Agreed; PSxH: Agreed Nursing Documentation-PMH Past Medical History: No Stated History Hx Hypertension: Yes Hx Diabetes: Yes Hx Cancer: No Hx Gastrointestinal Problems: No Hx Dialysis: Yes - LAST DIALYSIS -[facility](M-W-F) Hx Neurological Problems: Yes Hx Cerebrovascular Accident: Yes Hx Transient Ischemic Attacks: No Review of Systems All Other Systems: limited - INTUBATED Physical Exam Vital Signs Date Time Temp Pulse Resp B/P (MAP) Pulse Ox O2 Delivery O2 Flow Rate FiO2 09/06/19 07:54 59 09/06/19 08:00 98.0 19 123/60 (81) 98 09/06/19 08:00 Nasal Cannula 2.0 09/06/19 11:04 32 Sp02 EP Interpretation: abnormal - hypoxic Eyes: bilateral eye other - fixed dilated Respiratory: chest symmetrical Cardiovascular #1: other - pulseless Procedures Critical Care Time Critical Care Time Given the critical condition in which the patient arrived, the patient was immediately assessed by myself and the nurse, and cardiac monitoring initiated due to the potential for rapid decompensation of the patient's clinical condition. During the course of the patient's stay, I spent a considerable amount of time at the bedside performing serial re-evaluations of the patient's hemodynamic and clinical status because of the recognized potential threat to life or limb in this condition. I then had a chance to review not only all of the available current laboratory and radiographic studies obtained today, but I also reviewed old records available to me at the time. Additionally, any ancillary information available including manager hospital records were reviewed. Sequential vital signs were obtained. Critical Care time of 22 minutes was performed exclusive of billable procedures. CPR/Code Blue CPR/Code Blue Narrative I was called to the ICU. Patient was in asystole, compressions already being conducted per ACLS guidelines, patient was given epinephrine, bicarb, calcium chloride, dextrose as well as insulin given the fact that patient was dialysis dependent. Medical Decision Making Diagnostic Impression: Primary Impression: Pneumonia Additional Impressions: Pleural effusion, left Possible COVID-19 Cardiac asystole ER Course 64-year-old male, and asystole, pulseless, CPR was performed, ACLS guidelines were followed, patient was treated for hyperkalemia, and epinephrine drip was also titrated. Rosc was achieved, patient has fixed dilated pupils. will continue to monitor patient Last Vital Signs Date Time Temp Pulse Resp B/P (MAP) Pulse Ox O2 Delivery O2 Flow Rate FiO2 09/10/19 12:50 127 85/56 09/10/19 12:45 16 93 Mechanical Ventilator 100 09/10/19 08:15 98.1 09/10/19 08:00 3.0 Disposition: ADMITTED INPATIENT Condition: Critical Referrals: Alan Morgan MD (PCP) Leopoldo Corral MD September 10, 2019 14:49
--- NOTE | 2019-09-10 15:01 | NUR ---
CODE BLUE: Pt noted in bradycardia evolving into asystole. See Code sheet which remains on paper.
--- NOTE | 2019-09-10 15:05 | NUR ---
NURSE NOTES: Spoke with Khushboo Adame (pt's sister) and Mary Ann Adame (daughter) over phone- they requested that we seize CPR attempts and change patient's code status to DNR/DNI. Mary Ann stated "please stop CPR, I do not want my father to suffer anymore." Mary Ann also states she will speak with Rebecca (pt's younger daughter) and that pt's is hospitalized at this time and cannot make decisions for the patient at this time.
[2019-09-10] MEDS ORDERED: Sodium Bicarbonate 50ml Carp ONE (15:07)
[2019-09-10] MEDS ORDERED: Calcium Chloride 10% 10ml carpuject IVP ONE (15:07)
[2019-09-10] MEDS ORDERED: Magnesium Sulfate 2ml Inj ONE (15:07)
--- NOTE | 2019-09-10 15:08 | NUR ---
NURSE NOTES: Pt . Yu (pt's youngest daughter) contacted per esdras Liriano RN and notified.
--- NOTE | 2019-09-10 15:10 | NUR ---
NURSE NOTES: Dr Morgan made aware pt per Deandra, charge aide.
[2019-09-10 15:29] LABS: ALANINE AMINOTRANSFERASE 28 U/L (12-78); ALKALINE PHOSPHATASE 46 U/L (46-116); ASPARTATE AMINO TRANSFERASE 42 U/L (15-37); BILIRUBIN,DIRECT 0.2 MG/DL (0.0-0.3); BILIRUBIN,TOTAL 0.4 MG/DL (0.2-1.0)
--- NOTE | 2019-09-10 15:55 | NUR ---
NURSE NOTES: Spoke with [employer] knife [employer] representatives ([employer]) over phone- they requested that Dr. Guan call them. I called Dr Guan by phone and let him know that circular knife cutter machine requested to speak with him directly over phone- [employer] knife cutter machine's contact information given to Dr Guan.
--- NOTE | 2019-09-10 18:00 | NUR ---
NURSE NOTES: Spoke to LUDMILA aNscimento line construction supervisor and let her know that I spoke with Dr Guan and he is aware he needs to call disability insurance claim examiner's office and follow up with them. Pt's body remains in room until further notice from disability insurance claim examiner's.
--- NOTE | 2019-09-10 18:30 | NUR ---
called coronERS TO UP TO DATE SPOKE TO GARETT Sow CORONERS STATED OK TO RELEASE BODY
--- NOTE | 2019-09-10 18:30 | NUR ---
NURSE NOTES: Per Deandra, charge account authorizer - OK with readiness paraprofessional to complete post mortem care and remove all medical devices. Post mortem care completed and Deandra notified.
--- NOTE | 2019-09-10 19:30 | NUR ---
NURSE NOTES: Yu (pt's daughter) at bedside and was given pt's belongings.
--- NOTE | 2019-09-10 20:03 | Nephrology Progress Note ---
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 (10) Sepsis (11) Bacteremia (12) Emesis (13) UTI (urinary tract infection) (14) E coli infection (15) Hypotension Plan hypotensive on pressors, albumin fluids, possible MD intraoperative, orders give , d/w Dr Guan, icu care in progress poor prognosis Subjective ROS Limited/Unobtainable: Yes Subjective nausea and emesis better Objective Objective Last 24 Hour Vital Signs Date Time Temp Pulse Resp B/P (MAP) Pulse Ox O2 Delivery O2 Flow Rate FiO2 09/10/19 15:00 4 12 61/27 (38) 89 09/10/19 14:45 67 12 60/36 (44) 09/10/19 14:30 95 13 87/49 (62) 92 09/10/19 14:15 50 18 59/27 (38) 96 09/10/19 14:00 56 12 73/42 (52) 92 09/10/19 13:45 82 14 69/44 (52) 44 09/10/19 13:45 69/44 09/10/19 13:30 118 22 256/137 (176) 67 09/10/19 13:15 67 13 79/56 (64) 09/10/19 13:00 86 12 48/28 (35) 09/10/19 12:50 127 85/56 09/10/19 12:45 112 14 85/56 (66) 90 09/10/19 12:45 84 09/10/19 12:45 131 16 93 Mechanical Ventilator 100 09/10/19 12:40 131 15 100 09/10/19 12:40 128 12 100 09/10/19 12:30 131 18 80/54 (63) 09/10/19 12:30 Mechanical Ventilator 09/10/19 08:51 83 09/10/19 08:15 98.1 80 20 112/58 (76) 95 09/10/19 08:00 Nasal Cannula 3.0 09/10/19 07:16 98 Nasal Cannula 3.0 32 09/10/19 07:16 79 16 98 Nasal Cannula 3.0 32 09/10/19 04:00 Nasal Cannula 3.0 09/10/19 04:00 98.6 78 20 103/58 (73) 94 09/10/19 04:00 84 09/10/19 03:28 79 146/62 09/10/19 00:00 99.0 79 20 146/62 (90) 94 09/09/19 23:56 78 09/09/19 23:55 Nasal Cannula 3.0 Intake and Output 09/09/19 09/10/19 19:00 07:00 Intake Total 135 ml 355 ml Output Total 0 ml 2050 ml Balance 135 ml -1695 ml Intake Oral 80 ml IV Total 55 ml 355 ml Output Urine Total 0 ml Chest Tube Drainage Total 0 ml 50 ml Hemodialysis UF 2000 ml Laboratory Tests 09/10/19 03:45: White Blood Count 8.2, Red Blood Count 2.68L, Hemoglobin 8.9L, Hematocrit 26.2L , Mean Corpuscular Volume 98, Mean Corpuscular Hemoglobin 33.2H, Mean Corpuscular Hemoglobin Concent 33.9, Red Cell Distribution Width 13.0, Platelet Count 216, Mean Platelet Volume 6.2L, Neutrophils (%) (Auto) 65.9, Lymphocytes ( %) (Auto) 18.3L, Monocytes (%) (Auto) 13.2H, Eosinophils (%) (Auto) 2.0, Basophils (%) (Auto) 0.7, Prothrombin Time 13.4H, Prothromb Time International Ratio 1.2H, Activated Partial Thromboplast Time 43H, Sodium Level 142, Potassium Level 3.5, Chloride Level 101, Carbon Dioxide Level 30, Anion Gap 12, Blood Urea Nitrogen 25H, Creatinine 5.6H, Estimat Glomerular Filtration Rate 12.4, Glucose Level 134H, Calcium Level 8.3L, Random Vancomycin Level 23.7 09/10/19 12:53: Arterial Blood pH 7.280L, Arterial Blood Partial Pressure CO2 23.3*L, Arterial Blood Partial Pressure O2 250.2H, Arterial Blood HCO3 10.7*L, Arterial Blood Oxygen Saturation 98.8, Arterial Blood Base Excess -14.6*L, Abdulaziz Test Positive 09/10/19 13:00: White Blood Count 11.8H, Red Blood Count 2.09L, Hemoglobin 6.8*L, Hematocrit 20.8L, Mean Corpuscular Volume 100H, Mean Corpuscular Hemoglobin 32.4H, Mean Corpuscular Hemoglobin Concent 32.5, Red Cell Distribution Width 13.3, Platelet Count 205, Mean Platelet Volume 5.9L, Neutrophils (%) (Auto) , Lymphocytes (%) ( Auto) , Monocytes (%) (Auto) , Eosinophils (%) (Auto) , Basophils (%) (Auto) , Sodium Level 143, Potassium Level 6.3#*H, Chloride Level 106, Carbon Dioxide Level 14L, Anion Gap 23H, Blood Urea Nitrogen 28H, Creatinine 5.9H, Estimat Glomerular Filtration Rate 11.6, Glucose Level 105, Calcium Level 9.2, Differential Total Cells Counted 100, Neutrophils % (Manual) 58, Lymphocytes % ( Manual) 32, Monocytes % (Manual) 10, Eosinophils % (Manual) 0, Basophils % ( Manual) 0, Band Neutrophils 0, Nucleated Red Blood Cells 2, Platelet Estimate Adequate, Platelet Morphology Normal, Polychromasia 1+, Hypochromasia 1+, Macrocytosis 1+, Ionized Calcium (Measured) 1.13, Phosphorus Level 8.5H, Magnesium Level 3.0H, Total Bilirubin 0.4, Direct Bilirubin 0.2, Aspartate Amino Transf (AST/SGOT) 42H, Alanine Aminotransferase (ALT/SGPT) 28, Alkaline Phosphatase 46, Total Protein 5.8L, Albumin 2.0L Height (Feet): 6 Height (Inches): 0.00 Weight (Pounds): 167 General Appearance: other - postop intubated hypotensive Cardiovascular: regular rhythm Respiratory/Chest: rhonchi - bilaterally Extremities: no edema Neurologic: unresponsive Alan Morgan MD September 10, 2019 20:03
--- NOTE | 2019-09-10 23:00 | Operative Note - Dictated ---
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 POSTOPERATIVE DIAGNOSIS: Left loculated pleural effusion. PROCEDURES PERFORMED: 1. Flexible bronchoscopy. 2. Removal of left tunneled chest tube. 3. Left thoracotomy. 4. Intrapleural pneumolysis. 5. Partial pleurectomy. 6. Decortication. 7. Intercostal nerve block. ANESTHESIA: Double-lumen general anesthesia. INDICATION: The patient is a 64-year-old male who presented to [facility] with a loculated pleural effusion. He was taken to the operating room for the definitive surgical care. The risks and benefits of the proposed operation were explained to the patient including, but not limited to bleeding, infection, blood transfusion, anesthetic complication, and less than 1%. In addition, alternative versus no treatment options were also discussed. The patient fully understands the rationale behind the proposed operation. All questions answered to his satisfaction. DESCRIPTION OF PROCEDURE: After obtaining informed consent, the patient was then brought to the operating room and placed in a supine position and surgical time-out was performed. After induction of general anesthesia, arterial line and central line were placed. A flexible bronchoscope was introduced through the endotracheal tube. The trachea and charo were inspected. The charo was in midline and sharp. The right tracheobronchial tree down to the subsegmental level was grossly normal and no endobronchial lesions were seen. Similarly, the left mainstem bronchus was intubated and no obvious endobronchial lesions were visualized at the subsegmental level. Minimal amount of mucopurulent secretion was lavaged and suctioned clear. The bronchoscope was pulled back and removed. The patient tolerated the procedure well with oxygen saturation greater than 96% throughout the procedure. Next, the patient was then placed in a right lateral decubitus position. The chest tube dressing was then removed. The suture was cut and the left chest tube was removed in standard fashion. The entire left chest was then prepped and draped in the usual sterile fashion. The patient also received preoperative intravenous antibiotics. An 8 cm thoracotomy incision was fashioned. Dissection was then carried down into the subcutaneous tissue. The muscle layer was divided sharply. Entry into the left hemithorax was then done via the 5th intercostal space. After placement of Finochietto retractor, we then proceeded to examine the left intrathoracic chest cavity. Roughly, 1 liter of pleural effusion was then suctioned off from various loculated pockets; a market survey representative section was submitted for microbiology analysis and remaining was sent for cytology. At this point, after freeing the lung from the surrounding chest wall, we then proceeded to examine the fissure and made sure the loculation within the fissures are lysed. A partial pleurectomy was undertaken and this was submitted to microbiology analysis as well as to pathology. Numerous pleural exudate was also harvested during lung mobilization and these exudates were also submitted to microbiologic analysis and pathology. The entire chest was then irrigated with 2 liters of warm saline solution. After suctioning, we then began to perform decortication in the anterior surface in the left upper lobe. This was then carried out posterolaterally. Similar decortication was also performed in the middle as well as the right lower lobe. At the end of the operation, the entire chest was irrigated with 3 liters of warm bacitracin solution. Intercostal nerve block with 40 mL of 0.25% Marcaine was performed from the 2nd to 8th intercostal space in the usual fashion. The Finochietto was then removed. A 28-Stateless chest tube inserted into the left hemithorax and directly at the apex and the chest tube was anchored at the skin level using 2-0 Ethibond suture. The ribs were reapproximated with #2 Vicryl in a [id number] configuration. The lung was allowed to inflate under direct visualization and the pericostal suture was snugged down and tied. The muscular layer was then reapproximated with 0 running Vicryl suture and the thoracotomy wound was reapproximated in 2 layers; the deep layer was approximated with 2-0 running Vicryl and the superficial layer was then reapproximated with 3-0 Vicryl running. The skin was stapled. Dry dressing was applied. At the end of the operation, the patient was noted to be hypotensive and he was resuscitated with fluid and pressor support. The patient was then placed in a supine position and the double-lumen tube was exchanged for a single-lumen tube. He was then transported to the ICU in a guarded condition. EBL: Minimal. SPECIMEN: Submitted is left pleura effusion for microbiology analysis and cytology; left pleural exudate for microbiology analysis and permanent section; left parietal pleura for microbiologic analysis and permanent section. Lozano M.D. DR: Kristen JOB#: [id number] CC: MICHAEL
--- NOTE | 2019-09-11 01:30 | Progress Note ---
DATE: 09/10/2019 The patient's condition has deteriorated. He is now critical and guarded. Following surgical intervention. The patient underwent VATS procedure, but developed postoperative hypotension and is now in the intensive care unit, intubated, on pressor support. He also received significant amount of volume and colloid in the operating room. PHYSICAL EXAMINATION: VITAL SIGNS: Blood pressure 85/56, pulse 112, respirations 14. LUNGS: Bilateral breath sounds with rhonchi on the left. Chest tube in place. CARDIAC: Regular rhythm. Rapid rate. Normal S1, S2. ABDOMEN: Soft. EXTREMITIES: Trace edema. IMPRESSION: 1. Status post thoracotomy, decortication for left loculated pleural effusion. 2. Postoperative shock, sepsis, intravascular hypovolemia. 3. End-stage renal disease. 4. Sinus tachycardia. 5. Acute myocardial ischemia. 6. Paroxysmal atrial fibrillation. PROGNOSIS: Guarded. CONDITION: Critical. PLAN: Pressors, antimicrobials, full ventilator support, proton pump inhibitor, and DVT prophylaxis. Chest tube management per Surgery. We will follow. Manfred Conn M.D. DR: MORAIMA JOB#: [id number] CC:
--- NOTE | 2019-09-11 08:15 | Discharge Summary ---
DATE OF ADMISSION: 08/28/2019 DATE OF DISCHARGE: 09/10/2019 SUMMARY Patient on 09/10/2019. PERTINENT HISTORY: Patient has end-stage renal disease, on dialysis, history of prior CHF, hepatitis C presents with a large left pleural effusion and infiltrates. He has a history of diabetes. PERTINENT PHYSICAL FINDINGS: LUNGS: Showed diminished breath sounds in the bases worse on the left. HEART: Regular rhythm. ABDOMEN: Soft. EXTREMITIES: No edema. COURSE IN THE HOSPITAL: The patient was seen by numerous consultants, was given empiric antibiotics for healthcare-acquired pneumonia and received dialysis in the hospital. He had a very low albumin, received albumin infusions. Had episodes of hypotension, which responded to fluids and albumin. He subsequently had a chest tube placed with drainage and is stabilized and prepared for VATS procedure after seeing by Cardiology, Pulmonary, and Thoracic Surgery consultants. 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 The patient unfortunately underwent a cardiac arrest in the postoperative period, hypotensive on pressors, and never really sustained blood pressure and . FINAL DIAGNOSES: 1. Cardiopulmonary arrest. 2. Cardiomyopathy. 3. End-stage renal disease. 4. Pleural effusion. 5. History of diabetes. 6. History of old CVA. 7. Hepatitis C. 8. Moderate protein-calorie malnutrition. The patient and family was notified. Alan Morgan M.D. DR: PARUL JOB#: [id number] CC: MICHAEL
== END 2019-09-10 15:08 | disposition expired | DRG 163 ==
LOC: EDBD 17:21 → EMR 17:44 → 2E 18:50 → EDBEDREQ 19:00 → 2W 09-02 15:32 → ICU 09-03 09:41 → 2W 09-06 06:00 → ICU 09-10 11:45 → 2W 09-10 12:16 → ICU 09-10 12:43
DX: J18.9 Pneumonia, unspecified organism (principal); N18.6 End stage renal disease; I50.33 Acute on chronic diastolic (congestive) heart failure; G93.41 Metabolic encephalopathy; A41.9 Sepsis, unspecified organism; R65.21 Severe sepsis with septic shock; I13.2 Hypertensive heart and chronic kidney disease with heart failure and with stage 5 chronic kidney disease, or end stage renal disease; J90 Pleural effusion, not elsewhere classified; J98.11 Atelectasis; E44.0 Moderate protein-calorie malnutrition; J44.0 Chronic obstructive pulmonary disease with (acute) lower respiratory infection; N39.0 Urinary tract infection, site not specified; I69.359 Hemiplegia and hemiparesis following cerebral infarction affecting unspecified side; J94.2 Hemothorax; E10.22 Type 1 diabetes mellitus with diabetic chronic kidney disease; Z99.2 Dependence on renal dialysis; Z68.22 Body mass index [BMI] 22.0-22.9, adult; D63.1 Anemia in chronic kidney disease; B19.20 Unspecified viral hepatitis C without hepatic coma; I48.0 Paroxysmal atrial fibrillation; I25.9 Chronic ischemic heart disease, unspecified; E86.1 Hypovolemia
CPT/HCPCS: 36415; 36600; 70450; 71045; 71046; 71250; 80048; 80053; 80076; 80202; 81003; 82024; 82140; 82270; 82330; 82378; 82533; 82550; 82553; 82728; 82803; 82962; 83605; 83615; 83735; 83880; 84100; 84443; 84484; 85007; 85025; 85379; 85610; 85730; 86140; 86803; 86850; 86900; 86901; 86920; 87040; 87070; 87075; 87081; 87086; 87116; 87181; 87205; 87340; 87517; 87635; 92950; 93005; 93306; 93880; 93970; 94002; 94003; 94150; 94664; 96361; 96365; 96368; 99285; J0171; J1815; J2370; J2405; J7030